=== PATIENT | male | born 1960 | race Two or more races ===

== ENCOUNTER 2018-12-06 10:10 | Inpatient (IN) | payer MEDICARE, MEDICAID ==
[~2018-12-06] VITALS: Ht 167.6 cm; Wt 104.9 kg
[2018-12-06] VITALS (12 sets, daily range): BP systolic 99–154; BP diastolic 54–88
--- NOTE | 2018-12-06 10:10 | NUR ---
ED Nurse Note: Pt brought in by ambulance from [facility] for Trach pulled out in shower. Pt restless and agitated and was breathing by ambu-bag support upon arrival. O2 sat 100% with ambu bag support. Alert and awake but was not able to determine orientation status. Skin intact but have not checked the back side due to severe breathing problem which needs to be stablized first. RT and MD at bedside.
--- NOTE | 2018-12-06 10:10 | NUR ---
ED Nurse Note: Ambu bag breathing support was initiated as soon as pt arrived.
--- NOTE | 2018-12-06 10:14 | NUR ---
ED Nurse Note: Etomedate 20mg given via IV
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
--- NOTE | 2018-12-06 10:16 | NUR ---
ED Nurse Note: Trache site is almost closed already, unable to insert Trach back
--- NOTE | 2018-12-06 10:20 | NUR ---
ED Nurse Note: anesthesia paged. VS 142/65, 94, 100% w ambu bag.
--- NOTE | 2018-12-06 10:28 | NUR ---
ED Nurse Note: Etomedate 20mg given
--- NOTE | 2018-12-06 10:30 | NUR ---
ED Nurse Note: Succinylcholine 100mg given via IVP
--- NOTE | 2018-12-06 10:35 | NUR ---
ED Nurse Note: Intubation successful by Dr. Garcia. Addendum: 12/06/18 at 1102 by [email or web address] ED Nurse Note: Intubation successful by Dr. Garcia. ETT 7cm and 24cm noted.
--- NOTE | 2018-12-06 10:41 | NUR ---
ED Nurse Note: Received verbal order for profopol and initianted at 5mcg/kg/min.
--- NOTE | 2018-12-06 10:51 | NUR ---
Note mahogany in EDM - 12/06/18 at 1102 by [email or web address] ED Nurse Note: ETT 6.0 and 25cm noted.
--- NOTE | 2018-12-06 11:00 | NUR ---
RESPIRATORY NOTE: FIO2 WAS TITRATED TO 30% PER DR GARZA ORDERS. ABG TO FOLLOW. OPA INSERTED TO PREVENT AND SECURED TO PREVENT PT. FROM BITTING TUBE. NO SOB NOTED AT THIS TIME.
[2018-12-06 11:14] LABS: BASOPHILS % (AUTO) 1.1 % (0.0-2.0); EOSINOPHILS % (AUTO) 3.3 % (0.0-3.0); HEMATOCRIT 31.9 % (42.0-52.0); HEMOGLOBIN 10.7 G/DL (14.2-18.0); LYMPHOCYTES % (AUTO) 14.5 % (20.0-45.0); MEAN CORPUSCULAR VOLUME 94 FL (80-99); MONOCYTES % (AUTO) 7.2 % (1.0-10.0); NEUTROPHILS % (AUTO) 73.9 % (45.0-75.0); PLATELET COUNT 407 K/UL (150-450); RED CELL DISTRIBUTION WIDTH 16.4 % (11.6-14.8); WHITE BLOOD COUNT 13.8 K/UL (4.8-10.8)
[2018-12-06 11:25] LABS: INR 1.2 (0.9-1.1)
[2018-12-06 11:29] LABS: ANION GAP 9 mmol/L (5-15); BLOOD UREA NITROGEN 87 mg/dL (7-18); CALCIUM 10.2 MG/DL (8.5-10.1); CARBON DIOXIDE 26 MMOL/L (21-32); CHLORIDE 97 MMOL/L (98-107); POTASSIUM 4.3 MMOL/L (3.5-5.1); SODIUM 132 MMOL/L (136-145)
[2018-12-06 11:35] LABS: ALANINE AMINOTRANSFERASE 16 U/L (12-78); ALBUMIN 3.1 G/DL (3.4-5.0); ALBUMIN/GLOBULIN RATIO 0.5 (1.0-2.7); ALKALINE PHOSPHATASE 172 U/L (46-116); ASPARTATE AMINO TRANSFERASE 17 U/L (15-37); BILIRUBIN,TOTAL 0.4 MG/DL (0.2-1.0)
--- NOTE | 2018-12-06 11:37 | Diagnostic Imaging Report ---
Indication: ETT placement Comparison: None A single view chest radiograph was obtained. Findings: ETT is 3 cm above the clint. Examination is limited by lordotic projection angle. No obvious infiltrate identified. Heart size is prominent but may be normal. Pacemaker is noted. IMPRESSION: Endotracheal tube in good position
--- NOTE | 2018-12-06 11:50 | NUR ---
ED Nurse Note: OPA, red, size 4 is inserted by RT due to pt bitting ETT.
[2018-12-06] MEDS ORDERED: LISINOPRIL2.5 MG GT (11:59)
[2018-12-06] MEDS ORDERED: METFORMIN HCL500 M1 GT (11:59)
[2018-12-06] MEDS ORDERED: ELIQUIS5 MG GT (11:59)
[2018-12-06] MEDS ORDERED: COLACE100 MG GT (11:59)
[2018-12-06] MEDS ORDERED: ALBUTEROL2.5 MG/3 M INH (11:59)
[2018-12-06] MEDS ORDERED: ATORVASTATIN CA40 MG ORAL (11:59)
[2018-12-06] MEDS ORDERED: PRO-STAT LIQUID30 ML GT (11:59)
[2018-12-06] MEDS ORDERED: VITAMIN C500 M1 GT (11:59)
[2018-12-06] MEDS ORDERED: KEPPRA1000 MG GT (11:59)
[2018-12-06] MEDS ORDERED: CARVEDILOL12.5 MG GT (11:59)
[2018-12-06] MEDS ORDERED: FAMOTIDINE20 MG GT (11:59)
[2018-12-06] MEDS ORDERED: AMIODARONE HCL100 MG GT (11:59)
[2018-12-06] MEDS ORDERED: FOLIC ACID1 MG GT (11:59)
[2018-12-06] MEDS ORDERED: ACETAMINOPHEN325 M1 GT (11:59)
[2018-12-06] MEDS ORDERED: MILK OF MA400 MG/51 GT (11:59)
[2018-12-06] MEDS ORDERED: MULTI-DELYN237 ML GT (11:59)
[2018-12-06] MEDS ORDERED: ALLOPURINOL300 M1 GT (11:59)
[2018-12-06] MEDS ORDERED: LANTUS SOL100 UNIT/1 SUBQ (11:59)
[2018-12-06] MEDS ORDERED: VITAMIN D400 INTLU IABDOM (11:59)
[2018-12-06] MEDS ORDERED: SPIRONOLACTONE25 MG GT (11:59)
[2018-12-06] MEDS ORDERED: FUROSEMIDE20 M1 GT (11:59)
--- NOTE | 2018-12-06 12:29 | Emergency Room Report ---
History of Present Illness General Chief Complaint: Dyspnea/Respdistress Source: Medical Record, EMS Present Illness HPI 58-year-old male comes via EMS with [facility] out his trach while in the shower. Patient is being bag mask ventilated and is not talking at all. Allergies: Coded Allergies: No Known Allergies (Unverified , 12/06/18) Patient History Past Medical History: see triage record Reviewed Nursing Documentation: PMH: Agreed; PSxH: Agreed Nursing Documentation-PMH Hx Cardiac Problems: Yes - ashd Hx COPD: Yes - trach,vent Review of Systems All Other Systems: limited - 11/16 distress/medical condition Physical Exam Vital Signs Date Time Temp Pulse Resp B/P (MAP) Pulse Ox O2 Delivery O2 Flow Rate FiO2 12/06/18 10:16 0 17 95 Ambu-Bag 12/06/18 10:20 142/65 12/06/18 10:25 15.0 12/06/18 10:35 100 Sp02 EP Interpretation: reviewed, normal General Appearance: alert, severe distress Head: normocephalic Eyes: bilateral eye normal inspection, bilateral eye EOMI ENT: normal pharynx, no angioedema, uvula midline, moist mucus membranes Neck: full range of motion, supple, tracheotomy - stoma/site completely closed with dried blood and tissue Respiratory: lungs clear, normal breath sounds, chest symmetrical, palpation of chest normal Cardiovascular #1: normal peripheral pulses, regular rate, rhythm, other - PPM site c/d/i Cardiovascular #2: 2+ radial (R), 2+ radial (L) Gastrointestinal: normal inspection, non tender, soft, no mass, no guarding, no rebound Rectal: deferred Genitourinary: normal inspection, no CVA tenderness Musculoskeletal: back normal, gait/station normal, normal range of motion, non- tender, no calf tenderness Neurologic: alert, responsive, motor strength/tone normal, speech normal Psychiatric: anxious Skin: normal color, no rash, warm/dry, normal turgor Lymphatic: no adenopathy Procedures Critical Care Time Critical Care Time 45 mins excluding all procedures Intubation Intubation : Consent: Emergent Intubation Method: orotracheal Tube Size (cm): 7.0 Medications: Etomidate, Succinylcholine Breath Sounds after Intubation: equal Intubation Complications: no complications Post Intubation Xray: Yes Attempts: Other - 2 Patient Tolerated: Well Complications: None Progress Patient was initially given etomidate And we were able to bag mask ventilated the entire time, O2 sats never dropped below 90, however I was initially hesitant to paralyze the patient, and could not pass the tube so just resumed BVM. Later, after finding out gen surgery was not in house, I went ahead and gave a second dose of etomidate then paralyzed, this time able to pass the ETT adn secured at 24 at the lips, no complications. Medical Decision Making Diagnostic Impression: Primary Impression: Respiratory distress ER Course Patient trach and PEG dependent, follow-up trach, stomal closes up, need emergent intubation, was a bag mask ventilated entire time, nasal intubation, and admitted to Dr. Martinez Rhythm Strip Diag. Results Rhythm Strip Time: 12:28 EP Interpretation: yes Rate: 90 Rhythm: no PVC's, no ectopy, other - paced Chest X-Ray Diagnostic Results Chest X-Ray Diagnostic Results : Chest X-Ray Ordered: Yes # of Views/Limited/Complete: 1 View Indication: Shortness of Breath EP Interpretation: Yes Interpretation: no consolidation, no effusion, no pneumothorax, no acute cardiopulmonary disease - ETT in place Impression: No acute disease Electronically Signed by: Shruthi Garza MD Last Vital Signs Date Time Temp Pulse Resp B/P (MAP) Pulse Ox O2 Delivery O2 Flow Rate FiO2 12/06/18 11:55 20 139/78 Mechanical Ventilator 30 12/06/18 11:00 89 12/06/18 10:25 15.0 12/06/18 10:20 100 Disposition: HOME, SELF-CARE Condition: Stable Referrals: Larry Li MD (PCP) SHRUTHI GARZA M.D Dec 06, 2018 12:29
--- NOTE | 2018-12-06 13:45 | NUR ---
ED Nurse Note: Report given to TEAGAN Capellan @ ICU.
--- NOTE | 2018-12-06 14:20 | NUR ---
ED Nurse Note: Pt left ER with 1 computer aided design technician, 1 RN, 1 RT in stable condition.
--- NOTE | 2018-12-06 14:31 | NUR ---
ED Nurse Note: TEAGAN Oates received pt Propofol Rate at 25mcg and pt lightly sedated.
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
--- NOTE | 2018-12-06 15:11 | NUR ---
NURSE NOTES: Dr Martinez made aware of admission with order to call Dr Garner for orders. Dr Garner made aware awaiting new orders.
--- NOTE | 2018-12-06 15:42 | Consultation ---
History of Present Illness General Date patient seen: Dec 06, 2018 Reason for Hospitalization: Dyspnea/Respdistress Present Illness HPI 58 year old male with multiple medical comorbidities who is half-way resident presented with dislodged trach. In ED bag mask oxygen given as required and intubated for airway protection given history of respiratory insufficiency with vent dependency. surgery called to evaluate and assist with replacement of trach Allergies: Coded Allergies: No Known Allergies (Unverified , 12/06/18) Medication History Scheduled Allopurinol* (Allopurinol*), 300 MG GT DAILY, (Reported) Amino Acids/Protein Hydrolys (Pro-Stat Liquid), 30 ML GT TWICE A DAY, (Reported) Amiodarone Hcl (Amiodarone Hcl), 100 MG GT DAILY, (Reported) Ascorbic Acid* (Vitamin C*), 500 MG GT DAILY, (Reported) Atorvastatin Calcium* (Atorvastatin Calcium*), 40 MG ORAL BEDTIME, (Reported) Carvedilol* (Carvedilol*), 12.5 MG GT EVERY 12 HOURS, (Reported) Docusate Sodium* (Colace*), 100 MG GT DAILY, (Reported) Famotidine (Famotidine), 20 MG GT DAILY, (Reported) Folic Acid* (Folic Acid*), 1 MG GT DAILY, (Reported) Furosemide* (Lasix*), 20 MG GT BID, (Reported) Insulin Glargine (Lantus), 0 SUBQ BEDTIME, (Reported) Levetiracetam (Keppra), 1,000 MG GT DAILY, (Reported) Lisinopril* (Lisinopril*), 2.5 MG GT DAILY, (Reported) Magnesium Hydroxide* (Milk Of Magnesia*), 30 ML GT DAILY, (Reported) Metformin Hcl* (Metformin Hcl*), 500 MG GT TWICE A DAY, (Reported) Multivitamin Liquid* (Multi-Delyn*), 5 ML GT DAILY, (Reported) Spironolactone* (Aldactone*), 25 MG GT DAILY, (Reported) Vitamin D (Vitamin D3), 5,000 UNITS IABDOM DAILY, (Reported) Scheduled PRN Acetaminophen* (Acetaminophen 325MG Tablet*), 650 MG GT Q4H PRN for Pain Scale ( 3-5), (Reported) Albuterol Sulfate* (Albuterol Sulfate Hhn*), 3 ML INH Q4H PRN for Shortness of Breath, (Reported) Miscellaneous Medications Apixaban (Eliquis), 5 MG GT, (Reported) Patient History Limited by: medical condition History Provided By: Medical Record, PMD Healthcare decision maker Resuscitation status Advanced Directive on File Past Medical/Surgical History Past Medical/Surgical History: (1) Respiratory distress Review of Systems Review of Symptoms cannot obtain given medical condition Physical Exam Physical Exam General appearance: alert, mild distress, appears stated age Head: Normocephalic, without obvious abnormality, atraumatic Eyes: conjunctivae/corneas clear. PERRL, EOM's intact. Fundi benign Throat: Lips, mucosa, and tongue normal. Teeth and gums normal Neck: supple, symmetrical, trachea midline with trach hole right lateral to trachea, no adenopathy, thyroid: not enlarged, symmetric, no tenderness/mass/ nodules, no carotid bruit and no JVD Lungs: clear to auscultation bilaterally Heart: regular rate and rhythm, S1, S2 normal, no murmur, click, rub or gallop Abdomen: soft, non-tender. Bowel sounds normal. No masses, no organomegaly Extremities: extremities normal, atraumatic, no cyanosis or edema Pulses: 2+ and symmetric Skin: Skin color, texture, turgor normal. No rashes or lesions Neurologic: Grossly normal Last 24 Hour Vital Signs Date Time Temp Pulse Resp B/P (MAP) Pulse Ox O2 Delivery O2 Flow Rate FiO2 12/06/18 14:20 97.7 92 20 99/54 100 Mechanical Ventilator 15.0 30 12/06/18 14:20 97.7 92 20 99/54 100 Mechanical Ventilator 12/06/18 13:40 16 99/59 Mechanical Ventilator 30 12/06/18 13:27 97.7 95 12 131/70 100 Mechanical Ventilator 30 12/06/18 13:25 12 95/63 Mechanical Ventilator 30 12/06/18 13:10 15 113/77 Mechanical Ventilator 12/06/18 12:55 12 109/83 Mechanical Ventilator 30 12/06/18 12:40 12 125/76 Mechanical Ventilator 30 12/06/18 12:25 19 122/72 Mechanical Ventilator 30 12/06/18 12:20 92 20 132/88 100 Mechanical Ventilator 100 12/06/18 12:10 20 132/88 Mechanical Ventilator 30 12/06/18 11:55 20 139/78 Mechanical Ventilator 30 12/06/18 11:40 20 99/66 Mechanical Ventilator 100 12/06/18 11:25 16 113/65 Mechanical Ventilator 100 12/06/18 11:20 90 18 104/76 100 Mechanical Ventilator 100 12/06/18 11:10 16 104/76 Mechanical Ventilator 100 12/06/18 11:00 100 12/06/18 11:00 89 18 30 12/06/18 10:55 24 154/83 Mechanical Ventilator 100 12/06/18 10:35 89 19 Mechanical Ventilator 12/06/18 10:35 89 19 100 12/06/18 10:25 88 21 Ambu-Bag 15.0 12/06/18 10:20 94 12 142/65 100 Ambu-Bag 12/06/18 10:16 97.2 0 17 99/65 95 Ambu-Bag Laboratory Tests Test 12/06/18 10:30 12/06/18 12:20 White Blood Count 13.8 K/UL (4.8-10.8) H Red Blood Count 3.40 M/UL (4.70-6.10) L Hemoglobin 10.7 G/DL (14.2-18.0) L Hematocrit 31.9 % (42.0-52.0) L Mean Corpuscular Volume 94 FL (80-99) Mean Corpuscular Hemoglobin 31.6 PG (27.0-31.0) H Mean Corpuscular Hemoglobin Concent 33.6 G/DL (32.0-36.0) Red Cell Distribution Width 16.4 % (11.6-14.8) H Platelet Count 407 K/UL (150-450) Mean Platelet Volume 6.9 FL (6.5-10.1) Neutrophils (%) (Auto) 73.9 % (45.0-75.0) Lymphocytes (%) (Auto) 14.5 % (20.0-45.0) L Monocytes (%) (Auto) 7.2 % (1.0-10.0) Eosinophils (%) (Auto) 3.3 % (0.0-3.0) H Basophils (%) (Auto) 1.1 % (0.0-2.0) Prothrombin Time 12.4 SEC (9.30-11.50) H Prothromb Time International Ratio 1.2 (0.9-1.1) H Activated Partial Thromboplast Time 32 SEC (23-33) Sodium Level 132 MMOL/L (136-145) L Potassium Level 4.3 MMOL/L (3.5-5.1) Chloride Level 97 MMOL/L (98-107) L Carbon Dioxide Level 26 MMOL/L (21-32) Anion Gap 9 mmol/L (5-15) Blood Urea Nitrogen 87 mg/dL (7-18) H Creatinine 2.0 MG/DL (0.55-1.30) H Estimat Glomerular Filtration Rate 34.3 mL/min (>60) Glucose Level 129 MG/DL (74-106) H Calcium Level 10.2 MG/DL (8.5-10.1) H Total Bilirubin 0.4 MG/DL (0.2-1.0) Aspartate Amino Transf (AST/SGOT) 17 U/L (15-37) Alanine Aminotransferase (ALT/SGPT) 16 U/L (12-78) Alkaline Phosphatase 172 U/L (46-116) H Total Protein 9.1 G/DL (6.4-8.2) H Albumin 3.1 G/DL (3.4-5.0) L Globulin 6.0 g/dL Albumin/Globulin Ratio 0.5 (1.0-2.7) L Triglycerides Level 186 MG/DL (30-150) H Arterial Blood pH 7.426 (7.350-7.450) Arterial Blood Partial Pressure CO2 37.6 mmHg (35.0-45.0) Arterial Blood Partial Pressure O2 96.5 mmHg (75.0-100.0) Arterial Blood HCO3 24.2 mmol/L (22.0-26.0) Arterial Blood Oxygen Saturation 97.0 % (95-100) Arterial Blood Base Excess 0 (-2-2) Agustin Test Positive Height (Feet): 5 Height (Inches): 8.00 Weight (Pounds): 280 Assessment/Plan Problem List: (1) Respiratory distress Assessment & Plan: Tracheostomy dislodged intubated for airway protection seen in ICU minutes after. per history trach for months now. per report only dislodged for 30-40 minutes when seen at bedside 1cm healing tracheostomy site seen. evaluated and probed but no proper trach track could be noted. should be able to have well formed track by now and should easily be able to palpate ET tube but unable to do so on exam. Not sure if prior attempts to manipulation or new trach placement was done prior to arrival to hospital and no report of this given. currently no safe track seen for replacement trach. recommend stabilization once stable will schedule to replace tracheostomy in OR under safe and controlled setting. will plan for bronchostomy first and possible trach replacement vs new trach placement. likely sunday thank you ICD Codes: R06.03 - Acute respiratory distress SNOMED: [id number] Tae Allen Dec 06, 2018 15:42
--- NOTE | 2018-12-06 16:02 | Pulmonolgy Critical Care Note ---
Critical Care - Asmt/Plan Problems: (1) Acute respiratory failure (2) Diabetes mellitus (3) ICD (implantable cardioverter-defibrillator) in place (4) History of CVA (cerebrovascular accident) (5) Feeding by G-tube Respiratory: monitor respiratory rate, adjust FIO2, CXR Cardiac: continue pressors, continue to monitor HR/BP Renal: F/U I&O Infectious Disease: check cultures, continue antibiotics Gastrointestinal: adjust feedings Endocrine: monitor blood sugar Hematologic: monitor H/H, transfuse if hgb<8.5 Neurologic: PRN Ativan, PRN Morphine, keep patient comfortable Affect: PRN ativan Time Spent (Minutes): 40 Notes Reviewed: councilman, cardio Discussed with: consultants, mental health case managerquarrying manager - Objective Last 24 Hour Vital Signs Date Time Temp Pulse Resp B/P (MAP) Pulse Ox O2 Delivery O2 Flow Rate FiO2 12/06/18 14:20 97.7 92 20 99/54 100 Mechanical Ventilator 15.0 30 12/06/18 14:20 97.7 92 20 99/54 100 Mechanical Ventilator 30 12/06/18 13:40 16 99/59 Mechanical Ventilator 30 12/06/18 13:27 97.7 95 12 131/70 100 Mechanical Ventilator 30 12/06/18 13:25 12 95/63 Mechanical Ventilator 30 12/06/18 13:10 15 113/77 Mechanical Ventilator 30 12/06/18 12:55 12 109/83 Mechanical Ventilator 30 12/06/18 12:40 12 125/76 Mechanical Ventilator 30 12/06/18 12:25 19 122/72 Mechanical Ventilator 30 12/06/18 12:20 92 20 132/88 100 Mechanical Ventilator 100 12/06/18 12:10 20 132/88 Mechanical Ventilator 30 12/06/18 11:55 20 139/78 Mechanical Ventilator 30 12/06/18 11:40 20 99/66 Mechanical Ventilator 100 12/06/18 11:25 16 113/65 Mechanical Ventilator 100 12/06/18 11:20 90 18 104/76 100 Mechanical Ventilator 100 12/06/18 11:10 16 104/76 Mechanical Ventilator 100 12/06/18 11:00 100 12/06/18 11:00 89 18 30 12/06/18 10:55 24 154/83 Mechanical Ventilator 100 12/06/18 10:35 89 19 Mechanical Ventilator 12/06/18 10:35 89 19 100 12/06/18 10:25 88 21 Ambu-Bag 15.0 12/06/18 10:20 94 12 142/65 100 Ambu-Bag 12/06/18 10:16 97.2 0 17 99/65 95 Ambu-Bag Status: sedated, somnolent Condition: critical HEENT: atraumatic Heart: HR/BP stable, regular Abdomen: non-tender Extremities: no C/C/E, edema Critical Care - Subjective ROS Limited/Unobtainable: Yes Interval Events: 58-year-old male comes brought in by EMS to ER from care home because he apparently pulled out his trach . Patient was being bagged whenhe arrived to ER. He was orally intubated and transferred to ICU. Condition: critical EKG Rhythm: V-Paced FI02: 30 Vent Support Breath Rate: 16 Vent Support Mode: AC Vent Tidal Volume: 600 Sputum Amount: Large PEEP: 5.0 PIP: 30 CXR: trach in place ET-Tube: 24.0 ET Position: 24 Labs: Laboratory Tests Test 12/06/18 10:30 12/06/18 12:20 White Blood Count 13.8 K/UL (4.8-10.8) H Red Blood Count 3.40 M/UL (4.70-6.10) L Hemoglobin 10.7 G/DL (14.2-18.0) L Hematocrit 31.9 % (42.0-52.0) L Mean Corpuscular Volume 94 FL (80-99) Mean Corpuscular Hemoglobin 31.6 PG (27.0-31.0) H Mean Corpuscular Hemoglobin Concent 33.6 G/DL (32.0-36.0) Red Cell Distribution Width 16.4 % (11.6-14.8) H Platelet Count 407 K/UL (150-450) Mean Platelet Volume 6.9 FL (6.5-10.1) Neutrophils (%) (Auto) 73.9 % (45.0-75.0) Lymphocytes (%) (Auto) 14.5 % (20.0-45.0) L Monocytes (%) (Auto) 7.2 % (1.0-10.0) Eosinophils (%) (Auto) 3.3 % (0.0-3.0) H Basophils (%) (Auto) 1.1 % (0.0-2.0) Prothrombin Time 12.4 SEC (9.30-11.50) H Prothromb Time International Ratio 1.2 (0.9-1.1) H Activated Partial Thromboplast Time 32 SEC (23-33) Sodium Level 132 MMOL/L (136-145) L Potassium Level 4.3 MMOL/L (3.5-5.1) Chloride Level 97 MMOL/L (98-107) L Carbon Dioxide Level 26 MMOL/L (21-32) Anion Gap 9 mmol/L (5-15) Blood Urea Nitrogen 87 mg/dL (7-18) H Creatinine 2.0 MG/DL (0.55-1.30) H Estimat Glomerular Filtration Rate 34.3 mL/min (>60) Glucose Level 129 MG/DL (74-106) H Calcium Level 10.2 MG/DL (8.5-10.1) H Total Bilirubin 0.4 MG/DL (0.2-1.0) Aspartate Amino Transf (AST/SGOT) 17 U/L (15-37) Alanine Aminotransferase (ALT/SGPT) 16 U/L (12-78) Alkaline Phosphatase 172 U/L (46-116) H Total Protein 9.1 G/DL (6.4-8.2) H Albumin 3.1 G/DL (3.4-5.0) L Globulin 6.0 g/dL Albumin/Globulin Ratio 0.5 (1.0-2.7) L Triglycerides Level 186 MG/DL (30-150) H Arterial Blood pH 7.426 (7.350-7.450) Arterial Blood Partial Pressure CO2 37.6 mmHg (35.0-45.0) Arterial Blood Partial Pressure O2 96.5 mmHg (75.0-100.0) Arterial Blood HCO3 24.2 mmol/L (22.0-26.0) Arterial Blood Oxygen Saturation 97.0 % (95-100) Arterial Blood Base Excess 0 (-2-2) Agustin Test Positive Yudy Garner MD Dec 06, 2018 16:02
--- NOTE | 2018-12-06 16:03 | NUR ---
NURSE NOTES: Mouth care done.Kept clean and dry. Will continue to monitor
--- NOTE | 2018-12-06 16:36 | Consultation ---
History of Present Illness General Date patient seen: Dec 06, 2018 Chief Complaint: Dyspnea/Respdistress Present Illness HPI 58 y/o M with hx of COPD, chronic respiratory failure s/p trach, dysphagia s/p GT, gout, NH resident presents to ED on 12/06 with dislodged trach. Trach couldnt be reinserted and patient was endotracheally intubated. Allergies: Coded Allergies: No Known Allergies (Unverified , 12/06/18) Medication History Scheduled Allopurinol* (Allopurinol*), 300 MG GT DAILY, (Reported) Amino Acids/Protein Hydrolys (Pro-Stat Liquid), 30 ML GT TWICE A DAY, (Reported) Amiodarone Hcl (Amiodarone Hcl), 100 MG GT DAILY, (Reported) Ascorbic Acid* (Vitamin C*), 500 MG GT DAILY, (Reported) Atorvastatin Calcium* (Atorvastatin Calcium*), 40 MG ORAL BEDTIME, (Reported) Carvedilol* (Carvedilol*), 12.5 MG GT EVERY 12 HOURS, (Reported) Docusate Sodium* (Colace*), 100 MG GT DAILY, (Reported) Famotidine (Famotidine), 20 MG GT DAILY, (Reported) Folic Acid* (Folic Acid*), 1 MG GT DAILY, (Reported) Furosemide* (Lasix*), 20 MG GT BID, (Reported) Insulin Glargine (Lantus), 0 SUBQ BEDTIME, (Reported) Levetiracetam (Keppra), 1,000 MG GT DAILY, (Reported) Lisinopril* (Lisinopril*), 2.5 MG GT DAILY, (Reported) Magnesium Hydroxide* (Milk Of Magnesia*), 30 ML GT DAILY, (Reported) Metformin Hcl* (Metformin Hcl*), 500 MG GT TWICE A DAY, (Reported) Multivitamin Liquid* (Multi-Delyn*), 5 ML GT DAILY, (Reported) Spironolactone* (Aldactone*), 25 MG GT DAILY, (Reported) Vitamin D (Vitamin D3), 5,000 UNITS IABDOM DAILY, (Reported) Scheduled PRN Acetaminophen* (Acetaminophen 325MG Tablet*), 650 MG GT Q4H PRN for Pain Scale ( 3-5), (Reported) Albuterol Sulfate* (Albuterol Sulfate Hhn*), 3 ML INH Q4H PRN for Shortness of Breath, (Reported) Miscellaneous Medications Apixaban (Eliquis), 5 MG GT, (Reported) Patient History Healthcare decision maker Resuscitation status Advanced Directive on File Patient History Narrative Pmhx: as above Shx: reviewed Fhx: non contributory Review of Systems All Other Systems: negative except mentioned in HPI Physical Exam Physical Exam Narrative General appearance: alert, mild distress, appears stated age Head: Normocephalic, without obvious abnormality, atraumatic Eyes: conjunctivae/corneas clear. PERRL, EOM's intact. Fundi benign Throat: Lips, mucosa, and tongue normal. Teeth and gums normal Neck: supple, symmetrical, trachea midline with trach hole right lateral to trachea, no adenopathy, thyroid: not enlarged, symmetric, no tenderness/mass/ nodules, no carotid bruit and no JVD Lungs: clear to auscultation bilaterally Heart: regular rate and rhythm, S1, S2 normal, no murmur, click, rub or gallop Abdomen: soft, non-tender. Bowel sounds normal. No masses, no organomegaly Extremities: extremities normal, atraumatic, no cyanosis or edema Pulses: 2+ and symmetric Skin: Skin color, texture, turgor normal. No rashes or lesions Neurologic: Grossly normal Last 24 Hour Vital Signs Date Time Temp Pulse Resp B/P (MAP) Pulse Ox O2 Delivery O2 Flow Rate FiO2 12/06/18 15:00 Mechanical Ventilator 12/06/18 14:20 97.7 92 20 99/54 100 Mechanical Ventilator 15.0 30 12/06/18 14:20 97.7 92 20 99/54 100 Mechanical Ventilator 30 12/06/18 13:40 16 99/59 Mechanical Ventilator 30 12/06/18 13:27 97.7 95 12 131/70 100 Mechanical Ventilator 30 12/06/18 13:25 12 95/63 Mechanical Ventilator 30 12/06/18 13:10 15 113/77 Mechanical Ventilator 30 12/06/18 12:55 12 109/83 Mechanical Ventilator 30 12/06/18 12:40 12 125/76 Mechanical Ventilator 30 12/06/18 12:25 19 122/72 Mechanical Ventilator 30 12/06/18 12:20 92 20 132/88 100 Mechanical Ventilator 100 12/06/18 12:10 20 132/88 Mechanical Ventilator 30 12/06/18 11:55 20 139/78 Mechanical Ventilator 30 12/06/18 11:40 20 99/66 Mechanical Ventilator 100 12/06/18 11:25 16 113/65 Mechanical Ventilator 100 12/06/18 11:20 90 18 104/76 100 Mechanical Ventilator 100 12/06/18 11:10 16 104/76 Mechanical Ventilator 100 12/06/18 11:00 100 12/06/18 11:00 89 18 30 12/06/18 10:55 24 154/83 Mechanical Ventilator 100 12/06/18 10:35 89 19 Mechanical Ventilator 12/06/18 10:35 89 19 100 12/06/18 10:25 88 21 Ambu-Bag 15.0 12/06/18 10:20 94 12 142/65 100 Ambu-Bag 12/06/18 10:16 97.2 0 17 99/65 95 Ambu-Bag Laboratory Tests Test 12/06/18 10:30 12/06/18 12:20 White Blood Count 13.8 K/UL (4.8-10.8) H Red Blood Count 3.40 M/UL (4.70-6.10) L Hemoglobin 10.7 G/DL (14.2-18.0) L Hematocrit 31.9 % (42.0-52.0) L Mean Corpuscular Volume 94 FL (80-99) Mean Corpuscular Hemoglobin 31.6 PG (27.0-31.0) H Mean Corpuscular Hemoglobin Concent 33.6 G/DL (32.0-36.0) Red Cell Distribution Width 16.4 % (11.6-14.8) H Platelet Count 407 K/UL (150-450) Mean Platelet Volume 6.9 FL (6.5-10.1) Neutrophils (%) (Auto) 73.9 % (45.0-75.0) Lymphocytes (%) (Auto) 14.5 % (20.0-45.0) L Monocytes (%) (Auto) 7.2 % (1.0-10.0) Eosinophils (%) (Auto) 3.3 % (0.0-3.0) H Basophils (%) (Auto) 1.1 % (0.0-2.0) Prothrombin Time 12.4 SEC (9.30-11.50) H Prothromb Time International Ratio 1.2 (0.9-1.1) H Activated Partial Thromboplast Time 32 SEC (23-33) Sodium Level 132 MMOL/L (136-145) L Potassium Level 4.3 MMOL/L (3.5-5.1) Chloride Level 97 MMOL/L (98-107) L Carbon Dioxide Level 26 MMOL/L (21-32) Anion Gap 9 mmol/L (5-15) Blood Urea Nitrogen 87 mg/dL (7-18) H Creatinine 2.0 MG/DL (0.55-1.30) H Estimat Glomerular Filtration Rate 34.3 mL/min (>60) Glucose Level 129 MG/DL (74-106) H Calcium Level 10.2 MG/DL (8.5-10.1) H Total Bilirubin 0.4 MG/DL (0.2-1.0) Aspartate Amino Transf (AST/SGOT) 17 U/L (15-37) Alanine Aminotransferase (ALT/SGPT) 16 U/L (12-78) Alkaline Phosphatase 172 U/L (46-116) H Total Protein 9.1 G/DL (6.4-8.2) H Albumin 3.1 G/DL (3.4-5.0) L Globulin 6.0 g/dL Albumin/Globulin Ratio 0.5 (1.0-2.7) L Triglycerides Level 186 MG/DL (30-150) H Arterial Blood pH 7.426 (7.350-7.450) Arterial Blood Partial Pressure CO2 37.6 mmHg (35.0-45.0) Arterial Blood Partial Pressure O2 96.5 mmHg (75.0-100.0) Arterial Blood HCO3 24.2 mmol/L (22.0-26.0) Arterial Blood Oxygen Saturation 97.0 % (95-100) Arterial Blood Base Excess 0 (-2-2) Agustin Test Positive Height (Feet): 5 Height (Inches): 8.00 Weight (Pounds): 280 Medications Current Medications Medications (Trade) Dose Ordered Sig/Sophie Route PRN Reason Start Time Stop Time Status Last Admin Dose Admin Acetaminophen (Tylenol) 650 mg Q4H PRN ORAL fever 12/06/18 16:00 01/05/19 15:59 UNV Albuterol/ Ipratropium (Albuterol/ Ipratropium) 3 ml EVERY 4 HOURS PRN HHN Shortness of Breath 12/06/18 16:00 12/11/18 15:59 UNV Allopurinol (Allopurinol) 300 mg DAILY GT 12/07/18 09:00 01/06/19 08:59 UNV Amikacin Sulfate / Sodium Chloride 110 ml @ 110 mls/hr Q24H IV 12/06/18 23:45 12/13/18 23:44 UNV Amiodarone HCl (Cordarone) 100 mg DAILY GT 12/07/18 09:00 01/06/19 08:59 UNV Carvedilol (Coreg) 12.5 mg EVERY 12 HOURS GT 12/06/18 21:00 01/05/19 20:59 UNV Ertapenem 1 gm/ Sodium Chloride 55 ml @ 110 mls/hr Q24H IV 12/06/18 23:45 12/11/18 23:44 UNV Heparin Sodium (Porcine) (Heparin 5000 units/ml) 5,000 units EVERY 12 HOURS SUBQ 12/06/18 21:00 01/05/19 20:59 UNV Levetiracetam (Keppra) 1,000 mg DAILY GT 12/07/18 09:00 01/06/19 08:59 UNV Lorazepam (Ativan 2mg/ml 1ml) 2 mg EVERY 2 HOURS PRN IV For Anxiety 12/06/18 16:00 12/13/18 15:59 UNV Morphine Sulfate (Morphine Sulfate) 4 mg EVERY 4 HOURS PRN IVP Severe Pain (Pain Scale 7-10) 12/06/18 16:00 12/13/18 15:59 UNV Norepinephrine Bitartrate 4 mg/ Dextrose 254 ml @ 0 mls/hr Q24H IV 12/06/18 16:00 01/05/19 15:59 UNV Ondansetron HCl (Zofran) 4 mg Q6H PRN IVP Nausea & Vomiting 12/06/18 16:00 01/05/19 15:59 UNV Pantoprazole (Protonix) 40 mg DAILY IVP 12/07/18 09:00 01/06/19 08:59 UNV Polyethylene Glycol (Miralax) 17 gm DAILYPRN PRN ORAL Constipation 12/06/18 16:00 01/05/19 15:59 UNV Sodium Chloride 1,000 ml @ 100 mls/hr Q10H IVLG 12/06/18 15:59 01/05/19 15:58 UNV Vancomycin HCl 1 gm/Dextrose 275 ml @ 183.3 mls/ hr Q24H IV 12/06/18 23:45 12/11/18 23:44 UNV Assessment/Plan Assessment/Plan Abx: IV Vancomycin 12/06- Ertapenem 12/06- Amikacin 12/06- Assessment: Dislodged trach Acute respiratory failure s/p intubation 12/06 -CXR: No obvious infiltrate identified. MIld leukocytosis- likely reactive -u/a neg Afebrile COPD chronic respiratory failure s/p trach dysphagia s/p GT gout NH resident Plan: -D/c Vancomycin, Ertapenem and amikacin and start Empiric Zosyn for now -f/u cx -MOnitor CBC/CMP, temperatures -ETT/GT/ICU care -aspiration precautions Thank you for this consultation. Will continue to follow along with you. Discussed with Flavia Rudd M.D. Dec 06, 2018 16:36
--- NOTE | 2018-12-06 16:39 | History & Physical ---
History and Physical History & Physicial Job @ [id number] Jian Martinez MD Dec 06, 2018 16:39
[2018-12-06] MEDS ORDERED: Albuterol/Ipratropium 3ml neb HHN PRN (17:00)
[2018-12-06] MEDS ORDERED: Morphine Sulfate 4mg/ml Inj (IV USE ONLY) IVP PRN (17:30)
[2018-12-06] MEDS ORDERED: Miralax 17gm pkt ORAL PRN (17:30)
[2018-12-06] MEDS ORDERED: LORazepam Inj 2mg/ml 1ml IV PRN (17:30)
[2018-12-06 18:00] LABS: APPEARANCE,URINE CLEAR; BILIRUBIN, URINE NEGATIVE (NEGATIVE); COLOR,URINE PALE YELLOW; GLUCOSE, URINE (UA) NEGATIVE (NEGATIVE); KETONES,URINE NEGATIVE (NEGATIVE); LEUKOCYTE ESTERASE ,URINE NEGATIVE (NEGATIVE); NITRITE,URINE NEGATIVE (NEGATIVE); PH,URINE 6 (4.5-8.0); PROTEIN,URINE NEGATIVE (NEGATIVE); UROBILINOGEN,URINE NORMAL MG/DL (0.0-1.0)
--- NOTE | 2018-12-06 18:12 | NUR ---
NURSE NOTES: Adls done, turned and repositioned.Kept clean and dry
--- NOTE | 2018-12-06 18:57 | NUR ---
CASE MANAGEMENT: REVIEW 58/M BIBA FROM [facility] CC: RESP DISTRESS DUE TO ACCIDENTAL TRACH REMOVAL SI: RESP DISTRESS / VENT DEPENDANT . ORALLY INTUBATED T 97.7 HR 79 RR 20 BP 95/63 SAT 100% MECH VENT FIO2 100 WBC 13.8 H/H 10.7/31.9 NA 132 BUN 87 CR 2.0 IS: NOREPINEPHRINE IV X1 NS IVF BOLUS X1 PROPOFOL IV X1 PATIENT ADMITTED TO ICU 12/06/2018 DCP: PATIENT IS FROM [facility]
--- NOTE | 2018-12-06 19:00 | NUR ---
HAND-OFF: Report given to TEAGAN Obrien.
--- NOTE | 2018-12-06 19:15 | History and Physical Report ---
DATE OF ADMISSION: 12/06/2018 CHIEF COMPLAINT: Tracheostomy tube dislodged. HISTORY OF PRESENT ILLNESS: This is a 58-year-old gentleman with past medical history significant for chronic respiratory failure, vent dependent, history of dysphagia, status post PEG, diabetes type 2, history of cardiac arrhythmias, status post AICD placement, history of nontraumatic intracerebral hemorrhage, history of heart failure in the past, left ventricular failure, atherosclerotic heart disease, coronary artery disease without angina, hemiplegia with prior history of cerebral infarction, who was presented to the hospital from [facility] after he was noted to have a tracheostomy tube dislodged during the bed bath. The patient is nonverbal at baseline and subsequently the patient was transferred to the emergency room. Shortly after initial evaluation in the emergency room, the patient was orally intubated because was not able to place the tracheostomy back in and subsequently the patient was admitted to ICU for further evaluation and therapy. PAST MEDICAL HISTORY/PAST SURGICAL HISTORY: As above, history of cardiac arrhythmias on anticoagulation with Eliquis, presently on amiodarone, history of seizure disorder, diabetes type 2, chronic respiratory failure, vent dependent, dysphagia status post PEG, history of intracranial bleeding, history of coronary artery disease, atherosclerotic heart disease, heart failure, and status post AICD. MEDICATIONS: Medications at home, please refer to medication reconciliation. ALLERGIES: No known drug allergies. SOCIAL HISTORY: No smoking, alcohol, or drugs. care home resident, at this time bedbounded. FAMILY HISTORY: Noncontributory. REVIEW OF SYSTEMS: Very limited secondary to the patient's status. The patient is presently sedated, not verbal. PHYSICAL EXAMINATION: VITAL SIGNS: On admission is significant for temperature 97.7, pulse 92, respirations 20, and blood pressure 99/54, repeat one is 142/65. GENERAL: The patient is awake with deep stimulation, however, at this time sedated. HEAD AND NECK: Pupils are equal and reactive. Anicteric. Neck, tracheostomy site was noted. We removed the tracheal tube and there is closure of the tract already. No sign of bleeding. LUNGS: Bilateral air entry. Mechanical breath sounds. No wheezes. HEART: S1, S2, irregular. Distant heart sounds. AICD on left side of chest wall was noted. ABDOMEN: Soft, nondistended, and nontender. Mildly obese. PEG site is clean. EXTREMITIES: No cyanosis, clubbing, or edema. NEUROLOGIC: Limited secondary to the patient's status, sedated, unable to communicate. LABORATORY DATA: On admission is significant for WBC of 13, hemoglobin 10.7, hematocrit 31, and platelets 404. Sodium 132, potassium 4.3, chloride 97, bicarb 26, BUN 87, and creatinine 2.0. GFR is 34.3. Triglycerides 186. Alkaline phosphatase 172. PT 12, INR 1.2, and PTT 32. . ABG, pH of 7.426, pCO2 of 37, pO2 of 96, saturating 97%. Chest x-ray was noted to be endotracheal tube in a good position. No infiltrate. AICD was noted on left-sided chest wall. The patient's EKG was noted to be atrial sensing, ventricular pacing with ventricular rate of 90, biventricular pacer. No ST elevation was identified. ASSESSMENT: 1. Chronic respiratory failure on vent dependent, status post tracheostomy, dislodged. 2. Diabetes type 2. 3. History of cardiac arrhythmias. 4. Status post biventricular ICD. 5. Dysphagia status post percutaneous endoscopic gastrostomy. 6. Morbid obesity. 7. Peripheral vascular disease. 8. Acute kidney injury and chronic renal insufficiency. 9. History of epilepsy. 10. Chronic atrial fibrillation. 11. Fatty liver. 12. Essential hypertension. 13. Nontraumatic intracerebral hemorrhage. 14. Anemia of chronic disease. PLAN: Admit the patient to ICU. We will follow up with Dr. Garner's recommendation as well as Dr. Allen from Surgery. We will monitor laboratory closely. At this time, the patient has a code status Full Code on the POLST was written. Broad-spectrum antibiotic with ertapenem and amikacin. Monitor laboratory and culture. DVT prophylaxis is heparin subcutaneous. At this time in anticipation of possible tracheostomy placement again, we will hold off on Eliquis. Jian Martinez M.D. DR: CHUY JOB#: [id number] CC:
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
[2018-12-06] MEDS ORDERED: Ertapenem 1 GM in NS 55 ML IV SCH (20:00)
[2018-12-06] MEDS: levETIRAcetam 500mg/5ml Liquid GT SCH (21:00)
[2018-12-06] MEDS: Carvedilol 12.5mg tab GT SCH (21:00)
[2018-12-06] MEDS: Heparin 5000 units/ml inj SUBQ SCH (21:01)
[2018-12-06] MEDS: NovoLOG Insulin Flexpen SUBQ SCH (21:26)
[2018-12-06] MEDS: Piperacillin/Tazobactam 3.375 GM in D5W 110 ML IVPB SCH (21:50)
--- NOTE | 2018-12-06 22:00 | NUR ---
NURSE NOTES: Pt's resting in bed, in no acute distress. VS stable. Will continue to monitor.
[2018-12-06] MEDS ORDERED: Amikacin 0 MG in NS 110 ML IV SCH (23:45)
[2018-12-06] MEDS ORDERED: Vancomycin 1 GM in D5W 275 ML IV SCH (23:45)
--- NOTE | 2018-12-07 | NUR ---
NURSE NOTES: Pt's resting in bed, in no acute distress. Old trach site dry, no active bleeding noted. Vs stable. Will continue to monitor.
--- NOTE | 2018-12-07 02:00 | NUR ---
NURSE NOTES: Pt's resting in bed, in no acute distress. VS stable. Will continue to monitor.
--- NOTE | 2018-12-07 04:00 | NUR ---
NURSE NOTES: pt's resting in bed, in no acute distress. VS stable. Will continue to monitor.
[2018-12-07] MEDS: Piperacillin/Tazobactam 3.375 GM in D5W 110 ML IVPB SCH ×3 (06:00→22:22)
--- NOTE | 2018-12-07 06:00 | NUR ---
NURSE NOTES: Pt's resting in bed, in no acute distress. VS stable. Will continue to monitor.
[2018-12-07] MEDS: NovoLOG Insulin Flexpen SUBQ SCH ×4 (06:30→21:39)
[2018-12-07 07:04] LABS: BASOPHILS % (AUTO) 0.6 % (0.0-2.0); HEMATOCRIT 28.9 % (42.0-52.0); HEMOGLOBIN 9.4 G/DL (14.2-18.0); MEAN CORPUSCULAR VOLUME 96 FL (80-99); MONOCYTES % (AUTO) 7.9 % (1.0-10.0); NEUTROPHILS % (AUTO) 76.5 % (45.0-75.0); PLATELET COUNT 325 K/UL (150-450); WHITE BLOOD COUNT 11.3 K/UL (4.8-10.8)
--- NOTE | 2018-12-07 07:11 | NUR ---
HAND-OFF: Report given to TEAGAN Bhatia.
--- NOTE | 2018-12-07 07:19 | Pulmonolgy Critical Care Note ---
Critical Care - Asmt/Plan Assessment/Plan: ASSESSMENT Acute on chronic respiratory failure (vent dependent) due to trach dislodgement Leukocytosis Diabetes mellitus type 2 JASMIN on CRI Chronic A fib , on a/coagulation AICD Dysphagia status post PEG. Morbid obesity. Seizure disorder PVD HTN. Hx of ICH . Anemia of chronic disease PLAN OF CARE ICU status currently intubated fup with ABG and CXR and titrate settings as needed pulm toilet surgery consult for placement of tracheostomy appreciated pending trach placement in OR under safe environment empiric abx/Zosyn for now UA negative, CXR no evidence of infiltrate so far leuk likely reactive, as per ID hold a/coagulation due to pending tracheostomy continue Amiodarone, remains in SR for now DVT , GI prophylaxis IVF, monitor renal parameters, lytes, correct lytes as needed start TF with Glucerna, strict asp precautions BS management seizure precautions, cont Keppra monitor HH with goal to keep Hgb above 7, monitor renal parameters and e/lytes, creat trending won, , replace e/lytes as needed pain management supportive care case discussed and evaluated by supervising physician Critical Care - Objective Last 24 Hour Vital Signs Date Time Temp Pulse Resp B/P (MAP) Pulse Ox O2 Delivery O2 Flow Rate FiO2 12/07/18 06:55 82 16 30 12/07/18 05:10 84 16 30 12/07/18 04:00 Mechanical Ventilator 12/07/18 04:00 82 12/07/18 04:00 40 12/07/18 03:15 83 17 30 12/07/18 01:06 80 16 30 12/07/18 00:00 40 12/07/18 00:00 83 12/07/18 00:00 Mechanical Ventilator 12/06/18 23:35 80 16 40 12/06/18 21:00 85 99/56 12/06/18 20:32 85 18 50 100 12/06/18 20:00 Mechanical Ventilator 12/06/18 20:00 60 12/06/18 20:00 83 12/06/18 19:07 80 16 60 100 12/06/18 16:37 79 17 100 12/06/18 16:00 82 12/06/18 16:00 Mechanical Ventilator 12/06/18 16:00 100 12/06/18 15:39 80 16 30 12/06/18 15:04 Mechanical Ventilator 12/06/18 15:00 Mechanical Ventilator 12/06/18 14:20 97.7 92 20 99/54 100 Mechanical Ventilator 15.0 30 12/06/18 14:20 97.7 92 20 99/54 100 Mechanical Ventilator 30 12/06/18 13:40 16 99/59 Mechanical Ventilator 30 12/06/18 13:29 94 18 30 12/06/18 13:27 97.7 95 12 131/70 100 Mechanical Ventilator 30 12/06/18 13:25 12 95/63 Mechanical Ventilator 30 12/06/18 13:10 15 113/77 Mechanical Ventilator 30 12/06/18 12:55 97.8 85 14 105/83 100 Mechanical Ventilator 15.0 30 12/06/18 12:55 12 109/83 Mechanical Ventilator 30 12/06/18 12:40 12 125/76 Mechanical Ventilator 30 12/06/18 12:40 97.8 89 14 126/76 100 Mechanical Ventilator 15.0 30 12/06/18 12:25 19 122/72 Mechanical Ventilator 30 12/06/18 12:20 92 20 132/88 100 Mechanical Ventilator 100 12/06/18 12:10 86 19 132/88 100 Mechanical Ventilator 30 12/06/18 12:10 20 132/88 Mechanical Ventilator 30 12/06/18 11:55 97.8 91 16 139/78 100 Mechanical Ventilator 15.0 30 12/06/18 11:55 20 139/78 Mechanical Ventilator 30 12/06/18 11:40 97.2 88 20 99/66 100 Mechanical Ventilator 15.0 30 12/06/18 11:40 20 99/66 Mechanical Ventilator 100 12/06/18 11:25 16 113/65 Mechanical Ventilator 100 12/06/18 11:20 90 18 104/76 100 Mechanical Ventilator 100 12/06/18 11:10 16 104/76 Mechanical Ventilator 100 12/06/18 11:10 96 20 104/76 100 Mechanical Ventilator 100 12/06/18 11:00 100 12/06/18 11:00 89 18 30 12/06/18 10:55 92 20 154/83 100 Mechanical Ventilator 100 12/06/18 10:55 24 154/83 Mechanical Ventilator 100 12/06/18 10:35 89 19 Mechanical Ventilator 12/06/18 10:35 89 19 100 12/06/18 10:25 88 21 Ambu-Bag 15.0 12/06/18 10:20 94 12 142/65 100 Ambu-Bag 12/06/18 10:16 97.2 0 17 99/65 95 Ambu-Bag Status: awake Condition: critical HEENT: atraumatic, normocephalic, other - OP with ET in palce, intact Lungs: clear Heart: HR/BP stable Abdomen: soft, non-tender, active bowel sounds, other - G tube , site inatct Extremities: no C/C/E Accucheck: 102 Critical Care - Subjective ROS Limited/Unobtainable: Yes Interval Events: leuk trending down, afebrile seen and evaluated by general surgeon for trach replacement creat trending down, Condition: critical IV Access: peripheral FI02: 30 Vent Support Breath Rate: 16 Vent Support Mode: AC Vent Tidal Volume: 600 Sputum Amount: Small PEEP: 0.0 PIP: 29 Fluids: NS at 100 I&O: Intake and Output 12/06/18 12/07/18 18:59 06:59 Intake Total 40 ml 1310 ml Output Total 550 ml 600 ml Balance -510 ml 710 ml Intake Oral 0 ml IV Total 40 ml 1310 ml Output Urine Total 550 ml 600 ml CXR: 12/06 Endotracheal tube in good position ET-Tube: 7.0 ET Position: 24 Coco Morrison NP Dec 07, 2018 07:19
[2018-12-07 07:33] LABS: ALANINE AMINOTRANSFERASE 14 U/L (12-78); ALBUMIN 2.7 G/DL (3.4-5.0); ALBUMIN/GLOBULIN RATIO 0.5 (1.0-2.7); ALKALINE PHOSPHATASE 114 U/L (46-116); ANION GAP 9 mmol/L (5-15); ASPARTATE AMINO TRANSFERASE 18 U/L (15-37); BILIRUBIN,DIRECT 0.2 MG/DL (0.0-0.3); BILIRUBIN,TOTAL 0.5 MG/DL (0.2-1.0); BLOOD UREA NITROGEN 63 mg/dL (7-18); CALCIUM 9.6 MG/DL (8.5-10.1); CARBON DIOXIDE 24 MMOL/L (21-32); CHLORIDE 105 MMOL/L (98-107); CREATININE 1.4 MG/DL (0.55-1.30); POTASSIUM 4.3 MMOL/L (3.5-5.1); SODIUM 138 MMOL/L (136-145)
--- NOTE | 2018-12-07 08:10 | NUR ---
NURSE NOTES: Report received from TEAGAN Obrien.No apparent acute distress and afebrile at this time.ETT tube 05/06 AC 16 Vt 600 FiO2 40%. SR on the monitor.Abdomen round and soft, bowel sounds present in all 4 quadrants.RAC/18 gauge and LH /20 gauge patent with no s/s infiltration running NS at 100cc/hr.Kept clean dry and comfortable, mouth care done.Turned and repositioned for comfort and skin management.Kept on close monitoring.
[2018-12-07] MEDS: Carvedilol 12.5mg tab GT SCH ×2 (08:23→21:29)
[2018-12-07] MEDS: Amiodarone 200mg tab GT SCH (08:24)
[2018-12-07] MEDS: Pantoprazole Inj IVP SCH (08:24)
[2018-12-07] MEDS: Heparin 5000 units/ml inj SUBQ SCH ×2 (08:26→21:33)
[2018-12-07] MEDS: levETIRAcetam 500mg/5ml Liquid GT SCH ×2 (08:28→21:29)
--- NOTE | 2018-12-07 08:45 | NUR ---
RD ASSESSMENT & RECOMMENDATIONS SEE CARE ACTIVITY FOR COMPLETE ASSESSMENT DAILY ESTIMATED NEEDS: Needs based on Critical care, 80.3kg abw 22-28 kcals/kg 3688-1497 total kcals 1.2-2 g protein/kg 96-160 g total protein 25-30 mL/kg 7636-7967 total fluid mLs NUTRITION DIAGNOSIS: Swallowing difficulty R/T dysphagia, respiratory status as evidenced by pt is trach/vent dep, s/p trach dislodgement, now orally intubated, PEG dep, NPO at this time. CURRENT TF:NPO ENTERAL NUTRITION RECOMMENDATIONS: Glucerna 1.2 @ 65ml/hr x 24 hrs to provide 1560ml, 1872kcal, 94g + 11g prot, 1256ml free water * When medically appropriate, resume TF * Initiate Glucerna 1.2 @ 35ml/hr x 6 hrs, advance 10ml q 4-6 hrs as tolerated to goal rate. * HOB over 30 degrees/ water flush per MD ADDITIONAL RECOMMENDATIONS: * Per SNF: Ht=69", CS=856 lbs (obtained 11/16/18) * Calibrated bedscale wt for accurate CBW (w/ added P200 mattress) * Donta 1pkt BID for skin integrity * Monitor lytes daily w/ TF, replete as needed Addendum: 12/07/18 at [address] DISREGARD THIS NOTE
--- NOTE | 2018-12-07 09:14 | NUR ---
RD ASSESSMENT & RECOMMENDATIONS SEE CARE ACTIVITY FOR COMPLETE ASSESSMENT DAILY ESTIMATED NEEDS: Needs based on Critical care, 80.3kg abw 22-28 kcals/kg 7205-8562 total kcals 1.2-2 g protein/kg 96-160 g total protein 25-30 mL/kg 6267-8483 total fluid mLs NUTRITION DIAGNOSIS: Swallowing difficulty R/T dysphagia, respiratory status as evidenced by pt is trach/vent dep, s/p trach dislodgement, now orally intubated, PEG dep, NPO at this time. CURRENT TF:NPO ENTERAL NUTRITION RECOMMENDATIONS: Glucerna 1.2 @ 65ml/hr x 24 hrs + Prosource 1pkt QD to provide 1560ml, 1872kcal, 94g + 11g prot, 1256ml free water * When medically appropriate, resume TF * Initiate Glucerna 1.2 @ 35ml/hr x 6 hrs, advance 10ml q 4-6 hrs as tolerated to goal rate. * Add Prosource 1pkt QD to meet protein needs * HOB over 30 degrees/ water flush per MD ADDITIONAL RECOMMENDATIONS: * Per SNF: Ht=69", FD=514 lbs (obtained 11/16/18) * Calibrated bedscale wt for accurate CBW (w/ added P200 mattress) * Donta 1pkt BID for skin integrity * Monitor lytes daily w/ TF, replete as needed
--- NOTE | 2018-12-07 09:56 | Infectious Diseases Prog Note ---
Assessment/Plan Assessment/Plan Assessment: Dislodged trach Acute respiratory failure s/p intubation 12/06 -CXR: No obvious infiltrate identified. MIld leukocytosis- likely reactive; improving -u/a neg Afebrile COPD chronic respiratory failure s/p trach dysphagia s/p GT gout NH resident Plan: -Continue empiric Zosyn #2 for now -f/u cx -MOnitor CBC/CMP, temperatures -ETT/GT/ICU care -aspiration precautions Thank you for this consultation. Will continue to follow along with you. Discussed with RN Subjective Allergies: Coded Allergies: No Known Allergies (Unverified , 12/06/18) Subjective afebrile WBC and Cr improving Objective Vital Signs Last 24 Hour Vital Signs Date Time Temp Pulse Resp B/P (MAP) Pulse Ox O2 Delivery O2 Flow Rate FiO2 12/07/18 09:00 Mechanical Ventilator 12/07/18 09:00 85 16 30 12/07/18 08:23 86 98/62 12/07/18 08:00 40 12/07/18 06:55 82 16 30 12/07/18 05:10 84 16 30 12/07/18 04:00 Mechanical Ventilator 12/07/18 04:00 82 12/07/18 04:00 40 12/07/18 03:15 83 17 30 12/07/18 01:06 80 16 30 12/07/18 00:00 40 12/07/18 00:00 83 12/07/18 00:00 Mechanical Ventilator 12/06/18 23:35 80 16 40 12/06/18 21:00 85 99/56 12/06/18 20:32 85 18 50 100 12/06/18 20:00 Mechanical Ventilator 12/06/18 20:00 60 12/06/18 20:00 83 12/06/18 19:07 80 16 60 100 12/06/18 16:37 79 17 100 12/06/18 16:00 82 12/06/18 16:00 Mechanical Ventilator 12/06/18 16:00 100 12/06/18 15:39 80 16 30 12/06/18 15:04 Mechanical Ventilator 12/06/18 15:00 Mechanical Ventilator 12/06/18 14:20 97.7 92 20 99/54 100 Mechanical Ventilator 15.0 30 12/06/18 14:20 97.7 92 20 99/54 100 Mechanical Ventilator 30 12/06/18 13:40 16 99/59 Mechanical Ventilator 30 12/06/18 13:29 94 18 30 12/06/18 13:27 97.7 95 12 131/70 100 Mechanical Ventilator 30 12/06/18 13:25 12 95/63 Mechanical Ventilator 30 12/06/18 13:10 15 113/77 Mechanical Ventilator 30 12/06/18 12:55 97.8 85 14 105/83 100 Mechanical Ventilator 15.0 30 12/06/18 12:55 12 109/83 Mechanical Ventilator 30 12/06/18 12:40 12 125/76 Mechanical Ventilator 30 12/06/18 12:40 97.8 89 14 126/76 100 Mechanical Ventilator 15.0 30 12/06/18 12:25 19 122/72 Mechanical Ventilator 30 12/06/18 12:20 92 20 132/88 100 Mechanical Ventilator 100 12/06/18 12:10 86 19 132/88 100 Mechanical Ventilator 30 12/06/18 12:10 20 132/88 Mechanical Ventilator 30 12/06/18 11:55 97.8 91 16 139/78 100 Mechanical Ventilator 15.0 30 12/06/18 11:55 20 139/78 Mechanical Ventilator 30 12/06/18 11:40 97.2 88 20 99/66 100 Mechanical Ventilator 15.0 30 12/06/18 11:40 20 99/66 Mechanical Ventilator 100 12/06/18 11:25 16 113/65 Mechanical Ventilator 100 12/06/18 11:20 90 18 104/76 100 Mechanical Ventilator 100 12/06/18 11:10 16 104/76 Mechanical Ventilator 100 12/06/18 11:10 96 20 104/76 100 Mechanical Ventilator 100 12/06/18 11:00 100 12/06/18 11:00 89 18 30 12/06/18 10:55 92 20 154/83 100 Mechanical Ventilator 100 12/06/18 10:55 24 154/83 Mechanical Ventilator 100 12/06/18 10:35 89 19 Mechanical Ventilator 12/06/18 10:35 89 19 100 12/06/18 10:25 88 21 Ambu-Bag 15.0 12/06/18 10:20 94 12 142/65 100 Ambu-Bag 12/06/18 10:16 97.2 0 17 99/65 95 Ambu-Bag Height (Feet): 5 Height (Inches): 8.00 Weight (Pounds): 231 Objective General appearance: alert, mild distress, appears stated age Head: Normocephalic, without obvious abnormality, atraumatic Eyes: conjunctivae/corneas clear. PERRL, EOM's intact. Fundi benign Throat: Lips, mucosa, and tongue normal. Teeth and gums normal Neck: supple, symmetrical, trachea midline with trach hole right lateral to trachea, no adenopathy, thyroid: not enlarged, symmetric, no tenderness/mass/ nodules, no carotid bruit and no JVD Lungs: clear to auscultation bilaterally Heart: regular rate and rhythm, S1, S2 normal, no murmur, click, rub or gallop Abdomen: soft, non-tender. Bowel sounds normal. No masses, no organomegaly Extremities: extremities normal, atraumatic, no cyanosis or edema Pulses: 2+ and symmetric Skin: Skin color, texture, turgor normal. No rashes or lesions Neurologic: Grossly normal Laboratory Tests Test 12/06/18 10:30 12/06/18 12:20 12/06/18 17:50 12/07/18 05:20 White Blood Count 13.8 K/UL (4.8-10.8) H 11.3 K/UL (4.8-10.8) H Red Blood Count 3.40 M/UL (4.70-6.10) L 3.00 M/UL (4.70-6.10) L Hemoglobin 10.7 G/DL (14.2-18.0) L 9.4 G/DL (14.2-18.0) L Hematocrit 31.9 % (42.0-52.0) L 28.9 % (42.0-52.0) L Mean Corpuscular Volume 94 FL (80-99) 96 FL (80-99) Mean Corpuscular Hemoglobin 31.6 PG (27.0-31.0) H 31.3 PG (27.0-31.0) H Mean Corpuscular Hemoglobin Concent 33.6 G/DL (32.0-36.0) 32.5 G/DL (32.0-36.0) Red Cell Distribution Width 16.4 % (11.6-14.8) H 17.0 % (11.6-14.8) H Platelet Count 407 K/UL (150-450) 325 K/UL (150-450) Mean Platelet Volume 6.9 FL (6.5-10.1) 7.1 FL (6.5-10.1) Neutrophils (%) (Auto) 73.9 % (45.0-75.0) 76.5 % (45.0-75.0) H Lymphocytes (%) (Auto) 14.5 % (20.0-45.0) L 13.0 % (20.0-45.0) L Monocytes (%) (Auto) 7.2 % (1.0-10.0) 7.9 % (1.0-10.0) Eosinophils (%) (Auto) 3.3 % (0.0-3.0) H 2.0 % (0.0-3.0) Basophils (%) (Auto) 1.1 % (0.0-2.0) 0.6 % (0.0-2.0) Prothrombin Time 12.4 SEC (9.30-11.50) H Prothromb Time International Ratio 1.2 (0.9-1.1) H Activated Partial Thromboplast Time 32 SEC (23-33) Sodium Level 132 MMOL/L (136-145) L 138 MMOL/L (136-145) Potassium Level 4.3 MMOL/L (3.5-5.1) 4.3 MMOL/L (3.5-5.1) Chloride Level 97 MMOL/L (98-107) L 105 MMOL/L (98-107) Carbon Dioxide Level 26 MMOL/L (21-32) 24 MMOL/L (21-32) Anion Gap 9 mmol/L (5-15) 9 mmol/L (5-15) Blood Urea Nitrogen 87 mg/dL (7-18) H 63 mg/dL (7-18) H Creatinine 2.0 MG/DL (0.55-1.30) H 1.4 MG/DL (0.55-1.30) H Estimat Glomerular Filtration Rate 34.3 mL/min (>60) 51.7 mL/min (>60) Glucose Level 129 MG/DL (74-106) H 100 MG/DL (74-106) Calcium Level 10.2 MG/DL (8.5-10.1) H 9.6 MG/DL (8.5-10.1) Total Bilirubin 0.4 MG/DL (0.2-1.0) 0.5 MG/DL (0.2-1.0) Aspartate Amino Transf (AST/SGOT) 17 U/L (15-37) 18 U/L (15-37) Alanine Aminotransferase (ALT/SGPT) 16 U/L (12-78) 14 U/L (12-78) Alkaline Phosphatase 172 U/L (46-116) H 114 U/L (46-116) Total Protein 9.1 G/DL (6.4-8.2) H 7.9 G/DL (6.4-8.2) Albumin 3.1 G/DL (3.4-5.0) L 2.7 G/DL (3.4-5.0) L Globulin 6.0 g/dL 5.2 g/dL Albumin/Globulin Ratio 0.5 (1.0-2.7) L 0.5 (1.0-2.7) L Triglycerides Level 186 MG/DL (30-150) H Arterial Blood pH 7.426 (7.350-7.450) Arterial Blood Partial Pressure CO2 37.6 mmHg (35.0-45.0) Arterial Blood Partial Pressure O2 96.5 mmHg (75.0-100.0) Arterial Blood HCO3 24.2 mmol/L (22.0-26.0) Arterial Blood Oxygen Saturation 97.0 % (95-100) Arterial Blood Base Excess 0 (-2-2) Agustin Test Positive Urine Color Pale yellow Urine Appearance Clear Urine pH 6 (4.5-8.0) Urine Specific [place] 1.010 (1.005-1.035) Urine Protein Negative (NEGATIVE) Urine Glucose (UA) Negative (NEGATIVE) Urine Ketones Negative (NEGATIVE) Urine Blood 1+ (NEGATIVE) H Urine Nitrite Negative (NEGATIVE) Urine Bilirubin Negative (NEGATIVE) Urine Urobilinogen Normal MG/DL (0.0-1.0) Urine Leukocyte Esterase Negative (NEGATIVE) Urine RBC 2-4 /HPF (0 - 0) H Urine WBC 0-2 /HPF (0 - 0) Urine Squamous Epithelial Cells None /LPF (NONE/OCC) Urine Bacteria None /HPF (NONE) Direct Bilirubin 0.2 MG/DL (0.0-0.3) Test 12/07/18 09:14 Arterial Blood pH 7.416 (7.350-7.450) Arterial Blood Partial Pressure CO2 34.8 mmHg (35.0-45.0) L Arterial Blood Partial Pressure O2 65.8 mmHg (75.0-100.0) L Arterial Blood HCO3 21.9 mmol/L (22.0-26.0) L Arterial Blood Oxygen Saturation 92.3 % (95-100) L Arterial Blood Base Excess -2.2 (-2-2) L Agustin Test Positive Current Medications Medications (Trade) Dose Ordered Sig/Sophie Route PRN Reason Start Time Stop Time Status Last Admin Dose Admin Acetaminophen (Tylenol) 650 mg Q4H PRN ORAL fever 12/06/18 16:00 01/05/19 15:59 Albuterol/ Ipratropium (Albuterol/ Ipratropium) 3 ml Q4H PRN HHN Shortness of Breath 12/06/18 17:00 12/11/18 16:59 Allopurinol (Allopurinol) 300 mg DAILY GT 12/07/18 09:00 01/06/19 08:59 12/07/18 08:24 Amiodarone HCl (Cordarone) 100 mg DAILY GT 12/07/18 09:00 01/06/19 08:59 12/07/18 08:24 Carvedilol (Coreg) 12.5 mg EVERY 12 HOURS GT 12/06/18 21:00 01/05/19 20:59 12/06/18 21:00 Dextrose (Dextrose 50%) 25 ml Q30M PRN IV Hypoglycemia 12/06/18 17:30 01/05/19 17:29 Dextrose (Dextrose 50%) 50 ml Q30M PRN IV Hypoglycemia 12/06/18 17:30 01/05/19 17:29 Heparin Sodium (Porcine) (Heparin 5000 units/ml) 5,000 units EVERY 12 HOURS SUBQ 12/06/18 21:00 01/05/19 20:59 12/07/18 08:26 Insulin Aspart (NovoLOG) BEFORE MEALS AND HS SUBQ 12/06/18 21:00 01/05/19 20:59 12/06/18 21:26 Levetiracetam (Keppra) 500 mg Q12HR GT 12/06/18 21:00 01/05/19 20:59 12/07/18 08:28 Lorazepam (Ativan 2mg/ml 1ml) 2 mg Q2H PRN IV For Anxiety 12/06/18 17:30 12/13/18 17:29 Morphine Sulfate (Morphine Sulfate) 4 mg Q4H PRN IVP Severe Pain (Pain Scale 7-10) 12/06/18 17:30 12/13/18 17:29 Norepinephrine Bitartrate 4 mg/ Dextrose 254 ml @ 0 mls/hr Q24H PRN IV For hypotension 12/06/18 17:45 01/05/19 15:59 Ondansetron HCl (Zofran) 4 mg Q6H PRN IVP Nausea & Vomiting 12/06/18 17:30 01/05/19 17:29 Pantoprazole (Protonix) 40 mg DAILY IVP 12/07/18 09:00 01/06/19 08:59 12/07/18 08:24 Piperacillin Sod/ Tazobactam Sod 3.375 gm/Dextrose 110 ml @ 27.5 mls/hr EVERY 8 HOURS IVPB 12/06/18 22:00 12/11/18 21:59 12/07/18 06:00 Polyethylene Glycol (Miralax) 17 gm DAILYPRN PRN ORAL Constipation 12/06/18 17:30 01/05/19 17:29 Sodium Chloride 1,000 ml @ 100 mls/hr Q10H IVLG 12/06/18 17:30 01/05/19 17:29 12/07/18 03:03 Flavia Houston M.D. Dec 07, 2018 09:56
--- NOTE | 2018-12-07 10:02 | NUR ---
NURSE NOTES: Pt turned and repositioned.HOB elevated to prevent aspiration.seen by Coco Morrison with order to start feeding Glucerna 1.2 with a goal 35.Order noted and carried out. Bilateral soft wrist restraints, skin check with no impairment. Will continue to monitor
--- NOTE | 2018-12-07 12:08 | NUR ---
NURSE NOTES: Mouth care done, turned and repositioned.HOB kept elevated to prevent aspiration.Will continue to monitor
--- NOTE | 2018-12-07 13:40 | NUR ---
NURSE NOTES: Seen by dr Reddy, trach placement on Sunday.
--- NOTE | 2018-12-07 14:05 | Surgery Progress Note ---
Surgery Progress Note Subjective Symptoms: improved Additional Comments stable. labs noted on vent Objective Last 24 Hour Vital Signs Date Time Temp Pulse Resp B/P (MAP) Pulse Ox O2 Delivery O2 Flow Rate FiO2 12/07/18 12:50 80 16 30 12/07/18 12:00 40 12/07/18 12:00 81 12/07/18 12:00 Mechanical Ventilator 12/07/18 10:36 79 16 30 12/07/18 09:00 Mechanical Ventilator 12/07/18 09:00 85 16 30 12/07/18 08:23 86 98/62 12/07/18 08:00 88 12/07/18 08:00 40 12/07/18 06:55 82 16 30 12/07/18 05:10 84 16 30 12/07/18 04:00 Mechanical Ventilator 12/07/18 04:00 82 12/07/18 04:00 40 12/07/18 03:15 83 17 30 12/07/18 01:06 80 16 30 12/07/18 00:00 40 12/07/18 00:00 83 12/07/18 00:00 Mechanical Ventilator 12/06/18 23:35 80 16 40 12/06/18 21:00 85 99/56 12/06/18 20:32 85 18 50 100 12/06/18 20:00 Mechanical Ventilator 12/06/18 20:00 60 12/06/18 20:00 83 12/06/18 19:07 80 16 60 100 12/06/18 16:37 79 17 100 12/06/18 16:00 82 12/06/18 16:00 Mechanical Ventilator 12/06/18 16:00 100 12/06/18 15:39 80 16 30 12/06/18 15:04 Mechanical Ventilator 12/06/18 15:00 Mechanical Ventilator 12/06/18 14:20 97.7 92 20 99/54 100 Mechanical Ventilator 15.0 30 12/06/18 14:20 97.7 92 20 99/54 100 Mechanical Ventilator 30 I&O Intake and Output 12/06/18 12/07/18 19:00 07:00 Intake Total 140 ml 1337.5 ml Output Total 600 ml 600 ml Balance -460 ml 737.5 ml Intake Oral 0 ml IV Total 140 ml 1337.5 ml Output Urine Total 600 ml 600 ml Dressing: other Wound: other Drains: other Cardiovascular: RSR Respiratory: decreased breath sounds Abdomen: soft, non-tender, non-distended Extremities: no cyanosis Laboratory Tests Test 12/06/18 17:50 12/07/18 05:20 12/07/18 09:14 Urine Color Pale yellow Urine Appearance Clear Urine pH 6 (4.5-8.0) Urine Specific [place] 1.010 (1.005-1.035) Urine Protein Negative (NEGATIVE) Urine Glucose (UA) Negative (NEGATIVE) Urine Ketones Negative (NEGATIVE) Urine Blood 1+ (NEGATIVE) H Urine Nitrite Negative (NEGATIVE) Urine Bilirubin Negative (NEGATIVE) Urine Urobilinogen Normal MG/DL (0.0-1.0) Urine Leukocyte Esterase Negative (NEGATIVE) Urine RBC 2-4 /HPF (0 - 0) H Urine WBC 0-2 /HPF (0 - 0) Urine Squamous Epithelial Cells None /LPF (NONE/OCC) Urine Bacteria None /HPF (NONE) White Blood Count 11.3 K/UL (4.8-10.8) H Red Blood Count 3.00 M/UL (4.70-6.10) L Hemoglobin 9.4 G/DL (14.2-18.0) L Hematocrit 28.9 % (42.0-52.0) L Mean Corpuscular Volume 96 FL (80-99) Mean Corpuscular Hemoglobin 31.3 PG (27.0-31.0) H Mean Corpuscular Hemoglobin Concent 32.5 G/DL (32.0-36.0) Red Cell Distribution Width 17.0 % (11.6-14.8) H Platelet Count 325 K/UL (150-450) Mean Platelet Volume 7.1 FL (6.5-10.1) Neutrophils (%) (Auto) 76.5 % (45.0-75.0) H Lymphocytes (%) (Auto) 13.0 % (20.0-45.0) L Monocytes (%) (Auto) 7.9 % (1.0-10.0) Eosinophils (%) (Auto) 2.0 % (0.0-3.0) Basophils (%) (Auto) 0.6 % (0.0-2.0) Sodium Level 138 MMOL/L (136-145) Potassium Level 4.3 MMOL/L (3.5-5.1) Chloride Level 105 MMOL/L (98-107) Carbon Dioxide Level 24 MMOL/L (21-32) Anion Gap 9 mmol/L (5-15) Blood Urea Nitrogen 63 mg/dL (7-18) H Creatinine 1.4 MG/DL (0.55-1.30) H Estimat Glomerular Filtration Rate 51.7 mL/min (>60) Glucose Level 100 MG/DL (74-106) Calcium Level 9.6 MG/DL (8.5-10.1) Total Bilirubin 0.5 MG/DL (0.2-1.0) Direct Bilirubin 0.2 MG/DL (0.0-0.3) Aspartate Amino Transf (AST/SGOT) 18 U/L (15-37) Alanine Aminotransferase (ALT/SGPT) 14 U/L (12-78) Alkaline Phosphatase 114 U/L (46-116) Total Protein 7.9 G/DL (6.4-8.2) Albumin 2.7 G/DL (3.4-5.0) L Globulin 5.2 g/dL Albumin/Globulin Ratio 0.5 (1.0-2.7) L Arterial Blood pH 7.416 (7.350-7.450) Arterial Blood Partial Pressure CO2 34.8 mmHg (35.0-45.0) L Arterial Blood Partial Pressure O2 65.8 mmHg (75.0-100.0) L Arterial Blood HCO3 21.9 mmol/L (22.0-26.0) L Arterial Blood Oxygen Saturation 92.3 % (95-100) L Arterial Blood Base Excess -2.2 (-2-2) L Agustin Test Positive Plan Problems: (1) Respiratory distress Assessment & Plan: Tracheostomy dislodged intubated for airway protection seen in ICU minutes after. per history trach for months now. per report only dislodged for 30-40 minutes when seen at bedside 1cm healing tracheostomy site seen. evaluated and probed but no proper trach track could be noted. should be able to have well formed track by now and should easily be able to palpate ET tube but unable to do so on exam. Not sure if prior attempts to manipulation or new trach placement was done prior to arrival to hospital and no report of this given. currently no safe track seen for replacement trach. recommend stabilization once stable will schedule to replace tracheostomy in OR under safe and controlled setting. will plan for bronchostomy first and possible trach replacement vs new trach placement. Plan for OR Sunday for trach placement thank you Tae Allen Dec 07, 2018 14:05
--- NOTE | 2018-12-07 14:25 | NUR ---
NURSE NOTES: Daughter visited, update done,turned and repositioned.Kept clean, dry and comfortable.
--- NOTE | 2018-12-07 16:05 | NUR ---
NURSE NOTES: Adls done,mouth care performed,turned and repositioned.Kept clean dry and comfortable.HOB elevated to prevent aspiration.
--- NOTE | 2018-12-07 18:03 | NUR ---
NURSE NOTES: Patient mouth care done.Turned and repositioned.Kept clean and dry.HOB elevated to prevent aspiration.Will continue to monitor
--- NOTE | 2018-12-07 18:39 | Internal Med Progress Note ---
Subjective Date of Service: Dec 07, 2018 Physician Name David Lieberman Attending Physician Jian Martinez MD Current Medications Medications (Trade) Dose Ordered Sig/Sophie Route PRN Reason Start Time Stop Time Status Last Admin Dose Admin Acetaminophen (Tylenol) 650 mg Q4H PRN ORAL fever 12/06/18 16:00 01/05/19 15:59 Albuterol/ Ipratropium (Albuterol/ Ipratropium) 3 ml Q4H PRN HHN Shortness of Breath 12/06/18 17:00 12/11/18 16:59 Allopurinol (Allopurinol) 300 mg DAILY GT 12/07/18 09:00 01/06/19 08:59 12/07/18 08:24 Amiodarone HCl (Cordarone) 100 mg DAILY GT 12/07/18 09:00 01/06/19 08:59 12/07/18 08:24 Carvedilol (Coreg) 12.5 mg EVERY 12 HOURS GT 12/06/18 21:00 01/05/19 20:59 12/06/18 21:00 Dextrose (Dextrose 50%) 25 ml Q30M PRN IV Hypoglycemia 12/06/18 17:30 01/05/19 17:29 Dextrose (Dextrose 50%) 50 ml Q30M PRN IV Hypoglycemia 12/06/18 17:30 01/05/19 17:29 Heparin Sodium (Porcine) (Heparin 5000 units/ml) 5,000 units EVERY 12 HOURS SUBQ 12/06/18 21:00 01/05/19 20:59 12/07/18 08:26 Insulin Aspart (NovoLOG) BEFORE MEALS AND HS SUBQ 12/06/18 21:00 01/05/19 20:59 12/07/18 17:57 Levetiracetam (Keppra) 500 mg Q12HR GT 12/06/18 21:00 01/05/19 20:59 12/07/18 08:28 Lorazepam (Ativan 2mg/ml 1ml) 2 mg Q2H PRN IV For Anxiety 12/06/18 17:30 12/13/18 17:29 Morphine Sulfate (Morphine Sulfate) 4 mg Q4H PRN IVP Severe Pain (Pain Scale 7-10) 12/06/18 17:30 12/13/18 17:29 Norepinephrine Bitartrate 4 mg/ Dextrose 254 ml @ 0 mls/hr Q24H PRN IV For hypotension 12/06/18 17:45 01/05/19 15:59 Ondansetron HCl (Zofran) 4 mg Q6H PRN IVP Nausea & Vomiting 12/06/18 17:30 01/05/19 17:29 Pantoprazole (Protonix) 40 mg DAILY IVP 12/07/18 09:00 01/06/19 08:59 12/07/18 08:24 Piperacillin Sod/ Tazobactam Sod 3.375 gm/Dextrose 110 ml @ 27.5 mls/hr EVERY 8 HOURS IVPB 12/06/18 22:00 12/11/18 21:59 12/07/18 13:06 Polyethylene Glycol (Miralax) 17 gm DAILYPRN PRN ORAL Constipation 12/06/18 17:30 01/05/19 17:29 Sodium Chloride 1,000 ml @ 100 mls/hr Q10H IVLG 12/06/18 17:30 01/05/19 17:29 12/07/18 13:05 Allergies: Coded Allergies: No Known Allergies (Unverified , 12/06/18) ROS Limited/Unobtainable: Yes Subjective 58 YO vent dep M admitted with dislodged tracheostomy, Cover for Int Luis-Dr Martinez. ICU Objective Last Vital Signs Date Time Temp Pulse Resp B/P (MAP) Pulse Ox O2 Delivery O2 Flow Rate FiO2 12/07/18 16:35 89 17 30 12/07/18 16:00 Mechanical Ventilator 12/07/18 08:23 98/62 12/06/18 14:20 97.7 100 15.0 Laboratory Tests Test 12/07/18 05:20 12/07/18 09:14 White Blood Count 11.3 K/UL (4.8-10.8) H Red Blood Count 3.00 M/UL (4.70-6.10) L Hemoglobin 9.4 G/DL (14.2-18.0) L Hematocrit 28.9 % (42.0-52.0) L Mean Corpuscular Volume 96 FL (80-99) Mean Corpuscular Hemoglobin 31.3 PG (27.0-31.0) H Mean Corpuscular Hemoglobin Concent 32.5 G/DL (32.0-36.0) Red Cell Distribution Width 17.0 % (11.6-14.8) H Platelet Count 325 K/UL (150-450) Mean Platelet Volume 7.1 FL (6.5-10.1) Neutrophils (%) (Auto) 76.5 % (45.0-75.0) H Lymphocytes (%) (Auto) 13.0 % (20.0-45.0) L Monocytes (%) (Auto) 7.9 % (1.0-10.0) Eosinophils (%) (Auto) 2.0 % (0.0-3.0) Basophils (%) (Auto) 0.6 % (0.0-2.0) Sodium Level 138 MMOL/L (136-145) Potassium Level 4.3 MMOL/L (3.5-5.1) Chloride Level 105 MMOL/L (98-107) Carbon Dioxide Level 24 MMOL/L (21-32) Anion Gap 9 mmol/L (5-15) Blood Urea Nitrogen 63 mg/dL (7-18) H Creatinine 1.4 MG/DL (0.55-1.30) H Estimat Glomerular Filtration Rate 51.7 mL/min (>60) Glucose Level 100 MG/DL (74-106) Calcium Level 9.6 MG/DL (8.5-10.1) Total Bilirubin 0.5 MG/DL (0.2-1.0) Direct Bilirubin 0.2 MG/DL (0.0-0.3) Aspartate Amino Transf (AST/SGOT) 18 U/L (15-37) Alanine Aminotransferase (ALT/SGPT) 14 U/L (12-78) Alkaline Phosphatase 114 U/L (46-116) Total Protein 7.9 G/DL (6.4-8.2) Albumin 2.7 G/DL (3.4-5.0) L Globulin 5.2 g/dL Albumin/Globulin Ratio 0.5 (1.0-2.7) L Arterial Blood pH 7.416 (7.350-7.450) Arterial Blood Partial Pressure CO2 34.8 mmHg (35.0-45.0) L Arterial Blood Partial Pressure O2 65.8 mmHg (75.0-100.0) L Arterial Blood HCO3 21.9 mmol/L (22.0-26.0) L Arterial Blood Oxygen Saturation 92.3 % (95-100) L Arterial Blood Base Excess -2.2 (-2-2) L Agustin Test Positive Microbiology Date/Time Source Procedure Growth Status 12/06/18 17:50 Sputum Gram Stain - Final Resulted 12/06/18 17:50 Sputum Sputum Culture Pending Resulted Intake and Output 12/06/18 12/07/18 19:00 07:00 Intake Total 140 ml 1337.5 ml Output Total 600 ml 600 ml Balance -460 ml 737.5 ml Intake Oral 0 ml IV Total 140 ml 1337.5 ml Output Urine Total 600 ml 600 ml Objective PHYSICAL EXAMINATION: GENERAL: The patient is awake with deep stimulation, however, at this time sedated. HEAD AND NECK: Pupils are equal and reactive. Anicteric. Neck, tracheostomy site was noted. We removed the tracheal tube and there is closure of the tract already. No sign of bleeding. LUNGS: Bilateral air entry. Mechanical breath sounds. No wheezes. HEART: S1, S2, irregular. Distant heart sounds. AICD on left side of chest wall was noted. ABDOMEN: Soft, nondistended, and nontender. Mildly obese. PEG site is clean. EXTREMITIES: No cyanosis, clubbing, or edema. NEUROLOGIC: Limited secondary to the patient's status, sedated, unable to communicate. Assessment/Plan Assessment/Plan ASSESSMENT: 1. Chronic respiratory failure on vent dependent, status post tracheostomy, dislodged. 2. Diabetes type 2. 3. History of cardiac arrhythmias. 4. Status post biventricular ICD. 5. Dysphagia status post percutaneous endoscopic gastrostomy. 6. Morbid obesity. 7. Peripheral vascular disease. 8. Acute kidney injury and chronic renal insufficiency. 9. History of epilepsy. 10. Chronic atrial fibrillation. 11. Fatty liver. 12. Essential hypertension. 13. Nontraumatic intracerebral hemorrhage. 14. Anemia of chronic disease. PLAN: Admit the patient to ICU. We will follow up with Dr. Garner's recommendation as well as Dr. Allen from Surgery. We will monitor laboratory closely. At this time, the patient has a code status Full Code on the POLST was written. Broad-spectrum antibiotic with ertapenem and amikacin. Monitor laboratory and culture. DVT prophylaxis is heparin subcutaneous. At this time in anticipation of possible tracheostomy placement again, we will hold off on Eliquis. Await tracheostomy replacement/new trach-see surgery note. David Lieberman MD Dec 07, 2018 18:39
--- NOTE | 2018-12-07 19:03 | NUR ---
RESPIRATORY NOTE: Received pt on AC 16, 600VT, 30%, no PEEP. Pt intubated w/ ETT 7.0 @ 24cm lipline, secured by anchorfast. Pt was previously trached, stoma site asymptomatic, dry, & is covered w/ gauze. Pt awake, responds to stimuli. Biteblock in place as pt tends to bite down ETT. B/S rosalia. rhonchi, sxn minimal amounts of thick, gasca-yellow secretions w/ occasional red specks. Vent plugged into red outlet, ambubag at bedside. Pt in no apparent distress at this time. Will continue to monitor pt.
--- NOTE | 2018-12-07 19:25 | NUR ---
HAND-OFF: Report given to TEAGAN Cooper.
--- NOTE | 2018-12-07 19:30 | NUR ---
NURSE NOTES:Received pt respond only to verbal and tactile stimulation. SR on the monitor. bp stable afebrie. Orally intubated on ac mode , Bp stable , Pt is obese with 2-3T edema (generalized) Bilateral soft wrist restraints ion for safety to avoid self extubation.Tolerated fdg at this time at 35ml/hr via gtube. No residuals. Gale to gravity with lg amt of berta yellow urine, moderate in amt. Monitor I and O. Monitor lytes. keep HOB elevated. watch for any resp. distress. Will continue to monitor.
--- NOTE | 2018-12-07 20:00 | NUR ---
NURSE NOTES:Left cheek skin tear noted (below anchorfast) . Picture taken was done, rechargerTEAGAN Costa was notified , [place] initiated. Incident report was placed by TEAGAN Costa.
--- NOTE | 2018-12-07 21:00 | NUR ---
NURSE NOTES:Called Dr Buck with fdg tube x ray result- with ok orders to use it. Addendum: 12/08/18 at 0723 by LUIS LIEBERMAN RN nurses notes- Wrong pt.
--- NOTE | 2018-12-07 22:00 | NUR ---
NURSE NOTES:Suctioned tk beige secretions moderate in amt. HOB kept elevated.Watch for any resp. distress.
--- NOTE | 2018-12-08 | NUR ---
NURSE NOTES:Tolerated Fdg residuals 4-6ml. HOB kept elevated, on aspiration precaution.
--- NOTE | 2018-12-08 02:00 | NUR ---
NURSE NOTES: Turned q 2hrs prn with good skin care done.
--- NOTE | 2018-12-08 03:15 | NUR ---
RESPIRATORY NOTE: Noted pt's anchorfast to be peeling off. There's skin breakdown on pt's left cheek approx 3-4" in length & width upon inspection. No bleeding noted. Bedside RN notified, pictures were taken, ointment was applied, & covered w/ gauze & tegaderm before putting a new anchorfast to hold the ETT. Right cheek is clear, no irritations/skin breakdown noted. Pt resting comfortably at this time, no distress noted.
--- NOTE | 2018-12-08 04:00 | NUR ---
NURSE NOTES:Complete bath with bed changed done,.
--- NOTE | 2018-12-08 06:00 | NUR ---
NURSE NOTES:No resp. distress noted. VSS
[2018-12-08] MEDS: Piperacillin/Tazobactam 3.375 GM in D5W 110 ML IVPB SCH ×3 (06:08→22:40)
[2018-12-08 06:20] LABS: HEMATOCRIT 25.4 % (42.0-52.0); HEMOGLOBIN 8.1 G/DL (14.2-18.0); LYMPHOCYTES % (AUTO) 14.4 % (20.0-45.0); MEAN CORPUSCULAR VOLUME 96 FL (80-99); MONOCYTES % (AUTO) 6.4 % (1.0-10.0); NEUTROPHILS % (AUTO) 76.2 % (45.0-75.0); PLATELET COUNT 293 K/UL (150-450); RED BLOOD COUNT 2.64 M/UL (4.70-6.10); RED CELL DISTRIBUTION WIDTH 17.2 % (11.6-14.8); WHITE BLOOD COUNT 8.4 K/UL (4.8-10.8)
[2018-12-08] MEDS: NovoLOG Insulin Flexpen SUBQ SCH ×4 (06:24→21:12)
--- NOTE | 2018-12-08 06:30 | NUR ---
NURSE NOTES: Lab called (areli) with report pt + for VRE RECTUM>
[2018-12-08 06:41] LABS: ANION GAP 9 mmol/L (5-15); BLOOD UREA NITROGEN 29 mg/dL (7-18); CALCIUM 9.6 MG/DL (8.5-10.1); CARBON DIOXIDE 22 MMOL/L (21-32); CHLORIDE 110 MMOL/L (98-107); CREATININE 1.1 MG/DL (0.55-1.30); POTASSIUM 4.3 MMOL/L (3.5-5.1); SODIUM 141 MMOL/L (136-145)
--- NOTE | 2018-12-08 07:00 | NUR ---
Received Patient on Vent settings of ACVC RR 16, VT 600, Fio2 30%, PEEP +0. Patient intubated with a 7.0 ETT at 24 cm at the lip, secured with anchorfast. Bilateral rhonchi heard upon auscultation. Suction thin white/ clear secretions as needed. Alarms on and audible. Vent plugged into red outlet. Ambu Bag at beside. Will continue to monitor throughout the day.
--- NOTE | 2018-12-08 07:15 | NUR ---
NURSE NOTES:Endorsed to TEAGAN Bhatia to aware Dr Houston that pt + for VRE rectum.
--- NOTE | 2018-12-08 07:22 | NUR ---
HAND-OFF: Report given to Jannette WANG.
--- NOTE | 2018-12-08 08:04 | NUR ---
NURSE NOTES: Report received from ,RN.No apparent acute distress and afebrile at this time.ETT tube 05/06 AC 16 Vt 600 FiO2 30%. SR on the monitor.Abdomen round and soft, bowel sounds present in all 4 quadrants.RAC/20 gauge and LH /20 gauge patent with no s/s infiltration running NS at 100cc/hr.Kept clean dry and comfortable, mouth care done.Turned and repositioned for comfort and skin management.Kept on close monitoring.
--- NOTE | 2018-12-08 08:08 | Pulmonolgy Critical Care Note ---
Critical Care - Asmt/Plan Assessment/Plan: ASSESSMENT Acute on chronic respiratory failure (vent dependent) due to trach dislodgement Leukocytosis Diabetes mellitus type 2 JASMIN on CRI Chronic A fib , on a/coagulation AICD Dysphagia status post PEG. Morbid obesity. Seizure disorder PVD HTN. Hx of ICH . Anemia of chronic disease PLAN OF CARE ICU status currently intubated fup with ABG and CXR, decrease AC rate to 14, ABG in am pulm toilet surgery consult for placement of tracheostomy appreciated pending trach placement in OR under safe environment on Sunday empiric abx/Zosyn for now UA negative, CXR no evidence of infiltrate so far leuk likely reactive, as per ID -resolved hold a/coagulation due to pending tracheostomy continue Amiodarone, remains in SR for now DVT , GI prophylaxis IVF, monitor renal parameters, lytes, correct lytes as needed started on TF with Glucerna, strict asp precautions BS management seizure precautions, cont Keppra monitor HH with goal to keep Hgb above 7, anemia w/up monitor renal parameters and e/lytes, creat trending won, , replace e/lytes as needed pain management supportive care family at bedside, discussed POC case discussed and evaluated by supervising physician Critical Care - Objective Last 24 Hour Vital Signs Date Time Temp Pulse Resp B/P (MAP) Pulse Ox O2 Delivery O2 Flow Rate FiO2 12/08/18 06:52 87 23 30 12/08/18 05:20 77 16 30 12/08/18 04:00 80 12/08/18 04:00 30 12/08/18 04:00 Mechanical Ventilator 12/08/18 03:12 88 18 30 12/08/18 01:28 79 16 30 12/08/18 00:00 Mechanical Ventilator 12/08/18 00:00 77 12/08/18 00:00 30 12/07/18 22:53 76 16 30 12/07/18 21:29 89 120/51 12/07/18 21:09 77 16 30 12/07/18 20:00 30 12/07/18 20:00 Mechanical Ventilator 12/07/18 19:01 72 16 30 12/07/18 16:35 89 17 30 12/07/18 16:00 Mechanical Ventilator 12/07/18 16:00 70 12/07/18 16:00 40 12/07/18 14:39 73 16 30 12/07/18 12:50 80 16 30 12/07/18 12:00 40 12/07/18 12:00 81 12/07/18 12:00 Mechanical Ventilator 12/07/18 10:36 79 16 30 12/07/18 09:00 Mechanical Ventilator 12/07/18 09:00 85 16 30 12/07/18 08:23 86 98/62 Objective: Status: awake Condition: critical HEENT: atraumatic, normocephalic, OP with ET in place, intact Lungs: clear Heart: HR/BP stable Abdomen: soft, non-tender, active bowel sounds, G tube , site intact Extremities: no C/C/E Micro: Microbiology Date/Time Source Procedure Growth Status 12/06/18 17:50 Blood Blood Culture - Preliminary NO GROWTH AFTER 24 HOURS Resulted 12/06/18 17:45 Blood Blood Culture - Preliminary NO GROWTH AFTER 24 HOURS Resulted 12/06/18 17:50 Sputum Gram Stain - Final Resulted 12/06/18 17:50 Sputum Culture - Preliminary Gram Negative Lele Usual Respiratory Aurora Resulted 12/06/18 14:00 Rectum VRE Culture - Final Enterococcus Faecalis - Vre Complete 12/06/18 14:00 Rectum - Final NO CARBAPENEM-RESISTANT ENTEROBACTERI... Complete Accucheck: 120 Critical Care - Subjective ROS Limited/Unobtainable: Yes Interval Events: leuk resolved creat down to normal ABG noted Hgb trending down to 8.1 Condition: critical EKG Rhythm: Sinus Rhythm FI02: 30 Vent Support Breath Rate: 16 Vent Support Mode: AC Vent Tidal Volume: 600 Sputum Amount: Small PEEP: 0.0 PIP: 31 Fluids: NS at 100 Tube Feeding Amount: 35 I&O: Intake and Output 12/07/18 12/08/18 19:00 07:00 Intake Total 1467.5 ml 1637.5 ml Output Total 725 ml 1310 ml Balance 742.5 ml 327.5 ml Free Water 30 ml 90 ml IV Total 1192.5 ml 1127.5 ml Tube Feeding 245 ml 420 ml Output Urine Total 725 ml 1310 ml ET-Tube: 7.0 ET Position: 24 Labs: ETT is 3 cm above the clint. Examination is limited by lordotic projection angle. No obvious infiltrate identified. Heart size is prominent but may be normal. Pacemaker is noted. Coco Morrison NP Dec 08, 2018 08:08
[2018-12-08] MEDS: Amiodarone 200mg tab GT SCH (08:19)
[2018-12-08] MEDS: Carvedilol 12.5mg tab GT SCH ×2 (08:20→20:24)
[2018-12-08] MEDS: levETIRAcetam 500mg/5ml Liquid GT SCH ×2 (08:21→20:25)
[2018-12-08] MEDS: Heparin 5000 units/ml inj SUBQ SCH ×2 (08:25→20:25)
[2018-12-08] MEDS: Pantoprazole Inj IVP SCH (08:25)
--- NOTE | 2018-12-08 10:05 | NUR ---
NURSE NOTES: Turned and repositioned, HOB elevated at 35 degree to prevent aspiration.Seen by Coco Morrison ,[employer] will follow up with new orders.
--- NOTE | 2018-12-08 10:11 | Anethesia Preoperative Eval ---
Anesthesia Pre-op PMH/ROS General Date of Evaluation: Dec 09, 2018 Time of Evaluation: 10:11 ASA Score: ASA 4 - Acute on chronic respiratory failure (vent dependent) due to trach dislodgement Mallampati Score Class I : Soft palate, uvula, fauces, pillars visible Class II: Soft palate, uvula, fauces visible Class III: Soft palate, base of uvula visible Class IV: Only hard plate visible Mallampati Classification: Class III Surgeon: Alejandro Diagnosis: Resp Failure Surgical Procedure: Bronch; tracheostomy Anesthesia History: none Family History: no anesthesia problems Allergies: Coded Allergies: No Known Allergies (Unverified , 12/06/18) Medications: see eMAR Patient NPO?: Yes Past Medical History Cardiovascular: Reports: HTN, CAD, arrhythmia - afib on eliquis, other - Heart failure s/p AICD Pulmonary: Reports: COPD, other - Resp failure on mech ventilation; see RT report; trach dislodged and orally intubated in ER Gastrointestinal/Genitourinary: Reports: GERD, CRI Neurologic/Psychiatric: Reports: dementia Endocrine: Reports: DM Hematology/Immune: Reports: anemia PMH Narrative: Acute on chronic respiratory failure (vent dependent) due to trach dislodgement Leukocytosis Diabetes mellitus type 2 JASMIN on CRI Chronic A fib , on a/coagulation AICD Dysphagia status post PEG. Morbid obesity. Seizure disorder PVD HTN. Hx of ICH . Anemia of chronic disease PSxH Narrative: Peg/AICD placement Anesthesia Pre-op Phys. Exam Physician Exam Last Vital Signs Date Time Temp Pulse Resp B/P (MAP) Pulse Ox O2 Delivery O2 Flow Rate FiO2 12/08/18 09:05 87 17 30 12/08/18 08:20 106/66 12/08/18 04:00 Mechanical Ventilator 12/06/18 14:20 97.7 100 15.0 Constitutional: other Neurologic: other Cardiovascular: RRR - RBBB AICD Respiratory: other - Mech Vent; ETT in situ Gastrointestinal: S/NT/ND Airway Exam Mallampati Classification 3 Mallampati Score: Class III MO: limited ROM: limited Dentures: no upper, no lower Anesthesia Pre-op A/P Labs Hematology Test 12/08/18 05:00 White Blood Count 8.4 K/UL (4.8-10.8) Red Blood Count 2.64 M/UL (4.70-6.10) L Hemoglobin 8.1 G/DL (14.2-18.0) L Hematocrit 25.4 % (42.0-52.0) L Mean Corpuscular Volume 96 FL (80-99) Mean Corpuscular Hemoglobin 30.7 PG (27.0-31.0) Mean Corpuscular Hemoglobin Concent 31.8 G/DL (32.0-36.0) L Red Cell Distribution Width 17.2 % (11.6-14.8) H Platelet Count 293 K/UL (150-450) Mean Platelet Volume 6.6 FL (6.5-10.1) Neutrophils (%) (Auto) 76.2 % (45.0-75.0) H Lymphocytes (%) (Auto) 14.4 % (20.0-45.0) L Monocytes (%) (Auto) 6.4 % (1.0-10.0) Eosinophils (%) (Auto) 2.0 % (0.0-3.0) Basophils (%) (Auto) 1.0 % (0.0-2.0) Chemistry Test 12/08/18 05:30 Sodium Level 141 MMOL/L (136-145) Potassium Level 4.3 MMOL/L (3.5-5.1) Chloride Level 110 MMOL/L (98-107) H Carbon Dioxide Level 22 MMOL/L (21-32) Anion Gap 9 mmol/L (5-15) Blood Urea Nitrogen 29 mg/dL (7-18) H Creatinine 1.1 MG/DL (0.55-1.30) Estimat Glomerular Filtration Rate > 60 mL/min (>60) Glucose Level 113 MG/DL (74-106) H Calcium Level 9.6 MG/DL (8.5-10.1) Studies Pre-op Studies: EKG - RBBB/AICD Risk Assessment & Plan Plan: General Pre-Antibiotics Drug: Yamile Casanova CRNA Dec 08, 2018 10:11
--- NOTE | 2018-12-08 10:31 | NUR ---
CASE MANAGEMENT: REVIEW SI: RESP DISTRESS / VENT DEPENDANT . TRACHEOSTOMY DISLODGED . A-FIB BRONCH; TRACHEOSTOMY 12/08 T 98.9 HR 77 RR 23 BP 106/66 SAT 100% FIO2 30 H/H 8.1/25.4 BUN 29 IS: AMIODARONE GT QD PROTONIX IV QD COREG GT Q12HR LEVOPHED IV Q24HR ICU STATUS DCP: PATIENT IS FROM [facility]
[2018-12-08] MEDS ORDERED: Tubing IV Secondary IV ONE (10:56)
--- NOTE | 2018-12-08 12:04 | NUR ---
NURSE NOTES: Pt turned and repositioned.HOB elevated to prevent aspiration.Will continue to monitor.Kept clean and dry,mouth care done.
--- NOTE | 2018-12-08 13:27 | NUR ---
NURSE NOTES: Seen by Dr Burgess,will follow up with new ordered.Trach and Bronchoscopy at 1pm 12/09/18. Consent obtained from son Ajay.Pt kept on close monitoring
--- NOTE | 2018-12-08 14:03 | Surgery Progress Note ---
Surgery Progress Note Subjective Additional Comments no acute events. Objective Last 24 Hour Vital Signs Date Time Temp Pulse Resp B/P (MAP) Pulse Ox O2 Delivery O2 Flow Rate FiO2 12/08/18 13:20 68 14 30 12/08/18 12:00 30 12/08/18 12:00 74 12/08/18 12:00 Mechanical Ventilator 12/08/18 11:16 77 14 30 12/08/18 09:42 98.9 12/08/18 09:05 87 17 30 12/08/18 08:20 78 106/66 12/08/18 08:00 79 12/08/18 08:00 30 12/08/18 08:00 Mechanical Ventilator 12/08/18 06:52 87 23 30 12/08/18 05:20 77 16 30 12/08/18 04:00 80 12/08/18 04:00 30 12/08/18 04:00 Mechanical Ventilator 12/08/18 03:12 88 18 30 12/08/18 01:28 79 16 30 12/08/18 00:00 Mechanical Ventilator 12/08/18 00:00 77 12/08/18 00:00 30 12/07/18 22:53 76 16 30 12/07/18 21:29 89 120/51 12/07/18 21:09 77 16 30 12/07/18 20:00 30 12/07/18 20:00 Mechanical Ventilator 12/07/18 19:01 72 16 30 12/07/18 16:35 89 17 30 12/07/18 16:00 Mechanical Ventilator 12/07/18 16:00 70 12/07/18 16:00 40 12/07/18 14:39 73 16 30 I&O Intake and Output 12/07/18 12/08/18 18:59 06:59 Intake Total 1460.0 ml 1610 ml Output Total 715 ml 1170 ml Balance 745.0 ml 440 ml Free Water 30 ml 90 ml IV Total 1220.0 ml 1100 ml Tube Feeding 210 ml 420 ml Output Urine Total 715 ml 1170 ml Dressing: other Wound: other Drains: other Cardiovascular: RSR Respiratory: decreased breath sounds Abdomen: soft, present bowel sounds Extremities: other Laboratory Tests Test 12/08/18 05:00 12/08/18 05:30 12/08/18 07:55 White Blood Count 8.4 K/UL (4.8-10.8) Red Blood Count 2.64 M/UL (4.70-6.10) L Hemoglobin 8.1 G/DL (14.2-18.0) L Hematocrit 25.4 % (42.0-52.0) L Mean Corpuscular Volume 96 FL (80-99) Mean Corpuscular Hemoglobin 30.7 PG (27.0-31.0) Mean Corpuscular Hemoglobin Concent 31.8 G/DL (32.0-36.0) L Red Cell Distribution Width 17.2 % (11.6-14.8) H Platelet Count 293 K/UL (150-450) Mean Platelet Volume 6.6 FL (6.5-10.1) Neutrophils (%) (Auto) 76.2 % (45.0-75.0) H Lymphocytes (%) (Auto) 14.4 % (20.0-45.0) L Monocytes (%) (Auto) 6.4 % (1.0-10.0) Eosinophils (%) (Auto) 2.0 % (0.0-3.0) Basophils (%) (Auto) 1.0 % (0.0-2.0) Sodium Level 141 MMOL/L (136-145) Potassium Level 4.3 MMOL/L (3.5-5.1) Chloride Level 110 MMOL/L (98-107) H Carbon Dioxide Level 22 MMOL/L (21-32) Anion Gap 9 mmol/L (5-15) Blood Urea Nitrogen 29 mg/dL (7-18) H Creatinine 1.1 MG/DL (0.55-1.30) Estimat Glomerular Filtration Rate > 60 mL/min (>60) Glucose Level 113 MG/DL (74-106) H Calcium Level 9.6 MG/DL (8.5-10.1) Arterial Blood pH 7.503 (7.350-7.450) Arterial Blood Partial Pressure CO2 23.7 mmHg (35.0-45.0) *L Arterial Blood Partial Pressure O2 156.9 mmHg (75.0-100.0) H Arterial Blood HCO3 18.2 mmol/L (22.0-26.0) L Arterial Blood Oxygen Saturation 98.3 % (95-100) Arterial Blood Base Excess -4.0 (-2-2) L Agustin Test Positive Plan Problems: (1) Respiratory distress Assessment & Plan: Tracheostomy dislodged intubated for airway protection seen in ICU minutes after. per history trach for months now. per report only dislodged for 30-40 minutes when seen at bedside 1cm healing tracheostomy site seen. evaluated and probed but no proper trach track could be noted. should be able to have well formed track by now and should easily be able to palpate ET tube but unable to do so on exam. Not sure if prior attempts to manipulation or new trach placement was done prior to arrival to hospital and no report of this given. currently no safe track seen for replacement trach. recommend stabilization once stable will schedule to replace tracheostomy in OR under safe and controlled setting. will plan for bronchostomy first and possible trach replacement vs new trach placement. Plan for OR Sunday for trach placement thank you Tae Allen Dec 08, 2018 14:03
--- NOTE | 2018-12-08 14:04 | Pre-Procedure Note/Attestation ---
Pre-Procedure Note/Attestation Complete Prior to Procedure Planned Procedure: not applicable Procedure Narrative: Bronchoscopy and Tracheostomy Indications for Procedure Pre-Operative Diagnosis: respiratory insufficiency requiring prolonged ventilatory support Attestation I attest that I discussed the nature of the procedure; its benefits; risks and complications; and alternatives (and the risks and benefits of such alternatives ), prior to the procedure, with the patient (or the patient's legal public relations representative). I attest that, if there was a reasonable possibility of needing a blood transfusion, the patient (or the patient's legal public relations representative) was given the [facility] standardized written summary, pursuant to the Jose Raul Addis Blood Safety Act ([place] Health and Safety Code # 1645, as amended). I attest that I re-evaluated the patient just prior to the surgery and that there has been no change in the patient's H&P, except as documented below: Tae Allen Dec 08, 2018 14:04
--- NOTE | 2018-12-08 14:35 | NUR ---
NURSE NOTES: Pt turned and repositioned, HOB elevated to prevent aspiration.Kept clean and dry
--- NOTE | 2018-12-08 16:39 | NUR ---
NURSE NOTES: ADLS DONE,MOUTH CARE PERFORMED,TURNED AND REPOSITIONED.KEPT CLEAN DRY AND COMFORTABLE
--- NOTE | 2018-12-08 18:17 | NUR ---
NURSE NOTES: Adls done, kept clean dry and comfortable. No residual noted, HOB elevated to prevent aspiration.Will continue to monitor
--- NOTE | 2018-12-08 18:37 | Internal Med Progress Note ---
Subjective Date of Service: Dec 08, 2018 Physician Name David Lieberman Attending Physician Jian Martinez MD Current Medications Medications (Trade) Dose Ordered Sig/Sophie Route PRN Reason Start Time Stop Time Status Last Admin Dose Admin Acetaminophen (Tylenol) 650 mg Q4H PRN ORAL fever 12/06/18 16:00 01/05/19 15:59 Albuterol/ Ipratropium (Albuterol/ Ipratropium) 3 ml Q4H PRN HHN Shortness of Breath 12/06/18 17:00 12/11/18 16:59 Allopurinol (Allopurinol) 300 mg DAILY GT 12/07/18 09:00 01/06/19 08:59 12/08/18 08:18 Amiodarone HCl (Cordarone) 100 mg DAILY GT 12/07/18 09:00 01/06/19 08:59 12/08/18 08:19 Carvedilol (Coreg) 12.5 mg EVERY 12 HOURS GT 12/06/18 21:00 01/05/19 20:59 12/08/18 08:20 Dextrose (Dextrose 50%) 25 ml Q30M PRN IV Hypoglycemia 12/06/18 17:30 01/05/19 17:29 Dextrose (Dextrose 50%) 50 ml Q30M PRN IV Hypoglycemia 12/06/18 17:30 01/05/19 17:29 Heparin Sodium (Porcine) (Heparin 5000 units/ml) 5,000 units EVERY 12 HOURS SUBQ 12/06/18 21:00 01/05/19 20:59 12/08/18 08:25 Insulin Aspart (NovoLOG) BEFORE MEALS AND HS SUBQ 12/06/18 21:00 01/05/19 20:59 12/08/18 17:13 Levetiracetam (Keppra) 500 mg Q12HR GT 12/06/18 21:00 01/05/19 20:59 12/08/18 08:21 Lorazepam (Ativan 2mg/ml 1ml) 2 mg Q2H PRN IV For Anxiety 12/06/18 17:30 12/13/18 17:29 12/08/18 09:12 Morphine Sulfate (Morphine Sulfate) 4 mg Q4H PRN IVP Severe Pain (Pain Scale 7-10) 12/06/18 17:30 12/13/18 17:29 12/08/18 09:12 Norepinephrine Bitartrate 4 mg/ Dextrose 254 ml @ 0 mls/hr Q24H PRN IV For hypotension 12/06/18 17:45 01/05/19 15:59 Ondansetron HCl (Zofran) 4 mg Q6H PRN IVP Nausea & Vomiting 12/06/18 17:30 01/05/19 17:29 Pantoprazole (Protonix) 40 mg DAILY IVP 12/07/18 09:00 01/06/19 08:59 12/08/18 08:25 Piperacillin Sod/ Tazobactam Sod 3.375 gm/Dextrose 110 ml @ 27.5 mls/hr EVERY 8 HOURS IVPB 12/06/18 22:00 12/11/18 21:59 12/08/18 13:35 Polyethylene Glycol (Miralax) 17 gm DAILYPRN PRN ORAL Constipation 12/06/18 17:30 01/05/19 17:29 Sodium Chloride 1,000 ml @ 100 mls/hr Q10H IVLG 12/06/18 17:30 01/05/19 17:29 12/08/18 09:33 Allergies: Coded Allergies: No Known Allergies (Unverified , 12/06/18) ROS Limited/Unobtainable: Yes Subjective 58 YO vent dep M admitted with dislodged tracheostomy, Cover for Int Luis-Dr Martinez. ICU Objective Last Vital Signs Date Time Temp Pulse Resp B/P (MAP) Pulse Ox O2 Delivery O2 Flow Rate FiO2 12/08/18 17:15 77 14 30 12/08/18 16:00 Mechanical Ventilator 12/08/18 09:42 98.9 12/08/18 08:20 106/66 12/06/18 14:20 100 15.0 Laboratory Tests Test 12/08/18 05:00 12/08/18 05:30 12/08/18 07:55 White Blood Count 8.4 K/UL (4.8-10.8) Red Blood Count 2.64 M/UL (4.70-6.10) L Hemoglobin 8.1 G/DL (14.2-18.0) L Hematocrit 25.4 % (42.0-52.0) L Mean Corpuscular Volume 96 FL (80-99) Mean Corpuscular Hemoglobin 30.7 PG (27.0-31.0) Mean Corpuscular Hemoglobin Concent 31.8 G/DL (32.0-36.0) L Red Cell Distribution Width 17.2 % (11.6-14.8) H Platelet Count 293 K/UL (150-450) Mean Platelet Volume 6.6 FL (6.5-10.1) Neutrophils (%) (Auto) 76.2 % (45.0-75.0) H Lymphocytes (%) (Auto) 14.4 % (20.0-45.0) L Monocytes (%) (Auto) 6.4 % (1.0-10.0) Eosinophils (%) (Auto) 2.0 % (0.0-3.0) Basophils (%) (Auto) 1.0 % (0.0-2.0) Sodium Level 141 MMOL/L (136-145) Potassium Level 4.3 MMOL/L (3.5-5.1) Chloride Level 110 MMOL/L (98-107) H Carbon Dioxide Level 22 MMOL/L (21-32) Anion Gap 9 mmol/L (5-15) Blood Urea Nitrogen 29 mg/dL (7-18) H Creatinine 1.1 MG/DL (0.55-1.30) Estimat Glomerular Filtration Rate > 60 mL/min (>60) Glucose Level 113 MG/DL (74-106) H Calcium Level 9.6 MG/DL (8.5-10.1) Arterial Blood pH 7.503 (7.350-7.450) Arterial Blood Partial Pressure CO2 23.7 mmHg (35.0-45.0) *L Arterial Blood Partial Pressure O2 156.9 mmHg (75.0-100.0) H Arterial Blood HCO3 18.2 mmol/L (22.0-26.0) L Arterial Blood Oxygen Saturation 98.3 % (95-100) Arterial Blood Base Excess -4.0 (-2-2) L Agustin Test Positive Microbiology Date/Time Source Procedure Growth Status 12/06/18 17:50 Blood Blood Culture - Preliminary NO GROWTH AFTER 24 HOURS Resulted 12/06/18 17:45 Blood Blood Culture - Preliminary NO GROWTH AFTER 24 HOURS Resulted 12/06/18 17:50 Sputum Gram Stain - Final Resulted 12/06/18 17:50 Sputum Culture - Preliminary Gram Negative Lele Usual Respiratory Aurora Resulted 12/06/18 13:23 Nasal Nares MRSA Culture - Final Staphylococcus Aureus - Mrsa Complete 12/06/18 14:00 Rectum VRE Culture - Final Enterococcus Faecalis - Vre Complete 12/06/18 14:00 Rectum - Final NO CARBAPENEM-RESISTANT ENTEROBACTERI... Complete Intake and Output 12/07/18 12/08/18 19:00 07:00 Intake Total 1467.5 ml 1637.5 ml Output Total 725 ml 1310 ml Balance 742.5 ml 327.5 ml Free Water 30 ml 90 ml IV Total 1192.5 ml 1127.5 ml Tube Feeding 245 ml 420 ml Output Urine Total 725 ml 1310 ml Objective PHYSICAL EXAMINATION: GENERAL: The patient is awake with deep stimulation, however, at this time sedated. HEAD AND NECK: Pupils are equal and reactive. Anicteric. Neck, tracheostomy site was noted. We removed the tracheal tube and there is closure of the tract already. No sign of bleeding. LUNGS: Bilateral air entry. Mechanical breath sounds. No wheezes. HEART: S1, S2, irregular. Distant heart sounds. AICD on left side of chest wall was noted. ABDOMEN: Soft, nondistended, and nontender. Mildly obese. PEG site is clean. EXTREMITIES: No cyanosis, clubbing, or edema. NEUROLOGIC: Limited secondary to the patient's status, sedated, unable to communicate. Assessment/Plan Assessment/Plan ASSESSMENT: 1. Chronic respiratory failure on vent dependent, status post tracheostomy, dislodged. 2. Diabetes type 2. 3. History of cardiac arrhythmias. 4. Status post biventricular ICD. 5. Dysphagia status post percutaneous endoscopic gastrostomy. 6. Morbid obesity. 7. Peripheral vascular disease. 8. Acute kidney injury and chronic renal insufficiency. 9. History of epilepsy. 10. Chronic atrial fibrillation. 11. Fatty liver. 12. Essential hypertension. 13. Nontraumatic intracerebral hemorrhage. 14. Anemia of chronic disease. PLAN: Admit the patient to ICU. We will follow up with Dr. Garner's recommendation as well as Dr. Allen from Surgery. We will monitor laboratory closely. At this time, the patient has a code status Full Code on the POLST was written. Broad-spectrum antibiotic with ertapenem and amikacin. Monitor laboratory and culture. DVT prophylaxis is heparin subcutaneous. At this time in anticipation of possible tracheostomy placement again, we will hold off on Eliquis. Await tracheostomy replacement/new trach-see surgery note. continue David Saravia MD Dec 08, 2018 18:37
[2018-12-08 19:00] VITALS: BP 123/67
--- NOTE | 2018-12-08 19:07 | Consultation ---
History of Present Illness General Date patient seen: Dec 08, 2018 Chief Complaint: Dyspnea/Respdistress Present Illness Allergies: Coded Allergies: No Known Allergies (Unverified , 12/06/18) Medication History Scheduled Allopurinol* (Allopurinol*), 300 MG GT DAILY, (Reported) Amino Acids/Protein Hydrolys (Pro-Stat Liquid), 30 ML GT TWICE A DAY, (Reported) Amiodarone Hcl (Amiodarone Hcl), 100 MG GT DAILY, (Reported) Ascorbic Acid* (Vitamin C*), 500 MG GT DAILY, (Reported) Atorvastatin Calcium* (Atorvastatin Calcium*), 40 MG ORAL BEDTIME, (Reported) Carvedilol* (Carvedilol*), 12.5 MG GT EVERY 12 HOURS, (Reported) Docusate Sodium* (Colace*), 100 MG GT DAILY, (Reported) Famotidine (Famotidine), 20 MG GT DAILY, (Reported) Folic Acid* (Folic Acid*), 1 MG GT DAILY, (Reported) Furosemide* (Lasix*), 20 MG GT BID, (Reported) Insulin Glargine (Lantus), 0 SUBQ BEDTIME, (Reported) Levetiracetam (Keppra), 1,000 MG GT DAILY, (Reported) Lisinopril* (Lisinopril*), 2.5 MG GT DAILY, (Reported) Magnesium Hydroxide* (Milk Of Magnesia*), 30 ML GT DAILY, (Reported) Metformin Hcl* (Metformin Hcl*), 500 MG GT TWICE A DAY, (Reported) Multivitamin Liquid* (Multi-Delyn*), 5 ML GT DAILY, (Reported) Spironolactone* (Aldactone*), 25 MG GT DAILY, (Reported) Vitamin D (Vitamin D3), 5,000 UNITS IABDOM DAILY, (Reported) Scheduled PRN Acetaminophen* (Acetaminophen 325MG Tablet*), 650 MG GT Q4H PRN for Pain Scale ( 3-5), (Reported) Albuterol Sulfate* (Albuterol Sulfate Hhn*), 3 ML INH Q4H PRN for Shortness of Breath, (Reported) Miscellaneous Medications Apixaban (Eliquis), 5 MG GT, (Reported) Patient History Healthcare decision maker Son ( Ajay Billings) Resuscitation status Full Code Advanced Directive on File No Physical Exam Last 24 Hour Vital Signs Date Time Temp Pulse Resp B/P (MAP) Pulse Ox O2 Delivery O2 Flow Rate FiO2 12/08/18 17:15 77 14 30 12/08/18 16:00 30 12/08/18 16:00 51 12/08/18 16:00 Mechanical Ventilator 12/08/18 15:21 70 14 30 12/08/18 13:20 68 14 30 12/08/18 12:00 30 12/08/18 12:00 74 12/08/18 12:00 Mechanical Ventilator 12/08/18 11:16 77 14 30 12/08/18 09:42 98.9 12/08/18 09:05 87 17 30 12/08/18 08:20 78 106/66 12/08/18 08:00 79 12/08/18 08:00 30 12/08/18 08:00 Mechanical Ventilator 12/08/18 06:52 87 23 30 12/08/18 05:20 77 16 30 12/08/18 04:00 80 12/08/18 04:00 30 12/08/18 04:00 Mechanical Ventilator 12/08/18 03:12 88 18 30 12/08/18 01:28 79 16 30 12/08/18 00:00 Mechanical Ventilator 12/08/18 00:00 77 12/08/18 00:00 30 12/07/18 22:53 76 16 30 12/07/18 21:29 89 120/51 12/07/18 21:09 77 16 30 12/07/18 20:00 30 12/07/18 20:00 Mechanical Ventilator Intake and Output 12/07/18 12/08/18 19:00 07:00 Intake Total 1467.5 ml 1637.5 ml Output Total 725 ml 1310 ml Balance 742.5 ml 327.5 ml Free Water 30 ml 90 ml IV Total 1192.5 ml 1127.5 ml Tube Feeding 245 ml 420 ml Output Urine Total 725 ml 1310 ml Laboratory Tests Test 12/08/18 05:00 12/08/18 05:30 12/08/18 07:55 White Blood Count 8.4 K/UL (4.8-10.8) Red Blood Count 2.64 M/UL (4.70-6.10) L Hemoglobin 8.1 G/DL (14.2-18.0) L Hematocrit 25.4 % (42.0-52.0) L Mean Corpuscular Volume 96 FL (80-99) Mean Corpuscular Hemoglobin 30.7 PG (27.0-31.0) Mean Corpuscular Hemoglobin Concent 31.8 G/DL (32.0-36.0) L Red Cell Distribution Width 17.2 % (11.6-14.8) H Platelet Count 293 K/UL (150-450) Mean Platelet Volume 6.6 FL (6.5-10.1) Neutrophils (%) (Auto) 76.2 % (45.0-75.0) H Lymphocytes (%) (Auto) 14.4 % (20.0-45.0) L Monocytes (%) (Auto) 6.4 % (1.0-10.0) Eosinophils (%) (Auto) 2.0 % (0.0-3.0) Basophils (%) (Auto) 1.0 % (0.0-2.0) Sodium Level 141 MMOL/L (136-145) Potassium Level 4.3 MMOL/L (3.5-5.1) Chloride Level 110 MMOL/L (98-107) H Carbon Dioxide Level 22 MMOL/L (21-32) Anion Gap 9 mmol/L (5-15) Blood Urea Nitrogen 29 mg/dL (7-18) H Creatinine 1.1 MG/DL (0.55-1.30) Estimat Glomerular Filtration Rate > 60 mL/min (>60) Glucose Level 113 MG/DL (74-106) H Calcium Level 9.6 MG/DL (8.5-10.1) Arterial Blood pH 7.503 (7.350-7.450) Arterial Blood Partial Pressure CO2 23.7 mmHg (35.0-45.0) *L Arterial Blood Partial Pressure O2 156.9 mmHg (75.0-100.0) H Arterial Blood HCO3 18.2 mmol/L (22.0-26.0) L Arterial Blood Oxygen Saturation 98.3 % (95-100) Arterial Blood Base Excess -4.0 (-2-2) L Agustin Test Positive Height (Feet): 5 Height (Inches): 8.00 Weight (Pounds): 228 Medications Current Medications Medications (Trade) Dose Ordered Sig/Sophie Route PRN Reason Start Time Stop Time Status Last Admin Dose Admin Acetaminophen (Tylenol) 650 mg Q4H PRN ORAL fever 12/06/18 16:00 01/05/19 15:59 Albuterol/ Ipratropium (Albuterol/ Ipratropium) 3 ml Q4H PRN HHN Shortness of Breath 12/06/18 17:00 12/11/18 16:59 Allopurinol (Allopurinol) 300 mg DAILY GT 12/07/18 09:00 01/06/19 08:59 12/08/18 08:18 Amiodarone HCl (Cordarone) 100 mg DAILY GT 12/07/18 09:00 01/06/19 08:59 12/08/18 08:19 Carvedilol (Coreg) 12.5 mg EVERY 12 HOURS GT 12/06/18 21:00 01/05/19 20:59 12/08/18 08:20 Dextrose (Dextrose 50%) 25 ml Q30M PRN IV Hypoglycemia 12/06/18 17:30 01/05/19 17:29 Dextrose (Dextrose 50%) 50 ml Q30M PRN IV Hypoglycemia 12/06/18 17:30 01/05/19 17:29 Heparin Sodium (Porcine) (Heparin 5000 units/ml) 5,000 units EVERY 12 HOURS SUBQ 12/06/18 21:00 01/05/19 20:59 12/08/18 08:25 Insulin Aspart (NovoLOG) BEFORE MEALS AND HS SUBQ 12/06/18 21:00 01/05/19 20:59 12/08/18 17:13 Levetiracetam (Keppra) 500 mg Q12HR GT 12/06/18 21:00 01/05/19 20:59 12/08/18 08:21 Lorazepam (Ativan 2mg/ml 1ml) 2 mg Q2H PRN IV For Anxiety 12/06/18 17:30 12/13/18 17:29 12/08/18 09:12 Morphine Sulfate (Morphine Sulfate) 4 mg Q4H PRN IVP Severe Pain (Pain Scale 7-10) 12/06/18 17:30 12/13/18 17:29 12/08/18 09:12 Norepinephrine Bitartrate 4 mg/ Dextrose 254 ml @ 0 mls/hr Q24H PRN IV For hypotension 12/06/18 17:45 01/05/19 15:59 Ondansetron HCl (Zofran) 4 mg Q6H PRN IVP Nausea & Vomiting 12/06/18 17:30 01/05/19 17:29 Pantoprazole (Protonix) 40 mg DAILY IVP 12/07/18 09:00 01/06/19 08:59 12/08/18 08:25 Piperacillin Sod/ Tazobactam Sod 3.375 gm/Dextrose 110 ml @ 27.5 mls/hr EVERY 8 HOURS IVPB 12/06/18 22:00 12/11/18 21:59 12/08/18 13:35 Polyethylene Glycol (Miralax) 17 gm DAILYPRN PRN ORAL Constipation 12/06/18 17:30 01/05/19 17:29 Sodium Chloride 1,000 ml @ 100 mls/hr Q10H IVLG 12/06/18 17:30 01/05/19 17:29 12/08/18 09:33 Assessment/Plan Assessment/Plan Hematology Consultation REQ MD: Luisana Martinez RFC: Anemia eval DOS: 12/08/18 ID 58-year-old male comes via EMS with complaints from senior living of pulling out his trach while in the shower. Patient is being bag mask ventilated and is not talking at all. here fore trach replacement, is off eliquis, to be seen by surgeon shortly, currenlty is on abx, has been seen by Dr. Allen, or sunday Coded Allergies: No Known Allergies (Unverified , 12/06/18) Past Medical History: see triage record Reviewed Nursing Documentation: PMH: Agreed; PSxH: Agreed Hx Cardiac Problems: Yes - ashd Hx COPD: Yes - trach,naomi ROS All Other Systems: limited - 2/2 distress/medical condition PE Vital Signs Date Time Temp Pulse Resp B/P (MAP) Pulse Ox O2 Delivery O2 Flow Rate FiO2 12/06/18 10:16 0 17 95 Ambu-Bag 12/06/18 10:20 142/65 12/06/18 10:25 15.0 12/06/18 10:35 100 Gen: alert, severe distress Head: normocephalic Eyes: bilateral eye normal inspection, bilateral eye EOMI ENT: normal pharynx, no angioedema, uvula midline, moist mucus membranes Neck: full range of motion, supple, tracheotomy +++ stoma/site completely closed with dried blood and tissue Respiratory: lungs clear, normal breath sounds, chest symmetrical Cardiovascular: normal peripheral pulses, regular rate, rhythm, other - PPM site c/d/i Gastrointestinal: normal inspection, non tender, soft, no mass, no guarding, no rebound ++ peg Genitourinary: normal inspection, no CVA tenderness Musculoskeletal: back normal, gait/station normal Neurologic: unresponsive Psychiatric: anxious Skin: normal color, no rash, warm/dry, normal turgor Lymphatic: no adenopathy Laboratory Tests Test 12/08/18 05:00 12/08/18 05:30 12/08/18 07:55 White Blood Count 8.4 K/UL (4.8-10.8) Red Blood Count 2.64 M/UL (4.70-6.10) L Hemoglobin 8.1 G/DL (14.2-18.0) L Hematocrit 25.4 % (42.0-52.0) L Mean Corpuscular Volume 96 FL (80-99) Mean Corpuscular Hemoglobin 30.7 PG (27.0-31.0) Mean Corpuscular Hemoglobin Concent 31.8 G/DL (32.0-36.0) L Red Cell Distribution Width 17.2 % (11.6-14.8) H Platelet Count 293 K/UL (150-450) Mean Platelet Volume 6.6 FL (6.5-10.1) Neutrophils (%) (Auto) 76.2 % (45.0-75.0) H Lymphocytes (%) (Auto) 14.4 % (20.0-45.0) L Monocytes (%) (Auto) 6.4 % (1.0-10.0) Eosinophils (%) (Auto) 2.0 % (0.0-3.0) Basophils (%) (Auto) 1.0 % (0.0-2.0) Sodium Level 141 MMOL/L (136-145) Potassium Level 4.3 MMOL/L (3.5-5.1) Chloride Level 110 MMOL/L (98-107) H Carbon Dioxide Level 22 MMOL/L (21-32) Anion Gap 9 mmol/L (5-15) Blood Urea Nitrogen 29 mg/dL (7-18) H Creatinine 1.1 MG/DL (0.55-1.30) Estimat Glomerular Filtration Rate > 60 mL/min (>60) Glucose Level 113 MG/DL (74-106) H Calcium Level 9.6 MG/DL (8.5-10.1) Arterial Blood pH 7.503 (7.350-7.450) Arterial Blood Partial Pressure CO2 23.7 mmHg (35.0-45.0) *L Arterial Blood Partial Pressure O2 156.9 mmHg (75.0-100.0) H Arterial Blood HCO3 18.2 mmol/L (22.0-26.0) L Arterial Blood Oxygen Saturation 98.3 % (95-100) Arterial Blood Base Excess -4.0 (-2-2) L Agustin Test Positive Assessment and Recs: # Anemia of chronic disease (or of iron deficiency) due to underlying chronic medical issues, multifactorial --> Anemia workup has been ordered --> No evidence of hemolysis is noted, peripheral smear has been reviewed. --> Hgb goal >7. Transfuse prn. --> Epogen or iron at this time is not particularly indicated --> Medications have been reviewed # Coagulopathy has been recently on eliquis --> dc eliquis, has been placed on hold --> cards eval as needed --> vit K 10mg sq given x 1 prior to surgery sunday # Resp failure s/p trach with dislodgement --> may need new trach v replacement # Dysphagia with hx PEG dependent # DM2 # Cardiac arrythmia history # s/p icd placement # Morbid obesity The timing of this note does not necessarily reflect the time of the patient was seen. Greatly appreciate consultation! Kenney Shepard MD Dec 08, 2018 19:07
[2018-12-08] MEDS ORDERED: Phytonadione 10 mg/mL 1ml amp SUBQ SCH (19:15)
--- NOTE | 2018-12-08 19:16 | NUR ---
HAND-OFF: Report given to TEAGAN Obrien.
--- NOTE | 2018-12-08 19:25 | NUR ---
PT. RECEIVED STABLE ON AC, 14, 600, 30%, NO PEEP. RATE WAS DECREASED FROM 16 TO 14 PER SUDHIR MARSH [employer] ORDER ON 12/08/2018 AT 0808HRS. PT. TOLERATING NEW SETTINGS WELL. ALARMS WERE ADJUSTED AND ARE ON AND AUDIBLE. BILATERAL RHONCHI DIMINISHED BREATH SOUNDS WERE FOUND IN THIS PATIENT. VENT CIRCUIT SECURE AND OUT OF THE WAY. NO S/S OF RESPIRATORY DISTRESS NOTED AT THIS TIME. WILL CONTINUE TO MONITOR.
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
[2018-12-08 20:00] VITALS: BP 119/64
[2018-12-08 20:07] LABS: INR 1.2 (0.9-1.1)
[2018-12-08 21:00] VITALS: BP 130/67
[2018-12-08 22:00] VITALS: BP 117/63
--- NOTE | 2018-12-08 22:00 | NUR ---
NURSE NOTES: Pt's resting in bed, in no acute distress. VS stable. Will continue to monitor.
[2018-12-08 23:00] VITALS: BP 119/62
[2018-12-09] VITALS (23 sets, daily range): BP systolic 117–158; BP diastolic 62–87
--- NOTE | 2018-12-09 | NUR ---
NURSE NOTES: Pt's resting in bed, in no acute distress. VS stable. Will continue to monitor.
--- NOTE | 2018-12-09 02:00 | NUR ---
NURSE NOTES: Pt's resting in bed, in no acute distress. VS stable. Will continue to monitor.
--- NOTE | 2018-12-09 04:00 | NUR ---
NURSE NOTES: Pt's resting in bed, in no acute distress. Maintaining NPO for scheduled sx at 1300 today. Will continue to monitor.
--- NOTE | 2018-12-09 05:16 | NUR ---
RESPIRATORY NOTE: PT. REMAINED STABLE ON CMV WITH CURRENTS SETTINGS. SXN PRN WITH NO ADVERSE REACTION. VENT CIRCUIT SECURE AND OUT OF THE WAY. NO SOB NOTED AT THIS TIME.
--- NOTE | 2018-12-09 06:00 | NUR ---
NURSE NOTES: NURSE NOTES: Pt's resting in bed, in no acute distress. VS stable. Will continue to monitor.
[2018-12-09] MEDS: Piperacillin/Tazobactam 3.375 GM in D5W 110 ML IVPB SCH ×3 (06:10→22:39)
[2018-12-09] MEDS: NovoLOG Insulin Flexpen SUBQ SCH ×3 (06:10→21:05)
[2018-12-09 06:16] LABS: HEMATOCRIT 24.3 % (42.0-52.0); HEMOGLOBIN 7.7 G/DL (14.2-18.0); MEAN CORPUSCULAR VOLUME 97 FL (80-99); PLATELET COUNT 280 K/UL (150-450); RED CELL DISTRIBUTION WIDTH 16.5 % (11.6-14.8); WHITE BLOOD COUNT 7.5 K/UL (4.8-10.8)
[2018-12-09 06:39] LABS: INR 1.2 (0.9-1.1)
--- NOTE | 2018-12-09 06:40 | NUR ---
RESPIRATORY NOTE: Received pt on vent with current settings AC 14-600ml-30% FiO2- peep of 5, oral intubated with ETT 7.0 @ 24cm lips line. Surendra rhonchi diminished breath sound heard upon auscultation, suctioned moderate amount of thick/thin white gasca secretions without any incidents. A wound on left cheek noted under anchor fast noted, cover by wound tape per RN. Bite block is in place to prevent biting. Pt is sleeping, unable to follow commands. Pt will have tracheostomy done later at 1300. No SOB or resp distress noted at this time. Vent is plugged into red outlet, alarms are set and audible, and ambu bag at bedside. Will cont to monitor.
[2018-12-09 06:57] LABS: ANION GAP 7 mmol/L (5-15); BLOOD UREA NITROGEN 19 mg/dL (7-18); CALCIUM 9.3 MG/DL (8.5-10.1); CARBON DIOXIDE 23 MMOL/L (21-32); CHLORIDE 111 MMOL/L (98-107); CREATININE 0.9 MG/DL (0.55-1.30); FERRITIN 483 NG/ML (8-388); POTASSIUM 3.8 MMOL/L (3.5-5.1); SODIUM 141 MMOL/L (136-145)
--- NOTE | 2018-12-09 07:09 | NUR ---
HAND-OFF: Report given to TEAGAN Bhatia.
[2018-12-09 07:12] LABS: % IRON SATURATION 30 % (15-50); IRON 56 ug/dL (50-175); TOTAL IRON BINDING CAPACITY 185 ug/dL (250-450)
--- NOTE | 2018-12-09 07:17 | NUR ---
NURSE NOTES: Report received from TEAGAN Obrien
--- NOTE | 2018-12-09 08:02 | NUR ---
NURSE NOTES: Asleep when received with no apparent acute distress and afebrile at this time.ETT tube 05/06 AC 14 Vt 600 FiO2 30%. SR on the monitor.Abdomen round and soft, bowel sounds present in all 4 quadrants.RAC/20 gauge and LH /20 gauge patent with no s/s infiltration running NS at 100cc/hr.Mouth care done.HOB elevated to prevent aspiration.GT feeding placement check and intact with no residual.Hold for surgery with all anticoagulant.Kept clean dry and comfortable,turned and repositioned for comfort and skin management.Kept on close monitoring.
[2018-12-09] MEDS: Pantoprazole Inj IVP SCH (08:15)
[2018-12-09] MEDS: levETIRAcetam 500mg/5ml Liquid GT SCH ×2 (08:15→20:48)
[2018-12-09] MEDS: Amiodarone 200mg tab GT SCH (08:16)
[2018-12-09] MEDS: Carvedilol 12.5mg tab GT SCH ×2 (08:16→20:48)
[2018-12-09] MEDS: Heparin 5000 units/ml inj SUBQ SCH ×2 (08:17→20:50)
--- NOTE | 2018-12-09 10:04 | NUR ---
NURSE NOTES: Seen by Dr Garner with new order to transfuse 2 units PRBC during surgery/ Trach placement.Turned and repositioned.Kept clean dry and comfortable. Addendum: 12/09/18 at 1854 by Jannette Snow RN Consent for blood transfusion received from son ( Manuelito Moss)
--- NOTE | 2018-12-09 10:21 | Pulmonolgy Critical Care Note ---
Critical Care - Asmt/Plan Problems: (1) Acute respiratory failure (2) Diabetes mellitus (3) ICD (implantable cardioverter-defibrillator) in place (4) History of CVA (cerebrovascular accident) (5) Feeding by G-tube Respiratory: monitor respiratory rate, adjust FIO2, CXR Cardiac: continue to monitor HR/BP Renal: F/U I&O, keep IV fluid, check electrolytes Infectious Disease: check cultures Gastrointestinal: continue feedings/current rate Endocrine: monitor blood sugar, check HgA1C Hematologic: monitor H/H, transfuse if hgb<8.5 Neurologic: PRN Morphine, keep patient comfortable Prophylaxis: Protonix Notes Reviewed: lingo cleaner, renal Discussed with: nurses, consultants, watch case polisherdivision operations manager - Objective Last 24 Hour Vital Signs Date Time Temp Pulse Resp B/P (MAP) Pulse Ox O2 Delivery O2 Flow Rate FiO2 12/09/18 08:16 79 130/73 12/09/18 07:00 81 18 158/87 (110) 100 12/09/18 06:40 82 21 30 12/09/18 06:00 74 18 132/64 (86) 100 12/09/18 05:16 73 14 30 12/09/18 05:00 98.2 73 11 130/68 (88) 99 12/09/18 04:00 77 12/09/18 04:00 Mechanical Ventilator 12/09/18 04:00 30 12/09/18 04:00 74 11 132/68 (89) 99 12/09/18 03:00 78 17 137/68 (91) 99 12/09/18 02:51 74 17 30 12/09/18 02:00 77 16 132/68 (89) 99 12/09/18 01:16 84 19 30 12/09/18 01:00 78 15 121/63 (82) 99 12/09/18 00:00 Mechanical Ventilator 12/09/18 00:00 98.2 79 15 117/62 (80) 99 12/08/18 23:20 79 16 30 12/08/18 23:00 82 8 119/62 (81) 99 12/08/18 22:19 88 19 30 12/08/18 22:00 84 8 117/63 (81) 99 12/08/18 21:00 82 8 130/67 (88) 99 12/08/18 20:24 79 123/67 12/08/18 20:00 84 8 119/64 (82) 99 12/08/18 20:00 Mechanical Ventilator 12/08/18 20:00 84 12/08/18 20:00 30 12/08/18 19:25 82 16 30 12/08/18 19:00 97.8 84 8 123/67 (85) 99 12/08/18 17:15 77 14 30 12/08/18 16:00 30 12/08/18 16:00 51 12/08/18 16:00 Mechanical Ventilator 12/08/18 15:21 70 14 30 12/08/18 13:20 68 14 30 12/08/18 12:00 30 12/08/18 12:00 74 12/08/18 12:00 Mechanical Ventilator 12/08/18 11:16 77 14 30 Status: awake Condition: critical HEENT: atraumatic Lungs: clear Heart: HR/BP unstable Abdomen: active bowel sounds Extremities: no C/C/E Decubiti: location Micro: Microbiology Date/Time Source Procedure Growth Status 12/06/18 17:50 Blood Blood Culture - Preliminary NO GROWTH AFTER 48 HOURS Resulted 12/06/18 17:45 Blood Blood Culture - Preliminary NO GROWTH AFTER 48 HOURS Resulted 12/06/18 17:50 Sputum Gram Stain - Final Complete 12/06/18 17:50 Sputum Culture - Final Serratia Marcescens Usual Respiratory Aurora Complete 12/06/18 13:23 Nasal Nares MRSA Culture - Final Staphylococcus Aureus - Mrsa Complete 12/06/18 14:00 Rectum VRE Culture - Final Enterococcus Faecalis - Vre Complete 12/06/18 14:00 Rectum - Final NO CARBAPENEM-RESISTANT ENTEROBACTERI... Complete Accucheck: 110 Critical Care - Subjective Condition: critical EKG Rhythm: Sinus Rhythm FI02: 30 Vent Support Breath Rate: 14 Vent Support Mode: AC Vent Tidal Volume: 600 Sputum Amount: Moderate PEEP: 0.0 PIP: 23 Tube Feeding Amount: 35 I&O: Intake and Output 12/08/18 12/09/18 19:00 07:00 Intake Total 1896.0 ml 1572.500 ml Output Total 1095 ml 410 ml Balance 801.0 ml 1162.500 ml Free Water 120 ml 60 ml IV Total 1356.0 ml 1337.500 ml Tube Feeding 420 ml 175 ml Output Urine Total 1095 ml 410 ml # Bowel Movements 1 CXR: ET in good position ET-Tube: 7.0 ET Position: 24 Labs: Laboratory Tests Test 12/08/18 19:40 12/09/18 04:20 12/09/18 05:00 12/09/18 09:00 Reticulocyte Count 1.8 % (0.0-2.0) Prothrombin Time 12.6 SEC (9.30-11.50) H 12.4 SEC (9.30-11.50) H Prothromb Time International Ratio 1.2 (0.9-1.1) H 1.2 (0.9-1.1) H Fibrinogen 720 mg/dL (200-400) H Stool Occult Blood Pending White Blood Count 7.5 K/UL (4.8-10.8) Red Blood Count 2.50 M/UL (4.70-6.10) L Hemoglobin 7.7 G/DL (14.2-18.0) L Hematocrit 24.3 % (42.0-52.0) L Mean Corpuscular Volume 97 FL (80-99) Mean Corpuscular Hemoglobin 31.0 PG (27.0-31.0) Mean Corpuscular Hemoglobin Concent 31.8 G/DL (32.0-36.0) L Red Cell Distribution Width 16.5 % (11.6-14.8) H Platelet Count 280 K/UL (150-450) Mean Platelet Volume 6.5 FL (6.5-10.1) Neutrophils (%) (Auto) % (45.0-75.0) Lymphocytes (%) (Auto) % (20.0-45.0) Monocytes (%) (Auto) % (1.0-10.0) Eosinophils (%) (Auto) % (0.0-3.0) Basophils (%) (Auto) % (0.0-2.0) Differential Total Cells Counted 100 Neutrophils % (Manual) 81 % (45-75) H Lymphocytes % (Manual) 11 % (20-45) L Monocytes % (Manual) 7 % (1-10) Eosinophils % (Manual) 0 % (0-3) Basophils % (Manual) 1 % (0-2) Band Neutrophils 0 % (0-8) Platelet Estimate Adequate Platelet Morphology Normal Hypochromasia Anisocytosis 1+ Macrocytosis 1+ Activated Partial Thromboplast Time 31 SEC (23-33) Sodium Level 141 MMOL/L (136-145) Potassium Level 3.8 MMOL/L (3.5-5.1) Chloride Level 111 MMOL/L (98-107) H Carbon Dioxide Level 23 MMOL/L (21-32) Anion Gap 7 mmol/L (5-15) Blood Urea Nitrogen 19 mg/dL (7-18) H Creatinine 0.9 MG/DL (0.55-1.30) Estimat Glomerular Filtration Rate > 60 mL/min (>60) Glucose Level 116 MG/DL (74-106) H Calcium Level 9.3 MG/DL (8.5-10.1) Iron Level 56 ug/dL (50-175) Total Iron Binding Capacity 185 ug/dL (250-450) L Percent Iron Saturation 30 % (15-50) Unsaturated Iron Binding 129 ug/dL (112-346) Ferritin 483 NG/ML (8-388) H Carcinoembryonic Antigen Pending Vitamin B12 Level 901 PG/ML (193-986) Folate 41.2 NG/ML (8.6-58.9) Arterial Blood pH 7.395 (7.350-7.450) Arterial Blood Partial Pressure CO2 36.6 mmHg (35.0-45.0) Arterial Blood Partial Pressure O2 94.8 mmHg (75.0-100.0) Arterial Blood HCO3 21.9 mmol/L (22.0-26.0) L Arterial Blood Oxygen Saturation 96.7 % (95-100) Arterial Blood Base Excess -2.6 (-2-2) L Agustin Test Positive Yudy Garner MD Dec 09, 2018 10:21
--- NOTE | 2018-12-09 10:32 | NUR ---
RADIOLOGY DEPT CHEST X-RAY DONE.-P.DYE
--- NOTE | 2018-12-09 11:03 | Infectious Diseases Prog Note ---
Assessment/Plan Assessment/Plan Assessment: Dislodged trach Acute respiratory failure s/p intubation 12/06 ?Asp pneumonitis -CXR: No obvious infiltrate identified. -sp cx S. marcenses (R Ancef, I Cipro/levo) MIld leukocytosis- likely reactive; SP -u/a neg Afebrile JASMIN, improving COPD chronic respiratory failure s/p trach dysphagia s/p GT gout NH resident Plan: -Continue Zosyn #4/5 -f/u cx -MOnitor CBC/CMP, temperatures -ETT/GT/ICU care -aspiration precautions -CXR am Thank you for this consultation. Will continue to follow along with you. Discussed with RN Subjective Allergies: Coded Allergies: No Known Allergies (Unverified , 12/06/18) Subjective afebrile WBC normal now Cr improving Objective Vital Signs Last 24 Hour Vital Signs Date Time Temp Pulse Resp B/P (MAP) Pulse Ox O2 Delivery O2 Flow Rate FiO2 12/09/18 08:55 68 14 30 12/09/18 08:16 79 130/73 12/09/18 08:00 73 12/09/18 07:00 81 18 158/87 (110) 100 12/09/18 06:40 82 21 30 12/09/18 06:00 74 18 132/64 (86) 100 12/09/18 05:16 73 14 30 12/09/18 05:00 98.2 73 11 130/68 (88) 99 12/09/18 04:00 77 12/09/18 04:00 Mechanical Ventilator 12/09/18 04:00 30 12/09/18 04:00 74 11 132/68 (89) 99 12/09/18 03:00 78 17 137/68 (91) 99 12/09/18 02:51 74 17 30 12/09/18 02:00 77 16 132/68 (89) 99 12/09/18 01:16 84 19 30 12/09/18 01:00 78 15 121/63 (82) 99 12/09/18 00:00 Mechanical Ventilator 12/09/18 00:00 98.2 79 15 117/62 (80) 99 12/08/18 23:20 79 16 30 12/08/18 23:00 82 8 119/62 (81) 99 12/08/18 22:19 88 19 30 12/08/18 22:00 84 8 117/63 (81) 99 12/08/18 21:00 82 8 130/67 (88) 99 12/08/18 20:24 79 123/67 12/08/18 20:00 84 8 119/64 (82) 99 12/08/18 20:00 Mechanical Ventilator 12/08/18 20:00 84 12/08/18 20:00 30 12/08/18 19:25 82 16 30 12/08/18 19:00 97.8 84 8 123/67 (85) 99 12/08/18 17:15 77 14 30 12/08/18 16:00 30 12/08/18 16:00 51 12/08/18 16:00 Mechanical Ventilator 12/08/18 15:21 70 14 30 12/08/18 13:20 68 14 30 12/08/18 12:00 30 12/08/18 12:00 74 12/08/18 12:00 Mechanical Ventilator 12/08/18 11:16 77 14 30 Height (Feet): 5 Height (Inches): 6.00 Weight (Pounds): 224 Objective General appearance: alert, mild distress, appears stated age Head: Normocephalic, without obvious abnormality, atraumatic Eyes: conjunctivae/corneas clear. PERRL, EOM's intact. Fundi benign Throat: Lips, mucosa, and tongue normal. Teeth and gums normal Neck: supple, symmetrical, trachea midline with trach hole right lateral to trachea, no adenopathy, thyroid: not enlarged, symmetric, no tenderness/mass/ nodules, no carotid bruit and no JVD Lungs: clear to auscultation bilaterally Heart: regular rate and rhythm, S1, S2 normal, no murmur, click, rub or gallop Abdomen: soft, non-tender. Bowel sounds normal. No masses, no organomegaly Extremities: extremities normal, atraumatic, no cyanosis or edema Pulses: 2+ and symmetric Skin: Skin color, texture, turgor normal. No rashes or lesions Neurologic: Grossly normal Microbiology Date/Time Source Procedure Growth Status 12/06/18 17:50 Blood Blood Culture - Preliminary NO GROWTH AFTER 48 HOURS Resulted 12/06/18 17:45 Blood Blood Culture - Preliminary NO GROWTH AFTER 48 HOURS Resulted 12/06/18 17:50 Sputum Gram Stain - Final Complete 12/06/18 17:50 Sputum Culture - Final Serratia Marcescens Usual Respiratory Aurora Complete 12/06/18 13:23 Nasal Nares MRSA Culture - Final Staphylococcus Aureus - Mrsa Complete 12/06/18 14:00 Rectum VRE Culture - Final Enterococcus Faecalis - Vre Complete 12/06/18 14:00 Rectum - Final NO CARBAPENEM-RESISTANT ENTEROBACTERI... Complete Laboratory Tests Test 12/08/18 19:40 12/09/18 04:20 12/09/18 05:00 12/09/18 09:00 Reticulocyte Count 1.8 % (0.0-2.0) Prothrombin Time 12.6 SEC (9.30-11.50) H 12.4 SEC (9.30-11.50) H Prothromb Time International Ratio 1.2 (0.9-1.1) H 1.2 (0.9-1.1) H Fibrinogen 720 mg/dL (200-400) H Stool Occult Blood Pending White Blood Count 7.5 K/UL (4.8-10.8) Red Blood Count 2.50 M/UL (4.70-6.10) L Hemoglobin 7.7 G/DL (14.2-18.0) L Hematocrit 24.3 % (42.0-52.0) L Mean Corpuscular Volume 97 FL (80-99) Mean Corpuscular Hemoglobin 31.0 PG (27.0-31.0) Mean Corpuscular Hemoglobin Concent 31.8 G/DL (32.0-36.0) L Red Cell Distribution Width 16.5 % (11.6-14.8) H Platelet Count 280 K/UL (150-450) Mean Platelet Volume 6.5 FL (6.5-10.1) Neutrophils (%) (Auto) % (45.0-75.0) Lymphocytes (%) (Auto) % (20.0-45.0) Monocytes (%) (Auto) % (1.0-10.0) Eosinophils (%) (Auto) % (0.0-3.0) Basophils (%) (Auto) % (0.0-2.0) Differential Total Cells Counted 100 Neutrophils % (Manual) 81 % (45-75) H Lymphocytes % (Manual) 11 % (20-45) L Monocytes % (Manual) 7 % (1-10) Eosinophils % (Manual) 0 % (0-3) Basophils % (Manual) 1 % (0-2) Band Neutrophils 0 % (0-8) Platelet Estimate Adequate Platelet Morphology Normal Hypochromasia Anisocytosis 1+ Macrocytosis 1+ Activated Partial Thromboplast Time 31 SEC (23-33) Sodium Level 141 MMOL/L (136-145) Potassium Level 3.8 MMOL/L (3.5-5.1) Chloride Level 111 MMOL/L (98-107) H Carbon Dioxide Level 23 MMOL/L (21-32) Anion Gap 7 mmol/L (5-15) Blood Urea Nitrogen 19 mg/dL (7-18) H Creatinine 0.9 MG/DL (0.55-1.30) Estimat Glomerular Filtration Rate > 60 mL/min (>60) Glucose Level 116 MG/DL (74-106) H Calcium Level 9.3 MG/DL (8.5-10.1) Iron Level 56 ug/dL (50-175) Total Iron Binding Capacity 185 ug/dL (250-450) L Percent Iron Saturation 30 % (15-50) Unsaturated Iron Binding 129 ug/dL (112-346) Ferritin 483 NG/ML (8-388) H Carcinoembryonic Antigen Pending Vitamin B12 Level 901 PG/ML (193-986) Folate 41.2 NG/ML (8.6-58.9) Arterial Blood pH 7.395 (7.350-7.450) Arterial Blood Partial Pressure CO2 36.6 mmHg (35.0-45.0) Arterial Blood Partial Pressure O2 94.8 mmHg (75.0-100.0) Arterial Blood HCO3 21.9 mmol/L (22.0-26.0) L Arterial Blood Oxygen Saturation 96.7 % (95-100) Arterial Blood Base Excess -2.6 (-2-2) L Agustin Test Positive Current Medications Medications (Trade) Dose Ordered Sig/Sophie Route PRN Reason Start Time Stop Time Status Last Admin Dose Admin Acetaminophen (Tylenol) 650 mg Q4H PRN ORAL fever 12/06/18 16:00 01/05/19 15:59 Albuterol/ Ipratropium (Albuterol/ Ipratropium) 3 ml Q4H PRN HHN Shortness of Breath 12/06/18 17:00 12/11/18 16:59 Allopurinol (Allopurinol) 300 mg DAILY GT 12/07/18 09:00 01/06/19 08:59 12/09/18 08:16 Amiodarone HCl (Cordarone) 100 mg DAILY GT 12/07/18 09:00 01/06/19 08:59 12/09/18 08:16 Carvedilol (Coreg) 12.5 mg EVERY 12 HOURS GT 12/06/18 21:00 01/05/19 20:59 12/09/18 08:16 Dextrose (Dextrose 50%) 25 ml Q30M PRN IV Hypoglycemia 12/06/18 17:30 01/05/19 17:29 Dextrose (Dextrose 50%) 50 ml Q30M PRN IV Hypoglycemia 12/06/18 17:30 01/05/19 17:29 Heparin Sodium (Porcine) (Heparin 5000 units/ml) 5,000 units EVERY 12 HOURS SUBQ 12/06/18 21:00 01/05/19 20:59 12/08/18 08:25 Insulin Aspart (NovoLOG) BEFORE MEALS AND HS SUBQ 12/06/18 21:00 01/05/19 20:59 12/08/18 21:12 Levetiracetam (Keppra) 500 mg Q12HR GT 12/06/18 21:00 01/05/19 20:59 12/09/18 08:15 Lorazepam (Ativan 2mg/ml 1ml) 2 mg Q2H PRN IV For Anxiety 12/06/18 17:30 12/13/18 17:29 12/08/18 09:12 Morphine Sulfate (Morphine Sulfate) 4 mg Q4H PRN IVP Severe Pain (Pain Scale 7-10) 12/06/18 17:30 12/13/18 17:29 12/08/18 09:12 Norepinephrine Bitartrate 4 mg/ Dextrose 254 ml @ 0 mls/hr Q24H PRN IV For hypotension 12/06/18 17:45 01/05/19 15:59 Ondansetron HCl (Zofran) 4 mg Q6H PRN IVP Nausea & Vomiting 12/06/18 17:30 01/05/19 17:29 Pantoprazole (Protonix) 40 mg DAILY IVP 12/07/18 09:00 01/06/19 08:59 12/09/18 08:15 Piperacillin Sod/ Tazobactam Sod 3.375 gm/Dextrose 110 ml @ 27.5 mls/hr EVERY 8 HOURS IVPB 12/06/18 22:00 12/11/18 21:59 12/09/18 06:10 Polyethylene Glycol (Miralax) 17 gm DAILYPRN PRN ORAL Constipation 12/06/18 17:30 01/05/19 17:29 Sodium Chloride 1,000 ml @ 100 mls/hr Q10H IVLG 12/06/18 17:30 01/05/19 17:29 12/09/18 06:10 Flavia Houston M.D. Dec 09, 2018 11:02
--- NOTE | 2018-12-09 12:05 | NUR ---
NURSE NOTES: Pt turned and repositioned.HOB elevated to prevent aspiration.Kept clean and dry.
[2018-12-09] MEDS ORDERED: Lidocaine 1% 10mg/ml/Epi 0.005mg/ml 30ml vial INJ ONE (12:30)
--- NOTE | 2018-12-09 12:43 | Immediate Post-Op Evaluation ---
Immediate Post-Op Evalulation Immediate Post-Op Evalulation Procedure: Tracheostomy, Bronchoscopy Date of Evaluation: Dec 09, 2018 Time of Evaluation: 14:07 IV Fluids: 200 LR Blood Products: 0 Estimated Blood Loss: 7 Urinary Output: 0 Blood Pressure Systolic: 117 Blood Pressure Diastolic: 61 Pulse Rate: 73 Respiratory Rate: 20 O2 Sat by Pulse Oximetry: 99 Temperature (Fahrenheit): 97.4 Pain Score (1-10): 0 Nausea: No Vomiting: No Complications 0 Patient Status: awake, reacts, patent, ventilated, none Hydration Status: adequate Dru Gram Ancef IV Given Within 1 Hr of Incision: Yes Time Given: 12:56 Chris Lemos MD Dec 09, 2018 12:43
[2018-12-09] MEDS ORDERED: Zemuron 50mg/5ml Inj IV ONE (13:00)
[2018-12-09] MEDS ORDERED: LR 1000ml ONE (13:00)
--- NOTE | 2018-12-09 13:02 | NUR ---
NURSE NOTES: Pt taken down to surgery for Trach placement with RT. Report given to TEAGAN Ramos
--- NOTE | 2018-12-09 13:08 | Diagnostic Imaging Report ---
Indication: Dyspnea Comparison: 12/08/2018 A single view chest radiograph was obtained. Findings: Interstitial opacities and prominent vascularity demonstrated. The heart is enlarged. Tracheostomy and left jugular central venous catheter and pacemaker noted. IMPRESSION: Mild interstitial edema is suspected at has developed suggested
--- NOTE | 2018-12-09 13:25 | NUR ---
CASE MANAGEMENT:REVIEW 12/09/18 SI: DISLODGED TRACH...ORALLY INTUBATED 98.6 69 19 146/69 98% ON VENT SUPPORT H/H-7.7/24.3 IS: TRANSFUSE 2 UNITS PRBC'S IV ZOSYN Q8HRS IV PROTONIX QD IVF@100/HR : ICU STATUS DCP: FROM [facility]
--- NOTE | 2018-12-09 13:33 | Brief Operative Note ---
Immediate Post Operative Note Operative Note Pre-op Diagnosis: respiratory insufficiency requiring prolonged ventilatory support ; dislodged prior tracheostomy with loss of track Procedure: 1. bronchoscopy 2. re-do tracheostomy Post-op Diagnosis: same as pre-op Surgeon: desire Anesthesiologist: nataliia Anesthesia: general Specimen: none Complications: none Condition: stable Fluids: see records Estimated Blood Loss: minimal Drains: none Implant(s) used?: No Tae Allen Dec 09, 2018 13:32
--- NOTE | 2018-12-09 14:10 | NUR ---
RESPIRATORY NOTE: Pt got tracheostomy done and back in the unit, with shiley cuffed size 8.0, same vent setting. No SOB or resp distress noted. Trach inline suction changed, HME changed, spare trach at bed side. Will continue to monitor.
--- NOTE | 2018-12-09 14:30 | NUR ---
NURSE NOTES: Patient came back from surgery at 1350 for trach placement, ruben 8, no s/s bleeding. Blood transfusion started at 1410 with no ADR noted.Afebrile at this time.Will continue to monitor
--- NOTE | 2018-12-09 15:30 | Operative Note - Dictated ---
DATE OF OPERATION: 12/09/2018 PREOPERATIVE DIAGNOSIS: Respiratory insufficiency requiring prolonged ventilatory support with prior tracheostomy being dislodged and tract loss. POSTOPERATIVE DIAGNOSIS: Respiratory insufficiency requiring prolonged ventilatory support with prior tracheostomy being dislodged and tract loss. OPERATION PERFORMED: 1. Bronchoscopy. 2. Tracheostomy. ATTENDING SURGEON: Tae Allen M.D. DENTAL CHAIRSIDE ASSISTANT: None. ANESTHESIOLOGIST: Chris Lemos M.D. 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 ESTIMATED BLOOD LOSS: Minimal. IV FLUIDS: Please see anesthesia records. COMPLICATIONS: None. DRAINS: None. WOUND CLASSIFICATION: Class I. COUNTS: Sponge and needle count correct x2. IMPLANTS: An #8 Belarusian Shiley tracheostomy. ANTIBIOTICS: 2 g Ancef IV given 1 hour prior to cut time. INDICATIONS FOR PROCEDURE: This 58-year-old male, a half-way resident, with prior respiratory insufficiency and tracheostomy, who per report had recently dislodged tracheostomy for unknown period of time. The patient was brought to emergency department At [facility] where he was noted to be in respiratory compromise and tracheostomy could not be replaced given tract could not be identified clearly or safely. The patient was intubated and monitored in intensive care unit until stable. Following this, discussion was had with the patient's children regarding his condition and recommendations for going to the operating room for safe placement of tracheostomy and bronchoscopy. OPERATIVE NOTE: After consent was obtained, the patient was taken to the operating room and placed on the operating room table in supine position with bilateral arms at the sides. All bony prominences were well padded. The patient already had ET tube prior to entering the operating room. SCDs were placed. Preoperative time-out was taken identifying the patient, procedure, operative staff, and surgical staff. A 2 g Ancef IV was given one hour prior to cut time. General anesthesia was induced. Once the patient was comfortable, shoulder roll was placed and the neck was prepped and draped in standard surgical fashion. I performed a bronchoscopy initially and identified a clear tract both at the clint, going to the right and left lobes. Right upper, middle, and lower lobes otherwise satisfactory without significant secretions or abnormalities. Left upper and lower similar in fashion. Some suctioning was performed and mucus plugs were removed. Following this, with the assistance of the anesthesiologist, the ET tube was slowly withdrawn until the area where the prior tracheostomy was identified. Unfortunately, there was no simple opening in the prior tracheostomy and seemed to have been no air was extravasating through the prior tracheostomy hole leading no clear identifiable prior tract to be identified for placement of tracheostomy and therefore redo tracheostomy was necessary. At this time, the ET tube was insufflated and the incision of the prior tracheostomy fistula was opened and carried down to the trachea, which was identified. The area of the prior tracheostomy tract was noted but had been fairly closed down. At this time, a small window was made in the tracheostomy and the ET tube was visualized in the proximal aspect. With assistance of the anesthesiologist, ET tube was brought superior to the newly created flap and an 8-Belarusian Shiley tracheostomy was placed under direct visualization. Following this, the ET tube was removed, the tracheostomy balloon was insufflated and the patient was ventilated through the tracheostomy with good end-tidal CO2 and volumes. The patient was re-bronched through the tracheostomy and no significant abnormalities were noted and the lung price otherwise clear from what can be seen on the bronchoscopy. No bleeding was noted. Local anesthetic was infiltrated and the trachea was tethered to the skin using 2-0 nylon sutures. Dressings were applied. The patient tolerated the procedure well and was taken directly to the intensive care unit in stable condition. Tae Allen M.D. DR: SANTOSH JOB#: [id number] CC:
--- NOTE | 2018-12-09 16:43 | NUR ---
NURSE NOTES: Pt asleep, no acute distress.No bleeding at the trach site,turned and repositioned. 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
--- NOTE | 2018-12-09 16:46 | Cardiology Report ---
APPROVED REPORT EXAM: Two-dimensional and M-mode echocardiogram with Doppler and color Doppler. INDICATION LV FUNCTION M-Mode DIMENSIONS IVSd1.9 (0.7-1.1cm) LVDd6.3 (3.5-5.6cm) PWd1.1 (0.7-1.1cm) IVSs2.3 cm LVDs4.5 (2.5-4.0cm) PWs1.7 cm . Normal left ventricular chamber size, systolic function and wall motion to extent visualized. Study quality precludes accurate assessment of regional wall motion. Left ventricular ejection fraction estimated to be grossly normal. No evidence of left ventricular hypertrophy . Anterior Echo-free space, may be due to pericardial fat or effusion. All other cardiac chamber sizes are within normal limits. Mild aortic valve sclerosis with adequate cusp excursion. Mildly thickened mitral valve leaflets with normal excursion. Valvular studies are not compelete . Pulmonic valve not well visualized. Subcostal views are not obtained due to surgery site. A color flow and spectral Doppler study was performed and revealed: No aortic regurgitation. Mitral diastolic velocities suggest reduced left ventricular relaxation c/w mild LV diastolic dysfunction (Grade I ) Trace mitral regurgitation. No tricuspid regurgitation. Tricuspid systolic velocities suggests peak right ventricular systolic pressure of 15 mmHg.
--- NOTE | 2018-12-09 18:17 | NUR ---
NURSE NOTES: Pt asleep , first unit PRBC done with no ADR noted.Turned and repositioned.Kept clean and dry Addendum: 12/09/18 at 1855 by Jannette Snow RN Second unit transfusion started with no ADR noted
--- NOTE | 2018-12-09 19:18 | NUR ---
PT. RECEIVED STABLE ON AC, 14, 600, 30%, NO PEEP. . PT. TOLERATING SETTINGS WELL. ALARMS ARE ON AND AUDIBLE. BILATERAL RHONCHI DIMINISHED BREATH SOUNDS WERE FOUND IN THIS PATIENT. VENT CIRCUIT SECURE AND OUT OF THE WAY. NO S/S OF RESPIRATORY DISTRESS NOTED AT THIS TIME. WILL CONTINUE TO MONITOR.
--- NOTE | 2018-12-09 19:28 | Internal Med Progress Note ---
Subjective Date of Service: Dec 09, 2018 Physician Name David Lieberman Attending Physician Jian Martinez MD Current Medications Medications (Trade) Dose Ordered Sig/Sophie Route PRN Reason Start Time Stop Time Status Last Admin Dose Admin Acetaminophen (Tylenol) 650 mg Q4H PRN ORAL fever 12/06/18 16:00 01/05/19 15:59 Albuterol/ Ipratropium (Albuterol/ Ipratropium) 3 ml Q4H PRN HHN Shortness of Breath 12/06/18 17:00 12/11/18 16:59 Allopurinol (Allopurinol) 300 mg DAILY GT 12/07/18 09:00 01/06/19 08:59 12/09/18 08:16 Amiodarone HCl (Cordarone) 100 mg DAILY GT 12/07/18 09:00 01/06/19 08:59 12/09/18 08:16 Carvedilol (Coreg) 12.5 mg EVERY 12 HOURS GT 12/06/18 21:00 01/05/19 20:59 12/09/18 08:16 Dextrose (Dextrose 50%) 25 ml Q30M PRN IV Hypoglycemia 12/06/18 17:30 01/05/19 17:29 Dextrose (Dextrose 50%) 50 ml Q30M PRN IV Hypoglycemia 12/06/18 17:30 01/05/19 17:29 Heparin Sodium (Porcine) (Heparin 5000 units/ml) 5,000 units EVERY 12 HOURS SUBQ 12/06/18 21:00 01/05/19 20:59 12/08/18 08:25 Insulin Aspart (NovoLOG) BEFORE MEALS AND HS SUBQ 12/09/18 21:00 01/08/19 20:59 Levetiracetam (Keppra) 500 mg Q12HR GT 12/06/18 21:00 01/05/19 20:59 12/09/18 08:15 Lorazepam (Ativan 2mg/ml 1ml) 2 mg Q2H PRN IV For Anxiety 12/06/18 17:30 12/13/18 17:29 12/08/18 09:12 Morphine Sulfate (Morphine Sulfate) 4 mg Q4H PRN IVP Severe Pain (Pain Scale 7-10) 12/06/18 17:30 12/13/18 17:29 12/08/18 09:12 Norepinephrine Bitartrate 4 mg/ Dextrose 254 ml @ 0 mls/hr Q24H PRN IV For hypotension 12/06/18 17:45 01/05/19 15:59 Ondansetron HCl (Zofran) 4 mg Q6H PRN IVP Nausea & Vomiting 12/06/18 17:30 01/05/19 17:29 Pantoprazole (Protonix) 40 mg DAILY IVP 12/07/18 09:00 01/06/19 08:59 12/09/18 08:15 Piperacillin Sod/ Tazobactam Sod 3.375 gm/Dextrose 110 ml @ 27.5 mls/hr EVERY 8 HOURS IVPB 12/06/18 22:00 12/11/18 21:59 12/09/18 14:00 Polyethylene Glycol (Miralax) 17 gm DAILYPRN PRN ORAL Constipation 12/06/18 17:30 01/05/19 17:29 Sodium Chloride 1,000 ml @ 100 mls/hr Q10H IVLG 12/06/18 17:30 01/05/19 17:29 12/09/18 17:34 Allergies: Coded Allergies: No Known Allergies (Unverified , 12/06/18) ROS Limited/Unobtainable: Yes Subjective 58 YO vent dep M admitted with dislodged tracheostomy, Cover for Int Luis-Dr Martinez. ICU Objective Last Vital Signs Date Time Temp Pulse Resp B/P (MAP) Pulse Ox O2 Delivery O2 Flow Rate FiO2 12/09/18 19:00 67 19 121/68 (85) 100 12/09/18 16:50 30 12/09/18 16:00 97.8 12/09/18 16:00 Mechanical Ventilator 12/06/18 14:20 15.0 Laboratory Tests Test 12/08/18 19:40 12/09/18 04:20 12/09/18 05:00 12/09/18 09:00 Reticulocyte Count 1.8 % (0.0-2.0) Prothrombin Time 12.6 SEC (9.30-11.50) H 12.4 SEC (9.30-11.50) H Prothromb Time International Ratio 1.2 (0.9-1.1) H 1.2 (0.9-1.1) H Fibrinogen 720 mg/dL (200-400) H Stool Occult Blood Positive (NEGATIVE) White Blood Count 7.5 K/UL (4.8-10.8) Red Blood Count 2.50 M/UL (4.70-6.10) L Hemoglobin 7.7 G/DL (14.2-18.0) L Hematocrit 24.3 % (42.0-52.0) L Mean Corpuscular Volume 97 FL (80-99) Mean Corpuscular Hemoglobin 31.0 PG (27.0-31.0) Mean Corpuscular Hemoglobin Concent 31.8 G/DL (32.0-36.0) L Red Cell Distribution Width 16.5 % (11.6-14.8) H Platelet Count 280 K/UL (150-450) Mean Platelet Volume 6.5 FL (6.5-10.1) Neutrophils (%) (Auto) % (45.0-75.0) Lymphocytes (%) (Auto) % (20.0-45.0) Monocytes (%) (Auto) % (1.0-10.0) Eosinophils (%) (Auto) % (0.0-3.0) Basophils (%) (Auto) % (0.0-2.0) Differential Total Cells Counted 100 Neutrophils % (Manual) 81 % (45-75) H Lymphocytes % (Manual) 11 % (20-45) L Monocytes % (Manual) 7 % (1-10) Eosinophils % (Manual) 0 % (0-3) Basophils % (Manual) 1 % (0-2) Band Neutrophils 0 % (0-8) Platelet Estimate Adequate Platelet Morphology Normal Hypochromasia Anisocytosis 1+ Macrocytosis 1+ Activated Partial Thromboplast Time 31 SEC (23-33) Sodium Level 141 MMOL/L (136-145) Potassium Level 3.8 MMOL/L (3.5-5.1) Chloride Level 111 MMOL/L (98-107) H Carbon Dioxide Level 23 MMOL/L (21-32) Anion Gap 7 mmol/L (5-15) Blood Urea Nitrogen 19 mg/dL (7-18) H Creatinine 0.9 MG/DL (0.55-1.30) Estimat Glomerular Filtration Rate > 60 mL/min (>60) Glucose Level 116 MG/DL (74-106) H Calcium Level 9.3 MG/DL (8.5-10.1) Iron Level 56 ug/dL (50-175) Total Iron Binding Capacity 185 ug/dL (250-450) L Percent Iron Saturation 30 % (15-50) Unsaturated Iron Binding 129 ug/dL (112-346) Ferritin 483 NG/ML (8-388) H Carcinoembryonic Antigen Pending Vitamin B12 Level 901 PG/ML (193-986) Folate 41.2 NG/ML (8.6-58.9) Arterial Blood pH 7.395 (7.350-7.450) Arterial Blood Partial Pressure CO2 36.6 mmHg (35.0-45.0) Arterial Blood Partial Pressure O2 94.8 mmHg (75.0-100.0) Arterial Blood HCO3 21.9 mmol/L (22.0-26.0) L Arterial Blood Oxygen Saturation 96.7 % (95-100) Arterial Blood Base Excess -2.6 (-2-2) L Agustin Test Positive Intake and Output 12/08/18 12/09/18 18:59 06:59 Intake Total 1863.5 ml 1640.000 ml Output Total 1265 ml 410 ml Balance 598.5 ml 1230.000 ml Free Water 60 ml 120 ml IV Total 1383.5 ml 1310.000 ml Tube Feeding 420 ml 210 ml Output Urine Total 1265 ml 410 ml # Bowel Movements 1 Objective PHYSICAL EXAMINATION: GENERAL: The patient is awake with deep stimulation, however, at this time sedated. HEAD AND NECK: Pupils are equal and reactive. Anicteric. Neck, tracheostomy site was noted. We removed the tracheal tube and there is closure of the tract already. No sign of bleeding. LUNGS: Bilateral air entry. Mechanical breath sounds. No wheezes. HEART: S1, S2, irregular. Distant heart sounds. AICD on left side of chest wall was noted. ABDOMEN: Soft, nondistended, and nontender. Mildly obese. PEG site is clean. EXTREMITIES: No cyanosis, clubbing, or edema. NEUROLOGIC: Limited secondary to the patient's status, sedated, unable to communicate. Assessment/Plan Assessment/Plan ASSESSMENT: 1. Chronic respiratory failure on vent dependent, status post tracheostomy, dislodged. 2. Diabetes type 2. 3. History of cardiac arrhythmias. 4. Status post biventricular ICD. 5. Dysphagia status post percutaneous endoscopic gastrostomy. 6. Morbid obesity. 7. Peripheral vascular disease. 8. Acute kidney injury and chronic renal insufficiency. 9. History of epilepsy. 10. Chronic atrial fibrillation. 11. Fatty liver. 12. Essential hypertension. 13. Nontraumatic intracerebral hemorrhage. 14. Anemia of chronic disease. PLAN: Admit the patient to ICU. We will follow up with Dr. Garner's recommendation as well as Dr. Allen from Surgery. We will monitor laboratory closely. At this time, the patient has a code status Full Code on the POLST was written. Broad-spectrum antibiotic with ertapenem and amikacin. Monitor laboratory and culture. DVT prophylaxis is heparin subcutaneous. At this time in anticipation of possible tracheostomy placement again, we will hold off on Eliquis. Await tracheostomy replacement/new trach-see surgery note. Sputum cult=serratia; continue zosyn per David Barrientos MD Dec 09, 2018 19:28
--- NOTE | 2018-12-09 19:32 | NUR ---
HAND-OFF: Report given to TEGAAN Obrien.
--- NOTE | 2018-12-09 19:35 | NUR ---
NURSE NOTES: Report received from TEAGAN Bhatia. Pt's in bed, non verbal responsive, eyes open spontaneously, trach to vent Allison 8, AC 14 Vt 600 FiO2 30% and Peep 0. Trach site intact no active bleeding noted. No apparent distress. Afebrile and SR on the monitor. Chemical burn scrotum,buttocks and sacral areas noted, wound care initiated, right FA 20 gauge and left hand 20 gauge patent with no s/s infiltration, running NS at 100 ml/hr. GT patent, to resume Glucerna 1.2 at 35ml/hr, at goal. No residual noted. Bilateral soft wrist restraints noted. Kept clean dry and comfortable. Call light within reach. Bed locked and in low position. Will continue to monitor
--- NOTE | 2018-12-09 22:00 | NUR ---
NURSE NOTES: Pt's resting in bed, in no acute distress, no adverse reaction with PRBC transfusion. VS stable. Will continue to monitor.
--- NOTE | 2018-12-09 22:45 | General Progress Note ---
Assessment/Plan Assessment/Plan Assessment/Recs # Anemia of chronic disease (or of iron deficiency) due to underlying chronic medical issues, multifactorial --> Anemia workup has been ordered --> No evidence of hemolysis is noted, peripheral smear has been reviewed. --> Hgb goal >7. Transfuse prn. --> Epogen or iron at this time is not particularly indicated --> Medications have been reviewed # Coagulopathy has been recently on eliquis --> dc eliquis, has been placed on hold --> cards eval as needed --> vit K 10mg sq given x 1 prior to surgery sunday # Resp failure s/p trach with dislodgement --> may need new trach v replacement # Dysphagia with hx PEG dependent # DM2 # Cardiac arrythmia history # s/p icd placement # Morbid obesity The timing of this note does not necessarily reflect the time of the patient was seen. Greatly appreciate consultation! Subjective ROS Limited/Unobtainable: Yes Constitutional: Denies: no symptoms, chills, diaphoresis, fever, malaise, weakness, other Allergies: Coded Allergies: No Known Allergies (Unverified , 12/06/18) Subjective 12/09: seen by bedside, trach placement done, received transfusion, hgb 7.7, no events Objective Last 24 Hour Vital Signs Date Time Temp Pulse Resp B/P (MAP) Pulse Ox O2 Delivery O2 Flow Rate FiO2 12/09/18 20:48 80 149/78 12/09/18 20:00 30 12/09/18 20:00 Mechanical Ventilator 12/09/18 19:18 60 14 30 12/09/18 19:00 67 19 121/68 (85) 100 12/09/18 18:00 74 18 131/80 (97) 100 12/09/18 17:00 72 18 122/71 (88) 100 12/09/18 16:50 73 17 30 12/09/18 16:00 97.8 79 19 138/68 (91) 98 12/09/18 16:00 Mechanical Ventilator 12/09/18 16:00 79 12/09/18 16:00 30 12/09/18 15:00 88 18 142/64 (90) 100 12/09/18 14:30 80 18 30 12/09/18 14:10 74 16 30 2/25/19 14:00 97.5 82 19 124/62 (82) 98 12/09/18 13:49 73 20 99 12/09/18 13:00 12/09/18 12:30 74 16 30 12/09/18 12:00 98.6 69 19 146/69 (94) 98 12/09/18 12:00 30 12/09/18 12:00 70 12/09/18 12:00 Mechanical Ventilator 12/09/18 11:00 69 18 124/68 (86) 100 12/09/18 10:43 72 15 30 12/09/18 10:00 70 18 129/65 (86) 100 12/09/18 09:00 73 15 119/77 (91) 98 12/09/18 08:55 68 14 30 12/09/18 08:16 79 130/73 12/09/18 08:00 30 12/09/18 08:00 98.9 77 14 130/68 (88) 98 12/09/18 08:00 Mechanical Ventilator 12/09/18 08:00 73 12/09/18 07:00 81 18 158/87 (110) 100 12/09/18 06:40 82 21 30 12/09/18 06:00 74 18 132/64 (86) 100 12/09/18 05:16 73 14 30 12/09/18 05:00 98.2 73 11 130/68 (88) 99 12/09/18 04:00 77 12/09/18 04:00 Mechanical Ventilator 12/09/18 04:00 30 12/09/18 04:00 74 11 132/68 (89) 99 12/09/18 03:00 78 17 137/68 (91) 99 12/09/18 02:51 74 17 30 12/09/18 02:00 77 16 132/68 (89) 99 12/09/18 01:16 84 19 30 12/09/18 01:00 78 15 121/63 (82) 99 12/09/18 00:00 Mechanical Ventilator 12/09/18 00:00 98.2 79 15 117/62 (80) 99 12/08/18 23:20 79 16 30 12/08/18 23:00 82 8 119/62 (81) 99 Intake and Output 12/08/18 12/09/18 19:00 07:00 Intake Total 1896.0 ml 1572.500 ml Output Total 1095 ml 410 ml Balance 801.0 ml 1162.500 ml Free Water 120 ml 60 ml IV Total 1356.0 ml 1337.500 ml Tube Feeding 420 ml 175 ml Output Urine Total 1095 ml 410 ml # Bowel Movements 1 Laboratory Tests 12/09/18 04:20: Stool Occult Blood Positive 12/09/18 05:00: White Blood Count 7.5, Red Blood Count 2.50L, Hemoglobin 7.7L, Hematocrit 24.3L , Mean Corpuscular Volume 97, Mean Corpuscular Hemoglobin 31.0, Mean Corpuscular Hemoglobin Concent 31.8L, Red Cell Distribution Width 16.5H, Platelet Count 280, Mean Platelet Volume 6.5, Neutrophils (%) (Auto) , Lymphocytes (%) (Auto) , Monocytes (%) (Auto) , Eosinophils (%) (Auto) , Basophils (%) (Auto) , Differential Total Cells Counted 100, Neutrophils % ( Manual) 81H, Lymphocytes % (Manual) 11L, Monocytes % (Manual) 7, Eosinophils % ( Manual) 0, Basophils % (Manual) 1, Band Neutrophils 0, Platelet Estimate Adequate, Platelet Morphology Normal, Hypochromasia , Anisocytosis 1+, Macrocytosis 1+, Prothrombin Time 12.4H, Prothromb Time International Ratio 1.2H , Activated Partial Thromboplast Time 31, Sodium Level 141, Potassium Level 3.8 , Chloride Level 111H, Carbon Dioxide Level 23, Anion Gap 7, Blood Urea Nitrogen 19H, Creatinine 0.9, Estimat Glomerular Filtration Rate > 60, Glucose Level 116H, Calcium Level 9.3, Iron Level 56, Total Iron Binding Capacity 185L, Percent Iron Saturation 30, Unsaturated Iron Binding 129, Ferritin 483H, Carcinoembryonic Antigen [Pending], Vitamin B12 Level 901, Folate 41.2 12/09/18 09:00: Arterial Blood pH 7.395, Arterial Blood Partial Pressure CO2 36.6, Arterial Blood Partial Pressure O2 94.8, Arterial Blood HCO3 21.9L, Arterial Blood Oxygen Saturation 96.7, Arterial Blood Base Excess -2.6L, Agustin Test Positive Height (Feet): 5 Height (Inches): 6.00 Weight (Pounds): 227 Objective General: alert, severe distress Head: normocephalic Eyes: bilateral eye normal inspection, bilateral eye EOMI ENT: normal pharynx, no angioedema, uvula midline, moist mucus membranes Neck: full range of motion, supple, tracheotomy +++ stoma/site completely closed with dried blood and tissue Respiratory: lungs clear, normal breath sounds, chest symmetrical Cardiovascular: normal peripheral pulses, regular rate, rhythm, other - PPM site c/d/i Gastrointestinal: normal inspection, non tender, soft, no mass, no guarding, no rebound ++ peg Genitourinary: normal inspection, no CVA tenderness Musculoskeletal: back normal, gait/station normal Neurologic: unresponsive Kenney Shepard MD Dec 09, 2018 22:45
[2018-12-10] VITALS (20 sets, daily range): BP systolic 124–161; BP diastolic 61–81
--- NOTE | 2018-12-10 | NUR ---
NURSE NOTES: Pt's resting in bed, in no distress. VS stable. Will continue to monitor.
--- NOTE | 2018-12-10 02:00 | NUR ---
NURSE NOTES: Pt's resting bed , in no acute distress. VS stable. Will continue to monitor.
--- NOTE | 2018-12-10 04:00 | NUR ---
NURSE NOTES: Pt's resting in bed, in no acute distress. VS stable. Will continue to monitor.
[2018-12-10 04:46] LABS: EOSINOPHILS % (AUTO) 1.1 % (0.0-3.0); HEMATOCRIT 30.5 % (42.0-52.0); HEMOGLOBIN 10.1 G/DL (14.2-18.0); MEAN CORPUSCULAR VOLUME 96 FL (80-99); MONOCYTES % (AUTO) 5.6 % (1.0-10.0); NEUTROPHILS % (AUTO) 77.3 % (45.0-75.0); PLATELET COUNT 278 K/UL (150-450); RED BLOOD COUNT 3.19 M/UL (4.70-6.10); RED CELL DISTRIBUTION WIDTH 15.5 % (11.6-14.8); WHITE BLOOD COUNT 7.8 K/UL (4.8-10.8)
[2018-12-10 05:14] LABS: ALANINE AMINOTRANSFERASE 15 U/L (12-78); ALBUMIN 2.5 G/DL (3.4-5.0); ALBUMIN/GLOBULIN RATIO 0.5 (1.0-2.7); ALKALINE PHOSPHATASE 89 U/L (46-116); ANION GAP 11 mmol/L (5-15); ASPARTATE AMINO TRANSFERASE 15 U/L (15-37); BILIRUBIN,TOTAL 0.4 MG/DL (0.2-1.0); BLOOD UREA NITROGEN 11 mg/dL (7-18); CALCIUM 9.3 MG/DL (8.5-10.1); CARBON DIOXIDE 22 MMOL/L (21-32); CHLORIDE 108 MMOL/L (98-107); CREATININE 0.8 MG/DL (0.55-1.30); PHOSPHORUS 2.9 MG/DL (2.5-4.9); POTASSIUM 3.7 MMOL/L (3.5-5.1); SODIUM 140 MMOL/L (136-145)
--- NOTE | 2018-12-10 05:18 | NUR ---
RESPIRATORY NOTE: PT REMAIN STABLE ON CMV WITH CURRENT SETTINGS. VENT CIRCUIT SECURE AND OUT OF THE WAY. PT. HAS A MEDIUM SIZE SKIN BREAKDOWN PER ANCHOR FAST ON LEFT CHECK. IT APPEARS OLD AND IS NOT BLEEDING. NO SOB AT THIS TIME.
--- NOTE | 2018-12-10 06:00 | NUR ---
NURSE NOTES: Pt's resting in bed, in no acute distress. VS stable. Will continue to monitor.
[2018-12-10] MEDS: Piperacillin/Tazobactam 3.375 GM in D5W 110 ML IVPB SCH ×3 (06:16→21:19)
[2018-12-10] MEDS: NovoLOG Insulin Flexpen SUBQ SCH ×2 (06:23→11:47)
--- NOTE | 2018-12-10 07:00 | NUR ---
Received Patient on Vent settings of ACVC RR 14, VT 600, Fio2 30%, PEEP +0. Patient trached with a Shiley 8 tracheostomy tube, secured with trache ties. Skin breakdown notes on left cheek, RN aware. Bilateral rhonchi heard upon auscultation. Suction thin white/ clear secretions as needed. Alarms on and audible. Vent plugged into red outlet. Ambu Bag at beside. Will continue to monitor throughout the day.
--- NOTE | 2018-12-10 07:15 | NUR ---
HAND-OFF: Report given to TEAGAN Arzate.
--- NOTE | 2018-12-10 07:20 | NUR ---
NURSE NOTES: Received report from Meche Odell RN. Patient asleep in bed, responsive to tactile stimuli, nonverbal. V-paced on squeegee finisher. Trach to vent with settings of AC 14, TV 600, FiO2 30%, PEEP 0, no acute distress noted. GT feeding of Glucerna 1.2 running @ 35 cc/hr, no residuals noted. HoB elevated. Gale catheter patent and draining well. Right forearm 20g saline lock intact and left hand 20g IV site infusing NS @ 100 cc/hr and Zosyn @ 27.5 cc/hr, asymptomatic. Bilateral wrist restraints in place, skin intact, no redness or edema noted, peripheral pulses present. Bed locked in lowest position with side rails up x 3. All needs attended to. Will continue to monitor.
[2018-12-10] MEDS: levETIRAcetam 500mg/5ml Liquid GT SCH ×2 (08:48→21:19)
[2018-12-10] MEDS: Pantoprazole Inj IVP SCH (08:48)
[2018-12-10] MEDS: Amiodarone 200mg tab GT SCH (08:49)
[2018-12-10] MEDS: Carvedilol 12.5mg tab GT SCH ×2 (08:49→21:20)
[2018-12-10] MEDS: Heparin 5000 units/ml inj SUBQ SCH ×2 (08:50→21:25)
--- NOTE | 2018-12-10 09:30 | NUR ---
NURSE NOTES: Patient seen and evaluated by watershed manager at bedside with recommendations to increase patient's feeding to 65 cc/hr. Will give recommendations to MD and advance feeding when order is received.
--- NOTE | 2018-12-10 09:53 | 48 Hour Post Anesthesia Eval ---
Post Anesthesia Evaluation Procedure: Tracheostomy, Bronchoscopy Date of Evaluation: Dec 10, 2018 Time of Evaluation: 07:11 Blood Pressure Systolic: 159 0: 89 Pulse Rate: 73 Respiratory Rate: 18 Temperature (Fahrenheit): 99.6 O2 Sat by Pulse Oximetry: 96 Airway: patent Nausea: No Vomiting: No Pain Intensity: 0 Hydration Status: adequate Cardiopulmonary Status: Stable Mental Status/LOC: other - Trach Follow-up Care/Observations: 0 Post-Anesthesia Complications: 0 Follow-up care needed: N/A Chris Lemos MD Dec 10, 2018 09:53
--- NOTE | 2018-12-10 10:00 | NUR ---
NURSE NOTES: Patient's tube feeding increased to 45 cc/hr as ordered. Will continue to monitor and advance feeding to goal of 65 cc/hr as tolerated.
--- NOTE | 2018-12-10 10:06 | Pulmonolgy Critical Care Note ---
Critical Care - Asmt/Plan Problems: (1) Acute respiratory failure (2) Diabetes mellitus (3) ICD (implantable cardioverter-defibrillator) in place (4) History of CVA (cerebrovascular accident) (5) Feeding by G-tube Respiratory: monitor respiratory rate, adjust FIO2, CXR Cardiac: continue pressors, continue to monitor HR/BP Renal: F/U I&O, keep IV fluid Infectious Disease: check cultures Gastrointestinal: continue feedings/current rate Endocrine: monitor blood sugar, check TSH Hematologic: monitor H/H, transfuse if hgb<8.5 Neurologic: PRN Morphine, keep patient comfortable Affect: PRN ativan Prophylaxis: Heparin Notes 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, 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 Discussed with: nurses, consultants, registered nurse hh case managerslot shift manager - Objective Last 24 Hour Vital Signs Date Time Temp Pulse Resp B/P (MAP) Pulse Ox O2 Delivery O2 Flow Rate FiO2 12/10/18 09:53 73 18 96 12/10/18 08:56 71 18 30 12/10/18 08:49 74 159/79 12/10/18 08:00 99.6 71 17 161/81 (107) 96 12/10/18 08:00 Mechanical Ventilator 12/10/18 08:00 30 12/10/18 07:00 73 18 159/81 (107) 96 12/10/18 06:52 75 18 30 12/10/18 06:00 74 155/78 (103) 12/10/18 05:18 70 19 30 12/10/18 05:00 98.4 71 18 158/74 (102) 100 12/10/18 04:00 74 12/10/18 04:00 70 18 155/75 (101) 100 12/10/18 04:00 Mechanical Ventilator 12/10/18 04:00 30 12/10/18 03:00 71 18 154/79 (104) 100 12/10/18 02:45 69 18 30 12/10/18 02:00 71 18 157/79 (105) 100 12/10/18 01:35 69 20 30 12/10/18 01:00 68 18 151/72 (98) 100 12/10/18 00:00 30 12/10/18 00:00 77 12/10/18 00:00 Mechanical Ventilator 12/10/18 00:00 98.0 71 20 153/76 (101) 100 12/09/18 23:14 76 16 30 12/09/18 23:00 70 20 147/74 (98) 100 12/09/18 22:00 69 16 137/72 (93) 100 12/09/18 21:00 72 17 146/78 (100) 100 12/09/18 20:48 80 149/78 12/09/18 20:34 69 16 30 12/09/18 20:00 76 12/09/18 20:00 30 12/09/18 20:00 97.8 74 20 147/77 (100) 100 12/09/18 20:00 Mechanical Ventilator 12/09/18 19:18 60 14 30 12/09/18 19:00 67 19 121/68 (85) 100 12/09/18 18:00 74 18 131/80 (97) 100 12/09/18 17:00 72 18 122/71 (88) 100 12/09/18 16:50 73 17 30 12/09/18 16:00 97.8 79 19 138/68 (91) 98 12/09/18 16:00 Mechanical Ventilator 12/09/18 16:00 79 12/09/18 16:00 30 12/09/18 15:00 88 18 142/64 (90) 100 12/09/18 14:30 80 18 30 12/09/18 14:10 74 16 30 12/09/18 14:00 97.5 82 19 124/62 (82) 98 12/09/18 13:49 73 20 99 12/09/18 13:00 12/09/18 12:30 74 16 30 12/09/18 12:00 98.6 69 19 146/69 (94) 98 12/09/18 12:00 30 12/09/18 12:00 70 12/09/18 12:00 Mechanical Ventilator 12/09/18 11:00 69 18 124/68 (86) 100 12/09/18 10:43 72 15 30 Status: awake Condition: critical Neck: full ROM Lungs: clear, rales, rhonchi Heart: HR/BP stable Abdomen: soft, non-tender Extremities: no C/C/E Decubiti: location Accucheck: 123 Critical Care - Subjective ROS Limited/Unobtainable: Yes ICU Day: 4 Interval Events: had tracheostomy yesterday Condition: critical FI02: 30 Vent Support Breath Rate: 14 Vent Support Mode: AC Vent Tidal Volume: 600 Sputum Amount: Small PEEP: 0.0 PIP: 15 Tube Feeding Amount: 35 I&O: Intake and Output 12/09/18 12/10/18 19:00 07:00 Intake Total 1712.5 ml 2045.166 ml Output Total 475 ml 410 ml Balance 1237.5 ml 1635.166 ml Free Water 120 ml 60 ml IV Total 1342.5 ml 1330.166 ml Tube Feeding 385 ml Blood Product 250 ml 270 ml Output Urine Total 475 ml 410 ml CXR: pulmonary edema, trach in place ET-Tube: 7.0 ET Position: 24 Labs: Laboratory Tests Test 12/10/18 03:20 12/10/18 08:25 White Blood Count 7.8 K/UL (4.8-10.8) Red Blood Count 3.19 M/UL (4.70-6.10) L Hemoglobin 10.1 G/DL (14.2-18.0) #L Hematocrit 30.5 % (42.0-52.0) L Mean Corpuscular Volume 96 FL (80-99) Mean Corpuscular Hemoglobin 31.6 PG (27.0-31.0) H Mean Corpuscular Hemoglobin Concent 33.0 G/DL (32.0-36.0) Red Cell Distribution Width 15.5 % (11.6-14.8) H Platelet Count 278 K/UL (150-450) Mean Platelet Volume 6.3 FL (6.5-10.1) L Neutrophils (%) (Auto) 77.3 % (45.0-75.0) H Lymphocytes (%) (Auto) 15.0 % (20.0-45.0) L Monocytes (%) (Auto) 5.6 % (1.0-10.0) Eosinophils (%) (Auto) 1.1 % (0.0-3.0) Basophils (%) (Auto) 1.0 % (0.0-2.0) Sodium Level 140 MMOL/L (136-145) Potassium Level 3.7 MMOL/L (3.5-5.1) Chloride Level 108 MMOL/L (98-107) H Carbon Dioxide Level 22 MMOL/L (21-32) Anion Gap 11 mmol/L (5-15) Blood Urea Nitrogen 11 mg/dL (7-18) Creatinine 0.8 MG/DL (0.55-1.30) Estimat Glomerular Filtration Rate > 60 mL/min (>60) Glucose Level 129 MG/DL (74-106) H Calcium Level 9.3 MG/DL (8.5-10.1) Phosphorus Level 2.9 MG/DL (2.5-4.9) Magnesium Level 1.4 MG/DL (1.8-2.4) L Total Bilirubin 0.4 MG/DL (0.2-1.0) Aspartate Amino Transf (AST/SGOT) 15 U/L (15-37) Alanine Aminotransferase (ALT/SGPT) 15 U/L (12-78) Alkaline Phosphatase 89 U/L (46-116) Total Protein 7.6 G/DL (6.4-8.2) Albumin 2.5 G/DL (3.4-5.0) L Globulin 5.1 g/dL Albumin/Globulin Ratio 0.5 (1.0-2.7) L Arterial Blood pH 7.438 (7.350-7.450) Arterial Blood Partial Pressure CO2 32.3 mmHg (35.0-45.0) L Arterial Blood Partial Pressure O2 107.9 mmHg (75.0-100.0) H Arterial Blood HCO3 21.3 mmol/L (22.0-26.0) L Arterial Blood Oxygen Saturation 97.6 % (95-100) Arterial Blood Base Excess -2.2 (-2-2) L Agustin Test Positive Yudy Garner MD Dec 10, 2018 10:06
--- NOTE | 2018-12-10 10:57 | Infectious Diseases Prog Note ---
Assessment/Plan Assessment/Plan Assessment: Dislodged trach Acute respiratory failure s/p intubation 12/06 ?Asp pneumonitis -12/09 CXR: Mild interstitial edema is suspected at has developed suggested -CXR: No obvious infiltrate identified. -sp cx S. marcenses (R Ancef, I Cipro/levo) MIld leukocytosis- likely reactive; SP -u/a neg Afebrile JASMIN, SP COPD chronic respiratory failure s/p trach -s/p new trach 12/09 dysphagia s/p GT gout [facility] resident Plan: -Continue Zosyn #5/5 -f/u cx -MOnitor CBC/CMP, temperatures -trach/GT/ICU care -aspiration precautions Thank you for this consultation. Will continue to follow along with you. Discussed with RN Subjective Allergies: Coded Allergies: No Known Allergies (Unverified , 12/06/18) Subjective afebrile no leukocytosis s/p trach yesterday Objective Vital Signs Last 24 Hour Vital Signs Date Time Temp Pulse Resp B/P (MAP) Pulse Ox O2 Delivery O2 Flow Rate FiO2 12/10/18 10:45 76 18 30 12/10/18 10:00 73 18 151/76 (101) 92 12/10/18 09:53 73 18 96 12/10/18 09:00 75 19 159/80 (106) 95 12/10/18 08:56 71 18 30 12/10/18 08:49 74 159/79 12/10/18 08:00 99.6 71 17 161/81 (107) 96 12/10/18 08:00 Mechanical Ventilator 12/10/18 08:00 30 12/10/18 07:00 73 18 159/81 (107) 96 12/10/18 06:52 75 18 30 12/10/18 06:00 74 155/78 (103) 12/10/18 05:18 70 19 30 12/10/18 05:00 98.4 71 18 158/74 (102) 100 12/10/18 04:00 74 12/10/18 04:00 70 18 155/75 (101) 100 12/10/18 04:00 Mechanical Ventilator 12/10/18 04:00 30 12/10/18 03:00 71 18 154/79 (104) 100 12/10/18 02:45 69 18 30 12/10/18 02:00 71 18 157/79 (105) 100 2/26/19 01:35 69 20 30 12/10/18 01:00 68 18 151/72 (98) 100 12/10/18 00:00 30 12/10/18 00:00 77 12/10/18 00:00 Mechanical Ventilator 12/10/18 00:00 98.0 71 20 153/76 (101) 100 12/09/18 23:14 76 16 30 12/09/18 23:00 70 20 147/74 (98) 100 12/09/18 22:00 69 16 137/72 (93) 100 12/09/18 21:00 72 17 146/78 (100) 100 12/09/18 20:48 80 149/78 12/09/18 20:34 69 16 30 12/09/18 20:00 76 12/09/18 20:00 30 12/09/18 20:00 97.8 74 20 147/77 (100) 100 12/09/18 20:00 Mechanical Ventilator 12/09/18 19:18 60 14 30 12/09/18 19:00 67 19 121/68 (85) 100 12/09/18 18:00 74 18 131/80 (97) 100 12/09/18 17:00 72 18 122/71 (88) 100 12/09/18 16:50 73 17 30 12/09/18 16:00 97.8 79 19 138/68 (91) 98 12/09/18 16:00 Mechanical Ventilator 12/09/18 16:00 79 12/09/18 16:00 30 12/09/18 15:00 88 18 142/64 (90) 100 12/09/18 14:30 80 18 30 12/09/18 14:10 74 16 30 12/09/18 14:00 97.5 82 19 124/62 (82) 98 12/09/18 13:49 73 20 99 12/09/18 13:00 12/09/18 12:30 74 16 30 12/09/18 12:00 98.6 69 19 146/69 (94) 98 12/09/18 12:00 30 12/09/18 12:00 70 12/09/18 12:00 Mechanical Ventilator 12/09/18 11:00 69 18 124/68 (86) 100 Height (Feet): 5 Height (Inches): 6.00 Weight (Pounds): 225 Objective General appearance: alert, mild distress, appears stated age Head: Normocephalic, without obvious abnormality, atraumatic Eyes: conjunctivae/corneas clear. PERRL, EOM's intact. Fundi benign Throat: Lips, mucosa, and tongue normal. Teeth and gums normal Neck: supple, symmetrical, trachea midline with trach hole right lateral to trachea, no adenopathy, thyroid: not enlarged, symmetric, no tenderness/mass/ nodules, no carotid bruit and no JVD Lungs: clear to auscultation bilaterally Heart: regular rate and rhythm, S1, S2 normal, no murmur, click, rub or gallop Abdomen: soft, non-tender. Bowel sounds normal. No masses, no organomegaly Extremities: extremities normal, atraumatic, no cyanosis or edema Pulses: 2+ and symmetric Skin: Skin color, texture, turgor normal. No rashes or lesions Neurologic: Grossly normal Laboratory Tests Test 12/10/18 03:20 12/10/18 08:25 White Blood Count 7.8 K/UL (4.8-10.8) Red Blood Count 3.19 M/UL (4.70-6.10) L Hemoglobin 10.1 G/DL (14.2-18.0) #L Hematocrit 30.5 % (42.0-52.0) L Mean Corpuscular Volume 96 FL (80-99) Mean Corpuscular Hemoglobin 31.6 PG (27.0-31.0) H Mean Corpuscular Hemoglobin Concent 33.0 G/DL (32.0-36.0) Red Cell Distribution Width 15.5 % (11.6-14.8) H Platelet Count 278 K/UL (150-450) Mean Platelet Volume 6.3 FL (6.5-10.1) L Neutrophils (%) (Auto) 77.3 % (45.0-75.0) H Lymphocytes (%) (Auto) 15.0 % (20.0-45.0) L Monocytes (%) (Auto) 5.6 % (1.0-10.0) Eosinophils (%) (Auto) 1.1 % (0.0-3.0) Basophils (%) (Auto) 1.0 % (0.0-2.0) Sodium Level 140 MMOL/L (136-145) Potassium Level 3.7 MMOL/L (3.5-5.1) Chloride Level 108 MMOL/L (98-107) H Carbon Dioxide Level 22 MMOL/L (21-32) Anion Gap 11 mmol/L (5-15) Blood Urea Nitrogen 11 mg/dL (7-18) Creatinine 0.8 MG/DL (0.55-1.30) Estimat Glomerular Filtration Rate > 60 mL/min (>60) Glucose Level 129 MG/DL (74-106) H Calcium Level 9.3 MG/DL (8.5-10.1) Phosphorus Level 2.9 MG/DL (2.5-4.9) Magnesium Level 1.4 MG/DL (1.8-2.4) L Total Bilirubin 0.4 MG/DL (0.2-1.0) Aspartate Amino Transf (AST/SGOT) 15 U/L (15-37) Alanine Aminotransferase (ALT/SGPT) 15 U/L (12-78) Alkaline Phosphatase 89 U/L (46-116) Total Protein 7.6 G/DL (6.4-8.2) Albumin 2.5 G/DL (3.4-5.0) L Globulin 5.1 g/dL Albumin/Globulin Ratio 0.5 (1.0-2.7) L Arterial Blood pH 7.438 (7.350-7.450) Arterial Blood Partial Pressure CO2 32.3 mmHg (35.0-45.0) L Arterial Blood Partial Pressure O2 107.9 mmHg (75.0-100.0) H Arterial Blood HCO3 21.3 mmol/L (22.0-26.0) L Arterial Blood Oxygen Saturation 97.6 % (95-100) Arterial Blood Base Excess -2.2 (-2-2) L Agustin Test Positive Current Medications Medications (Trade) Dose Ordered Sig/Sophie Route PRN Reason Start Time Stop Time Status Last Admin Dose Admin Acetaminophen (Tylenol) 650 mg Q4H PRN ORAL fever 12/06/18 16:00 01/05/19 15:59 Albuterol/ Ipratropium (Albuterol/ Ipratropium) 3 ml Q4H PRN HHN Shortness of Breath 12/06/18 17:00 12/11/18 16:59 Allopurinol (Allopurinol) 300 mg DAILY GT 12/07/18 09:00 01/06/19 08:59 12/10/18 08:49 Amiodarone HCl (Cordarone) 100 mg DAILY GT 12/07/18 09:00 01/06/19 08:59 12/10/18 08:49 Carvedilol (Coreg) 12.5 mg EVERY 12 HOURS GT 12/06/18 21:00 01/05/19 20:59 12/10/18 08:49 Dextrose (Dextrose 50%) 25 ml Q30M PRN IV Hypoglycemia 12/06/18 17:30 01/05/19 17:29 Dextrose (Dextrose 50%) 50 ml Q30M PRN IV Hypoglycemia 12/06/18 17:30 01/05/19 17:29 Heparin Sodium (Porcine) (Heparin 5000 units/ml) 5,000 units EVERY 12 HOURS SUBQ 12/06/18 21:00 01/05/19 20:59 12/10/18 08:50 Insulin Aspart (NovoLOG) BEFORE MEALS AND HS SUBQ 12/09/18 21:00 01/08/19 20:59 12/10/18 06:23 Levetiracetam (Keppra) 500 mg Q12HR GT 12/06/18 21:00 01/05/19 20:59 12/10/18 08:48 Lorazepam (Ativan 2mg/ml 1ml) 2 mg Q2H PRN IV For Anxiety 12/06/18 17:30 12/13/18 17:29 12/08/18 09:12 Morphine Sulfate (Morphine Sulfate) 4 mg Q4H PRN IVP Severe Pain (Pain Scale 7-10) 12/06/18 17:30 12/13/18 17:29 12/08/18 09:12 Norepinephrine Bitartrate 4 mg/ Dextrose 254 ml @ 0 mls/hr Q24H PRN IV For hypotension 12/06/18 17:45 01/05/19 15:59 Pantoprazole (Protonix) 40 mg DAILY IVP 12/07/18 09:00 01/06/19 08:59 12/10/18 08:48 Piperacillin Sod/ Tazobactam Sod 3.375 gm/Dextrose 110 ml @ 27.5 mls/hr EVERY 8 HOURS IVPB 2/22/19 22:00 12/11/18 21:59 12/10/18 06:16 Polyethylene Glycol (Miralax) 17 gm DAILYPRN PRN ORAL Constipation 12/06/18 17:30 01/05/19 17:29 Flavia Houston M.D. Dec 10, 2018 10:57
--- NOTE | 2018-12-10 11:13 | NUR ---
RD ASSESSMENT & RECOMMENDATIONS SEE CARE ACTIVITY FOR COMPLETE ASSESSMENT DAILY ESTIMATED NEEDS: Needs based on Critical care, 80.3kg abw 22-28 kcals/kg 9223-8374 total kcals 1.2-2 g protein/kg 96-160 g total protein 25-30 mL/kg 6665-3131 total fluid mLs NUTRITION DIAGNOSIS: Swallowing difficulty R/T dysphagia, respiratory status as evidenced by pt is trach/vent dep, s/p trach dislodgement, now s/p replacement, PEG dep w/ feeds initiated. CURRENT TF: Glucerna 1.2 @35-> now 65ml/hr ENTERAL NUTRITION RECOMMENDATIONS: Glucerna 1.2 @ 65ml/hr x 24 hrs + Prosource 1pkt QD to provide 1560ml, 1872kcal, 94g + 11g prot, 1256ml free water * Initiate Glucerna 1.2 @ 35ml/hr x 6 hrs, advance 10ml q 4-6 hrs as tolerated to goal rate. * HOB over 30 degrees/ water flush per MD ADDITIONAL RECOMMENDATIONS: * Per SNF: Ht=69", VF=270 lbs (obtained 11/16/18) * Calibrated bedscale wt for accurate CBW (w/ added P200 mattress) * Donta 1pkt BID for skin integrity * Monitor lytes daily w/ TF, replete as needed (Low Mg 1.4)
--- NOTE | 2018-12-10 11:17 | Diagnostic Imaging Report ---
Indication: Dyspnea Technique: One view of the chest Comparison: 12/09/2018 Findings: There is again demonstrated interstitial and airspace disease bilaterally, slightly increased. There may be some pleural fluid on the left, unchanged if present. The heart is enlarged. Left chest AICD is again demonstrated. There is been interim conversion of previously demonstrated endotracheal tube to a tracheostomy. Impression: Interim conversion of endotracheal tube to tracheostomy. No radiographically evident complication Increasing interstitial and airspace edema Other findings as noted
--- NOTE | 2018-12-10 12:00 | NUR ---
NURSE NOTES: Patient awake, calm and comfortable. Patient was not observed attempting to remove devices. Bilateral wrist restraints discontinued. Will continue to monitor.
--- NOTE | 2018-12-10 14:00 | NUR ---
NURSE NOTES: Patient tolerating feeding at 45 cc/hr, no residuals noted. Increased feeding to 55 cc/hr. Patient remains calm and comfortable, does not attempt to pull devices. Will continue to monitor.
--- NOTE | 2018-12-10 14:16 | Surgery Progress Note ---
Surgery Progress Note Subjective Procedure Performed 1. bronchoscopy 2. re-do tracheostomy Additional Comments doing well post op. trach clean and dry. on vent. Objective Last 24 Hour Vital Signs Date Time Temp Pulse Resp B/P (MAP) Pulse Ox O2 Delivery O2 Flow Rate FiO2 12/10/18 14:00 69 21 129/79 (96) 100 12/10/18 13:00 73 19 161/81 (107) 92 12/10/18 12:56 75 19 60 12/10/18 12:00 99.1 66 16 144/74 (97) 95 12/10/18 12:00 Mechanical Ventilator 12/10/18 12:00 68 12/10/18 12:00 45 12/10/18 11:00 71 17 148/71 (96) 92 12/10/18 10:53 45 12/10/18 10:45 76 18 30 12/10/18 10:00 73 18 151/76 (101) 92 12/10/18 09:53 73 18 96 12/10/18 09:00 75 19 159/80 (106) 95 12/10/18 08:56 71 18 30 12/10/18 08:49 74 159/79 12/10/18 08:00 99.6 71 17 161/81 (107) 96 12/10/18 08:00 71 12/10/18 08:00 Mechanical Ventilator 12/10/18 08:00 30 12/10/18 07:00 73 18 159/81 (107) 96 12/10/18 06:52 75 18 30 12/10/18 06:00 74 155/78 (103) 12/10/18 05:18 70 19 30 12/10/18 05:00 98.4 71 18 158/74 (102) 100 12/10/18 04:00 74 12/10/18 04:00 70 18 155/75 (101) 100 12/10/18 04:00 Mechanical Ventilator 12/10/18 04:00 30 12/10/18 03:00 71 18 154/79 (104) 100 12/10/18 02:45 69 18 30 12/10/18 02:00 71 18 157/79 (105) 100 12/10/18 01:35 69 20 30 12/10/18 01:00 68 18 151/72 (98) 100 12/10/18 00:00 30 12/10/18 00:00 77 12/10/18 00:00 Mechanical Ventilator 12/10/18 00:00 98.0 71 20 153/76 (101) 100 12/09/18 23:14 76 16 30 12/09/18 23:00 70 20 147/74 (98) 100 12/09/18 22:00 69 16 137/72 (93) 100 12/09/18 21:00 72 17 146/78 (100) 100 12/09/18 20:48 80 149/78 12/09/18 20:34 69 16 30 12/09/18 20:00 76 12/09/18 20:00 30 12/09/18 20:00 97.8 74 20 147/77 (100) 100 12/09/18 20:00 Mechanical Ventilator 12/09/18 19:18 60 14 30 12/09/18 19:00 67 19 121/68 (85) 100 12/09/18 18:00 74 18 131/80 (97) 100 12/09/18 17:00 72 18 122/71 (88) 100 12/09/18 16:50 73 17 30 12/09/18 16:00 97.8 79 19 138/68 (91) 98 12/09/18 16:00 Mechanical Ventilator 12/09/18 16:00 79 12/09/18 16:00 30 12/09/18 15:00 88 18 142/64 (90) 100 12/09/18 14:30 80 18 30 I&O Intake and Output 12/09/18 12/10/18 19:00 07:00 Intake Total 1712.5 ml 2045.166 ml Output Total 475 ml 410 ml Balance 1237.5 ml 1635.166 ml Free Water 120 ml 60 ml IV Total 1342.5 ml 1330.166 ml Tube Feeding 385 ml Blood Product 250 ml 270 ml Output Urine Total 475 ml 410 ml Dressing: dry Wound: clean Laboratory Tests Test 12/10/18 03:20 12/10/18 08:25 White Blood Count 7.8 K/UL (4.8-10.8) Red Blood Count 3.19 M/UL (4.70-6.10) L Hemoglobin 10.1 G/DL (14.2-18.0) #L Hematocrit 30.5 % (42.0-52.0) L Mean Corpuscular Volume 96 FL (80-99) Mean Corpuscular Hemoglobin 31.6 PG (27.0-31.0) H Mean Corpuscular Hemoglobin Concent 33.0 G/DL (32.0-36.0) Red Cell Distribution Width 15.5 % (11.6-14.8) H Platelet Count 278 K/UL (150-450) Mean Platelet Volume 6.3 FL (6.5-10.1) L Neutrophils (%) (Auto) 77.3 % (45.0-75.0) H Lymphocytes (%) (Auto) 15.0 % (20.0-45.0) L Monocytes (%) (Auto) 5.6 % (1.0-10.0) Eosinophils (%) (Auto) 1.1 % (0.0-3.0) Basophils (%) (Auto) 1.0 % (0.0-2.0) Sodium Level 140 MMOL/L (136-145) Potassium Level 3.7 MMOL/L (3.5-5.1) Chloride Level 108 MMOL/L (98-107) H Carbon Dioxide Level 22 MMOL/L (21-32) Anion Gap 11 mmol/L (5-15) Blood Urea Nitrogen 11 mg/dL (7-18) Creatinine 0.8 MG/DL (0.55-1.30) Estimat Glomerular Filtration Rate > 60 mL/min (>60) Glucose Level 129 MG/DL (74-106) H Calcium Level 9.3 MG/DL (8.5-10.1) Phosphorus Level 2.9 MG/DL (2.5-4.9) Magnesium Level 1.4 MG/DL (1.8-2.4) L Total Bilirubin 0.4 MG/DL (0.2-1.0) Aspartate Amino Transf (AST/SGOT) 15 U/L (15-37) Alanine Aminotransferase (ALT/SGPT) 15 U/L (12-78) Alkaline Phosphatase 89 U/L (46-116) Total Protein 7.6 G/DL (6.4-8.2) Albumin 2.5 G/DL (3.4-5.0) L Globulin 5.1 g/dL Albumin/Globulin Ratio 0.5 (1.0-2.7) L Arterial Blood pH 7.438 (7.350-7.450) Arterial Blood Partial Pressure CO2 32.3 mmHg (35.0-45.0) L Arterial Blood Partial Pressure O2 107.9 mmHg (75.0-100.0) H Arterial Blood HCO3 21.3 mmol/L (22.0-26.0) L Arterial Blood Oxygen Saturation 97.6 % (95-100) Arterial Blood Base Excess -2.2 (-2-2) L Agustin Test Positive Plan Problems: (1) Respiratory distress Assessment & Plan: s/p bronch and trach stable trach dressings prn thank you Tae Allen Dec 10, 2018 14:16
--- NOTE | 2018-12-10 15:05 | NUR ---
NURSE NOTES: Patient seen and examined by Dr. Houston at bedside. No new orders received at this time.
[2018-12-10] MEDS ORDERED: NS 275ml ONE (16:14)
--- NOTE | 2018-12-10 17:20 | Cardiology Report ---
APPROVED REPORT EKG Measurement Heart [id number] NM [id number] Normal sinus rhythm Right bundle branch block Cannot rule out Anterior infarct, age undetermined Abnormal ECG
[2018-12-10] MEDS ORDERED: NovoLOG Insulin Flexpen SUBQ SCH (18:00)
--- NOTE | 2018-12-10 18:00 | NUR ---
NURSE NOTES: Patient tolerating tube feeding at this time, advanced feeding to goal of 65 cc/hr. HoB elevated. Will continue to monitor.
--- NOTE | 2018-12-10 19:00 | NUR ---
TRANSFER TO FLOOR: Patient transferred to [facility] room 234-1, per Dr. Garner. Report given to Regina Robles RN. Medications given to receiving nurse. No belongings. Family informed of transfer.
--- NOTE | 2018-12-10 19:15 | NUR ---
NURSE NOTES: Received report from Yuliana Arzate RN. Patient is asleep in bed with no s/s of acute distress noted. Sinus rhythm on quality assurance monitor chassis. Saturating well on trach-vent settings: Shiley 8, AC 14, Vt 600, FiO2 50%. Receiving Glucerna 1.2 @ 65 cc/hr and tolerating well. Gale catheter in place and draining well to gravity. Right forearm 20g IV TKO, intact and patent; left wrist 20g IV TKO, intact and patent. Bed locked in lowest position with side rails up x3. Call light left within reach. Will continue to monitor.
--- NOTE | 2018-12-10 19:24 | Internal Med Progress Note ---
Subjective Date of Service: Dec 10, 2018 Physician Name David Lieberman Attending Physician Jian Martinez MD Current Medications Medications (Trade) Dose Ordered Sig/Sophie Route PRN Reason Start Time Stop Time Status Last Admin Dose Admin Acetaminophen (Tylenol) 650 mg Q4H PRN ORAL fever 12/06/18 16:00 01/05/19 15:59 Albuterol/ Ipratropium (Albuterol/ Ipratropium) 3 ml Q4H PRN HHN Shortness of Breath 12/06/18 17:00 12/11/18 16:59 Allopurinol (Allopurinol) 300 mg DAILY GT 12/07/18 09:00 01/06/19 08:59 12/10/18 08:49 Amiodarone HCl (Cordarone) 100 mg DAILY GT 12/07/18 09:00 01/06/19 08:59 12/10/18 08:49 Carvedilol (Coreg) 12.5 mg EVERY 12 HOURS GT 12/06/18 21:00 01/05/19 20:59 12/10/18 08:49 Dextrose (Dextrose 50%) 25 ml Q30M PRN IV Hypoglycemia 12/06/18 17:30 01/05/19 17:29 Dextrose (Dextrose 50%) 50 ml Q30M PRN IV Hypoglycemia 12/06/18 17:30 01/05/19 17:29 Heparin Sodium (Porcine) (Heparin 5000 units/ml) 5,000 units EVERY 12 HOURS SUBQ 12/06/18 21:00 01/05/19 20:59 12/10/18 08:50 Insulin Aspart (NovoLOG) EVERY 6 HOURS SUBQ 12/10/18 18:00 01/08/19 20:59 12/10/18 17:43 Levetiracetam (Keppra) 500 mg Q12HR GT 12/06/18 21:00 01/05/19 20:59 12/10/18 08:48 Lorazepam (Ativan 2mg/ml 1ml) 2 mg Q2H PRN IV For Anxiety 12/06/18 17:30 12/13/18 17:29 12/08/18 09:12 Morphine Sulfate (Morphine Sulfate) 4 mg Q4H PRN IVP Severe Pain (Pain Scale 7-10) 12/06/18 17:30 12/13/18 17:29 12/08/18 09:12 Norepinephrine Bitartrate 4 mg/ Dextrose 254 ml @ 0 mls/hr Q24H PRN IV For hypotension 12/06/18 17:45 01/05/19 15:59 Pantoprazole (Protonix) 40 mg DAILY IVP 12/07/18 09:00 01/06/19 08:59 12/10/18 08:48 Piperacillin Sod/ Tazobactam Sod 3.375 gm/Dextrose 110 ml @ 27.5 mls/hr EVERY 8 HOURS IVPB 12/06/18 22:00 12/11/18 21:59 12/10/18 13:54 Polyethylene Glycol (Miralax) 17 gm DAILYPRN PRN ORAL Constipation 12/06/18 17:30 01/05/19 17:29 Allergies: Coded Allergies: No Known Allergies (Unverified , 12/06/18) ROS Limited/Unobtainable: Yes Subjective 58 YO vent dep M admitted with dislodged tracheostomy, Cover for Int Med-Dr Martinez. ICU. S/P tracheostomy 12/09/18 Objective Last Vital Signs Date Time Temp Pulse Resp B/P (MAP) Pulse Ox O2 Delivery O2 Flow Rate FiO2 12/10/18 18:00 71 15 129/61 (83) 100 12/10/18 17:20 50 12/10/18 16:00 Mechanical Ventilator 12/10/18 16:00 98.1 12/06/18 14:20 15.0 Laboratory Tests Test 12/10/18 03:20 12/10/18 08:25 White Blood Count 7.8 K/UL (4.8-10.8) Red Blood Count 3.19 M/UL (4.70-6.10) L Hemoglobin 10.1 G/DL (14.2-18.0) #L Hematocrit 30.5 % (42.0-52.0) L Mean Corpuscular Volume 96 FL (80-99) Mean Corpuscular Hemoglobin 31.6 PG (27.0-31.0) H Mean Corpuscular Hemoglobin Concent 33.0 G/DL (32.0-36.0) Red Cell Distribution Width 15.5 % (11.6-14.8) H Platelet Count 278 K/UL (150-450) Mean Platelet Volume 6.3 FL (6.5-10.1) L Neutrophils (%) (Auto) 77.3 % (45.0-75.0) H Lymphocytes (%) (Auto) 15.0 % (20.0-45.0) L Monocytes (%) (Auto) 5.6 % (1.0-10.0) Eosinophils (%) (Auto) 1.1 % (0.0-3.0) Basophils (%) (Auto) 1.0 % (0.0-2.0) Sodium Level 140 MMOL/L (136-145) Potassium Level 3.7 MMOL/L (3.5-5.1) Chloride Level 108 MMOL/L (98-107) H Carbon Dioxide Level 22 MMOL/L (21-32) Anion Gap 11 mmol/L (5-15) Blood Urea Nitrogen 11 mg/dL (7-18) Creatinine 0.8 MG/DL (0.55-1.30) Estimat Glomerular Filtration Rate > 60 mL/min (>60) Glucose Level 129 MG/DL (74-106) H Calcium Level 9.3 MG/DL (8.5-10.1) Phosphorus Level 2.9 MG/DL (2.5-4.9) Magnesium Level 1.4 MG/DL (1.8-2.4) L Total Bilirubin 0.4 MG/DL (0.2-1.0) Aspartate Amino Transf (AST/SGOT) 15 U/L (15-37) Alanine Aminotransferase (ALT/SGPT) 15 U/L (12-78) Alkaline Phosphatase 89 U/L (46-116) Total Protein 7.6 G/DL (6.4-8.2) Albumin 2.5 G/DL (3.4-5.0) L Globulin 5.1 g/dL Albumin/Globulin Ratio 0.5 (1.0-2.7) L Arterial Blood pH 7.438 (7.350-7.450) Arterial Blood Partial Pressure CO2 32.3 mmHg (35.0-45.0) L Arterial Blood Partial Pressure O2 107.9 mmHg (75.0-100.0) H Arterial Blood HCO3 21.3 mmol/L (22.0-26.0) L Arterial Blood Oxygen Saturation 97.6 % (95-100) Arterial Blood Base Excess -2.2 (-2-2) L Agustin Test Positive Intake and Output 12/09/18 12/10/18 18:59 06:59 Intake Total 1740.0 ml 1990.000 ml Output Total 475 ml 400 ml Balance 1265.0 ml 1590.000 ml Free Water 120 ml 60 ml IV Total 1370.0 ml 1310.000 ml Tube Feeding 350 ml Blood Product 250 ml 270 ml Output Urine Total 475 ml 400 ml Objective PHYSICAL EXAMINATION: GENERAL: The patient is awake with deep stimulation, however, at this time sedated. HEAD AND NECK: Pupils are equal and reactive. Anicteric. Neck, tracheostomy site was noted. We removed the tracheal tube and there is closure of the tract already. No sign of bleeding. LUNGS: Bilateral air entry. Mechanical breath sounds. No wheezes. HEART: S1, S2, irregular. Distant heart sounds. AICD on left side of chest wall was noted. ABDOMEN: Soft, nondistended, and nontender. Mildly obese. PEG site is clean. EXTREMITIES: No cyanosis, clubbing, or edema. NEUROLOGIC: Limited secondary to the patient's status, sedated, unable to communicate. Assessment/Plan Assessment/Plan ASSESSMENT: 1. Chronic respiratory failure on vent dependent, status post tracheostomy, dislodged. 2. Diabetes type 2. 3. History of cardiac arrhythmias. 4. Status post biventricular ICD. 5. Dysphagia status post percutaneous endoscopic gastrostomy. 6. Morbid obesity. 7. Peripheral vascular disease. 8. Acute kidney injury and chronic renal insufficiency. 9. History of epilepsy. 10. Chronic atrial fibrillation. 11. Fatty liver. 12. Essential hypertension. 13. Nontraumatic intracerebral hemorrhage. 14. Anemia of chronic disease. PLAN: Admit the patient to ICU. We will follow up with Dr. Garner's recommendation as well as Dr. Allen from Surgery. We will monitor laboratory closely. At this time, the patient has a code status Full Code on the POLST was written. Broad-spectrum antibiotic with ertapenem and amikacin. Monitor laboratory and culture. DVT prophylaxis is heparin subcutaneous. At this time in anticipation of possible tracheostomy placement again, we will hold off on Eliquis. S/P tracheostomy 12/09/18-see surgery note. Sputum cult=serratia; continue zosyn per David Barrientos MD Dec 10, 2018 19:24
[2018-12-10] MEDS ORDERED: Albuterol/Ipratropium 3ml neb HHN PRN (19:29)
[2018-12-10] MEDS ORDERED: Morphine Sulfate 4mg/ml Inj (IV USE ONLY) IVP PRN (19:30)
[2018-12-10] MEDS ORDERED: LORazepam Inj 2mg/ml 1ml IV PRN (19:30)
[2018-12-10] MEDS ORDERED: Miralax 17gm pkt ORAL PRN (19:30)
[2018-12-10] MEDS ORDERED: Acetaminophen 650mg/20.3ml GT PRN (19:45)
--- NOTE | 2018-12-10 21:08 | General Progress Note ---
Assessment/Plan Assessment/Plan Assessment/Recs # Anemia of chronic disease (or of iron deficiency) due to underlying chronic medical issues, multifactorial --> Anemia workup has been ordered --> No evidence of hemolysis is noted, peripheral smear has been reviewed. --> Hgb goal >7. Transfuse prn. --> Epogen or iron at this time is not particularly indicated --> Medications have been reviewed # Coagulopathy has been recently on eliquis --> dc eliquis, has been placed on hold --> cards eval as needed --> vit K 10mg sq given x 1 prior to surgery sunday # Resp failure s/p trach with dislodgement --> may need new trach v replacement # Dysphagia with hx PEG dependent # DM2 # Cardiac arrythmia history # s/p icd placement # Morbid obesity The timing of this note does not necessarily reflect the time of the patient was seen. Greatly appreciate consultation! Subjective ROS Limited/Unobtainable: Yes Allergies: Coded Allergies: No Known Allergies (Unverified , 12/06/18) Subjective 12/09: seen by bedside, trach placement done, received transfusion, hgb 7.7, no events 12/10: S/P tracheostomy 12/09/18, resting in bed, no acute distress. Objective Last 24 Hour Vital Signs Date Time Temp Pulse Resp B/P (MAP) Pulse Ox O2 Delivery O2 Flow Rate FiO2 12/10/18 20:00 98.7 66 14 124/62 (82) 98 12/10/18 18:00 71 15 129/61 (83) 100 12/10/18 17:20 77 19 50 12/10/18 17:00 78 19 156/71 (99) 100 12/10/18 16:00 Mechanical Ventilator 12/10/18 16:00 78 12/10/18 16:00 98.1 79 20 144/69 (94) 100 12/10/18 16:00 50 12/10/18 15:04 76 18 50 12/10/18 15:00 77 20 152/73 (99) 100 12/10/18 14:00 69 21 129/79 (96) 100 12/10/18 13:00 73 19 161/81 (107) 92 12/10/18 12:56 75 19 60 12/10/18 12:00 99.1 66 16 144/74 (97) 95 2/26/19 12:00 Mechanical Ventilator 12/10/18 12:00 68 12/10/18 12:00 45 12/10/18 11:00 71 17 148/71 (96) 92 12/10/18 10:53 45 12/10/18 10:45 76 18 30 12/10/18 10:00 73 18 151/76 (101) 92 12/10/18 09:53 73 18 96 12/10/18 09:00 75 19 159/80 (106) 95 12/10/18 08:56 71 18 30 12/10/18 08:49 74 159/79 12/10/18 08:00 99.6 71 17 161/81 (107) 96 12/10/18 08:00 71 12/10/18 08:00 Mechanical Ventilator 12/10/18 08:00 30 12/10/18 07:00 73 18 159/81 (107) 96 12/10/18 06:52 75 18 30 12/10/18 06:00 74 155/78 (103) 12/10/18 05:18 70 19 30 12/10/18 05:00 98.4 71 18 158/74 (102) 100 12/10/18 04:00 74 12/10/18 04:00 70 18 155/75 (101) 100 12/10/18 04:00 Mechanical Ventilator 12/10/18 04:00 30 12/10/18 03:00 71 18 154/79 (104) 100 12/10/18 02:45 69 18 30 12/10/18 02:00 71 18 157/79 (105) 100 12/10/18 01:35 69 20 30 12/10/18 01:00 68 18 151/72 (98) 100 12/10/18 00:00 30 12/10/18 00:00 77 12/10/18 00:00 Mechanical Ventilator 12/10/18 00:00 98.0 71 20 153/76 (101) 100 12/09/18 23:14 76 16 30 12/09/18 23:00 70 20 147/74 (98) 100 12/09/18 22:00 69 16 137/72 (93) 100 Intake and Output 12/09/18 12/10/18 18:59 06:59 Intake Total 1740.0 ml 1990.000 ml Output Total 475 ml 400 ml Balance 1265.0 ml 1590.000 ml Free Water 120 ml 60 ml IV Total 1370.0 ml 1310.000 ml Tube Feeding 350 ml Blood Product 250 ml 270 ml Output Urine Total 475 ml 400 ml Laboratory Tests 12/10/18 03:20: White Blood Count 7.8, Red Blood Count 3.19L, Hemoglobin 10.1#L, Hematocrit 30.5L, Mean Corpuscular Volume 96, Mean Corpuscular Hemoglobin 31.6H, Mean Corpuscular Hemoglobin Concent 33.0, Red Cell Distribution Width 15.5H, Platelet Count 278, Mean Platelet Volume 6.3L, Neutrophils (%) (Auto) 77.3H, Lymphocytes (%) (Auto) 15.0L, Monocytes (%) (Auto) 5.6, Eosinophils (%) (Auto) 1.1, Basophils (%) (Auto) 1.0, Sodium Level 140, Potassium Level 3.7, Chloride Level 108H, Carbon Dioxide Level 22, Anion Gap 11, Blood Urea Nitrogen 11, Creatinine 0.8, Estimat Glomerular Filtration Rate > 60, Glucose Level 129H, Calcium Level 9.3, Phosphorus Level 2.9, Magnesium Level 1.4L, Total Bilirubin 0.4, Aspartate Amino Transf (AST/SGOT) 15, Alanine Aminotransferase (ALT/SGPT) 15, Alkaline Phosphatase 89, Total Protein 7.6, Albumin 2.5L, Globulin 5.1, Albumin/Globulin Ratio 0.5L 12/10/18 08:25: Arterial Blood pH 7.438, Arterial Blood Partial Pressure CO2 32.3L, Arterial Blood Partial Pressure O2 107.9H, Arterial Blood HCO3 21.3L, Arterial Blood Oxygen Saturation 97.6, Arterial Blood Base Excess -2.2L, Agustin Test Positive Height (Feet): 5 Height (Inches): 6.00 Weight (Pounds): 225 Objective General: alert, severe distress Head: normocephalic Eyes: bilateral eye normal inspection, bilateral eye EOMI ENT: normal pharynx, no angioedema, uvula midline, moist mucus membranes Neck: full range of motion, supple, tracheotomy +++ stoma/site completely closed with dried blood and tissue Respiratory: lungs clear, normal breath sounds, chest symmetrical Cardiovascular: normal peripheral pulses, regular rate, rhythm, other - PPM site c/d/i Gastrointestinal: normal inspection, non tender, soft, no mass, no guarding, no rebound ++ peg Genitourinary: normal inspection, no CVA tenderness Musculoskeletal: back normal, gait/station normal Neurologic: unresponsive Kenney Shepard MD Dec 10, 2018 21:08
[2018-12-11] VITALS (7 sets, daily range): BP systolic 116–140; BP diastolic 56–82
[2018-12-11] MEDS: NovoLOG Insulin Flexpen SUBQ SCH ×4 (00:12→18:00)
[2018-12-11] MEDS: Piperacillin/Tazobactam 3.375 GM in D5W 110 ML IVPB SCH (05:29)
[2018-12-11 06:17] LABS: BASOPHILS % (AUTO) 1.1 % (0.0-2.0); EOSINOPHILS % (AUTO) 3.1 % (0.0-3.0); HEMATOCRIT 30.9 % (42.0-52.0); HEMOGLOBIN 10.1 G/DL (14.2-18.0); LYMPHOCYTES % (AUTO) 17.1 % (20.0-45.0); MEAN CORPUSCULAR VOLUME 96 FL (80-99); MONOCYTES % (AUTO) 7.9 % (1.0-10.0); NEUTROPHILS % (AUTO) 70.9 % (45.0-75.0); PLATELET COUNT 255 K/UL (150-450); RED BLOOD COUNT 3.21 M/UL (4.70-6.10); WHITE BLOOD COUNT 7.5 K/UL (4.8-10.8)
[2018-12-11 06:49] LABS: ALANINE AMINOTRANSFERASE 15 U/L (12-78); ALBUMIN 2.4 G/DL (3.4-5.0); ALBUMIN/GLOBULIN RATIO 0.5 (1.0-2.7); ALKALINE PHOSPHATASE 101 U/L (46-116); ANION GAP 9 mmol/L (5-15); ASPARTATE AMINO TRANSFERASE 15 U/L (15-37); BILIRUBIN,TOTAL 0.3 MG/DL (0.2-1.0); BLOOD UREA NITROGEN 11 mg/dL (7-18); CALCIUM 9.3 MG/DL (8.5-10.1); CARBON DIOXIDE 24 MMOL/L (21-32); CHLORIDE 107 MMOL/L (98-107); CREATININE 0.9 MG/DL (0.55-1.30); POTASSIUM 3.5 MMOL/L (3.5-5.1); SODIUM 140 MMOL/L (136-145)
--- NOTE | 2018-12-11 07:15 | NUR ---
HAND-OFF: Report given to Talon Georges RN.
--- NOTE | 2018-12-11 08:00 | NUR ---
NURSE NOTES: Received report from Meche Odell RN. Patient asleep in bed, responsive to tactile stimuli, nonverbal. V-paced on residential monitor. Trach to vent with settings of AC 14, TV 600, FiO2 30%, PEEP 0, no acute distress noted. GT feeding of Glucerna 1.2 running @ 35 cc/hr, no residuals noted. HoB elevated. Gale catheter patent and draining well. Right forearm 20g saline lock intact and left hand 20g IV site infusing NS @ 100 cc/hr and Zosyn @ 27.5 cc/hr, asymptomatic. Bilateral wrist restraints in place, skin intact, no redness or edema noted, peripheral pulses present. Bed locked in lowest position with side rails up x 3. All needs attended to. Will continue to monitor.
--- NOTE | 2018-12-11 08:27 | NUR ---
NURSE NOTES:WOUND CARE NOTES:Pt presented on admission with partial thickness pressure injury to sacrum (L)5cm x (W)6cm. Base of wound moist -viable,(+) maceration along borders.Non-blanchable erythema without induration periwound.Bilat heels are dry and blanchable .No other skin concerns noted. Recommendations: Apply( Triad /Calazime) Paste to Sacral wound .Cover with Optifoam drsg .Change every 3 days and prn. Reposition at least every 2hours or as tolerated. APM/MARIA C mattress. Apply Cavilon Skin Barrier to heels.Off-load with pillow
[2018-12-11] MEDS: Amiodarone 200mg tab GT SCH (09:00)
[2018-12-11] MEDS: Carvedilol 12.5mg tab GT SCH ×2 (09:00→20:46)
[2018-12-11] MEDS ORDERED: Pantoprazole Inj IVP SCH (09:00)
[2018-12-11] MEDS: levETIRAcetam 500mg/5ml Liquid GT SCH ×2 (09:00→20:46)
[2018-12-11] MEDS: Heparin 5000 units/ml inj SUBQ SCH ×2 (09:00→20:48)
--- NOTE | 2018-12-11 09:27 | NUR ---
RADIOLOGY DEPT CHEST X-RAY DONE.-P.DYE
--- NOTE | 2018-12-11 11:07 | Diagnostic Imaging Report ---
Indication: Dyspnea Comparison: 12/10/2018 A single view chest radiograph was obtained. Findings: Mild interstitial edema suspected which appears improved over the last 24 hours. Lung volumes are low. Heart is enlarged. Tracheostomy and pacemaker again noted. IMPRESSION: Improved mild interstitial edema
--- NOTE | 2018-12-11 11:32 | Pulmonolgy Critical Care Note ---
Critical Care - Asmt/Plan Problems: (1) Acute respiratory failure (2) Diabetes mellitus (3) ICD (implantable cardioverter-defibrillator) in place (4) History of CVA (cerebrovascular accident) (5) Feeding by G-tube Respiratory: monitor respiratory rate, adjust FIO2, CXR Cardiac: continue to monitor HR/BP Renal: F/U I&O, keep IV fluid Infectious Disease: check cultures, continue antibiotics Gastrointestinal: hold feedings Endocrine: monitor blood sugar, check TSH, check HgA1C Hematologic: monitor H/H, transfuse if hgb<8.5 Neurologic: PRN Ativan, PRN Morphine, keep patient comfortable Prophylaxis: Protonix Time Spent (Minutes): 40 Notes Reviewed: cardio Discussed with: nurses, consultants, case aideflow manager - Objective Last 24 Hour Vital Signs Date Time Temp Pulse Resp B/P (MAP) Pulse Ox O2 Delivery O2 Flow Rate FiO2 12/11/18 09:27 68 14 50 12/11/18 09:00 68 140/81 12/11/18 08:00 66 12/11/18 08:00 Mechanical Ventilator 12/11/18 08:00 98.2 71 14 130/69 (89) 100 12/11/18 08:00 50 12/11/18 07:29 66 17 50 12/11/18 05:30 70 18 50 12/11/18 04:00 Mechanical Ventilator 12/11/18 04:00 98.6 67 14 140/81 (100) 100 12/11/18 04:00 50 12/11/18 03:29 73 14 50 12/11/18 03:25 72 12/11/18 01:03 72 18 50 12/11/18 00:00 Mechanical Ventilator 12/11/18 00:00 98.7 60 18 132/82 (99) 98 12/10/18 23:30 69 12/10/18 23:23 67 17 50 12/10/18 21:27 74 20 50 12/10/18 21:20 66 124/62 12/10/18 20:00 66 12/10/18 20:00 98.7 66 14 124/62 (82) 98 12/10/18 20:00 50 12/10/18 19:30 71 20 50 12/10/18 18:00 71 15 129/61 (83) 100 2/26/19 17:20 77 19 50 12/10/18 17:00 78 19 156/71 (99) 100 12/10/18 16:00 Mechanical Ventilator 12/10/18 16:00 78 12/10/18 16:00 98.1 79 20 144/69 (94) 100 12/10/18 16:00 50 12/10/18 15:04 76 18 50 12/10/18 15:00 77 20 152/73 (99) 100 12/10/18 14:00 69 21 129/79 (96) 100 12/10/18 13:00 73 19 161/81 (107) 92 12/10/18 12:56 75 19 60 12/10/18 12:00 99.1 66 16 144/74 (97) 95 12/10/18 12:00 Mechanical Ventilator 12/10/18 12:00 68 12/10/18 12:00 45 Status: awake Condition: critical HEENT: atraumatic Lungs: clear, rales, rhonchi Abdomen: soft Extremities: no C/C/E, edema Decubiti: location Accucheck: 157 Critical Care - Subjective ROS Limited/Unobtainable: Yes Condition: critical FI02: 50 Vent Support Breath Rate: 14 Vent Support Mode: AC Vent Tidal Volume: 600 Sputum Amount: Small PEEP: 0.0 PIP: 22 Tube Feeding Amount: 65 I&O: Intake and Output 12/10/18 12/11/18 19:00 07:00 Intake Total 1196.501 ml 902.5 ml Output Total 1575 ml 500 ml Balance -378.499 ml 402.5 ml Free Water 50 ml 50 ml IV Total 516.501 ml 137.5 ml Tube Feeding 570 ml 715 ml Other 60 ml Output Urine Total 1575 ml 500 ml # Bowel Movements 2 CXR: trach intact, RLL infiltrate ET-Tube: 7.0 ET Position: 24 Labs: Laboratory Tests Test 12/11/18 05:20 White Blood Count 7.5 K/UL (4.8-10.8) Red Blood Count 3.21 M/UL (4.70-6.10) L Hemoglobin 10.1 G/DL (14.2-18.0) L Hematocrit 30.9 % (42.0-52.0) L Mean Corpuscular Volume 96 FL (80-99) Mean Corpuscular Hemoglobin 31.6 PG (27.0-31.0) H Mean Corpuscular Hemoglobin Concent 32.8 G/DL (32.0-36.0) Red Cell Distribution Width 16.0 % (11.6-14.8) H Platelet Count 255 K/UL (150-450) Mean Platelet Volume 6.3 FL (6.5-10.1) L Neutrophils (%) (Auto) 70.9 % (45.0-75.0) Lymphocytes (%) (Auto) 17.1 % (20.0-45.0) L Monocytes (%) (Auto) 7.9 % (1.0-10.0) Eosinophils (%) (Auto) 3.1 % (0.0-3.0) H Basophils (%) (Auto) 1.1 % (0.0-2.0) Sodium Level 140 MMOL/L (136-145) Potassium Level 3.5 MMOL/L (3.5-5.1) Chloride Level 107 MMOL/L (98-107) Carbon Dioxide Level 24 MMOL/L (21-32) Anion Gap 9 mmol/L (5-15) Blood Urea Nitrogen 11 mg/dL (7-18) Creatinine 0.9 MG/DL (0.55-1.30) Estimat Glomerular Filtration Rate > 60 mL/min (>60) Glucose Level 153 MG/DL (74-106) H Calcium Level 9.3 MG/DL (8.5-10.1) Total Bilirubin 0.3 MG/DL (0.2-1.0) Aspartate Amino Transf (AST/SGOT) 15 U/L (15-37) Alanine Aminotransferase (ALT/SGPT) 15 U/L (12-78) Alkaline Phosphatase 101 U/L (46-116) Pro-B-Type Natriuretic Peptide 5962 pg/mL (0-125) H Total Protein 7.3 G/DL (6.4-8.2) Albumin 2.4 G/DL (3.4-5.0) L Globulin 4.9 g/dL Albumin/Globulin Ratio 0.5 (1.0-2.7) L Yudy Garner MD Dec 11, 2018 11:32
--- NOTE | 2018-12-11 11:39 | Infectious Diseases Prog Note ---
Assessment/Plan Assessment/Plan Assessment: Dislodged trach Acute respiratory failure s/p intubation 12/06 ?Asp pneumonitis -12/09 CXR: Mild interstitial edema is suspected at has developed suggested -CXR: No obvious infiltrate identified. -sp cx S. marcenses (R Ancef, I Cipro/levo) MIld leukocytosis- likely reactive; SP -u/a neg Afebrile JASMIN, SP COPD chronic respiratory failure s/p trach -s/p new trach 12/09 dysphagia s/p GT gout [facility] resident Plan: -Continue to monitor off abx -12/11 SP Zosyn #5 -f/u cx -MOnitor CBC/CMP, temperatures -trach/GT care -aspiration precautions Thank you for this consultation. Will continue to follow along with you. Discussed with RN Subjective Allergies: Coded Allergies: No Known Allergies (Unverified , 12/06/18) Subjective afebrile no leukocytosis Objective Vital Signs Last 24 Hour Vital Signs Date Time Temp Pulse Resp B/P (MAP) Pulse Ox O2 Delivery O2 Flow Rate FiO2 12/11/18 09:27 68 14 50 12/11/18 09:00 68 140/81 12/11/18 08:00 66 12/11/18 08:00 Mechanical Ventilator 12/11/18 08:00 98.2 71 14 130/69 (89) 100 12/11/18 08:00 50 12/11/18 07:29 66 17 50 12/11/18 05:30 70 18 50 12/11/18 04:00 Mechanical Ventilator 12/11/18 04:00 98.6 67 14 140/81 (100) 100 12/11/18 04:00 50 12/11/18 03:29 73 14 50 12/11/18 03:25 72 12/11/18 01:03 72 18 50 12/11/18 00:00 Mechanical Ventilator 12/11/18 00:00 98.7 60 18 132/82 (99) 98 12/10/18 23:30 69 12/10/18 23:23 67 17 50 12/10/18 21:27 74 20 50 12/10/18 21:20 66 124/62 12/10/18 20:00 66 12/10/18 20:00 98.7 66 14 124/62 (82) 98 12/10/18 20:00 50 12/10/18 19:30 71 20 50 12/10/18 18:00 71 15 129/61 (83) 100 12/10/18 17:20 77 19 50 12/10/18 17:00 78 19 156/71 (99) 100 12/10/18 16:00 Mechanical Ventilator 12/10/18 16:00 78 12/10/18 16:00 98.1 79 20 144/69 (94) 100 12/10/18 16:00 50 12/10/18 15:04 76 18 50 12/10/18 15:00 77 20 152/73 (99) 100 12/10/18 14:00 69 21 129/79 (96) 100 12/10/18 13:00 73 19 161/81 (107) 92 12/10/18 12:56 75 19 60 12/10/18 12:00 99.1 66 16 144/74 (97) 95 12/10/18 12:00 Mechanical Ventilator 12/10/18 12:00 68 12/10/18 12:00 45 Height (Feet): 5 Height (Inches): 6.00 Weight (Pounds): 227 Objective General appearance: alert, mild distress, appears stated age Head: Normocephalic, without obvious abnormality, atraumatic Eyes: conjunctivae/corneas clear. PERRL, EOM's intact. Fundi benign Throat: Lips, mucosa, and tongue normal. Teeth and gums normal Neck: supple, symmetrical, trachea midline with trach hole right lateral to trachea, no adenopathy, thyroid: not enlarged, symmetric, no tenderness/mass/ nodules, no carotid bruit and no JVD Lungs: clear to auscultation bilaterally Heart: regular rate and rhythm, S1, S2 normal, no murmur, click, rub or gallop Abdomen: soft, non-tender. Bowel sounds normal. No masses, no organomegaly Extremities: extremities normal, atraumatic, no cyanosis or edema Pulses: 2+ and symmetric Skin: Skin color, texture, turgor normal. No rashes or lesions Neurologic: Grossly normal Laboratory Tests Test 12/11/18 05:20 White Blood Count 7.5 K/UL (4.8-10.8) Red Blood Count 3.21 M/UL (4.70-6.10) L Hemoglobin 10.1 G/DL (14.2-18.0) L Hematocrit 30.9 % (42.0-52.0) L Mean Corpuscular Volume 96 FL (80-99) Mean Corpuscular Hemoglobin 31.6 PG (27.0-31.0) H Mean Corpuscular Hemoglobin Concent 32.8 G/DL (32.0-36.0) Red Cell Distribution Width 16.0 % (11.6-14.8) H Platelet Count 255 K/UL (150-450) Mean Platelet Volume 6.3 FL (6.5-10.1) L Neutrophils (%) (Auto) 70.9 % (45.0-75.0) Lymphocytes (%) (Auto) 17.1 % (20.0-45.0) L Monocytes (%) (Auto) 7.9 % (1.0-10.0) Eosinophils (%) (Auto) 3.1 % (0.0-3.0) H Basophils (%) (Auto) 1.1 % (0.0-2.0) Sodium Level 140 MMOL/L (136-145) Potassium Level 3.5 MMOL/L (3.5-5.1) Chloride Level 107 MMOL/L (98-107) Carbon Dioxide Level 24 MMOL/L (21-32) Anion Gap 9 mmol/L (5-15) Blood Urea Nitrogen 11 mg/dL (7-18) Creatinine 0.9 MG/DL (0.55-1.30) Estimat Glomerular Filtration Rate > 60 mL/min (>60) Glucose Level 153 MG/DL (74-106) H Calcium Level 9.3 MG/DL (8.5-10.1) Total Bilirubin 0.3 MG/DL (0.2-1.0) Aspartate Amino Transf (AST/SGOT) 15 U/L (15-37) Alanine Aminotransferase (ALT/SGPT) 15 U/L (12-78) Alkaline Phosphatase 101 U/L (46-116) Pro-B-Type Natriuretic Peptide 5962 pg/mL (0-125) H Total Protein 7.3 G/DL (6.4-8.2) Albumin 2.4 G/DL (3.4-5.0) L Globulin 4.9 g/dL Albumin/Globulin Ratio 0.5 (1.0-2.7) L Current Medications Medications (Trade) Dose Ordered Sig/Sophie Route PRN Reason Start Time Stop Time Status Last Admin Dose Admin Acetaminophen (Tylenol) 650 mg Q4H PRN GT fever 12/10/18 19:45 01/05/19 19:28 Albuterol/ Ipratropium (Albuterol/ Ipratropium) 3 ml Q4H PRN HHN Shortness of Breath 12/10/18 19:29 12/11/18 19:28 Allopurinol (Allopurinol) 300 mg DAILY GT 12/11/18 09:00 01/06/19 08:59 12/11/18 09:00 Amiodarone HCl (Cordarone) 100 mg DAILY GT 12/11/18 09:00 01/06/19 08:59 12/11/18 09:00 Carvedilol (Coreg) 12.5 mg EVERY 12 HOURS GT 12/10/18 21:00 01/05/19 20:59 12/11/18 09:00 Dextrose (Dextrose 50%) 25 ml Q30M PRN IV Hypoglycemia 12/10/18 19:30 01/05/19 17:29 Dextrose (Dextrose 50%) 50 ml Q30M PRN IV Hypoglycemia 12/10/18 19:30 01/05/19 17:29 Heparin Sodium (Porcine) (Heparin 5000 units/ml) 5,000 units EVERY 12 HOURS SUBQ 12/10/18 21:00 01/05/19 20:59 12/11/18 09:00 Insulin Aspart (NovoLOG) EVERY 6 HOURS SUBQ 12/11/18 00:00 01/08/19 20:59 12/11/18 05:34 Levetiracetam (Keppra) 500 mg Q12HR GT 12/10/18 21:00 01/05/19 20:59 12/11/18 09:00 Lorazepam (Ativan 2mg/ml 1ml) 2 mg Q2H PRN IV For Anxiety 12/10/18 19:30 12/13/18 17:29 Pantoprazole (Protonix) 40 mg DAILY IVP 12/11/18 09:00 01/06/19 08:59 12/11/18 09:00 Piperacillin Sod/ Tazobactam Sod 3.375 gm/Dextrose 110 ml @ 27.5 mls/hr EVERY 8 HOURS IVPB 12/10/18 22:00 12/15/18 21:59 12/11/18 05:29 Flavia Houston M.D. Dec 11, 2018 11:39
--- NOTE | 2018-12-11 12:53 | Internal Med Progress Note ---
Subjective Date of Service: Dec 11, 2018 Physician Name Lieberman,David Attending Physician Jian Martinez MD Current Medications Medications (Trade) Dose Ordered Sig/Sophie Route PRN Reason Start Time Stop Time Status Last Admin Dose Admin Acetaminophen (Tylenol) 650 mg Q4H PRN GT fever 12/10/18 19:45 01/05/19 19:28 Albuterol/ Ipratropium (Albuterol/ Ipratropium) 3 ml Q4H PRN HHN Shortness of Breath 12/10/18 19:29 12/11/18 19:28 Allopurinol (Allopurinol) 300 mg DAILY GT 12/11/18 09:00 01/06/19 08:59 12/11/18 09:00 Amiodarone HCl (Cordarone) 100 mg DAILY GT 12/11/18 09:00 01/06/19 08:59 12/11/18 09:00 Carvedilol (Coreg) 12.5 mg EVERY 12 HOURS GT 12/10/18 21:00 01/05/19 20:59 12/11/18 09:00 Dextrose (Dextrose 50%) 25 ml Q30M PRN IV Hypoglycemia 12/10/18 19:30 01/05/19 17:29 Dextrose (Dextrose 50%) 50 ml Q30M PRN IV Hypoglycemia 12/10/18 19:30 01/05/19 17:29 Heparin Sodium (Porcine) (Heparin 5000 units/ml) 5,000 units EVERY 12 HOURS SUBQ 12/10/18 21:00 01/05/19 20:59 12/11/18 09:00 Insulin Aspart (NovoLOG) EVERY 6 HOURS SUBQ 12/11/18 00:00 01/08/19 20:59 12/11/18 12:00 Levetiracetam (Keppra) 500 mg Q12HR GT 12/10/18 21:00 01/05/19 20:59 12/11/18 09:00 Lorazepam (Ativan 2mg/ml 1ml) 2 mg Q2H PRN IV For Anxiety 12/10/18 19:30 12/13/18 17:29 Pantoprazole (Protonix) 40 mg DAILY IVP 12/11/18 09:00 01/06/19 08:59 12/11/18 09:00 Allergies: Coded Allergies: No Known Allergies (Unverified , 12/06/18) ROS Limited/Unobtainable: Yes Subjective 58 YO vent dep M admitted with dislodged tracheostomy, Cover for Int Med-Dr Martinez. SHELLI. S/P tracheostomy 12/09/18 Objective Last Vital Signs Date Time Temp Pulse Resp B/P (MAP) Pulse Ox O2 Delivery O2 Flow Rate FiO2 12/11/18 11:34 65 16 50 12/11/18 09:00 140/81 12/11/18 08:00 Mechanical Ventilator 12/11/18 08:00 98.2 100 12/06/18 14:20 15.0 Laboratory Tests Test 12/11/18 05:20 White Blood Count 7.5 K/UL (4.8-10.8) Red Blood Count 3.21 M/UL (4.70-6.10) L Hemoglobin 10.1 G/DL (14.2-18.0) L Hematocrit 30.9 % (42.0-52.0) L Mean Corpuscular Volume 96 FL (80-99) Mean Corpuscular Hemoglobin 31.6 PG (27.0-31.0) H Mean Corpuscular Hemoglobin Concent 32.8 G/DL (32.0-36.0) Red Cell Distribution Width 16.0 % (11.6-14.8) H Platelet Count 255 K/UL (150-450) Mean Platelet Volume 6.3 FL (6.5-10.1) L Neutrophils (%) (Auto) 70.9 % (45.0-75.0) Lymphocytes (%) (Auto) 17.1 % (20.0-45.0) L Monocytes (%) (Auto) 7.9 % (1.0-10.0) Eosinophils (%) (Auto) 3.1 % (0.0-3.0) H Basophils (%) (Auto) 1.1 % (0.0-2.0) Sodium Level 140 MMOL/L (136-145) Potassium Level 3.5 MMOL/L (3.5-5.1) Chloride Level 107 MMOL/L (98-107) Carbon Dioxide Level 24 MMOL/L (21-32) Anion Gap 9 mmol/L (5-15) Blood Urea Nitrogen 11 mg/dL (7-18) Creatinine 0.9 MG/DL (0.55-1.30) Estimat Glomerular Filtration Rate > 60 mL/min (>60) Glucose Level 153 MG/DL (74-106) H Calcium Level 9.3 MG/DL (8.5-10.1) Total Bilirubin 0.3 MG/DL (0.2-1.0) Aspartate Amino Transf (AST/SGOT) 15 U/L (15-37) Alanine Aminotransferase (ALT/SGPT) 15 U/L (12-78) Alkaline Phosphatase 101 U/L (46-116) Pro-B-Type Natriuretic Peptide 5962 pg/mL (0-125) H Total Protein 7.3 G/DL (6.4-8.2) Albumin 2.4 G/DL (3.4-5.0) L Globulin 4.9 g/dL Albumin/Globulin Ratio 0.5 (1.0-2.7) L Intake and Output 12/10/18 12/11/18 19:00 07:00 Intake Total 1196.501 ml 902.5 ml Output Total 1575 ml 500 ml Balance -378.499 ml 402.5 ml Free Water 50 ml 50 ml IV Total 516.501 ml 137.5 ml Tube Feeding 570 ml 715 ml Other 60 ml Output Urine Total 1575 ml 500 ml # Bowel Movements 2 Objective PHYSICAL EXAMINATION: GENERAL: The patient is awake with deep stimulation, however, at this time sedated. HEAD AND NECK: Pupils are equal and reactive. Anicteric. Neck, tracheostomy site was noted. We removed the tracheal tube and there is closure of the tract already. No sign of bleeding. LUNGS: Mech Vent; Bilateral air entry. Mechanical breath sounds. No wheezes. HEART: S1, S2, irregular. Distant heart sounds. AICD on left side of chest wall was noted. ABDOMEN: Soft, nondistended, and nontender. Mildly obese. PEG site is clean. EXTREMITIES: No cyanosis, clubbing, or edema. NEUROLOGIC: Limited secondary to the patient's status, sedated, unable to communicate. Assessment/Plan Assessment/Plan ASSESSMENT: 1. Chronic respiratory failure on vent dependent, status post tracheostomy, dislodged. 2. Diabetes type 2. 3. History of cardiac arrhythmias. 4. Status post biventricular ICD. 5. Dysphagia status post percutaneous endoscopic gastrostomy. 6. Morbid obesity. 7. Peripheral vascular disease. 8. Acute kidney injury and chronic renal insufficiency. 9. History of epilepsy. 10. Chronic atrial fibrillation. 11. Fatty liver. 12. Essential hypertension. 13. Nontraumatic intracerebral hemorrhage. 14. Anemia of chronic disease. PLAN: Admit the patient to ICU. We will follow up with Dr. Garner's recommendation as well as Dr. Allen from Surgery. We will monitor laboratory closely. At this time, the patient has a code status Full Code on the POLST was written. Broad-spectrum antibiotic with ertapenem and amikacin. Monitor laboratory and culture. DVT prophylaxis is heparin subcutaneous. At this time in anticipation of possible tracheostomy placement again, we will hold off on Eliquis. S/P tracheostomy 12/09/18-see surgery note. Sputum cult=serratia; continue zosyn per David Barrientos MD Dec 11, 2018 12:53
--- NOTE | 2018-12-11 17:19 | NUR ---
CASE MANAGEMENT:REVIEW 12/11/18 SI: DISLODGED TRACH...ORALLY INTUBATED T 98.2 HR 88 RR 14 B/P 128/56 SATS 100% ON MECH VENT FiO2 50 GLU 153 BNP 5962 IS: COREG GT Q12H ALLOPURINOL GT QD IV PROTONIX QD CORDARONE GT QD INSULIN ASPART SUBQ AC/HS : SHELLI STATUS DCP: FROM [facility]
[2018-12-11] MEDS ORDERED: Tubing Blood Filter IV ONE (18:12)
[2018-12-11] MEDS ORDERED: NS 275ml ONE (18:12)
[2018-12-11] MEDS ORDERED: Tubing IV Secondary IV ONE (18:18)
--- NOTE | 2018-12-11 18:57 | NUR ---
HAND-OFF: Report given to TEAGAN Mares.
--- NOTE | 2018-12-11 19:10 | NUR ---
RESPIRATORY NOTE: Received pt on AC 14, 600VT, 50%, no PEEP. Pt is trach-dependent w/ a cuffed, Shiley 8 tube. Pt flat effect, responds to stimuli. B/S rosalia. rhonchi, sxn moderate amounts of thick, gasca-yellow secretions. Vent plugged into red outlet, ambubag & spare trach kit at bedside. Pt in no apparent distress at this time. Will continue plan of care.
--- NOTE | 2018-12-11 19:20 | NUR ---
NURSE NOTES: Received report from Talon Georges RN. Patient is awake in bed with no s/s of acute distress noted. Sinus rhythm on monitor worker. Saturating well on trach-vent settings: Shiley 8, AC 14, Vt 600, FiO2 50%. Receiving Glucerna 1.2 @ 65 cc/hr and tolerating well. Gale catheter in place and draining well to gravity. Right forearm 20g IV TKO, intact and patent; left wrist 20g IV TKO, intact and patent. Bed locked in lowest position with side rails up x3. Call light left within reach. Will continue to monitor.
--- NOTE | 2018-12-11 19:52 | General Progress Note ---
Assessment/Plan Assessment/Plan Assessment/Recs # Anemia of chronic disease (or of iron deficiency) due to underlying chronic medical issues, multifactorial --> Anemia workup has been ordered --> No evidence of hemolysis is noted, peripheral smear has been reviewed. --> Hgb goal >7. Transfuse prn. --> Epogen or iron at this time is not particularly indicated --> Medications have been reviewed # Coagulopathy has been recently on eliquis --> dc eliquis, has been placed on hold --> cards eval as needed --> vit K 10mg sq given x 1 prior to surgery sunday # Resp failure s/p trach with dislodgement --> may need new trach v replacement # Dysphagia with hx PEG dependent # DM2 # Cardiac arrythmia history # s/p icd placement # Morbid obesity The timing of this note does not necessarily reflect the time of the patient was seen. Greatly appreciate consultation! Subjective Constitutional: Denies: no symptoms, chills, diaphoresis, fever, malaise, weakness, other Respiratory: Denies: no symptoms, cough, orthopnea, shortness of breath, SOB with excertion, SOB at rest, sputum, stridor, wheezing, other Gastrointestinal/Abdominal: Denies: no symptoms, abdomen distended, abdominal pain, black stools, tarry stools, blood in stool, constipated, diarrhea, difficulty swallowing, nausea, poor appetite, poor fluid intake, rectal bleeding , vomiting, other Genitourinary: Denies: no symptoms, burning, discharge, frequency, flank pain, hematuria, incontinence, pain, urgency, other Neurologic/Psychiatric: Denies: no symptoms, anxiety, depressed, emotional problems, headache, numbness, paresthesia, pre-existing deficit, seizure, tingling, tremors, weakness, other Endocrine: Denies: no symptoms, excessive sweating, flushing, intolerance to cold, intolerance to heat, increased hunger, increased thirst, increased urine, unexplained weight gain, unexplained weight loss, other Hematologic/Lymphatic: Denies: no symptoms, anemia, easy bleeding, easy bruising, other Allergies: Coded Allergies: No Known Allergies (Unverified , 12/06/18) Subjective 12/09: seen by bedside, trach placement done, received transfusion, hgb 7.7, no events 12/10: S/P tracheostomy 12/09/18, resting in bed, no acute distress. 12/11:S/P tracheostomy, tolerating well, cbc reviewed, no events Objective Last 24 Hour Vital Signs Date Time Temp Pulse Resp B/P (MAP) Pulse Ox O2 Delivery O2 Flow Rate FiO2 12/11/18 19:08 69 17 50 12/11/18 16:55 69 17 50 12/11/18 16:00 70 12/11/18 16:00 Mechanical Ventilator 12/11/18 16:00 98.2 88 14 128/56 (80) 100 12/11/18 16:00 50 12/11/18 14:21 65 19 50 12/11/18 13:22 66 18 50 12/11/18 12:00 Mechanical Ventilator 12/11/18 12:00 69 12/11/18 12:00 98.2 75 14 116/72 (87) 100 12/11/18 12:00 50 12/11/18 11:34 65 16 50 12/11/18 09:27 68 14 50 12/11/18 09:00 68 140/81 12/11/18 08:00 66 12/11/18 08:00 Mechanical Ventilator 12/11/18 08:00 98.2 71 14 130/69 (89) 100 12/11/18 08:00 50 12/11/18 07:29 66 17 50 12/11/18 05:30 70 18 50 12/11/18 04:00 Mechanical Ventilator 12/11/18 04:00 98.6 67 14 140/81 (100) 100 12/11/18 04:00 50 12/11/18 03:29 73 14 50 12/11/18 03:25 72 12/11/18 01:03 72 18 50 12/11/18 00:00 Mechanical Ventilator 12/11/18 00:00 98.7 60 18 132/82 (99) 98 12/10/18 23:30 69 12/10/18 23:23 67 17 50 12/10/18 21:27 74 20 50 12/10/18 21:20 66 124/62 12/10/18 20:00 66 12/10/18 20:00 98.7 66 14 124/62 (82) 98 12/10/18 20:00 50 Intake and Output 12/10/18 12/11/18 19:00 07:00 Intake Total 1196.501 ml 967.5 ml Output Total 1575 ml 500 ml Balance -378.499 ml 467.5 ml Free Water 50 ml 50 ml IV Total 516.501 ml 137.5 ml Tube Feeding 570 ml 780 ml Other 60 ml Output Urine Total 1575 ml 500 ml # Bowel Movements 2 Laboratory Tests 12/11/18 05:20: White Blood Count 7.5, Red Blood Count 3.21L, Hemoglobin 10.1L, Hematocrit 30.9L , Mean Corpuscular Volume 96, Mean Corpuscular Hemoglobin 31.6H, Mean Corpuscular Hemoglobin Concent 32.8, Red Cell Distribution Width 16.0H, Platelet Count 255, Mean Platelet Volume 6.3L, Neutrophils (%) (Auto) 70.9, Lymphocytes (%) (Auto) 17.1L, Monocytes (%) (Auto) 7.9, Eosinophils (%) (Auto) 3.1H, Basophils (%) (Auto) 1.1, Sodium Level 140, Potassium Level 3.5, Chloride Level 107, Carbon Dioxide Level 24, Anion Gap 9, Blood Urea Nitrogen 11, Creatinine 0.9, Estimat Glomerular Filtration Rate > 60, Glucose Level 153H, Calcium Level 9.3, Total Bilirubin 0.3, Aspartate Amino Transf (AST/SGOT) 15, Alanine Aminotransferase (ALT/SGPT) 15, Alkaline Phosphatase 101, Pro-B-Type Natriuretic Peptide 5962H, Total Protein 7.3, Albumin 2.4L, Globulin 4.9, Albumin/Globulin Ratio 0.5L Height (Feet): 5 Height (Inches): 6.00 Weight (Pounds): 227 Objective General: alert, severe distress Head: normocephalic Eyes: bilateral eye normal inspection, bilateral eye EOMI ENT: normal pharynx, no angioedema, uvula midline, moist mucus membranes Neck: full range of motion, supple, tracheotomy +++ stoma/site completely closed with dried blood and tissue Respiratory: lungs clear, normal breath sounds, chest symmetrical Cardiovascular: normal peripheral pulses, regular rate, rhythm, other - PPM site c/d/i Gastrointestinal: normal inspection, non tender, soft, no mass, no guarding, no rebound ++ peg Genitourinary: normal inspection, no CVA tenderness Musculoskeletal: back normal, gait/station normal Neurologic: unresponsive Kleynberg,Kenney L. MD Dec 11, 2018 19:52
[2018-12-12] VITALS: BP 151/72
[2018-12-12] MEDS: NovoLOG Insulin Flexpen SUBQ SCH ×4 (00:19→18:19)
[2018-12-12 04:00] VITALS: BP 120/80
[2018-12-12 04:59] LABS: BASOPHILS % (AUTO) 0.7 % (0.0-2.0); EOSINOPHILS % (AUTO) 3.4 % (0.0-3.0); HEMATOCRIT 31.7 % (42.0-52.0); HEMOGLOBIN 10.3 G/DL (14.2-18.0); LYMPHOCYTES % (AUTO) 12.8 % (20.0-45.0); MEAN CORPUSCULAR VOLUME 97 FL (80-99); MONOCYTES % (AUTO) 7.1 % (1.0-10.0); PLATELET COUNT 278 K/UL (150-450); RED BLOOD COUNT 3.26 M/UL (4.70-6.10); WHITE BLOOD COUNT 9.9 K/UL (4.8-10.8)
[2018-12-12 05:30] LABS: ALANINE AMINOTRANSFERASE 26 U/L (12-78); ALBUMIN 2.7 G/DL (3.4-5.0); ALBUMIN/GLOBULIN RATIO 0.6 (1.0-2.7); ALKALINE PHOSPHATASE 118 U/L (46-116); ANION GAP 7 mmol/L (5-15); ASPARTATE AMINO TRANSFERASE 15 U/L (15-37); BILIRUBIN,TOTAL 0.3 MG/DL (0.2-1.0); BLOOD UREA NITROGEN 12 mg/dL (7-18); CALCIUM 9.4 MG/DL (8.5-10.1); CARBON DIOXIDE 26 MMOL/L (21-32); CHLORIDE 108 MMOL/L (98-107); CREATININE 0.8 MG/DL (0.55-1.30); POTASSIUM 3.8 MMOL/L (3.5-5.1); SODIUM 141 MMOL/L (136-145)
--- NOTE | 2018-12-12 07:00 | NUR ---
HAND-OFF: Report given to Yuliana Arzate RN.
--- NOTE | 2018-12-12 07:23 | NUR ---
NURSE NOTES: Received report from Regina Robles RN. Patient asleep in bed, responsive to tactile stimuli, nonverbal. Trach to vent with settings of AC 14, TV 600, FiO2 50%, PEEP 0, no acute distress noted. GT feeding of Glucerna 1.2 running @ 65 cc/hr, no residuals noted. HoB elevated. Gale catheter patent and draining well. Right forearm 20g and left hand 20g saline locks intact and asymptomatic. Bed locked in lowest position with side rails up x 3. All needs attended to. Will continue to monitor.
--- NOTE | 2018-12-12 07:30 | NUR ---
RESPIRATORY NOTE: Received pt on AC 14, 600VT, 50%, no PEEP. Pt is trach-dependent w/ a cuffed, Shiley 8 tube. Pt flat effect, but responds to stimuli. Surendra. rhonchi, sxn small amounts of thin frothy white gasca secretions without incident. Vent plugged into red outlet, ambubag & spare trach kit at bedside, alarms and set and audible. Pt in no apparent distress at this time. Will continue plan of care.
[2018-12-12 08:00] VITALS: BP 134/77
[2018-12-12] MEDS: levETIRAcetam 500mg/5ml Liquid GT SCH ×2 (09:12→21:05)
[2018-12-12] MEDS: Amiodarone 200mg tab GT SCH (09:12)
[2018-12-12] MEDS: Carvedilol 12.5mg tab GT SCH ×2 (09:12→21:06)
[2018-12-12] MEDS: Heparin 5000 units/ml inj SUBQ SCH ×2 (09:15→21:07)
--- NOTE | 2018-12-12 09:49 | Pulmonolgy Critical Care Note ---
Critical Care - Asmt/Plan Problems: (1) Acute respiratory failure (2) Diabetes mellitus (3) ICD (implantable cardioverter-defibrillator) in place (4) History of CVA (cerebrovascular accident) (5) Feeding by G-tube Respiratory: monitor respiratory rate, adjust FIO2, CXR Cardiac: continue to monitor HR/BP Renal: F/U I&O, keep IV fluid, check electrolytes Infectious Disease: check cultures, continue antibiotics Gastrointestinal: continue feedings/current rate Endocrine: monitor blood sugar Hematologic: transfuse if hgb<8.5 Neurologic: PRN Ativan, PRN Morphine, keep patient comfortable Affect: PRN ativan Prophylaxis: Heparin Time Spent (Minutes): 40 Notes Reviewed: renal Discussed with: nurses, consultants, leather case finisherrehab department manager - Objective Last 24 Hour Vital Signs Date Time Temp Pulse Resp B/P (MAP) Pulse Ox O2 Delivery O2 Flow Rate FiO2 12/12/18 09:12 75 134/77 12/12/18 08:45 73 16 50 12/12/18 08:00 50 12/12/18 08:00 Mechanical Ventilator 12/12/18 08:00 98.2 75 18 134/77 (96) 96 12/12/18 07:30 74 18 50 12/12/18 05:18 68 16 50 12/12/18 04:00 Mechanical Ventilator 12/12/18 04:00 98.8 68 16 120/80 (93) 98 12/12/18 04:00 50 12/12/18 03:48 65 12/12/18 03:24 67 14 50 12/12/18 01:12 70 15 50 12/12/18 00:00 Mechanical Ventilator 12/12/18 00:00 98.7 68 18 151/72 (98) 100 12/11/18 23:30 68 12/11/18 23:06 66 14 50 12/11/18 21:12 67 18 50 12/11/18 20:46 60 128/75 12/11/18 20:00 50 12/11/18 20:00 99.0 60 16 128/75 (92) 100 12/11/18 20:00 Mechanical Ventilator 12/11/18 19:08 69 17 50 12/11/18 19:01 73 12/11/18 16:55 69 17 50 12/11/18 16:00 70 12/11/18 16:00 Mechanical Ventilator 12/11/18 16:00 98.2 88 14 128/56 (80) 100 12/11/18 16:00 50 12/11/18 14:21 65 19 50 12/11/18 13:22 66 18 50 12/11/18 12:00 Mechanical Ventilator 12/11/18 12:00 69 12/11/18 12:00 98.2 75 14 116/72 (87) 100 12/11/18 12:00 50 12/11/18 11:34 65 16 50 Status: obtunded Condition: critical HEENT: atraumatic Neck: trach Lungs: rales, rhonchi Heart: HR/BP stable Abdomen: soft, non-tender Extremities: edema Decubiti: stage Accucheck: 152 Critical Care - Subjective ROS Limited/Unobtainable: Yes Condition: critical EKG Rhythm: Sinus Rhythm FI02: 50 Vent Support Breath Rate: 14 Vent Support Mode: AC Vent Tidal Volume: 600 Sputum Amount: Small PEEP: 0.0 PIP: 25 Tube Feeding Amount: 65 I&O: Intake and Output 12/11/18 12/12/18 19:00 07:00 Intake Total 845 ml 845 ml Output Total 1450 ml 1000 ml Balance -605 ml -155 ml Free Water 130 ml Tube Feeding 845 ml 715 ml Output Urine Total 1450 ml 1000 ml # Bowel Movements 3 4 ET-Tube: 7.0 ET Position: 24 Labs: pulmonary edema Yudy Garner MD Dec 12, 2018 09:49
[2018-12-12 12:00] VITALS: BP 139/72
--- NOTE | 2018-12-12 15:45 | NUR ---
RD ASSESSMENT & RECOMMENDATIONS SEE CARE ACTIVITY FOR COMPLETE ASSESSMENT DAILY ESTIMATED NEEDS: Needs based on Critical care, 80.3kg abw 22-28 kcals/kg 2774-5793 total kcals 1.2-2 g protein/kg 96-160 g total protein 25-30 mL/kg 3625-8870 total fluid mLs NUTRITION DIAGNOSIS: Swallowing difficulty R/T dysphagia, respiratory status as evidenced by pt is trach/vent dep, s/p trach dislodgement, now s/p replacement, PEG dep, on GT feeding CURRENT TF:Glucerna 1.2 @ 65ml/hr x 24 hrs + PS x 1 ENTERAL NUTRITION RECOMMENDATIONS: Glucerna 1.2 @ 65ml/hr x 24 hrs + Prosource 1pkt QD to provide 1560ml, 1872kcal, 94g + 11g prot, 1256ml free water * Maintain current TF * HOB over 30 degrees/ water flush per MD ADDITIONAL RECOMMENDATIONS: * Per SNF: Ht=69", YR=871 lbs (obtained 11/16/18) * Calibrated bedscale wt for accurate CBW (w/ added P200 mattress) * Donta 1pkt BID for skin integrity * Monitor lytes daily w/ TF, replete as needed (Low Mg 1.7)
[2018-12-12 16:00] VITALS: BP 138/77
--- NOTE | 2018-12-12 16:14 | Infectious Diseases Prog Note ---
Assessment/Plan Assessment/Plan Assessment: Dislodged trach Acute respiratory failure s/p intubation 12/06 ?Asp pneumonitis -12/09 CXR: Mild interstitial edema is suspected at has developed suggested -CXR: No obvious infiltrate identified. -sp cx S. marcenses (R Ancef, I Cipro/levo) MIld leukocytosis- likely reactive; SP -u/a neg -Bcx neg Afebrile JASMIN, SP COPD chronic respiratory failure s/p trach -s/p new trach 12/09 dysphagia s/p GT gout NH resident Plan: -Continue to monitor off abx -12/11 SP Zosyn #5 -f/u cx -MOnitor CBC/CMP, temperatures -trach/GT care -aspiration precautions Thank you for this consultation. Will continue to follow along with you. Discussed with RN Subjective Allergies: Coded Allergies: No Known Allergies (Unverified , 12/06/18) Subjective afebrile no leukocytosis Bcx neg Objective Vital Signs Last 24 Hour Vital Signs Date Time Temp Pulse Resp B/P (MAP) Pulse Ox O2 Delivery O2 Flow Rate FiO2 12/12/18 14:36 73 17 30 12/12/18 13:09 79 17 40 12/12/18 12:00 99.3 76 18 139/72 (94) 94 12/12/18 12:00 Mechanical Ventilator 12/12/18 12:00 50 12/12/18 12:00 72 12/12/18 11:12 81 21 50 12/12/18 09:12 75 134/77 12/12/18 08:45 73 16 50 12/12/18 08:00 50 12/12/18 08:00 Mechanical Ventilator 12/12/18 08:00 73 12/12/18 08:00 98.2 75 18 134/77 (96) 96 12/12/18 07:30 74 18 50 12/12/18 05:18 68 16 50 12/12/18 04:00 Mechanical Ventilator 12/12/18 04:00 98.8 68 16 120/80 (93) 98 12/12/18 04:00 50 12/12/18 03:48 65 12/12/18 03:24 67 14 50 12/12/18 01:12 70 15 50 12/12/18 00:00 Mechanical Ventilator 12/12/18 00:00 98.7 68 18 151/72 (98) 100 12/11/18 23:30 68 12/11/18 23:06 66 14 50 12/11/18 21:12 67 18 50 12/11/18 20:46 60 128/75 12/11/18 20:00 50 12/11/18 20:00 99.0 60 16 128/75 (92) 100 12/11/18 20:00 Mechanical Ventilator 12/11/18 19:08 69 17 50 12/11/18 19:01 73 12/11/18 16:55 69 17 50 Height (Feet): 5 Height (Inches): 6.00 Weight (Pounds): 229 Objective General appearance: alert, mild distress, appears stated age Head: Normocephalic, without obvious abnormality, atraumatic Eyes: conjunctivae/corneas clear. PERRL, EOM's intact. Fundi benign Throat: Lips, mucosa, and tongue normal. Teeth and gums normal Neck: supple, symmetrical, trachea midline with trach hole right lateral to trachea, no adenopathy, thyroid: not enlarged, symmetric, no tenderness/mass/ nodules, no carotid bruit and no JVD Lungs: clear to auscultation bilaterally Heart: regular rate and rhythm, S1, S2 normal, no murmur, click, rub or gallop Abdomen: soft, non-tender. Bowel sounds normal. No masses, no organomegaly Extremities: extremities normal, atraumatic, no cyanosis or edema Pulses: 2+ and symmetric Skin: Skin color, texture, turgor normal. No rashes or lesions Neurologic: Grossly normal Laboratory Tests Test 12/12/18 03:50 White Blood Count 9.9 K/UL (4.8-10.8) Red Blood Count 3.26 M/UL (4.70-6.10) L Hemoglobin 10.3 G/DL (14.2-18.0) L Hematocrit 31.7 % (42.0-52.0) L Mean Corpuscular Volume 97 FL (80-99) Mean Corpuscular Hemoglobin 31.6 PG (27.0-31.0) H Mean Corpuscular Hemoglobin Concent 32.4 G/DL (32.0-36.0) Red Cell Distribution Width 16.0 % (11.6-14.8) H Platelet Count 278 K/UL (150-450) Mean Platelet Volume 6.0 FL (6.5-10.1) L Neutrophils (%) (Auto) 76.0 % (45.0-75.0) H Lymphocytes (%) (Auto) 12.8 % (20.0-45.0) L Monocytes (%) (Auto) 7.1 % (1.0-10.0) Eosinophils (%) (Auto) 3.4 % (0.0-3.0) H Basophils (%) (Auto) 0.7 % (0.0-2.0) Sodium Level 141 MMOL/L (136-145) Potassium Level 3.8 MMOL/L (3.5-5.1) Chloride Level 108 MMOL/L (98-107) H Carbon Dioxide Level 26 MMOL/L (21-32) Anion Gap 7 mmol/L (5-15) Blood Urea Nitrogen 12 mg/dL (7-18) Creatinine 0.8 MG/DL (0.55-1.30) Estimat Glomerular Filtration Rate > 60 mL/min (>60) Glucose Level 148 MG/DL (74-106) H Calcium Level 9.4 MG/DL (8.5-10.1) Phosphorus Level 3.0 MG/DL (2.5-4.9) Magnesium Level 1.7 MG/DL (1.8-2.4) L Total Bilirubin 0.3 MG/DL (0.2-1.0) Aspartate Amino Transf (AST/SGOT) 15 U/L (15-37) Alanine Aminotransferase (ALT/SGPT) 26 U/L (12-78) Alkaline Phosphatase 118 U/L (46-116) H Total Protein 6.9 G/DL (6.4-8.2) Albumin 2.7 G/DL (3.4-5.0) L Globulin 4.2 g/dL Albumin/Globulin Ratio 0.6 (1.0-2.7) L Current Medications Medications (Trade) Dose Ordered Sig/Sophie Route PRN Reason Start Time Stop Time Status Last Admin Dose Admin Acetaminophen (Tylenol) 650 mg Q4H PRN GT fever 12/10/18 19:45 01/05/19 19:28 Allopurinol (Allopurinol) 300 mg DAILY GT 12/11/18 09:00 01/06/19 08:59 12/12/18 09:12 Amiodarone HCl (Cordarone) 100 mg DAILY GT 12/11/18 09:00 01/06/19 08:59 12/12/18 09:12 Carvedilol (Coreg) 12.5 mg EVERY 12 HOURS GT 12/10/18 21:00 01/05/19 20:59 12/12/18 09:12 Dextrose (Dextrose 50%) 25 ml Q30M PRN IV Hypoglycemia 12/10/18 19:30 01/05/19 17:29 Dextrose (Dextrose 50%) 50 ml Q30M PRN IV Hypoglycemia 12/10/18 19:30 01/05/19 17:29 Heparin Sodium (Porcine) (Heparin 5000 units/ml) 5,000 units EVERY 12 HOURS SUBQ 12/10/18 21:00 01/05/19 20:59 12/12/18 09:15 Insulin Aspart (NovoLOG) EVERY 6 HOURS SUBQ 12/11/18 00:00 01/08/19 20:59 12/12/18 11:51 Lansoprazole (Prevacid) 30 mg DAILY GT 12/12/18 09:00 01/11/19 08:59 12/12/18 09:12 Levetiracetam (Keppra) 500 mg Q12HR GT 12/10/18 21:00 01/05/19 20:59 12/12/18 09:12 Lorazepam (Ativan 2mg/ml 1ml) 2 mg Q2H PRN IV For Anxiety 12/10/18 19:30 12/13/18 17:29 Flavia Houston M.D. Dec 12, 2018 16:14
--- NOTE | 2018-12-12 17:14 | Internal Med Progress Note ---
Subjective Date of Service: Dec 12, 2018 Physician Name David Lieberman Attending Physician Jian Martinez MD Current Medications Medications (Trade) Dose Ordered Sig/Sophie Route PRN Reason Start Time Stop Time Status Last Admin Dose Admin Acetaminophen (Tylenol) 650 mg Q4H PRN GT fever 12/10/18 19:45 01/05/19 19:28 12/12/18 16:58 Allopurinol (Allopurinol) 300 mg DAILY GT 12/11/18 09:00 01/06/19 08:59 12/12/18 09:12 Amiodarone HCl (Cordarone) 100 mg DAILY GT 12/11/18 09:00 01/06/19 08:59 12/12/18 09:12 Carvedilol (Coreg) 12.5 mg EVERY 12 HOURS GT 12/10/18 21:00 01/05/19 20:59 12/12/18 09:12 Dextrose (Dextrose 50%) 25 ml Q30M PRN IV Hypoglycemia 12/10/18 19:30 01/05/19 17:29 Dextrose (Dextrose 50%) 50 ml Q30M PRN IV Hypoglycemia 12/10/18 19:30 01/05/19 17:29 Heparin Sodium (Porcine) (Heparin 5000 units/ml) 5,000 units EVERY 12 HOURS SUBQ 12/10/18 21:00 01/05/19 20:59 12/12/18 09:15 Insulin Aspart (NovoLOG) EVERY 6 HOURS SUBQ 12/11/18 00:00 01/08/19 20:59 12/12/18 11:51 Lansoprazole (Prevacid) 30 mg DAILY GT 12/12/18 09:00 01/11/19 08:59 12/12/18 09:12 Levetiracetam (Keppra) 500 mg Q12HR GT 12/10/18 21:00 01/05/19 20:59 12/12/18 09:12 Lorazepam (Ativan 2mg/ml 1ml) 2 mg Q2H PRN IV For Anxiety 12/10/18 19:30 12/13/18 17:29 Allergies: Coded Allergies: No Known Allergies (Unverified , 12/06/18) ROS Limited/Unobtainable: Yes Subjective 58 YO vent dep M admitted with dislodged tracheostomy, Cover for Int Med-Dr Martinez. SHELLI. S/P tracheostomy 12/09/18 Objective Last Vital Signs Date Time Temp Pulse Resp B/P (MAP) Pulse Ox O2 Delivery O2 Flow Rate FiO2 12/12/18 16:00 40 12/12/18 16:00 Mechanical Ventilator 12/12/18 14:36 73 17 12/12/18 12:00 99.3 139/72 (94) 94 12/06/18 14:20 15.0 Laboratory Tests Test 12/12/18 03:50 White Blood Count 9.9 K/UL (4.8-10.8) Red Blood Count 3.26 M/UL (4.70-6.10) L Hemoglobin 10.3 G/DL (14.2-18.0) L Hematocrit 31.7 % (42.0-52.0) L Mean Corpuscular Volume 97 FL (80-99) Mean Corpuscular Hemoglobin 31.6 PG (27.0-31.0) H Mean Corpuscular Hemoglobin Concent 32.4 G/DL (32.0-36.0) Red Cell Distribution Width 16.0 % (11.6-14.8) H Platelet Count 278 K/UL (150-450) Mean Platelet Volume 6.0 FL (6.5-10.1) L Neutrophils (%) (Auto) 76.0 % (45.0-75.0) H Lymphocytes (%) (Auto) 12.8 % (20.0-45.0) L Monocytes (%) (Auto) 7.1 % (1.0-10.0) Eosinophils (%) (Auto) 3.4 % (0.0-3.0) H Basophils (%) (Auto) 0.7 % (0.0-2.0) Sodium Level 141 MMOL/L (136-145) Potassium Level 3.8 MMOL/L (3.5-5.1) Chloride Level 108 MMOL/L (98-107) H Carbon Dioxide Level 26 MMOL/L (21-32) Anion Gap 7 mmol/L (5-15) Blood Urea Nitrogen 12 mg/dL (7-18) Creatinine 0.8 MG/DL (0.55-1.30) Estimat Glomerular Filtration Rate > 60 mL/min (>60) Glucose Level 148 MG/DL (74-106) H Calcium Level 9.4 MG/DL (8.5-10.1) Phosphorus Level 3.0 MG/DL (2.5-4.9) Magnesium Level 1.7 MG/DL (1.8-2.4) L Total Bilirubin 0.3 MG/DL (0.2-1.0) Aspartate Amino Transf (AST/SGOT) 15 U/L (15-37) Alanine Aminotransferase (ALT/SGPT) 26 U/L (12-78) Alkaline Phosphatase 118 U/L (46-116) H Total Protein 6.9 G/DL (6.4-8.2) Albumin 2.7 G/DL (3.4-5.0) L Globulin 4.2 g/dL Albumin/Globulin Ratio 0.6 (1.0-2.7) L Intake and Output 12/11/18 12/12/18 19:00 07:00 Intake Total 845 ml 910 ml Output Total 1450 ml 1000 ml Balance -605 ml -90 ml Free Water 130 ml Tube Feeding 845 ml 780 ml Output Urine Total 1450 ml 1000 ml # Bowel Movements 3 4 Objective PHYSICAL EXAMINATION: GENERAL: The patient is awake with deep stimulation, however, at this time sedated. HEAD AND NECK: Pupils are equal and reactive. Anicteric. Neck, tracheostomy site was noted. We removed the tracheal tube and there is closure of the tract already. No sign of bleeding. LUNGS: Mech Vent; Bilateral air entry. Mechanical breath sounds. No wheezes. HEART: S1, S2, irregular. Distant heart sounds. AICD on left side of chest wall was noted. ABDOMEN: Soft, nondistended, and nontender. Mildly obese. PEG site is clean. EXTREMITIES: No cyanosis, clubbing, or edema. NEUROLOGIC: Limited secondary to the patient's status, sedated, unable to communicate. Assessment/Plan Assessment/Plan ASSESSMENT: 1. Chronic respiratory failure on vent dependent, status post tracheostomy, dislodged. 2. Diabetes type 2. 3. History of cardiac arrhythmias. 4. Status post biventricular ICD. 5. Dysphagia status post percutaneous endoscopic gastrostomy. 6. Morbid obesity. 7. Peripheral vascular disease. 8. Acute kidney injury and chronic renal insufficiency. 9. History of epilepsy. 10. Chronic atrial fibrillation. 11. Fatty liver. 12. Essential hypertension. 13. Nontraumatic intracerebral hemorrhage. 14. Anemia of chronic disease. PLAN: Admit the patient to ICU. We will follow up with Dr. Garner's recommendation as well as Dr. Allen from Surgery. We will monitor laboratory closely. At this time, the patient has a code status Full Code on the POLST was written. Broad-spectrum antibiotic with ertapenem and amikacin. Monitor laboratory and culture. DVT prophylaxis is heparin subcutaneous. At this time in anticipation of possible tracheostomy placement again, we will hold off on Eliquis. S/P tracheostomy 12/09/18-see surgery note. Sputum cult=serratia; continue to monitor off antibiotics per David Barrientos MD Dec 12, 2018 17:14
--- NOTE | 2018-12-12 19:12 | NUR ---
NURSE NOTES: Received bedside report from TEAGAN Bell.Patient stable,open eyes,SR on director of cardiac rehabilitation,Shiley 8 AC18 TV 600 FiO2 40%,no respiratory distress noted,no s/s of pain noted,GT running with Glucerna 1.2 @ 65ml/hr,no residual,tolerated feeding well,BS active in all quadrants,f/cath for retention,IV asymptomatic,intact on BL f/arm G20 SL,bed secured,call light within a reach.Will continue to monitor.
--- NOTE | 2018-12-12 19:18 | NUR ---
HAND-OFF: Report given to Charly Felipe RN.
[2018-12-12 20:00] VITALS: BP 140/94
--- NOTE | 2018-12-12 20:59 | General Progress Note ---
Assessment/Plan Assessment/Plan Assessment/Recs # Anemia of chronic disease (or of iron deficiency) due to underlying chronic medical issues, multifactorial --> Anemia workup has been ordered --> No evidence of hemolysis is noted, peripheral smear has been reviewed. --> Hgb goal >7. Transfuse prn. --> Epogen or iron at this time is not particularly indicated --> Medications have been reviewed # Coagulopathy has been recently on eliquis --> dc eliquis, has been placed on hold --> cards eval as needed --> vit K 10mg sq given x 1 prior to surgery sunday # Resp failure s/p trach with dislodgement --> may need new trach v replacement # Dysphagia with hx PEG dependent # DM2 # Cardiac arrythmia history # s/p icd placement # Morbid obesity The timing of this note does not necessarily reflect the time of the patient was seen. Greatly appreciate consultation! Subjective Constitutional: Denies: no symptoms, chills, diaphoresis, fever, malaise, weakness, other Respiratory: Denies: no symptoms, cough, orthopnea, shortness of breath, SOB with excertion, SOB at rest, sputum, stridor, wheezing, other Gastrointestinal/Abdominal: Denies: no symptoms, abdomen distended, abdominal pain, black stools, tarry stools, blood in stool, constipated, diarrhea, difficulty swallowing, nausea, poor appetite, poor fluid intake, rectal bleeding , vomiting, other Genitourinary: Denies: no symptoms, burning, discharge, frequency, flank pain, hematuria, incontinence, pain, urgency, other Neurologic/Psychiatric: Denies: no symptoms, anxiety, depressed, emotional problems, headache, numbness, paresthesia, pre-existing deficit, seizure, tingling, tremors, weakness, other Endocrine: Denies: no symptoms, excessive sweating, flushing, intolerance to cold, intolerance to heat, increased hunger, increased thirst, increased urine, unexplained weight gain, unexplained weight loss, other Allergies: Coded Allergies: No Known Allergies (Unverified , 12/06/18) Subjective 12/09: seen by bedside, trach placement done, received transfusion, hgb 7.7, no events 12/10: S/P tracheostomy 12/09/18, resting in bed, no acute distress. 12/11:S/P tracheostomy, tolerating well, cbc reviewed, no events 12/12: seen by bedside,open eyes, on GT ,no acute distress Objective Last 24 Hour Vital Signs Date Time Temp Pulse Resp B/P (MAP) Pulse Ox O2 Delivery O2 Flow Rate FiO2 12/12/18 20:32 68 14 30 30 12/12/18 19:00 65 14 30 30 12/12/18 17:28 99.6 12/12/18 16:48 82 22 30 12/12/18 16:00 100.8 81 22 138/77 (97) 98 12/12/18 16:00 40 12/12/18 16:00 Mechanical Ventilator 12/12/18 16:00 74 12/12/18 14:36 73 17 30 12/12/18 13:09 79 17 40 12/12/18 12:00 99.3 76 18 139/72 (94) 94 12/12/18 12:00 Mechanical Ventilator 12/12/18 12:00 50 12/12/18 12:00 72 12/12/18 11:12 81 21 50 12/12/18 09:12 75 134/77 12/12/18 08:45 73 16 50 12/12/18 08:00 50 12/12/18 08:00 Mechanical Ventilator 12/12/18 08:00 73 12/12/18 08:00 98.2 75 18 134/77 (96) 96 12/12/18 07:30 74 18 50 12/12/18 05:18 68 16 50 12/12/18 04:00 Mechanical Ventilator 12/12/18 04:00 98.8 68 16 120/80 (93) 98 12/12/18 04:00 50 12/12/18 03:48 65 12/12/18 03:24 67 14 50 12/12/18 01:12 70 15 50 12/12/18 00:00 Mechanical Ventilator 12/12/18 00:00 98.7 68 18 151/72 (98) 100 12/11/18 23:30 68 12/11/18 23:06 66 14 50 12/11/18 21:12 67 18 50 Intake and Output 12/11/18 12/12/18 19:00 07:00 Intake Total 845 ml 910 ml Output Total 1450 ml 1000 ml Balance -605 ml -90 ml Free Water 130 ml Tube Feeding 845 ml 780 ml Output Urine Total 1450 ml 1000 ml # Bowel Movements 3 4 Laboratory Tests 12/12/18 03:50: White Blood Count 9.9, Red Blood Count 3.26L, Hemoglobin 10.3L, Hematocrit 31.7L , Mean Corpuscular Volume 97, Mean Corpuscular Hemoglobin 31.6H, Mean Corpuscular Hemoglobin Concent 32.4, Red Cell Distribution Width 16.0H, Platelet Count 278, Mean Platelet Volume 6.0L, Neutrophils (%) (Auto) 76.0H, Lymphocytes (%) (Auto) 12.8L, Monocytes (%) (Auto) 7.1, Eosinophils (%) (Auto) 3.4H, Basophils (%) (Auto) 0.7, Sodium Level 141, Potassium Level 3.8, Chloride Level 108H, Carbon Dioxide Level 26, Anion Gap 7, Blood Urea Nitrogen 12, Creatinine 0.8, Estimat Glomerular Filtration Rate > 60, Glucose Level 148H, Calcium Level 9.4, Phosphorus Level 3.0, Magnesium Level 1.7L, Total Bilirubin 0.3, Aspartate Amino Transf (AST/SGOT) 15, Alanine Aminotransferase (ALT/SGPT) 26, Alkaline Phosphatase 118H, Total Protein 6.9, Albumin 2.7L, Globulin 4.2, Albumin/Globulin Ratio 0.6L Height (Feet): 5 Height (Inches): 6.00 Weight (Pounds): 229 Objective General: alert, severe distress Head: normocephalic Eyes: bilateral eye normal inspection, bilateral eye EOMI ENT: normal pharynx, no angioedema, uvula midline, moist mucus membranes Neck: full range of motion, supple, tracheotomy +++ stoma/site completely closed with dried blood and tissue Respiratory: lungs clear, normal breath sounds, chest symmetrical Cardiovascular: normal peripheral pulses, regular rate, rhythm, other - PPM site c/d/i Gastrointestinal: normal inspection, non tender, soft, no mass, no guarding, no rebound ++ peg Genitourinary: normal inspection, no CVA tenderness Musculoskeletal: back normal, gait/station normal Neurologic: unresponsive Kenney Shepard MD Dec 12, 2018 20:59
[2018-12-13] VITALS: BP 111/59
[2018-12-13] MEDS: NovoLOG Insulin Flexpen SUBQ SCH ×4 (00:19→17:53)
[2018-12-13 04:00] VITALS: BP 146/91
--- NOTE | 2018-12-13 06:30 | NUR ---
RESPIRATORY NOTE: Patient received on Mechanical ventilator, Patient is a trach patient with a Shiley 8. Patients settings are AC 600,14, 30%. Patient is a full code, AMBU bag bedside, spare trach, alarms are set and audible. Will continue to monitor patient.
[2018-12-13 06:32] LABS: BASOPHILS % (AUTO) 0.5 % (0.0-2.0); EOSINOPHILS % (AUTO) 3.1 % (0.0-3.0); HEMATOCRIT 31.1 % (42.0-52.0); HEMOGLOBIN 10.3 G/DL (14.2-18.0); MEAN CORPUSCULAR VOLUME 97 FL (80-99); MONOCYTES % (AUTO) 5.2 % (1.0-10.0); NEUTROPHILS % (AUTO) 81.2 % (45.0-75.0); PLATELET COUNT 267 K/UL (150-450); RED CELL DISTRIBUTION WIDTH 16.3 % (11.6-14.8); WHITE BLOOD COUNT 15.7 K/UL (4.8-10.8)
--- NOTE | 2018-12-13 06:44 | NUR ---
NURSE NOTES: notified regarding lab result,WBC trending up 15.7
--- NOTE | 2018-12-13 07:10 | NUR ---
NURSE NOTES: Received report from Charly Felipe RN. Patient asleep in bed, responsive to tactile stimuli, nonverbal. Trach to vent with settings of AC 14, TV 600, FiO2 30%, PEEP 0, no acute distress noted. GT feeding of Glucerna 1.2 running @ 65 cc/hr, no residuals noted. HoB elevated. Gale catheter patent and draining well. Right forearm 20g and left hand 20g saline locks intact and asymptomatic. WBC trending up, Dr. Garner aware, patient afebrile at this time. Bed locked in lowest position with side rails up x 3. All needs attended to. Will continue to monitor.
[2018-12-13 07:11] LABS: ALANINE AMINOTRANSFERASE 15 U/L (12-78); ALBUMIN 2.5 G/DL (3.4-5.0); ALBUMIN/GLOBULIN RATIO 0.5 (1.0-2.7); ALKALINE PHOSPHATASE 113 U/L (46-116); ANION GAP 10 mmol/L (5-15); ASPARTATE AMINO TRANSFERASE 16 U/L (15-37); BILIRUBIN,TOTAL 0.3 MG/DL (0.2-1.0); BLOOD UREA NITROGEN 19 mg/dL (7-18); CALCIUM 9.4 MG/DL (8.5-10.1); CARBON DIOXIDE 24 MMOL/L (21-32); CHLORIDE 107 MMOL/L (98-107); CREATININE 0.8 MG/DL (0.55-1.30); PHOSPHORUS 2.7 MG/DL (2.5-4.9); POTASSIUM 3.7 MMOL/L (3.5-5.1); SODIUM 141 MMOL/L (136-145)
--- NOTE | 2018-12-13 07:12 | NUR ---
HAND-OFF: Report given to TEAGAN Bell.Patient stable.
[2018-12-13 08:00] VITALS: BP 142/77
[2018-12-13] MEDS: levETIRAcetam 500mg/5ml Liquid GT SCH (09:10)
[2018-12-13] MEDS: Carvedilol 12.5mg tab GT SCH (09:10)
[2018-12-13] MEDS: Amiodarone 200mg tab GT SCH (09:11)
[2018-12-13] MEDS: Heparin 5000 units/ml inj SUBQ SCH (09:11)
--- NOTE | 2018-12-13 09:30 | Progress Note ---
DATE: 12/12/2018 SUBJECTIVE: The patient was admitted six days ago . The patient was examined and the chart has been reviewed. progress note of physician involved in the care, laboratory test, and imaging studies. Again discussed with the treatment staff. The patient is status post CVA with respiratory failure, on mechanical ventilation. tracheostomy and the gastrostomy tube. PHYSICAL EXAMINATION: GENERAL: Awake, . Afebrile. VITAL SIGNS: Blood pressure is 138/77, his pulse is 81, respirations are 22, and temperature was 100.8. HEENT: Eyes were normal. ENT, mucous membranes were moist and intact. NECK: Supple with no JVD without lymph nodes. Tracheostomy site is clean. LUNGS: Clear without rhonchi, rales, or wheezing. Secretions were small, thin, and genao. HEART: Normal sounds with regular beats. There is no tachycardia at rest. ABDOMEN: Soft and nontender with normal bowel sounds. Gastrostomy site is clean. EXTREMITIES: Warm without cyanosis, clubbing, or edema. LABORATORY AND DIAGNOSTIC DATA: His hemoglobin is 10.3, hematocrit 31.2, MCV of 97, WBC of 9.9, and platelets 278,000. 48 hours ago, hemoglobin was 7.7 and hematocrit 24.3. His BUN and creatinine are 12 and 0.8 respectively. His sodium is 141, potassium 3.8, chloride 108, and CO2 is 28. SGOT and SGPT are normal. His albumin is 2.7. His total protein is 6.9. Vitamin B12 was 56, and saturation was 30. His chest x-ray showed improvement in interstitial edema over the last 24 hours. IMPRESSION: The patient has respiratory failure with conditions. He is respirator dependent through tracheostomy and ventilated by mechanical ventilation. He is fed via gastrostomy tube. He is status post recurrent fever and normocytic anemia. PLAN: The patient is followed by the electronic publishing specialist, infectious disease specialist, and product specialist as well as residential support specialist. Repeat laboratory tests will be done in the a.m. Larry Li M.D. DR: JULIA JOB#: [id number] CC:
[2018-12-13 12:00] VITALS: BP 127/66
--- NOTE | 2018-12-13 13:14 | Pulmonolgy Critical Care Note ---
Critical Care - Asmt/Plan Problems: (1) Acute respiratory failure (2) Diabetes mellitus (3) ICD (implantable cardioverter-defibrillator) in place (4) History of CVA (cerebrovascular accident) (5) Feeding by G-tube Respiratory: monitor respiratory rate, adjust FIO2, CXR Cardiac: stop pressors, continue to monitor HR/BP Renal: F/U I&O Infectious Disease: check cultures Gastrointestinal: continue feedings/current rate Endocrine: monitor blood sugar Hematologic: monitor H/H Neurologic: PRN Ativan Affect: PRN ativan Prophylaxis: Heparin Disposition: transfer to Notes Reviewed: wallpaper consultant, renal Discussed with: nurses, consultants Critical Care - Objective Last 24 Hour Vital Signs Date Time Temp Pulse Resp B/P (MAP) Pulse Ox O2 Delivery O2 Flow Rate FiO2 12/13/18 13:08 74 17 30 30 12/13/18 12:00 Mechanical Ventilator 12/13/18 12:00 30 12/13/18 10:47 66 16 30 30 12/13/18 09:10 68 142/77 12/13/18 09:04 68 16 30 30 12/13/18 08:00 98.8 68 16 142/77 (98) 98 12/13/18 08:00 Mechanical Ventilator 12/13/18 08:00 30 12/13/18 08:00 69 12/13/18 07:10 71 17 30 30 12/13/18 05:07 70 17 30 30 12/13/18 04:00 Mechanical Ventilator 12/13/18 04:00 40 12/13/18 04:00 97.7 75 20 146/91 (109) 98 12/13/18 03:55 67 12/13/18 03:26 68 19 30 30 12/13/18 01:36 61 14 30 30 12/13/18 00:00 98.6 66 19 111/59 (76) 97 12/13/18 00:00 Mechanical Ventilator 12/12/18 23:43 71 12/12/18 22:46 73 19 30 30 12/12/18 21:06 73 140/94 12/12/18 20:32 68 14 30 30 12/12/18 20:00 40 12/12/18 20:00 Mechanical Ventilator 12/12/18 20:00 98.6 73 19 140/94 (109) 98 12/12/18 19:02 70 12/12/18 19:00 65 14 30 30 12/12/18 17:28 99.6 12/12/18 16:48 82 22 30 12/12/18 16:00 100.8 81 22 138/77 (97) 98 12/12/18 16:00 40 12/12/18 16:00 Mechanical Ventilator 12/12/18 16:00 74 12/12/18 14:36 73 17 30 Status: awake, obtunded Condition: critical Neck: full ROM Lungs: clear Heart: HR/BP unstable Abdomen: non-tender, feeding tube Decubiti: location Accucheck: 139 Critical Care - Subjective ROS Limited/Unobtainable: Yes Condition: critical EKG Rhythm: Sinus Rhythm FI02: 30 Vent Support Breath Rate: 14 Vent Support Mode: AC Vent Tidal Volume: 600 Sputum Amount: Moderate PEEP: 0.0 PIP: 20 Tube Feeding Amount: 65 I&O: Intake and Output 12/12/18 12/13/18 19:00 07:00 Intake Total 1080 ml 635 ml Output Total 450 ml Balance 630 ml 635 ml Free Water 50 ml 50 ml IV Total 200 ml Tube Feeding 780 ml 585 ml Other 50 ml Output Urine Total 450 ml # Bowel Movements 4 CXR: no change ET-Tube: 7.0 ET Position: 24 Labs: Laboratory Tests Test 12/13/18 04:10 White Blood Count 15.7 K/UL (4.8-10.8) #H Red Blood Count 3.20 M/UL (4.70-6.10) L Hemoglobin 10.3 G/DL (14.2-18.0) L Hematocrit 31.1 % (42.0-52.0) L Mean Corpuscular Volume 97 FL (80-99) Mean Corpuscular Hemoglobin 32.2 PG (27.0-31.0) H Mean Corpuscular Hemoglobin Concent 33.2 G/DL (32.0-36.0) Red Cell Distribution Width 16.3 % (11.6-14.8) H Platelet Count 267 K/UL (150-450) Mean Platelet Volume 6.3 FL (6.5-10.1) L Neutrophils (%) (Auto) 81.2 % (45.0-75.0) H Lymphocytes (%) (Auto) 10.0 % (20.0-45.0) L Monocytes (%) (Auto) 5.2 % (1.0-10.0) Eosinophils (%) (Auto) 3.1 % (0.0-3.0) H Basophils (%) (Auto) 0.5 % (0.0-2.0) Sodium Level 141 MMOL/L (136-145) Potassium Level 3.7 MMOL/L (3.5-5.1) Chloride Level 107 MMOL/L (98-107) Carbon Dioxide Level 24 MMOL/L (21-32) Anion Gap 10 mmol/L (5-15) Blood Urea Nitrogen 19 mg/dL (7-18) H Creatinine 0.8 MG/DL (0.55-1.30) Estimat Glomerular Filtration Rate > 60 mL/min (>60) Glucose Level 115 MG/DL (74-106) H Calcium Level 9.4 MG/DL (8.5-10.1) Phosphorus Level 2.7 MG/DL (2.5-4.9) Magnesium Level 1.9 MG/DL (1.8-2.4) Total Bilirubin 0.3 MG/DL (0.2-1.0) Aspartate Amino Transf (AST/SGOT) 16 U/L (15-37) Alanine Aminotransferase (ALT/SGPT) 15 U/L (12-78) Alkaline Phosphatase 113 U/L (46-116) Total Protein 7.5 G/DL (6.4-8.2) Albumin 2.5 G/DL (3.4-5.0) L Globulin 5.0 g/dL Albumin/Globulin Ratio 0.5 (1.0-2.7) L Yudy Garner MD Dec 13, 2018 13:14
[2018-12-13] MEDS ORDERED: COREG12.5 MG GT (13:16)
--- NOTE | 2018-12-13 13:44 | NUR ---
Social Service Note Patient returning to [facility] to room 18B, [facility] care. Transportation arranged with [facility] [id number].
--- NOTE | 2018-12-13 13:53 | NUR ---
*-* DISCHARGE PLANNING *-* PATIENT HAS BEEN REFERRED BACK TO: [facility] P:[phone] F:[phone]
--- NOTE | 2018-12-13 14:12 | NUR ---
*-* DISCHARGED PLANNED *-* PATIENT IS DISCHARGED TO: [facility] ROOM# 17-B LONGTERM T: [phone] FOR NURSE TO NURSE REPORT [facility] HAS BEEN ARRANGED FOR [facility] PROJECT MANAGER AT 1630 S/W JEANA [id number]
--- NOTE | 2018-12-13 14:28 | NUR ---
NURSE NOTES: Report given to MIKE SCHULTE at [facility]. Awaiting ambulance transport for discharge at this time.
--- NOTE | 2018-12-13 15:20 | Internal Med Progress Note ---
Subjective Physician Name Jian Martinez Attending Physician Jian Martinez MD Current Medications Medications (Trade) Dose Ordered Sig/Sophie Route PRN Reason Start Time Stop Time Status Last Admin Dose Admin Acetaminophen (Tylenol) 650 mg Q4H PRN GT fever 12/10/18 19:45 01/05/19 19:28 12/12/18 16:58 Allopurinol (Allopurinol) 300 mg DAILY GT 12/11/18 09:00 01/06/19 08:59 12/13/18 09:11 Amiodarone HCl (Cordarone) 100 mg DAILY GT 12/11/18 09:00 01/06/19 08:59 12/13/18 09:11 Carvedilol (Coreg) 12.5 mg EVERY 12 HOURS GT 12/10/18 21:00 01/05/19 20:59 12/13/18 09:10 Dextrose (Dextrose 50%) 25 ml Q30M PRN IV Hypoglycemia 12/10/18 19:30 01/05/19 17:29 Dextrose (Dextrose 50%) 50 ml Q30M PRN IV Hypoglycemia 12/10/18 19:30 01/05/19 17:29 Heparin Sodium (Porcine) (Heparin 5000 units/ml) 5,000 units EVERY 12 HOURS SUBQ 12/10/18 21:00 01/05/19 20:59 12/13/18 09:11 Insulin Aspart (NovoLOG) EVERY 6 HOURS SUBQ 12/11/18 00:00 01/08/19 20:59 12/13/18 12:40 Lansoprazole (Prevacid) 30 mg DAILY GT 12/12/18 09:00 01/11/19 08:59 12/13/18 09:10 Levetiracetam (Keppra) 500 mg Q12HR GT 12/10/18 21:00 01/05/19 20:59 12/13/18 09:10 Lorazepam (Ativan 2mg/ml 1ml) 2 mg Q2H PRN IV For Anxiety 12/10/18 19:30 12/13/18 17:29 Allergies: Coded Allergies: No Known Allergies (Unverified , 12/06/18) Subjective on Vent, not responsive, open eyes, unable to F/U with commands, WBC: 15.7 Objective Last Vital Signs Date Time Temp Pulse Resp B/P (MAP) Pulse Ox O2 Delivery O2 Flow Rate FiO2 12/13/18 13:08 74 17 30 30 12/13/18 12:00 Mechanical Ventilator 12/13/18 12:00 99.2 127/66 (86) 95 12/06/18 14:20 15.0 Laboratory Tests Test 12/13/18 04:10 White Blood Count 15.7 K/UL (4.8-10.8) #H Red Blood Count 3.20 M/UL (4.70-6.10) L Hemoglobin 10.3 G/DL (14.2-18.0) L Hematocrit 31.1 % (42.0-52.0) L Mean Corpuscular Volume 97 FL (80-99) Mean Corpuscular Hemoglobin 32.2 PG (27.0-31.0) H Mean Corpuscular Hemoglobin Concent 33.2 G/DL (32.0-36.0) Red Cell Distribution Width 16.3 % (11.6-14.8) H Platelet Count 267 K/UL (150-450) Mean Platelet Volume 6.3 FL (6.5-10.1) L Neutrophils (%) (Auto) 81.2 % (45.0-75.0) H Lymphocytes (%) (Auto) 10.0 % (20.0-45.0) L Monocytes (%) (Auto) 5.2 % (1.0-10.0) Eosinophils (%) (Auto) 3.1 % (0.0-3.0) H Basophils (%) (Auto) 0.5 % (0.0-2.0) Sodium Level 141 MMOL/L (136-145) Potassium Level 3.7 MMOL/L (3.5-5.1) Chloride Level 107 MMOL/L (98-107) Carbon Dioxide Level 24 MMOL/L (21-32) Anion Gap 10 mmol/L (5-15) Blood Urea Nitrogen 19 mg/dL (7-18) H Creatinine 0.8 MG/DL (0.55-1.30) Estimat Glomerular Filtration Rate > 60 mL/min (>60) Glucose Level 115 MG/DL (74-106) H Calcium Level 9.4 MG/DL (8.5-10.1) Phosphorus Level 2.7 MG/DL (2.5-4.9) Magnesium Level 1.9 MG/DL (1.8-2.4) Total Bilirubin 0.3 MG/DL (0.2-1.0) Aspartate Amino Transf (AST/SGOT) 16 U/L (15-37) Alanine Aminotransferase (ALT/SGPT) 15 U/L (12-78) Alkaline Phosphatase 113 U/L (46-116) Total Protein 7.5 G/DL (6.4-8.2) Albumin 2.5 G/DL (3.4-5.0) L Globulin 5.0 g/dL Albumin/Globulin Ratio 0.5 (1.0-2.7) L Intake and Output 12/12/18 12/13/18 19:00 07:00 Intake Total 1080 ml 700 ml Output Total 450 ml Balance 630 ml 700 ml Free Water 50 ml 50 ml IV Total 200 ml Tube Feeding 780 ml 650 ml Other 50 ml Output Urine Total 450 ml # Bowel Movements 4 Objective GENERAL: The patient is awake with deep stimulation, unable F/U with commands. HEAD AND NECK: Pupils are equal and reactive. Anicteric. Neck, tracheostomy site intact. No sign of bleeding. LUNGS: Bilateral air entry. Mechanical breath sounds. No wheezes. HEART: S1, S2, irregular. Distant heart sounds. AICD on left side of chest wall. ABDOMEN: Soft, nondistended, and nontender. Mildly obese. PEG site is clean. EXTREMITIES: No cyanosis, clubbing, or edema. NEUROLOGIC: Limited secondary to the patient's status, sedated, unable to communicate. Assessment/Plan Assessment/Plan ASSESSMENT: 1. Chronic respiratory failure on vent dependent, status post tracheostomy, dislodged --> s/p replacement. 2. Diabetes type 2. 3. History of cardiac arrhythmias. 4. Status post biventricular ICD. 5. Dysphagia status post percutaneous endoscopic gastrostomy. 6. Morbid obesity. 7. Peripheral vascular disease. 8. Acute kidney injury and chronic renal insufficiency. 9. History of epilepsy. 10. Chronic atrial fibrillation. 11. Fatty liver. 12. Essential hypertension. 13. Nontraumatic intracerebral hemorrhage. 14. Anemia of chronic disease. PLAN: In PCU. Dr. Garner's recommendation as well as Dr. Allen from Surgery. Monitor laboratory closely. code status Full Code Abx; will observe off abx. DVT prophylaxis is heparin subcutaneous will restart Jian Fajardo MD Dec 13, 2018 15:20
--- NOTE | 2018-12-13 15:37 | Infectious Diseases Prog Note ---
Assessment/Plan Assessment/Plan Assessment: Dislodged trach Acute respiratory failure s/p intubation 12/06 ?Asp pneumonitis -12/09 CXR: Mild interstitial edema is suspected at has developed suggested -CXR: No obvious infiltrate identified. -sp cx S. marcenses (R Ancef, I Cipro/levo) MIld leukocytosis- recurrent -u/a neg -Bcx neg Low grade fever x1- r/o AGNES JASMIN, SP COPD chronic respiratory failure s/p trach -s/p new trach 12/09 dysphagia s/p GT gout [facility] resident Plan: -Continue to monitor off abx unless continuously febrile, worsening WBC and /or HD instability -12/11 SP Zosyn #5 -f/u cx -MOnitor CBC/CMP, temperatures -trach/GT care -aspiration precautions -Bcx x2, u/a w/ reflex, CXR -CBC, CMP am Thank you for this consultation. Will continue to follow along with you. Discussed with RN Subjective Allergies: Coded Allergies: No Known Allergies (Unverified , 12/06/18) Subjective Tm 100.8 wbc increased Objective Vital Signs Last 24 Hour Vital Signs Date Time Temp Pulse Resp B/P (MAP) Pulse Ox O2 Delivery O2 Flow Rate FiO2 12/13/18 15:00 72 15 30 30 12/13/18 13:08 74 17 30 30 12/13/18 12:00 74 12/13/18 12:00 Mechanical Ventilator 12/13/18 12:00 30 12/13/18 12:00 99.2 67 16 127/66 (86) 95 12/13/18 10:47 66 16 30 30 12/13/18 09:10 68 142/77 12/13/18 09:04 68 16 30 30 12/13/18 08:00 98.8 68 16 142/77 (98) 98 12/13/18 08:00 Mechanical Ventilator 12/13/18 08:00 30 12/13/18 08:00 69 12/13/18 07:10 71 17 30 30 12/13/18 05:07 70 17 30 30 12/13/18 04:00 Mechanical Ventilator 12/13/18 04:00 40 12/13/18 04:00 97.7 75 20 146/91 (109) 98 12/13/18 03:55 67 12/13/18 03:26 68 19 30 30 12/13/18 01:36 61 14 30 30 12/13/18 00:00 98.6 66 19 111/59 (76) 97 12/13/18 00:00 Mechanical Ventilator 12/12/18 23:43 71 12/12/18 22:46 73 19 30 30 12/12/18 21:06 73 140/94 12/12/18 20:32 68 14 30 30 12/12/18 20:00 40 12/12/18 20:00 Mechanical Ventilator 12/12/18 20:00 98.6 73 19 140/94 (109) 98 12/12/18 19:02 70 12/12/18 19:00 65 14 30 30 12/12/18 17:28 99.6 12/12/18 16:48 82 22 30 12/12/18 16:00 100.8 81 22 138/77 (97) 98 12/12/18 16:00 40 12/12/18 16:00 Mechanical Ventilator 12/12/18 16:00 74 Height (Feet): 5 Height (Inches): 6.00 Weight (Pounds): 231 Objective General appearance: alert, mild distress, appears stated age Head: Normocephalic, without obvious abnormality, atraumatic Eyes: conjunctivae/corneas clear. PERRL, EOM's intact. Fundi benign Throat: Lips, mucosa, and tongue normal. Teeth and gums normal Neck: supple, symmetrical, trachea midline with trach hole right lateral to trachea, no adenopathy, thyroid: not enlarged, symmetric, no tenderness/mass/ nodules, no carotid bruit and no JVD Lungs: clear to auscultation bilaterally Heart: regular rate and rhythm, S1, S2 normal, no murmur, click, rub or gallop Abdomen: soft, non-tender. Bowel sounds normal. No masses, no organomegaly Extremities: extremities normal, atraumatic, no cyanosis or edema Pulses: 2+ and symmetric Skin: Skin color, texture, turgor normal. No rashes or lesions Neurologic: Grossly normal Laboratory Tests Test 12/13/18 04:10 White Blood Count 15.7 K/UL (4.8-10.8) #H Red Blood Count 3.20 M/UL (4.70-6.10) L Hemoglobin 10.3 G/DL (14.2-18.0) L Hematocrit 31.1 % (42.0-52.0) L Mean Corpuscular Volume 97 FL (80-99) Mean Corpuscular Hemoglobin 32.2 PG (27.0-31.0) H Mean Corpuscular Hemoglobin Concent 33.2 G/DL (32.0-36.0) Red Cell Distribution Width 16.3 % (11.6-14.8) H Platelet Count 267 K/UL (150-450) Mean Platelet Volume 6.3 FL (6.5-10.1) L Neutrophils (%) (Auto) 81.2 % (45.0-75.0) H Lymphocytes (%) (Auto) 10.0 % (20.0-45.0) L Monocytes (%) (Auto) 5.2 % (1.0-10.0) Eosinophils (%) (Auto) 3.1 % (0.0-3.0) H Basophils (%) (Auto) 0.5 % (0.0-2.0) Sodium Level 141 MMOL/L (136-145) Potassium Level 3.7 MMOL/L (3.5-5.1) Chloride Level 107 MMOL/L (98-107) Carbon Dioxide Level 24 MMOL/L (21-32) Anion Gap 10 mmol/L (5-15) Blood Urea Nitrogen 19 mg/dL (7-18) H Creatinine 0.8 MG/DL (0.55-1.30) Estimat Glomerular Filtration Rate > 60 mL/min (>60) Glucose Level 115 MG/DL (74-106) H Calcium Level 9.4 MG/DL (8.5-10.1) Phosphorus Level 2.7 MG/DL (2.5-4.9) Magnesium Level 1.9 MG/DL (1.8-2.4) Total Bilirubin 0.3 MG/DL (0.2-1.0) Aspartate Amino Transf (AST/SGOT) 16 U/L (15-37) Alanine Aminotransferase (ALT/SGPT) 15 U/L (12-78) Alkaline Phosphatase 113 U/L (46-116) Total Protein 7.5 G/DL (6.4-8.2) Albumin 2.5 G/DL (3.4-5.0) L Globulin 5.0 g/dL Albumin/Globulin Ratio 0.5 (1.0-2.7) L Current Medications Medications (Trade) Dose Ordered Sig/Sophie Route PRN Reason Start Time Stop Time Status Last Admin Dose Admin Acetaminophen (Tylenol) 650 mg Q4H PRN GT fever 12/10/18 19:45 01/05/19 19:28 12/12/18 16:58 Allopurinol (Allopurinol) 300 mg DAILY GT 12/11/18 09:00 01/06/19 08:59 12/13/18 09:11 Amiodarone HCl (Cordarone) 100 mg DAILY GT 12/11/18 09:00 01/06/19 08:59 12/13/18 09:11 Apixaban (Eliquis) 5 mg BID ORAL 12/13/18 18:00 01/12/19 17:59 UNV Carvedilol (Coreg) 12.5 mg EVERY 12 HOURS GT 12/10/18 21:00 01/05/19 20:59 12/13/18 09:10 Dextrose (Dextrose 50%) 25 ml Q30M PRN IV Hypoglycemia 12/10/18 19:30 01/05/19 17:29 Dextrose (Dextrose 50%) 50 ml Q30M PRN IV Hypoglycemia 12/10/18 19:30 01/05/19 17:29 Insulin Aspart (NovoLOG) EVERY 6 HOURS SUBQ 12/11/18 00:00 01/08/19 20:59 12/13/18 12:40 Lansoprazole (Prevacid) 30 mg DAILY GT 12/12/18 09:00 01/11/19 08:59 12/13/18 09:10 Levetiracetam (Keppra) 500 mg Q12HR GT 12/10/18 21:00 01/05/19 20:59 12/13/18 09:10 Lorazepam (Ativan 2mg/ml 1ml) 2 mg Q2H PRN IV For Anxiety 12/10/18 19:30 12/13/18 17:29 Flavia Houston M.D. Dec 13, 2018 15:37
[2018-12-13] MEDS ORDERED: NS 275ml ONE ×2 (16:39→17:04)
[2018-12-13] MEDS ORDERED: Tubing IV Secondary IV ONE (17:04)
[2018-12-13] MEDS ORDERED: D5W 275ml ONE (17:04)
[2018-12-13] MEDS ORDERED: Succinylcholine 20mg/ml 10ml vial ONE (17:59)
[2018-12-13] MEDS ORDERED: Etomidate 40mg/20ml Inj IV ONE (17:59)
[2018-12-13] MEDS ORDERED: Eliquis 2.5mg tablet ORAL SCH (18:00)
--- NOTE | 2018-12-13 18:00 | NUR ---
Discharge: Patient is being discharged from medical care. Awake, alert, nonverbal. IVs removed. Gale catheter kept in place. Gt feeding held. Patient transported out by [facility], no belongings.
--- NOTE | 2018-12-13 23:15 | Consultation ---
DATE OF CONSULTATION: 12/13/2018 CONSULTING PHYSICIAN: Lyndsay Gonzalez M.D. ATTENDING PHYSICIAN: Jian Martinez M.D. REFERRING PHYSICIAN: Jian Martinez M.D. REASON FOR CONSULTATION: Pressure ulcer precautions and skin check. HISTORY OF PRESENT ILLNESS: This is a 58-year-old, vent-dependent gentleman with PEG and a trach who had his tracheostomy tube dislodged. He was admitted for this reason. The patient is unable to turn and reposition himself. He is also incontinent. PAST MEDICAL HISTORY: The patient has a history of seizure disorder, type 2 diabetes, he is vent dependent, he has dysphasia, coronary artery disease, heart failure. MEDICATIONS: He is on amiodarone, Coreg, heparin subcu, NovoLog, Prevacid, Keppra, Ativan. REVIEW OF SYSTEMS: Unable to obtain review of systems from the patient. He was unable to participate in discussion. PHYSICAL EXAMINATION: VITAL SIGNS: The patient is afebrile. He has stable vitals. GENERAL: The patient is alert. HEENT: His pupils are equal and responsive to light. The patient has a history of a tracheostomy, which was dislodged. ABDOMEN: Soft, nontender, nondistended. He has a PEG site that is clean. EXTREMITIES: Negative for clubbing, cyanosis, or edema. ASSESSMENT: This is a patient who had a recent tracheostomy tube dislodgement. He is awaiting surgery. The patient is a vent-dependent patient who is also incontinent. RECOMMENDATIONS: 1. Monitor for and manage friction and shear. 2. Perform weekly skin checks. 3. Assess condition of the mattress or pressure reduction surface. 4. Keep linens dry and wrinkle free. 5. Moisturize skin daily. 6. Consider bowel and bladder programs including barrier cream to the buttocks. 7. Float heels off the mattress. 8. Nutrition consultation to ensure adequate nutritional needs and monitor labs. 9. Turn and reposition q.2 hours. Lyndsay Gonzalez M.D. DR: MANJU JOB#: [id number] CC: KATE
--- NOTE | 2018-12-14 00:05 | General Progress Note ---
Assessment/Plan Assessment/Plan Assessment/Recs # Anemia of chronic disease (or of iron deficiency) due to underlying chronic medical issues, multifactorial --> Anemia workup has been ordered --> No evidence of hemolysis is noted, peripheral smear has been reviewed. --> Hgb goal >7. Transfuse prn. --> Epogen or iron at this time is not particularly indicated --> Medications have been reviewed # Coagulopathy has been recently on eliquis --> dc eliquis, has been placed on hold --> cards eval as needed --> vit K 10mg sq given x 1 prior to surgery sunday # Resp failure s/p trach with dislodgement --> may need new trach v replacement # Dysphagia with hx PEG dependent # DM2 # Cardiac arrythmia history # s/p icd placement # Morbid obesity The timing of this note does not necessarily reflect the time of the patient was seen. Greatly appreciate consultation! Subjective Date patient seen: Dec 13, 2018 Constitutional: Denies: no symptoms, chills, diaphoresis, fever, malaise, weakness, other Cardiovascular: Denies: no symptoms, chest pain, edema, irregular heart rate, lightheadedness, palpitations, syncope, other Respiratory: Denies: no symptoms, cough, orthopnea, shortness of breath, SOB with excertion, SOB at rest, sputum, stridor, wheezing, other Gastrointestinal/Abdominal: Denies: no symptoms, abdomen distended, abdominal pain, black stools, tarry stools, blood in stool, constipated, diarrhea, difficulty swallowing, nausea, poor appetite, poor fluid intake, rectal bleeding , vomiting, other Genitourinary: Denies: no symptoms, burning, discharge, frequency, flank pain, hematuria, incontinence, pain, urgency, other Neurologic/Psychiatric: Denies: no symptoms, anxiety, depressed, emotional problems, headache, numbness, paresthesia, pre-existing deficit, seizure, tingling, tremors, weakness, other Endocrine: Denies: no symptoms, excessive sweating, flushing, intolerance to cold, intolerance to heat, increased hunger, increased thirst, increased urine, unexplained weight gain, unexplained weight loss, other Hematologic/Lymphatic: Denies: no symptoms, anemia, easy bleeding, easy bruising, other Allergies: Coded Allergies: No Known Allergies (Unverified , 12/06/18) Subjective 12/09: seen by bedside, trach placement done, received transfusion, hgb 7.7, no events 12/10: S/P tracheostomy 12/09/18, resting in bed, no acute distress. 12/11:S/P tracheostomy, tolerating well, cbc reviewed, no events 12/12: seen by bedside,open eyes, on GT ,no acute distress 12/13: Awake, comfortable, no acute distress reported. wbc 15 Objective Last 24 Hour Vital Signs Date Time Temp Pulse Resp B/P (MAP) Pulse Ox O2 Delivery O2 Flow Rate FiO2 12/13/18 16:53 79 17 30 30 12/13/18 16:00 Mechanical Ventilator 12/13/18 16:00 30 12/13/18 15:00 72 15 30 30 12/13/18 13:08 74 17 30 30 12/13/18 12:00 74 12/13/18 12:00 Mechanical Ventilator 12/13/18 12:00 30 12/13/18 12:00 99.2 67 16 127/66 (86) 95 12/13/18 10:47 66 16 30 30 12/13/18 09:10 68 142/77 12/13/18 09:04 68 16 30 30 12/13/18 08:00 98.8 68 16 142/77 (98) 98 12/13/18 08:00 Mechanical Ventilator 12/13/18 08:00 30 12/13/18 08:00 69 12/13/18 07:10 71 17 30 30 12/13/18 05:07 70 17 30 30 12/13/18 04:00 Mechanical Ventilator 12/13/18 04:00 40 12/13/18 04:00 97.7 75 20 146/91 (109) 98 12/13/18 03:55 67 12/13/18 03:26 68 19 30 30 12/13/18 01:36 61 14 30 30 Intake and Output 12/13/18 12/14/18 19:00 07:00 Intake Total 850 ml Output Total 400 ml Balance 450 ml Free Water 150 ml Tube Feeding 650 ml Other 50 ml Output Urine Total 400 ml # Bowel Movements 2 Laboratory Tests 12/13/18 04:10: White Blood Count 15.7#H, Red Blood Count 3.20L, Hemoglobin 10.3L, Hematocrit 31.1L, Mean Corpuscular Volume 97, Mean Corpuscular Hemoglobin 32.2H, Mean Corpuscular Hemoglobin Concent 33.2, Red Cell Distribution Width 16.3H, Platelet Count 267, Mean Platelet Volume 6.3L, Neutrophils (%) (Auto) 81.2H, Lymphocytes (%) (Auto) 10.0L, Monocytes (%) (Auto) 5.2, Eosinophils (%) (Auto) 3.1H, Basophils (%) (Auto) 0.5, Sodium Level 141, Potassium Level 3.7, Chloride Level 107, Carbon Dioxide Level 24, Anion Gap 10, Blood Urea Nitrogen 19H, Creatinine 0.8, Estimat Glomerular Filtration Rate > 60, Glucose Level 115H, Calcium Level 9.4, Phosphorus Level 2.7, Magnesium Level 1.9, Total Bilirubin 0.3, Aspartate Amino Transf (AST/SGOT) 16, Alanine Aminotransferase (ALT/SGPT) 15, Alkaline Phosphatase 113, Total Protein 7.5, Albumin 2.5L, Globulin 5.0, Albumin/Globulin Ratio 0.5L Height (Feet): 5 Height (Inches): 6.00 Weight (Pounds): 231 Objective General: alert, severe distress Head: normocephalic Eyes: bilateral eye normal inspection, bilateral eye EOMI ENT: normal pharynx, no angioedema, uvula midline, moist mucus membranes Neck: full range of motion, supple, tracheotomy +++ stoma/site completely closed with dried blood and tissue Respiratory: lungs clear, normal breath sounds, chest symmetrical Cardiovascular: normal peripheral pulses, regular rate, rhythm, other - PPM site c/d/i Gastrointestinal: normal inspection, non tender, soft, no mass, no guarding, no rebound ++ peg Genitourinary: normal inspection, no CVA tenderness Musculoskeletal: back normal, gait/station normal Neurologic: unresponsive Kenney Shepard MD Dec 14, 2018 00:05
--- NOTE | 2018-12-16 13:18 | Discharge Summary ---
Discharge Summary Discharge Summary _ DATE OF ADMISSION: 12/06/2018 DATE OF DISCHARGE: 12/13/2018 DISCHARGED BY: Dr. Martinez REASON FOR ADMISSION: 58 years old male with past medical history of chronic respiratory failure, ventilator dependent, tracheostomy status, dysphagia, status post PEG, history of nontraumatic intracranial hemorrhage, history of coronary artery disease, atherosclerotic heart disease, heart failure, status post AICD, chronic atrial fibrillation on anticoagulation with Eliquis, diabetes mellitus type 2, seizure disorder, presented to the hospital after tracheostomy tube was dislodged during the bed bath at the facility. The patient was orally intubated in the emergency department, since emergency room physician was unable to place a tracheostomy back in the site . Upon evaluation laboratory workup revealed leukocytosis, anemia with hemoglobin 10.7 and hematocrit 31.9. Chemistry revealed evidence of renal insufficiency with BUN 87 creatinine 2.0. Sodium 132. Albumin 3.1. Subsequently patient was admitted to ICU for further evaluation and management. CONSULTANTS: pulmonary Dr. Garner log yard manager/oncologist Dr. Shepard ID specialist Dr. Garrett surgery Dr. Allen purchasing officer Dr. Li plastic surgeon Dr. De Santiago [facility] COURSE: Patient admitted to ICU. Ventilator support provided. Patient was followed-up with ABG and chest x-ray. Pulmonary toilet provided. Ventilator settings were titrated as needed. Surgeon consulted for evaluation of tracheostomy dislodgment. Tracheostomy was dislodged and tract was lost. Patient required tracheostomy. Patient subsequently undergone on 12/09 bronchoscopy and tracheostomy. Patient was doing well postoperatively. Tracheostomy site clean and dry. Tracheostomy care provided. No signs of respiratory distres. Patient started on empiric antibiotics. Chest x-ray revealed no evidence of infiltrates. Anticoagulation was on hold due to pending tracheostomy. Amiodarone was continued. DVT and GI prophylaxis provided. ID specialist followed. Blood cultures were negative, repeated on 2 different occasions. Sputum culture revealed Serratia. Per infectious disease specialist patient might have aspiration pneumonitis. Patient completed 5 days of empiric IV Zosyn and afterwards was monitored off antibiotic. Patient was afebrile, hemodynamic status was stable. Strict aspiration precautions were maintained. Patient started on G tube feeding. Blood sugar was managed with sliding scale of insulin. Patient initially was on the IV fluids. Renal parameters and electrolytes were closely monitored. Electrolytes corrected as needed, and nephrotoxins were avoided. Acute kidney injury resolved. Prior to discharge BUN 19, creatinine 0.9. Seizure precaution maintained. Keppra was continued. No evidence of seizure activity while in the hospital. Automotive Designer followed. Anemia workup revealed evidence of anemia of chronic disease due to underlying chronic medical issue. Hemoglobin hematocrit were closely monitored with goal to keep hemoglobin above 7. Patient required transfusion of 2 units of packed red blood cells. Prior to discharge hemoglobin 10.3, hematocrit 31.1. CEA within normal limits. Stool occult blood x1 was positive. Recommended close monitoring of hemoglobin and hematocrit at the facility. ow Supportive care provided. Plastic surgeon seen the patient for pressure ulcer precautions and skin check. Recommended perform weekly skin check and monitor and manage friction and shear. Further program steps included moisture skin daily , bowel and bladder program with a barrier cream to the buttocks, nutritional support and turn and reposition every 2 hours. Anticoagulation resumed after tracheostomy. Supportive care provided. Bowel regimen instituted. Pain management was addressed as needed. Patient clinically stabilized and was ready for discharge to nursing facility for continuation of care. FINAL DIAGNOSES: Acute on chronic respiratory failure( ventilator dependent,) due to tracheostomy dislodgment Status poor bronchoscopy and new tracheostomy Possible aspiration pneumonitis Leukocytosis Diabetes mellitus type 2 Acute kidney injury on chronic renal insufficiency-resolved Chronic atrial fibrillation , on anticoagulation s/p AICD Dysphagia , status post PEG Morbid obesity Seizure disorder PVD Essential hypertension Nontraumatic intracerebral hemorrhage Anemia of chronic disease DISCHARGE MEDICATIONS: See Medication Reconciliation list. DISCHARGE INSTRUCTIONS: Patient was discharged to the halfway facility. Follow up with medical doctor at the facility. Coco Morrison NP Dec 16, 2018 13:18
== END 2018-12-13 18:00 | DRG 4 ==
LOC: EDBD 10:10 → EMR 10:50 → ICU 11:25 → EDBEDREQ 12:34 → 2W 12-10 19:26 → ENPENDDIS 12-13 05:30 → EDPENDDISTM 12-13 17:30
PROC: 5A1955Z Respiratory Ventilation, Greater than 96 Consecutive Hours (ICD-10-PCS; principal; 2018-12-06)
PROC: 0BH17EZ Insertion of Endotracheal Airway into Trachea, Via Natural or Artificial Opening (ICD-10-PCS; principal; 2018-12-06)
PROC: 0B110F4 Bypass Trachea to Cutaneous with Tracheostomy Device, Open Approach (ICD-10-PCS; 2018-12-09)
PROC: 0BC18ZZ Extirpation of Matter from Trachea, Via Natural or Artificial Opening Endoscopic (ICD-10-PCS; 2018-12-09)
DX: J95.03 Malfunction of tracheostomy stoma (principal); J96.20 Acute and chronic respiratory failure, unspecified whether with hypoxia or hypercapnia; J69.0 Pneumonitis due to inhalation of food and vomit; N17.9 Acute kidney failure, unspecified; Z99.11 Dependence on respirator [ventilator] status; I69.959 Hemiplegia and hemiparesis following unspecified cerebrovascular disease affecting unspecified side; D68.9 Coagulation defect, unspecified; R13.10 Dysphagia, unspecified; Z93.1 Gastrostomy status; E11.9 Type 2 diabetes mellitus without complications; Z95.810 Presence of automatic (implantable) cardiac defibrillator; I25.10 Atherosclerotic heart disease of native coronary artery without angina pectoris; G40.909 Epilepsy, unspecified, not intractable, without status epilepticus; I11.0 Hypertensive heart disease with heart failure; I50.9 Heart failure, unspecified; E66.01 Morbid (severe) obesity due to excess calories; Z68.37 Body mass index [BMI] 37.0-37.9, adult; I73.9 Peripheral vascular disease, unspecified; I48.2 Chronic atrial fibrillation; Z79.01 Long term (current) use of anticoagulants; K76.0 Fatty (change of) liver, not elsewhere classified; D64.9 Anemia, unspecified; J44.9 Chronic obstructive pulmonary disease, unspecified; M10.9 Gout, unspecified
CPT/HCPCS: 31500; 36415; 36600; 71045; 80048; 80053; 81003; 82248; 82270; 82378; 82607; 82728; 82746; 82803; 82962; 83540; 83550; 83735; 83880; 84100; 84478; 85007; 85025; 85044; 85060; 85384; 85610; 85730; 86850; 86900; 86901; 86920; 87040; 87070; 87081; 87181; 87205; 93005; 93306; 94002; 94003; 94150; 94664; 96365; 96366; 96367; 99291; J1815

== ENCOUNTER 2019-05-25 19:03 | Inpatient (IN) | payer MEDICARE, MEDICAID ==
[~2019-05-25] VITALS: Ht 172.7 cm; Wt 87.6 kg
[~2019-05-25 19:03] MED LIST: ACETAMINOPHEN325 M1 GT; ALBUTEROL2.5 MG/3 M INH; ALLOPURINOL300 M1 GT; AMIODARONE HCL100 MG GT; ATORVASTATIN CA40 MG GT; CARVEDILOL12.5 MG GT; COLACE100 MG GT; COREG12.5 MG GT; ELIQUIS5 MG GT; FAMOTIDINE20 MG GT; FOLIC ACID1 MG GT; FUROSEMIDE20 M1 GT; KEPPRA1000 MG GT; LANTUS SOL100 UNIT/1 SUBQ; LISINOPRIL2.5 MG GT; METFORMIN HCL500 M1 GT; MILK OF MA400 MG/51 GT; MULTI-DELYN237 ML GT; PRO-STAT LIQUID30 ML GT; SPIRONOLACTONE25 MG GT; VITAMIN C500 M1 GT; VITAMIN D400 INTLU IABDOM
[2019-05-25] MEDS ORDERED: AZO CRANBERRY1 EAC1 GT (19:29)
[2019-05-25 19:45] VITALS: BP 103/66
--- NOTE | 2019-05-25 20:23 | Emergency Room Report ---
History of Present Illness General Chief Complaint: Malfunctioning Gastric Tube Source: Medical Record (James Cormier MD) Present Illness HPI patient is a 58-year-old male brought in by facility for G-tube malfunction. Patient was noted to have a prior history of G-tube dependence. Patient's G- tube had reportedly become obstructed at his facility. Attempted changing this at the facility was unsuccessful. Patient not been having any reported vomiting or diarrhea. He was noted to have some bleeding from the G-tube stoma. Patient had a partially inserted G-tube in the stoma at the time of arrival. (James Cormier MD) Allergies: Coded Allergies: No Known Allergies (Unverified , 12/06/18) Patient History Past Medical History: see triage record Reviewed Nursing Documentation: PMH: Agreed; PSxH: Agreed (James Cormier MD) Nursing Documentation-PMH Past Medical History: No History, Except For Hx Cardiac Problems: Yes Hx Pacemaker: Yes Hx COPD: Yes - trach,vent Hx Diabetes: Yes Hx Cancer: No Hx Gastrointestinal Problems: Yes Hx Neurological Problems: No (James Cormier MD) Review of Systems All Other Systems: limited (James Cormier MD) Physical Exam Vital Signs Date Time Temp Pulse Resp B/P (MAP) Pulse Ox O2 Delivery O2 Flow Rate FiO2 05/25/19 19:04 97.9 65 14 119/78 (92) 95 Mechanical Ventilator 4.0 General Appearance: obese, Chronically Ill Eyes: bilateral eye normal inspection ENT: other - tracheostomy /vent Neck: limited range of motion Respiratory: lungs clear Cardiovascular #1: normal peripheral pulses, regular rate, rhythm Gastrointestinal: normal inspection, non tender, soft, other - 14 [address] helen[place] gtube in stoma with granulation tissue surrounding tube Musculoskeletal: decreased range of motion Neurologic: responsive, aphasia, other - grimaces to pain Psychiatric: normal inspection (James Cormier MD) Procedures Additional Procedure Procedure Narrative Procedure: G-tube placement Indication: G tube dislodgement. Description: I was asked by Dr. Cormier to see back in place a G-tube in this patient. Patient had a G-tube replaced at the detention and there seemed to be some malfunction with it. There was a false track and Dr. Cormier unable to pass any smaller size tube. I checked the lumen and is big enough. Unable to pass an 18 [place] tube because hitting the abdominal wall and the false tract. I was able to pass a bougie into the stomach. The old tract is very anteriorly and superiorly. I use a 24 [place] G-tube and was able to pass it into the stomach. Balloon inflated. Placement confirmed with Gastrografin. No complication. Patient tolerated procedure without any problem. (Noah Gardiner MD) Medical Decision Making Diagnostic Impression: Primary Impression: Chronic respiratory failure Additional Impressions: Feeding by G-tube Leukocytosis ER Course Presented for G-tube malfunction. Differential diagnosis include was not limited to false tract formation, hematoma, infection among others. Because of complexity of patient's case laboratory testing and imaging studies were ordered. Patient was noted to have a G-tube placed in the stoma which does not appear to be correctly placed. G-tube is removed. Attempted to place a 14 [place] G-tube through the stoma with significant resistance. There is noted to be some bleeding from the G-tube stoma. Patient was noted to be taking anticoagulation with Eliquis. Dr. Jian Martinez was contacted for inpatient management due to prior admission. Dr. Rdz was contacted for GI consult. G -tube was subsequently placed by Dr. Gardiner.Patient will be admitted to the hospital for further evaluation of G-tube bleeding. Labs Test 05/25/19 19:50 White Blood Count 16.5 K/UL (4.8-10.8) Red Blood Count 3.76 M/UL (4.70-6.10) Hemoglobin 12.2 G/DL (14.2-18.0) Hematocrit 36.2 % (42.0-52.0) Mean Corpuscular Volume 96 FL (80-99) Mean Corpuscular Hemoglobin 32.5 PG (27.0-31.0) Mean Corpuscular Hemoglobin Concent 33.8 G/DL (32.0-36.0) Red Cell Distribution Width 15.4 % (11.6-14.8) Platelet Count 285 K/UL (150-450) Mean Platelet Volume 6.1 FL (6.5-10.1) Neutrophils (%) (Auto) % (45.0-75.0) Lymphocytes (%) (Auto) % (20.0-45.0) Monocytes (%) (Auto) % (1.0-10.0) Eosinophils (%) (Auto) % (0.0-3.0) Basophils (%) (Auto) % (0.0-2.0) Prothrombin Time 12.4 SEC (9.30-11.50) Prothromb Time International Ratio 1.2 (0.9-1.1) Activated Partial Thromboplast Time 31 SEC (23-33) Sodium Level 141 MMOL/L (136-145) Potassium Level 4.8 MMOL/L (3.5-5.1) Chloride Level 105 MMOL/L (98-107) Carbon Dioxide Level 29 MMOL/L (21-32) Anion Gap 7 mmol/L (5-15) Blood Urea Nitrogen 61 mg/dL (7-18) Creatinine 1.3 MG/DL (0.55-1.30) Estimat Glomerular Filtration Rate 56.3 mL/min (>60) Glucose Level 109 MG/DL (74-106) Calcium Level 10.3 MG/DL (8.5-10.1) Total Bilirubin 0.5 MG/DL (0.2-1.0) Aspartate Amino Transf (AST/SGOT) 23 U/L (15-37) Alanine Aminotransferase (ALT/SGPT) 16 U/L (12-78) Alkaline Phosphatase 131 U/L (46-116) Total Protein 9.0 G/DL (6.4-8.2) Albumin 3.1 G/DL (3.4-5.0) Globulin 5.9 g/dL Albumin/Globulin Ratio 0.5 (1.0-2.7) (James Cormier MD) Other X-Ray Diagnostic Results Other X-Ray Diagnostic Results : X-Ray ordered: KUB # of Views/Limited Vs Complete: 1 View Indication: Other - tube placement EP Interpretation: Yes Interpretation: no dislocation, no soft tissue swelling, no fractures, other - Gtube in good position. no extravasation Impression: Other - s/p Gtube placement Electronically Signed by: Noah Gardiner MD (Noah Gardiner MD) Last Vital Signs Date Time Temp Pulse Resp B/P (MAP) Pulse Ox O2 Delivery O2 Flow Rate FiO2 05/25/19 19:45 97.9 95 14 103/66 95 Mechanical Ventilator 4.0 Status: unchanged (James Cormier MD) Disposition: ADMITTED INPATIENT Condition: Serious Referrals: Larry Li MD (PCP) James Cormier MD May 25, 2019 20:23 Noah Gardiner MD May 25, 2019 22:10
[2019-05-25 20:26] LABS: ANION GAP 7 mmol/L (5-15); BLOOD UREA NITROGEN 61 mg/dL (7-18); CALCIUM 10.3 MG/DL (8.5-10.1); CARBON DIOXIDE 29 MMOL/L (21-32); CHLORIDE 105 MMOL/L (98-107); CREATININE 1.3 MG/DL (0.55-1.30); INR 1.2 (0.9-1.1); POTASSIUM 4.8 MMOL/L (3.5-5.1); SODIUM 141 MMOL/L (136-145)
[2019-05-25 20:30] LABS: ALANINE AMINOTRANSFERASE 16 U/L (12-78); ALBUMIN 3.1 G/DL (3.4-5.0); ALBUMIN/GLOBULIN RATIO 0.5 (1.0-2.7); ALKALINE PHOSPHATASE 131 U/L (46-116); ASPARTATE AMINO TRANSFERASE 23 U/L (15-37); BILIRUBIN,TOTAL 0.5 MG/DL (0.2-1.0)
[2019-05-25 20:41] LABS: HEMATOCRIT 36.2 % (42.0-52.0); HEMOGLOBIN 12.2 G/DL (14.2-18.0); MEAN CORPUSCULAR VOLUME 96 FL (80-99); PLATELET COUNT 285 K/UL (150-450); RED BLOOD COUNT 3.76 M/UL (4.70-6.10); RED CELL DISTRIBUTION WIDTH 15.4 % (11.6-14.8); WHITE BLOOD COUNT 16.5 K/UL (4.8-10.8)
[2019-05-25] MEDS ORDERED: Gastrograffin 30ml ORAL ONE ×2 (21:15)
[2019-05-25] MEDS ORDERED: ceFAZolin 1gm/50ml Premix 50 ML IV ONE (21:30)
[2019-05-25 21:46] LABS: APPEARANCE,URINE CLEAR; BILIRUBIN, URINE NEGATIVE (NEGATIVE); COLOR,URINE PALE YELLOW; GLUCOSE, URINE (UA) NEGATIVE (NEGATIVE); KETONES,URINE NEGATIVE (NEGATIVE); LEUKOCYTE ESTERASE ,URINE NEGATIVE (NEGATIVE); NITRITE,URINE NEGATIVE (NEGATIVE); PH,URINE 6 (4.5-8.0); PROTEIN,URINE NEGATIVE (NEGATIVE); UROBILINOGEN,URINE 1 MG/DL (0.0-1.0)
[2019-05-25] MEDS ORDERED: Morphine Sulfate 4mg/ml Inj (IV USE ONLY) IVP PRN (22:00)
[2019-05-25] MEDS ORDERED: Acetaminophen 650mg/20.3ml ORAL PRN (22:00)
[2019-05-25] MEDS ORDERED: Albuterol/Ipratropium 3ml neb HHN PRN (22:00)
[2019-05-25] MEDS ORDERED: LORazepam Inj 2mg/ml 1ml IV PRN (22:00)
[2019-05-25] MEDS ORDERED: Miralax 17gm pkt GT PRN (22:00)
[2019-05-25] MEDS ORDERED: Dextrose 50% 25ml Syringe IV PRN (22:15)
[2019-05-25 22:40] VITALS: BP 121/77
--- NOTE | 2019-05-25 22:57 | Diagnostic Imaging Report ---
Indication: Abdominal pain Comparison: None Single view of the abdomen obtained Findings: There is contrast in the duodenum. The study is incomplete and only images the upper part of the abdomen and only partially. There is exclusion of the lower abdomen on the right side of abdomen. Pacemaker noted. Bowel gas pattern is nonspecific as visualized. IMPRESSION: No acute findings identified. Contrast noted in the duodenum. Limited study with inadequate [id number] coverage.
[2019-05-25] MEDS ORDERED: Vancomycin 1.5gm Premix IVPB ONE (23:00)
[2019-05-26] VITALS (7 sets, daily range): BP systolic 90–113; BP diastolic 57–74
[2019-05-26 04:43] LABS: HEMATOCRIT 35.8 % (42.0-52.0); HEMOGLOBIN 11.5 G/DL (14.2-18.0); MEAN CORPUSCULAR VOLUME 101 FL (80-99); PLATELET COUNT 289 K/UL (150-450); RED BLOOD COUNT 3.54 M/UL (4.70-6.10); RED CELL DISTRIBUTION WIDTH 16.1 % (11.6-14.8); WHITE BLOOD COUNT 18.7 K/UL (4.8-10.8)
[2019-05-26 05:00] LABS: ALBUMIN 2.9 G/DL (3.4-5.0); ANION GAP 9 mmol/L (5-15); BLOOD UREA NITROGEN 65 mg/dL (7-18); CALCIUM 10.1 MG/DL (8.5-10.1); CARBON DIOXIDE 27 MMOL/L (21-32); CHLORIDE 105 MMOL/L (98-107); CREATININE 1.4 MG/DL (0.55-1.30); PHOSPHORUS 3.7 MG/DL (2.5-4.9); POTASSIUM 4.4 MMOL/L (3.5-5.1); SODIUM 141 MMOL/L (136-145)
[2019-05-26] MEDS: Amiodarone 200mg tab GT SCH ×2 (08:08→08:56)
[2019-05-26] MEDS: Pantoprazole Inj IV SCH (08:56)
[2019-05-26] MEDS: levETIRAcetam 500mg/5ml Liquid GT SCH (08:56)
[2019-05-26] MEDS: D5 1/2NS 1,000 ML IV SCH ×2 (08:57→18:23)
[2019-05-26] MEDS ORDERED: Carvedilol 12.5mg tab GT SCH (09:00)
[2019-05-26] MEDS: Heparin 5000 units/ml inj SUBQ SCH ×3 (09:00→20:56)
--- NOTE | 2019-05-26 10:21 | GI Initial Consult Note ---
History of Present Illness General Date patient seen: May 26, 2019 Time patient seen: 10:15 Reason for Hospitalization: Malfunctioning Gastric Tube Referring physician: LATONIA ARGUETA Reason for Consultation: GT MALFUNCTION Present Illness HPI Patient is a 58-year-old male brought in by facility for G-tube malfunction. Patient was noted to have a prior history of G-tube dependence. Patient's G- tube had reportedly become obstructed at his facility. Attempted changing this at the facility was unsuccessful. Patient not been having any reported vomiting or diarrhea. He was noted to have some bleeding from the G-tube stoma. Patient had a partially inserted G-tube in the stoma at the time of arrival. GI consulted for reported G-tube malfunction. ROS limited, patient is nonverbal on trach dependent. Patient seen, awake alert no apparent distress. Noted that the G-tube had been recently changed in the emergency room. Hyper granulation tissue noted around the G-tube site. In addition the surrounding skin of the stoma is firm and hard. Minimal amounts of blood noted. The patient presents today with leukocytosis, WBC of 19, hemoglobin 11.5. Home Meds Active Scripts Carvedilol (Coreg) 12.5 Mg Tablet, 12.5 MG GT EVERY 12 HOURS for 30 Days, TAB Prov:Yudy Garner MD 12/13/18 Reported Medications Cranberry Extract/Vit C (AZO CRANBERRY SOFTGEL) 1 Each Capsule, 1 EACH GT, CAP 05/25/19 Vitamin D (Vitamin D3) 400 Unit Tablet, 5000 UNITS IABDOM DAILY, TAB 12/06/18 Ascorbic Acid* (VITAMIN C*) 500 Mg Tablet, 500 MG GT DAILY, #30 TAB 0 Refills 12/06/18 Acetaminophen* (ACETAMINOPHEN 325MG TABLET*) 325 Mg Tablet, 650 MG GT Q4H PRN for Pain Scale (3-5), TAB 12/06/18 Amino Acids/Protein Hydrolys (PRO-STAT LIQUID) 30 Ml Liquid.pkt, 30 ML GT TWICE A DAY, ML 12/06/18 Multivitamin Liquid* (MULTI-DELYN*) 237 Ml Liquid, 5 ML GT DAILY, ML 12/06/18 Magnesium Hydroxide* (MILK OF MAGNESIA*) 400 Mg/5 Ml Oral.susp, 30 ML GT DAILY, ML 12/06/18 Metformin Hcl* (METFORMIN HCL*) 500 Mg Tablet, 500 MG GT TWICE A DAY, TAB 12/06/18 Lisinopril* (LISINOPRIL*) 2.5 Mg Tablet, 2.5 MG GT DAILY, TAB 0 Refills 12/06/18 Insulin Glargine (LANTUS) 100 Unit/1 Ml Insuln.pen, 0 SUBQ BEDTIME, #1 EA 0 Refills 12/06/18 Levetiracetam (KEPPRA) 1,000 Mg Tablet, 1000 MG GT DAILY, #30 TAB 0 Refills 12/06/18 Furosemide* (LASIX*) 20 Mg Tablet, 20 MG GT BID, TAB 12/06/18 Folic Acid* (FOLIC ACID*) 1 Mg Tablet, 1 MG GT DAILY, TAB 12/06/18 Famotidine (FAMOTIDINE) 20 Mg Tablet, 20 MG GT DAILY, #30 TAB 0 Refills 12/06/18 Apixaban (ELIQUIS) 5 Mg Tablet, 5 MG GT, TAB 12/06/18 Docusate Sodium* (COLACE*) 100 Mg Capsule, 100 MG GT DAILY, CAP 12/06/18 Atorvastatin Calcium* (ATORVASTATIN CALCIUM*) 40 Mg Tablet, 40 MG ORAL BEDTIME, TAB 12/06/18 Amiodarone Hcl (AMIODARONE HCL) 100 Mg Tablet, 100 MG GT DAILY, TAB 12/06/18 Allopurinol* (ALLOPURINOL*) 300 Mg Tablet, 300 MG GT DAILY, TAB 12/06/18 Spironolactone* (ALDACTONE*) 25 Mg Tablet, 25 MG GT DAILY, TAB 12/06/18 Albuterol Sulfate* (ALBUTEROL SULFATE HHN*) 2.5 Mg/3 Ml Vial.neb, 3 ML INH Q4H PRN for Shortness of Breath, EA 12/06/18 Discontinued Reported Medications Carvedilol* (CARVEDILOL*) 12.5 Mg Tablet, 12.5 MG GT EVERY 12 HOURS, TAB 12/06/18 Med list reviewed/reconciled: Yes Allergies: Coded Allergies: No Known Allergies (Unverified , 12/06/18) Patient History Limited by: medical condition History Provided By: Medical Record PMH Narrative Past Medical History: see triage record Reviewed Nursing Documentation: PMH: Agreed; PSxH: Agreed Nursing Documentation-PM Past Medical History: No History, Except For Hx Cardiac Problems: Yes Hx Pacemaker: Yes Hx COPD: Yes - trach,vent Hx Diabetes: Yes Hx Cancer: No Hx Gastrointestinal Problems: Yes Hx Neurological Problems: No Social History: Denies: smoking, alcohol use, drug use, other Review of Systems All Other Systems: negative except mentioned in HPI Physical Exam Vital Signs Date Time Temp Pulse Resp B/P (MAP) Pulse Ox O2 Delivery O2 Flow Rate FiO2 05/25/19 19:04 97.9 65 14 119/78 (92) 95 Mechanical Ventilator 4.0 05/25/19 19:10 36 Sp02 EP Interpretation: reviewed, normal Labs Laboratory Tests Test 05/25/19 19:50 05/25/19 21:20 05/26/19 03:35 White Blood Count 16.5 K/UL (4.8-10.8) H 18.7 K/UL (4.8-10.8) H Red Blood Count 3.76 M/UL (4.70-6.10) L 3.54 M/UL (4.70-6.10) L Hemoglobin 12.2 G/DL (14.2-18.0) L 11.5 G/DL (14.2-18.0) L Hematocrit 36.2 % (42.0-52.0) L 35.8 % (42.0-52.0) L Mean Corpuscular Volume 96 FL (80-99) 101 FL (80-99) H Mean Corpuscular Hemoglobin 32.5 PG (27.0-31.0) H 32.5 PG (27.0-31.0) H Mean Corpuscular Hemoglobin Concent 33.8 G/DL (32.0-36.0) 32.1 G/DL (32.0-36.0) Red Cell Distribution Width 15.4 % (11.6-14.8) H 16.1 % (11.6-14.8) H Platelet Count 285 K/UL (150-450) 289 K/UL (150-450) Mean Platelet Volume 6.1 FL (6.5-10.1) L 7.3 FL (6.5-10.1) Neutrophils (%) (Auto) % (45.0-75.0) % (45.0-75.0) Lymphocytes (%) (Auto) % (20.0-45.0) % (20.0-45.0) Monocytes (%) (Auto) % (1.0-10.0) % (1.0-10.0) Eosinophils (%) (Auto) % (0.0-3.0) % (0.0-3.0) Basophils (%) (Auto) % (0.0-2.0) % (0.0-2.0) Differential Total Cells Counted 100 100 Neutrophils % (Manual) 64 % (45-75) 83 % (45-75) H Lymphocytes % (Manual) 12 % (20-45) L 9 % (20-45) L Monocytes % (Manual) 3 % (1-10) 3 % (1-10) Eosinophils % (Manual) 20 % (0-3) H 5 % (0-3) H Basophils % (Manual) 0 % (0-2) 0 % (0-2) Band Neutrophils 1 % (0-8) 0 % (0-8) Platelet Estimate Adequate Adequate Platelet Morphology Normal Normal Red Blood Cell Morphology Normal Prothrombin Time 12.4 SEC (9.30-11.50) H Prothromb Time International Ratio 1.2 (0.9-1.1) H Activated Partial Thromboplast Time 31 SEC (23-33) Sodium Level 141 MMOL/L (136-145) 141 MMOL/L (136-145) Potassium Level 4.8 MMOL/L (3.5-5.1) 4.4 MMOL/L (3.5-5.1) Chloride Level 105 MMOL/L (98-107) 105 MMOL/L (98-107) Carbon Dioxide Level 29 MMOL/L (21-32) 27 MMOL/L (21-32) Anion Gap 7 mmol/L (5-15) 9 mmol/L (5-15) Blood Urea Nitrogen 61 mg/dL (7-18) H 65 mg/dL (7-18) H Creatinine 1.3 MG/DL (0.55-1.30) 1.4 MG/DL (0.55-1.30) H Estimat Glomerular Filtration Rate 56.3 mL/min (>60) 51.7 mL/min (>60) Glucose Level 109 MG/DL (74-106) H 145 MG/DL (74-106) H Calcium Level 10.3 MG/DL (8.5-10.1) H 10.1 MG/DL (8.5-10.1) Total Bilirubin 0.5 MG/DL (0.2-1.0) Aspartate Amino Transf (AST/SGOT) 23 U/L (15-37) Alanine Aminotransferase (ALT/SGPT) 16 U/L (12-78) Alkaline Phosphatase 131 U/L (46-116) H Total Protein 9.0 G/DL (6.4-8.2) H Albumin 3.1 G/DL (3.4-5.0) L 2.9 G/DL (3.4-5.0) L Globulin 5.9 g/dL Albumin/Globulin Ratio 0.5 (1.0-2.7) L Urine Color Pale yellow Urine Appearance Clear Urine pH 6 (4.5-8.0) Urine Specific [place] 1.010 (1.005-1.035) Urine Protein Negative (NEGATIVE) Urine Glucose (UA) Negative (NEGATIVE) Urine Ketones Negative (NEGATIVE) Urine Blood Negative (NEGATIVE) Urine Nitrite Negative (NEGATIVE) Urine Bilirubin Negative (NEGATIVE) Urine Urobilinogen 1 MG/DL (0.0-1.0) H Urine Leukocyte Esterase Negative (NEGATIVE) Hypochromasia 1+ Anisocytosis 1+ Macrocytosis 1+ Phosphorus Level 3.7 MG/DL (2.5-4.9) General Appearance: well appearing, no apparent distress, alert Head: normocephalic EENT: PERRL/EOMI, normal ENT inspection Neck: supple Respiratory: normal breath sounds, no respiratory distress Cardiovascular: normal rate Gastrointestinal: normal inspection, non tender, soft, normal bowel sounds, non -distended Rectal: deferred Genitourinary: deferred Musculoskeletal: normal inspection, back normal Neurologic: normal inspection, alert, oriented x3, responsive Psychiatric: normal inspection, judgement/insight normal, memory normal Skin: normal inspection, normal color, no rash, warm/dry, palpation normal, well hydrated Lymphatic: normal inspection, no adenopathy Current Medications Current Medications Medications (Trade) Dose Ordered Sig/Sophie Route PRN Reason Start Time Stop Time Status Last Admin Dose Admin Acetaminophen (Tylenol) 650 mg Q4H PRN ORAL FEVER (temp>100.5F) 05/25/19 22:00 06/24/19 21:59 Albuterol/ Ipratropium (Albuterol/ Ipratropium) 3 ml Q4H PRN HHN Shortness of Breath 05/25/19 22:00 05/30/19 21:59 Allopurinol (Allopurinol) 300 mg DAILY GT 05/26/19 09:00 06/25/19 08:59 05/26/19 08:56 Amiodarone HCl (Cordarone) 100 mg DAILY GT 05/26/19 09:00 06/25/19 08:59 05/26/19 08:56 Dextrose (Dextrose 50%) 25 ml Q30M PRN IV Hypoglycemia 05/25/19 22:15 06/24/19 22:03 Dextrose (Dextrose 50%) 50 ml Q30M PRN IV hypoglycemia 05/25/19 22:15 06/24/19 22:14 Dextrose/Sodium Chloride 1,000 ml @ 100 mls/hr Q10H IV 05/26/19 09:00 06/25/19 08:59 05/26/19 08:57 Heparin Sodium (Porcine) (Heparin 5000 units/ml) 5,000 units EVERY 12 HOURS SUBQ 05/26/19 09:00 06/25/19 08:59 Levetiracetam (Keppra) 1,000 mg DAILY GT 05/26/19 09:00 06/25/19 08:59 05/26/19 08:56 Lorazepam (Ativan 2mg/ml 1ml) 2 mg Q2H PRN IV For Anxiety 05/25/19 22:00 06/01/19 21:59 Morphine Sulfate (Morphine Sulfate) 4 mg Q4H PRN IVP Severe Pain (Pain Scale 7-10) 05/25/19 22:00 06/01/19 21:59 Ondansetron HCl (Zofran) 4 mg Q6H PRN IVP Nausea & Vomiting 05/25/19 22:00 06/24/19 21:59 Pantoprazole (Protonix) 40 mg DAILY IV 05/26/19 09:00 06/25/19 08:59 05/26/19 08:56 Polyethylene Glycol (Miralax) 17 gm DAILYPRN PRN GT Constipation 05/25/19 22:00 06/24/19 21:59 Vancomycin HCl (Vanco rx to dose) 1 ea DAILY PRN MISC PER RX PROTOCOL 05/25/19 22:15 06/24/19 22:14 Vancomycin HCl 750 mg/Sodium Chloride 275 ml @ 183.333 mls/hr Q12HR@1100,2300 IVPB 05/26/19 11:00 05/31/19 10:59 GI: Plan Problems: (1) Malfunction of gastrostomy tube (2) G-tube site cellulitis (3) Feeding by G-tube Plan 24 [place] G-tube readjusted and balloon inflated KUB with Gastrografin to confirm placement Wound care consult for possible cauterization around the stoma Okay to start G-tube feedings once placement confirmed G-tube feedings per registered dietitian Antibiotics Reglan as needed for GI motility Follow-up H&H PPI Discussed with Dr. Rdz. Thank you for this patient referral, we will follow. The patient was seen and examined at bedside and all new and available data was reviewed in the patients chart. I agree with the above findings, impression and plan. (Patient seen earlier today. Signature stamp does not reflect patient encounter time.). - MD Zuleyka Soto,[facility] RN RADIOLOGY May 26, 2019 10:21
[2019-05-26] MEDS ORDERED: Gastrograffin 30ml ORAL ONE (10:30)
--- NOTE | 2019-05-26 10:44 | Consultation ---
History of Present Illness General Chief Complaint: Malfunctioning Gastric Tube Referring physician: LATONIA ARGUETA Reason for Consultation: chronic ventilation Present Illness HPI 58-year-old male with chronic respiratory failure on Tach/vent/Peg, ICD, CVA, bed bound on of life, brought for G-tube malfunction. Patient's G- tube had reportedly become obstructed at his facility. Patient not been having any reported vomiting or diarrhea. Pt is admitted to [facility] on ventilator for further treatment. Allergies: Coded Allergies: No Known Allergies (Unverified , 12/06/18) Medication History Scheduled Allopurinol* (Allopurinol*), 300 MG GT DAILY, (Reported) Amino Acids/Protein Hydrolys (Pro-Stat Liquid), 30 ML GT TWICE A DAY, (Reported) Amiodarone Hcl (Amiodarone Hcl), 100 MG GT DAILY, (Reported) Ascorbic Acid* (Vitamin C*), 500 MG GT DAILY, (Reported) Atorvastatin Calcium* (Atorvastatin Calcium*), 40 MG ORAL BEDTIME, (Reported) Carvedilol (Coreg), 12.5 MG GT EVERY 12 HOURS Docusate Sodium* (Colace*), 100 MG GT DAILY, (Reported) Famotidine (Famotidine), 20 MG GT DAILY, (Reported) Folic Acid* (Folic Acid*), 1 MG GT DAILY, (Reported) Furosemide* (Lasix*), 20 MG GT BID, (Reported) Insulin Glargine (Lantus), 0 SUBQ BEDTIME, (Reported) Levetiracetam (Keppra), 1,000 MG GT DAILY, (Reported) Lisinopril* (Lisinopril*), 2.5 MG GT DAILY, (Reported) Magnesium Hydroxide* (Milk Of Magnesia*), 30 ML GT DAILY, (Reported) Metformin Hcl* (Metformin Hcl*), 500 MG GT TWICE A DAY, (Reported) Multivitamin Liquid* (Multi-Delyn*), 5 ML GT DAILY, (Reported) Spironolactone* (Aldactone*), 25 MG GT DAILY, (Reported) Vitamin D (Vitamin D3), 5,000 UNITS IABDOM DAILY, (Reported) Scheduled PRN Acetaminophen* (Acetaminophen 325MG Tablet*), 650 MG GT Q4H PRN for Pain Scale ( 3-5), (Reported) Albuterol Sulfate* (Albuterol Sulfate Hhn*), 3 ML INH Q4H PRN for Shortness of Breath, (Reported) Miscellaneous Medications Apixaban (Eliquis), 5 MG GT, (Reported) Cranberry Extract/Vit C (Azo Cranberry Softgel), 1 EACH GT, (Reported) Discontinued Medications Carvedilol* (Carvedilol*), 12.5 MG GT EVERY 12 HOURS, (Reported) Discontinued Reason: Therapy completed Patient History Healthcare decision maker N Resuscitation status Full Code Advanced Directive on File Past Medical/Surgical History Past Medical/Surgical History: (1) Feeding by G-tube (2) History of CVA (cerebrovascular accident) (3) ICD (implantable cardioverter-defibrillator) in place (4) Ventilator dependence (5) Malfunction of gastrostomy tube (6) G-tube site cellulitis (7) Diabetes mellitus (8) Chronic respiratory failure Review of Systems Constitutional: Reports: no symptoms Eye: Reports: no symptoms All Other Systems: negative except mentioned in HPI Physical Exam Lines, tubes and drains: peripheral, central line HEENT: normocephalic, mucous membranes moist Neck: non-tender, normal alignment Respiratory/Chest: chest wall non-tender, lungs clear Cardiovascular/Chest: normal peripheral pulses, normal rate Abdomen: normal bowel sounds, non tender Genitourinary/Rectal: normal genital exam, normal rectal exam Extremities: normal range of motion, non-tender Skin Exam: normal pigmentation 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 Last 24 Hour Vital Signs Date Time Temp Pulse Resp B/P (MAP) Pulse Ox O2 Delivery O2 Flow Rate FiO2 05/26/19 09:26 99 16 35 05/26/19 08:08 105 90/57 05/26/19 08:00 98.2 105 16 90/57 (68) 100 05/26/19 08:00 35 05/26/19 06:50 101 15 35 05/26/19 04:33 102 15 35 05/26/19 04:00 98.7 108 16 90/62 (71) 100 05/26/19 04:00 Mechanical Ventilator 05/26/19 04:00 35 05/26/19 03:34 103 05/26/19 03:04 99 16 35 05/26/19 01:28 101 14 35 05/26/19 00:00 97.8 103 16 98/58 (71) 100 05/26/19 00:00 Mechanical Ventilator 05/26/19 00:00 35 05/25/19 23:32 105 05/25/19 23:25 99 14 36 05/25/19 22:40 98.0 102 16 121/77 (92) 100 05/25/19 22:40 Mechanical Ventilator 05/25/19 22:20 97.9 95 21 114/75 95 Mechanical Ventilator 4.0 36 05/25/19 21:50 87 21 36 05/25/19 19:45 97.9 95 14 103/66 95 Mechanical Ventilator 4.0 05/25/19 19:10 86 20 36 05/25/19 19:04 97.9 65 14 119/78 (92) 95 Mechanical Ventilator 4.0 Laboratory Tests Test 05/25/19 19:50 05/25/19 21:20 05/26/19 03:35 White Blood Count 16.5 K/UL (4.8-10.8) H 18.7 K/UL (4.8-10.8) H Red Blood Count 3.76 M/UL (4.70-6.10) L 3.54 M/UL (4.70-6.10) L Hemoglobin 12.2 G/DL (14.2-18.0) L 11.5 G/DL (14.2-18.0) L Hematocrit 36.2 % (42.0-52.0) L 35.8 % (42.0-52.0) L Mean Corpuscular Volume 96 FL (80-99) 101 FL (80-99) H Mean Corpuscular Hemoglobin 32.5 PG (27.0-31.0) H 32.5 PG (27.0-31.0) H Mean Corpuscular Hemoglobin Concent 33.8 G/DL (32.0-36.0) 32.1 G/DL (32.0-36.0) Red Cell Distribution Width 15.4 % (11.6-14.8) H 16.1 % (11.6-14.8) H Platelet Count 285 K/UL (150-450) 289 K/UL (150-450) Mean Platelet Volume 6.1 FL (6.5-10.1) L 7.3 FL (6.5-10.1) Neutrophils (%) (Auto) % (45.0-75.0) % (45.0-75.0) Lymphocytes (%) (Auto) % (20.0-45.0) % (20.0-45.0) Monocytes (%) (Auto) % (1.0-10.0) % (1.0-10.0) Eosinophils (%) (Auto) % (0.0-3.0) % (0.0-3.0) Basophils (%) (Auto) % (0.0-2.0) % (0.0-2.0) Differential Total Cells Counted 100 100 Neutrophils % (Manual) 64 % (45-75) 83 % (45-75) H Lymphocytes % (Manual) 12 % (20-45) L 9 % (20-45) L Monocytes % (Manual) 3 % (1-10) 3 % (1-10) Eosinophils % (Manual) 20 % (0-3) H 5 % (0-3) H Basophils % (Manual) 0 % (0-2) 0 % (0-2) Band Neutrophils 1 % (0-8) 0 % (0-8) Platelet Estimate Adequate Adequate Platelet Morphology Normal Normal Red Blood Cell Morphology Normal Prothrombin Time 12.4 SEC (9.30-11.50) H Prothromb Time International Ratio 1.2 (0.9-1.1) H Activated Partial Thromboplast Time 31 SEC (23-33) Sodium Level 141 MMOL/L (136-145) 141 MMOL/L (136-145) Potassium Level 4.8 MMOL/L (3.5-5.1) 4.4 MMOL/L (3.5-5.1) Chloride Level 105 MMOL/L (98-107) 105 MMOL/L (98-107) Carbon Dioxide Level 29 MMOL/L (21-32) 27 MMOL/L (21-32) Anion Gap 7 mmol/L (5-15) 9 mmol/L (5-15) Blood Urea Nitrogen 61 mg/dL (7-18) H 65 mg/dL (7-18) H Creatinine 1.3 MG/DL (0.55-1.30) 1.4 MG/DL (0.55-1.30) H Estimat Glomerular Filtration Rate 56.3 mL/min (>60) 51.7 mL/min (>60) Glucose Level 109 MG/DL (74-106) H 145 MG/DL (74-106) H Calcium Level 10.3 MG/DL (8.5-10.1) H 10.1 MG/DL (8.5-10.1) Total Bilirubin 0.5 MG/DL (0.2-1.0) Aspartate Amino Transf (AST/SGOT) 23 U/L (15-37) Alanine Aminotransferase (ALT/SGPT) 16 U/L (12-78) Alkaline Phosphatase 131 U/L (46-116) H Total Protein 9.0 G/DL (6.4-8.2) H Albumin 3.1 G/DL (3.4-5.0) L 2.9 G/DL (3.4-5.0) L Globulin 5.9 g/dL Albumin/Globulin Ratio 0.5 (1.0-2.7) L Urine Color Pale yellow Urine Appearance Clear Urine pH 6 (4.5-8.0) Urine Specific [place] 1.010 (1.005-1.035) Urine Protein Negative (NEGATIVE) Urine Glucose (UA) Negative (NEGATIVE) Urine Ketones Negative (NEGATIVE) Urine Blood Negative (NEGATIVE) Urine Nitrite Negative (NEGATIVE) Urine Bilirubin Negative (NEGATIVE) Urine Urobilinogen 1 MG/DL (0.0-1.0) H Urine Leukocyte Esterase Negative (NEGATIVE) Hypochromasia 1+ Anisocytosis 1+ Macrocytosis 1+ Phosphorus Level 3.7 MG/DL (2.5-4.9) Microbiology Date/Time Source Procedure Growth Status 05/25/19 20:30 Rectum Received Height (Feet): 5 Height (Inches): 8.00 Weight (Pounds): 180 Medications Current Medications Medications (Trade) Dose Ordered Sig/Sophie Route PRN Reason Start Time Stop Time Status Last Admin Dose Admin Acetaminophen (Tylenol) 650 mg Q4H PRN ORAL FEVER (temp>100.5F) 05/25/19 22:00 06/24/19 21:59 Albuterol/ Ipratropium (Albuterol/ Ipratropium) 3 ml Q4H PRN HHN Shortness of Breath 05/25/19 22:00 05/30/19 21:59 Allopurinol (Allopurinol) 300 mg DAILY GT 05/26/19 09:00 06/25/19 08:59 05/26/19 08:56 Amiodarone HCl (Cordarone) 100 mg DAILY GT 05/26/19 09:00 06/25/19 08:59 05/26/19 08:56 Dextrose (Dextrose 50%) 25 ml Q30M PRN IV Hypoglycemia 05/25/19 22:15 06/24/19 22:03 Dextrose (Dextrose 50%) 50 ml Q30M PRN IV hypoglycemia 05/25/19 22:15 06/24/19 22:14 Dextrose/Sodium Chloride 1,000 ml @ 100 mls/hr Q10H IV 05/26/19 09:00 06/25/19 08:59 05/26/19 08:57 Diatrizoate Meglum/ Diatrizoate Sod (Gastrografin) 30 ml ONCE ONCE ORAL 05/26/19 10:30 05/26/19 10:31 UNV Heparin Sodium (Porcine) (Heparin 5000 units/ml) 5,000 units EVERY 12 HOURS SUBQ 05/26/19 09:00 06/25/19 08:59 Levetiracetam (Keppra) 1,000 mg DAILY GT 05/26/19 09:00 06/25/19 08:59 05/26/19 08:56 Lorazepam (Ativan 2mg/ml 1ml) 2 mg Q2H PRN IV For Anxiety 05/25/19 22:00 06/01/19 21:59 Morphine Sulfate (Morphine Sulfate) 4 mg Q4H PRN IVP Severe Pain (Pain Scale 7-10) 05/25/19 22:00 06/01/19 21:59 Ondansetron HCl (Zofran) 4 mg Q6H PRN IVP Nausea & Vomiting 05/25/19 22:00 06/24/19 21:59 Pantoprazole (Protonix) 40 mg DAILY IV 05/26/19 09:00 06/25/19 08:59 05/26/19 08:56 Polyethylene Glycol (Miralax) 17 gm DAILYPRN PRN GT Constipation 05/25/19 22:00 06/24/19 21:59 Vancomycin HCl (Vanco rx to dose) 1 ea DAILY PRN MISC PER RX PROTOCOL 05/25/19 22:15 06/24/19 22:14 Vancomycin HCl 750 mg/Sodium Chloride 275 ml @ 183.333 mls/hr Q12HR@1100,2300 IVPB 05/26/19 11:00 05/31/19 10:59 Assessment/Plan Problem List: (1) G-tube site cellulitis ICD Codes: 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; L03.319 - Cellulitis of trunk, unspecified SNOMED: 394462753, 967758991 (2) Chronic respiratory failure ICD Codes: J96.10 - Chronic respiratory failure, unspecified whether with hypoxia or hypercapnia SNOMED: 87587063 (3) ICD (implantable cardioverter-defibrillator) in place ICD Codes: Z95.810 - Presence of automatic (implantable) cardiac defibrillator SNOMED: 335203197 (4) History of CVA (cerebrovascular accident) ICD Codes: Z86.73 - Personal history of transient ischemic attack (TIA), and cerebral infarction without residual deficits SNOMED: 885466450 (5) Feeding by G-tube ICD Codes: Z93.1 - Gastrostomy status SNOMED: 502921176, 785541276, 846776232 (6) Diabetes mellitus ICD Codes: E11.9 - Type 2 diabetes mellitus without complications SNOMED: 47014952 (7) Malfunction of gastrostomy tube ICD Codes: K94.23 - Gastrostomy malfunction SNOMED: 240893443 (8) Ventilator dependence ICD Codes: Z99.11 - Dependence on respirator [ventilator] status SNOMED: 077336590 Respiratory: monitor respiratory rate, adjust FIO2 Cardiac: continue pressors, continue to monitor HR/BP Renal: F/U I&O, keep IV fluid, check electrolytes Infectious Disease: check cultures Gastrointestinal: continue feedings/current rate, hold feedings Endocrine: monitor blood sugar Hematologic: monitor H/H, transfuse if hgb<8.5 Neurologic: PRN Ativan, keep patient comfortable Affect: PRN ativan Prophylaxis: Heparin Time Spent (Minutes): 40 Notes Reviewed: bay stocker, cardio, renal Discussed with: nurses, consultants, case therapist Yudy Garner MD May 26, 2019 10:44
[2019-05-26] MEDS ORDERED: Vancomycin 750mg/NS 275ml IVPB SCH ×2 (11:00)
--- NOTE | 2019-05-26 12:44 | Consultation ---
History of Present Illness General Date patient seen: May 26, 2019 Chief Complaint: Malfunctioning Gastric Tube Referring physician: LATONIA ARGUETA Reason for Consultation: chronic ventilation Present Illness HPI 58 y/o M with hx of chronic respiratory failure on Tach/vent/Peg, ICD, CVA, bed bound, SNF resident is brought to ED on 05/25 for GT malfunction and bleeding from GT stoma. Upon admission patient with WBC of 19. No reported diarrhea, vomiting Allergies: Coded Allergies: No Known Allergies (Unverified , 12/06/18) Medication History Scheduled Allopurinol* (Allopurinol*), 300 MG GT DAILY, (Reported) Amino Acids/Protein Hydrolys (Pro-Stat Liquid), 30 ML GT TWICE A DAY, (Reported) Amiodarone Hcl (Amiodarone Hcl), 100 MG GT DAILY, (Reported) Ascorbic Acid* (Vitamin C*), 500 MG GT DAILY, (Reported) Atorvastatin Calcium* (Atorvastatin Calcium*), 40 MG ORAL BEDTIME, (Reported) Carvedilol (Coreg), 12.5 MG GT EVERY 12 HOURS Docusate Sodium* (Colace*), 100 MG GT DAILY, (Reported) Famotidine (Famotidine), 20 MG GT DAILY, (Reported) Folic Acid* (Folic Acid*), 1 MG GT DAILY, (Reported) Furosemide* (Lasix*), 20 MG GT BID, (Reported) Insulin Glargine (Lantus), 0 SUBQ BEDTIME, (Reported) Levetiracetam (Keppra), 1,000 MG GT DAILY, (Reported) Lisinopril* (Lisinopril*), 2.5 MG GT DAILY, (Reported) Magnesium Hydroxide* (Milk Of Magnesia*), 30 ML GT DAILY, (Reported) Metformin Hcl* (Metformin Hcl*), 500 MG GT TWICE A DAY, (Reported) Multivitamin Liquid* (Multi-Delyn*), 5 ML GT DAILY, (Reported) Spironolactone* (Aldactone*), 25 MG GT DAILY, (Reported) Vitamin D (Vitamin D3), 5,000 UNITS IABDOM DAILY, (Reported) Scheduled PRN Acetaminophen* (Acetaminophen 325MG Tablet*), 650 MG GT Q4H PRN for Pain Scale ( 3-5), (Reported) Albuterol Sulfate* (Albuterol Sulfate Hhn*), 3 ML INH Q4H PRN for Shortness of Breath, (Reported) Miscellaneous Medications Apixaban (Eliquis), 5 MG GT, (Reported) Cranberry Extract/Vit C (Azo Cranberry Softgel), 1 EACH GT, (Reported) Discontinued Medications Carvedilol* (Carvedilol*), 12.5 MG GT EVERY 12 HOURS, (Reported) Discontinued Reason: Therapy completed Patient History Healthcare decision maker N Resuscitation status Full Code Advanced Directive on File Patient History Narrative Pmhx: as above Shx: reviewed Fhx: non contributory Review of Systems All Other Systems: negative except mentioned in HPI Physical Exam Physical Exam Narrative Lines, tubes and drains: peripheral, central line HEENT: normocephalic, mucous membranes moist Neck: non-tender, normal alignment Respiratory/Chest: chest wall non-tender, lungs clear Cardiovascular/Chest: normal peripheral pulses, normal rate Abdomen: normal bowel sounds, non tender Extremities: normal range of motion, non-tender Skin Exam: normal pigmentation 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 Last 24 Hour Vital Signs Date Time Temp Pulse Resp B/P (MAP) Pulse Ox O2 Delivery O2 Flow Rate FiO2 05/26/19 12:00 Mechanical Ventilator 05/26/19 12:00 98.3 98 16 105/62 (76) 100 05/26/19 12:00 35 05/26/19 11:20 97 16 35 05/26/19 09:26 99 16 35 05/26/19 08:08 105 90/57 05/26/19 08:00 98.2 105 16 90/57 (68) 100 05/26/19 08:00 104 05/26/19 08:00 35 05/26/19 08:00 Mechanical Ventilator 05/26/19 06:50 101 15 35 05/26/19 04:33 102 15 35 05/26/19 04:00 98.7 108 16 90/62 (71) 100 05/26/19 04:00 Mechanical Ventilator 05/26/19 04:00 35 05/26/19 03:34 103 05/26/19 03:04 99 16 35 05/26/19 01:28 101 14 35 05/26/19 00:00 97.8 103 16 98/58 (71) 100 05/26/19 00:00 Mechanical Ventilator 05/26/19 00:00 35 05/25/19 23:32 105 05/25/19 23:25 99 14 36 05/25/19 22:40 98.0 102 16 121/77 (92) 100 05/25/19 22:40 Mechanical Ventilator 05/25/19 22:20 97.9 95 21 114/75 95 Mechanical Ventilator 4.0 36 05/25/19 21:50 87 21 36 05/25/19 19:45 97.9 95 14 103/66 95 Mechanical Ventilator 4.0 05/25/19 19:10 86 20 36 05/25/19 19:04 97.9 65 14 119/78 (92) 95 Mechanical Ventilator 4.0 Intake and Output 05/25/19 05/26/19 19:00 07:00 # Bowel Movements 1 Laboratory Tests Test 05/25/19 19:50 05/25/19 21:20 05/26/19 03:35 White Blood Count 16.5 K/UL (4.8-10.8) H 18.7 K/UL (4.8-10.8) H Red Blood Count 3.76 M/UL (4.70-6.10) L 3.54 M/UL (4.70-6.10) L Hemoglobin 12.2 G/DL (14.2-18.0) L 11.5 G/DL (14.2-18.0) L Hematocrit 36.2 % (42.0-52.0) L 35.8 % (42.0-52.0) L Mean Corpuscular Volume 96 FL (80-99) 101 FL (80-99) H Mean Corpuscular Hemoglobin 32.5 PG (27.0-31.0) H 32.5 PG (27.0-31.0) H Mean Corpuscular Hemoglobin Concent 33.8 G/DL (32.0-36.0) 32.1 G/DL (32.0-36.0) Red Cell Distribution Width 15.4 % (11.6-14.8) H 16.1 % (11.6-14.8) H Platelet Count 285 K/UL (150-450) 289 K/UL (150-450) Mean Platelet Volume 6.1 FL (6.5-10.1) L 7.3 FL (6.5-10.1) Neutrophils (%) (Auto) % (45.0-75.0) % (45.0-75.0) Lymphocytes (%) (Auto) % (20.0-45.0) % (20.0-45.0) Monocytes (%) (Auto) % (1.0-10.0) % (1.0-10.0) Eosinophils (%) (Auto) % (0.0-3.0) % (0.0-3.0) Basophils (%) (Auto) % (0.0-2.0) % (0.0-2.0) Differential Total Cells Counted 100 100 Neutrophils % (Manual) 64 % (45-75) 83 % (45-75) H Lymphocytes % (Manual) 12 % (20-45) L 9 % (20-45) L Monocytes % (Manual) 3 % (1-10) 3 % (1-10) Eosinophils % (Manual) 20 % (0-3) H 5 % (0-3) H Basophils % (Manual) 0 % (0-2) 0 % (0-2) Band Neutrophils 1 % (0-8) 0 % (0-8) Platelet Estimate Adequate Adequate Platelet Morphology Normal Normal Red Blood Cell Morphology Normal Prothrombin Time 12.4 SEC (9.30-11.50) H Prothromb Time International Ratio 1.2 (0.9-1.1) H Activated Partial Thromboplast Time 31 SEC (23-33) Sodium Level 141 MMOL/L (136-145) 141 MMOL/L (136-145) Potassium Level 4.8 MMOL/L (3.5-5.1) 4.4 MMOL/L (3.5-5.1) Chloride Level 105 MMOL/L (98-107) 105 MMOL/L (98-107) Carbon Dioxide Level 29 MMOL/L (21-32) 27 MMOL/L (21-32) Anion Gap 7 mmol/L (5-15) 9 mmol/L (5-15) Blood Urea Nitrogen 61 mg/dL (7-18) H 65 mg/dL (7-18) H Creatinine 1.3 MG/DL (0.55-1.30) 1.4 MG/DL (0.55-1.30) H Estimat Glomerular Filtration Rate 56.3 mL/min (>60) 51.7 mL/min (>60) Glucose Level 109 MG/DL (74-106) H 145 MG/DL (74-106) H Calcium Level 10.3 MG/DL (8.5-10.1) H 10.1 MG/DL (8.5-10.1) Total Bilirubin 0.5 MG/DL (0.2-1.0) Aspartate Amino Transf (AST/SGOT) 23 U/L (15-37) Alanine Aminotransferase (ALT/SGPT) 16 U/L (12-78) Alkaline Phosphatase 131 U/L (46-116) H Total Protein 9.0 G/DL (6.4-8.2) H Albumin 3.1 G/DL (3.4-5.0) L 2.9 G/DL (3.4-5.0) L Globulin 5.9 g/dL Albumin/Globulin Ratio 0.5 (1.0-2.7) L Urine Color Pale yellow Urine Appearance Clear Urine pH 6 (4.5-8.0) Urine Specific [place] 1.010 (1.005-1.035) Urine Protein Negative (NEGATIVE) Urine Glucose (UA) Negative (NEGATIVE) Urine Ketones Negative (NEGATIVE) Urine Blood Negative (NEGATIVE) Urine Nitrite Negative (NEGATIVE) Urine Bilirubin Negative (NEGATIVE) Urine Urobilinogen 1 MG/DL (0.0-1.0) H Urine Leukocyte Esterase Negative (NEGATIVE) Hypochromasia 1+ Anisocytosis 1+ Macrocytosis 1+ Phosphorus Level 3.7 MG/DL (2.5-4.9) Microbiology Date/Time Source Procedure Growth Status 05/25/19 20:30 Rectum Received Height (Feet): 5 Height (Inches): 8.00 Weight (Pounds): 180 Medications Current Medications Medications (Trade) Dose Ordered Sig/Sophie Route PRN Reason Start Time Stop Time Status Last Admin Dose Admin Acetaminophen (Tylenol) 650 mg Q4H PRN ORAL FEVER (temp>100.5F) 05/25/19 22:00 06/24/19 21:59 Albuterol/ Ipratropium (Albuterol/ Ipratropium) 3 ml Q4H PRN HHN Shortness of Breath 05/25/19 22:00 05/30/19 21:59 Allopurinol (Allopurinol) 300 mg DAILY GT 05/26/19 09:00 06/25/19 08:59 05/26/19 08:56 Amiodarone HCl (Cordarone) 100 mg DAILY GT 05/26/19 09:00 06/25/19 08:59 05/26/19 08:56 Dextrose (Dextrose 50%) 25 ml Q30M PRN IV Hypoglycemia 05/25/19 22:15 06/24/19 22:03 Dextrose (Dextrose 50%) 50 ml Q30M PRN IV hypoglycemia 05/25/19 22:15 06/24/19 22:14 Dextrose/Sodium Chloride 1,000 ml @ 100 mls/hr Q10H IV 05/26/19 09:00 06/25/19 08:59 05/26/19 08:57 Heparin Sodium (Porcine) (Heparin 5000 units/ml) 5,000 units EVERY 12 HOURS SUBQ 05/26/19 09:00 06/25/19 08:59 Levetiracetam (Keppra) 1,000 mg DAILY GT 05/26/19 09:00 06/25/19 08:59 05/26/19 08:56 Lorazepam (Ativan 2mg/ml 1ml) 2 mg Q2H PRN IV For Anxiety 05/25/19 22:00 06/01/19 21:59 Morphine Sulfate (Morphine Sulfate) 4 mg Q4H PRN IVP Severe Pain (Pain Scale 7-10) 05/25/19 22:00 06/01/19 21:59 Ondansetron HCl (Zofran) 4 mg Q6H PRN IVP Nausea & Vomiting 05/25/19 22:00 06/24/19 21:59 Pantoprazole (Protonix) 40 mg DAILY IV 05/26/19 09:00 06/25/19 08:59 05/26/19 08:56 Polyethylene Glycol (Miralax) 17 gm DAILYPRN PRN GT Constipation 05/25/19 22:00 06/24/19 21:59 Vancomycin HCl (Vanco rx to dose) 1 ea DAILY PRN MISC PER RX PROTOCOL 05/25/19 22:15 06/24/19 22:14 Vancomycin HCl 750 mg/Sodium Chloride 275 ml @ 183.333 mls/hr Q12H IVPB 05/26/19 13:00 05/31/19 12:59 Assessment/Plan Assessment/Plan: Abx: IV Vancomycin 05/25- Ancef x1 05/25 Assessment: Probable sepsis- ?source- r/o PNA, bacteremia -u/a neg -CXR p Afebrile Leukocytosis, increased GT malfunction -wound cx p chronic respiratory failure on Tach/vent/Peg s/p ICD CVA bed bound SNF resident Plan: -Continue empiric IV Vancomycin #2 and add Cefepime pending cultures -f/u cx -Monitor CBC/CMP, temperatures -Bcx x2 -f/u CXR -Cdiff if diarrhea -PEG/Trach care -aspiration precautions Thank you for this consultation. Will continue to follow along with you. Discussed with Flavia Rudd M.D. May 26, 2019 12:44
--- NOTE | 2019-05-26 12:47 | Diagnostic Imaging Report ---
Indication: Dyspnea Comparison: 12/11/2018 A single view chest radiograph was obtained. Findings: Basilar atelectasis suspected on the left. Lung volumes are low. Mild pulmonary vascular congestion may be present. Pacemaker and tracheostomy are noted. Heart size is borderline enlarged. Bones are osteopenic. IMPRESSION: Suspected mild pulmonary vascular congestion
[2019-05-26] MEDS: Vancomycin 750mg/NS 275ml IVPB SCH ×2 (12:56)
--- NOTE | 2019-05-26 13:53 | History & Physical ---
History and Physical History & Physicial Dictated for Int Med=David Forbes MD May 26, 2019 13:53
[2019-05-26] MEDS ORDERED: Cefepime HCl 1 GM in D5W 55 ML IVPB SCH (15:00)
[2019-05-26] MEDS: Cefepime HCl 1 GM in NS 55 ML IVPB SCH (15:42)
--- NOTE | 2019-05-26 16:02 | Diagnostic Imaging Report ---
Indication: Abdominal pain Comparison: 05/25/2019 Single view of the abdomen obtained Findings: There is contrast within the stomach, duodenum and large and small bowel. Gastrostomy tube projects over the stomach and it appears to be in good position. There is a FIELD SERVICE MANAGER shunt on the right side. Bowel gas pattern is nonspecific. Gale catheter noted projected over the bladder. IMPRESSION: No acute findings
[2019-05-26] MEDS ORDERED: DUONEB 0.5-3(2.53 ML HHN (18:10)
[2019-05-26] MEDS ORDERED: NOVOLOG100 UNIT/5 (18:18)
[2019-05-26] MEDS ORDERED: LEVETIRACE100 MG/1 M GT (18:18)
[2019-05-26] MEDS ORDERED: VITAMIN D35000 UNI2 GT (18:24)
[2019-05-26] MEDS ORDERED: UTI-STAT L3875 MG/31 GT (18:24)
[2019-05-26] MEDS ORDERED: Vancomycin 1 GM in D5W 275 ML IV SCH (23:00)
[2019-05-27] VITALS: BP 97/68
--- NOTE | 2019-05-27 00:30 | History and Physical Report ---
DATE OF ADMISSION: 05/25/2019 CHIEF COMPLAINT: The patient is a 58-year-old male, who presents with a chief complaint of malfunctioning gastrostomy tube. HISTORY OF PRESENT ILLNESS: The patient is a resident of [facility]. The patient has a history of PEG placement. According to staff at [facility], the patient has a 1-day history of bloody oozing from the gastrostomy tube site. The patient presented to [place] emergency room. The patient is admitted with malfunctioning gastrostomy tube. REVIEW OF SYSTEMS: Unable to assess secondary to the patient's mental status. PAST MEDICAL HISTORY: Significant for: 1. Dysphagia, status post PEG placement. 2. Diabetes type 2. 3. History of cardiac arrhythmia. 4. History of intracerebral hemorrhage. 5. Congestive heart failure. 6. Coronary artery disease. 7. Hemiplegia. PAST SURGICAL HISTORY: Significant for: 1. PEG placement. 2. AICD placement. 3. Tracheostomy. CURRENT MEDICATIONS: 1. Carvedilol 12.5 mg p.o. twice daily. 2. Vitamin D 400 units p.o. daily. 3. Vitamin C 500 mg per G-tube daily. 4. Tylenol 650 mg per G-tube q.4 hours p.r.n. 5. Pro-Stat 30 mL per G-tube twice daily. 6. Multivitamin 5 mL per G-tube daily. 7. Magnesium hydroxide 30 mL per G-tube p.r.n. 8. Metformin 500 mg per G-tube twice daily. 9. Lisinopril 2.5 mg per G-tube daily. 10. Lantus of an unknown dose subcutaneous at bedtime. 11. Keppra 1000 mg per G-tube twice daily. 12. Lasix 20 mg per G-tube twice daily. 13. Folic acid 1 mg per G-tube daily. 14. Famotidine 20 mg per G-tube daily. 15. Apixaban 5 mg per G-tube daily. 16. Atorvastatin 40 mg per G-tube daily. 17. Amiodarone 100 mg per G-tube daily. 18. Allopurinol 300 mg per G-tube daily. 19. Spironolactone 25 mg per G-tube daily. 20. Albuterol 2.5 mg nebulized q.4 hours p.r.n. ALLERGIES: No known drug allergies. SOCIAL HISTORY: The patient is . The patient denies tobacco or alcohol use. PHYSICAL EXAMINATION: VITAL SIGNS: Temperature 97.9, respirations 14, pulse 65, and blood pressure 119/70. GENERAL: The patient is a well-developed and well-nourished male, who is on a mechanical ventilator. HEENT: Eyes, pupils are equal and responsive to light and accommodation. Extraocular movements are intact. NECK: Supple without lymphadenopathy. CHEST: Diffuse crackles on bilateral bases. Otherwise, without wheezes or rales. CARDIOVASCULAR: Regular rhythm and rate. S1 and S2 are normal without murmurs, rubs, or gallops. ABDOMEN: Soft, nontender, and nondistended with positive bowel sounds. No evidence of hepatosplenomegaly. Currently, no rebound or guarding noted. EXTREMITIES: Negative for clubbing, cyanosis, or edema. RECTAL/GENITAL: Refused. NEUROLOGIC: Unable to assess. LABORATORY STUDIES: WBC 16.5, hemoglobin 12.2, hematocrit 36.2, and platelets 285,000. Sodium 141, potassium 4.8, chloride 105, CO2 29, BUN 61, creatinine 1.3, and glucose 109. ASSESSMENT: This is a 58-year-old male. 1. Gastrostomy tube malfunction. 2. Dysphagia. 3. Diabetes type 2. 4. History of cardiac arrhythmia. 5. Status post biventricular AICD. 6. Dysphagia, status post PEG. 7. Morbid obesity. 8. Peripheral vascular disease. 9. Acute on chronic renal insufficiency. 10. History of seizure disorder. 11. Chronic atrial fibrillation. 12. Fatty liver. 13. Hypertension. 14. Nontraumatic intracerebral hemorrhage. 15. Anemia of chronic disease. TREATMENT: 1. Gastrostomy tube malfunction/dysphagia. A Gastroenterology consultation is obtained with Dr. Jakob Rdz. We will follow recommendations of Gastroenterology. 2. Diabetes type 2. The patient has been placed on a regular insulin sliding scale. 3. Essential hypertension. Continue Coreg as above. 4. History of cardiac arrhythmias, status post biventricular AICD. 5. Morbid obesity. 6. Peripheral vascular disease. 7. Acute on chronic renal insufficiency. A Nephrology consultation has been obtained with Dr. Burgess. 8. Seizure disorder. Continue Keppra as above. 9. Chronic atrial fibrillation. 10. Fatty liver. 11. Nontraumatic intracerebral hemorrhage. 12. Hemiplegia. 13. Anemia of chronic disease. David Lieberman M.D. DR: JCARLOS JOB#: [id number] CC:
[2019-05-27] MEDS: Vancomycin 750mg/NS 275ml IVPB SCH ×2 (00:54)
[2019-05-27 04:00] VITALS: BP 95/68
[2019-05-27 04:28] LABS: BASOPHILS % (AUTO) 1.1 % (0.0-2.0); EOSINOPHILS % (AUTO) 14.4 % (0.0-3.0); HEMATOCRIT 30.3 % (42.0-52.0); HEMOGLOBIN 9.7 G/DL (14.2-18.0); LYMPHOCYTES % (AUTO) 16.8 % (20.0-45.0); MEAN CORPUSCULAR VOLUME 100 FL (80-99); MONOCYTES % (AUTO) 9.2 % (1.0-10.0); NEUTROPHILS % (AUTO) 58.5 % (45.0-75.0); PLATELET COUNT 241 K/UL (150-450); RED BLOOD COUNT 3.03 M/UL (4.70-6.10); RED CELL DISTRIBUTION WIDTH 16.3 % (11.6-14.8); WHITE BLOOD COUNT 9.7 K/UL (4.8-10.8)
[2019-05-27 04:58] LABS: INR 1.2 (0.9-1.1)
[2019-05-27 05:17] LABS: ALANINE AMINOTRANSFERASE 15 U/L (12-78); ALBUMIN 2.7 G/DL (3.4-5.0); ALBUMIN/GLOBULIN RATIO 0.5 (1.0-2.7); ANION GAP 9 mmol/L (5-15); ASPARTATE AMINO TRANSFERASE 17 U/L (15-37); BILIRUBIN,TOTAL 0.5 MG/DL (0.2-1.0); BLOOD UREA NITROGEN 62 mg/dL (7-18); CALCIUM 9.7 MG/DL (8.5-10.1); CARBON DIOXIDE 25 MMOL/L (21-32); CHLORIDE 109 MMOL/L (98-107); CREATININE 1.7 MG/DL (0.55-1.30); FERRITIN 464 NG/ML (8-388); PHOSPHORUS 2.7 MG/DL (2.5-4.9); POTASSIUM 3.6 MMOL/L (3.5-5.1); SODIUM 143 MMOL/L (136-145)
[2019-05-27] MEDS: D5 1/2NS 1,000 ML IV SCH (05:27)
[2019-05-27 05:28] LABS: % IRON SATURATION 17 % (15-50); IRON 29 ug/dL (50-175); TOTAL IRON BINDING CAPACITY 173 ug/dL (250-450)
[2019-05-27 05:51] LABS: ALKALINE PHOSPHATASE 99 U/L (46-116)
[2019-05-27 08:00] VITALS: BP 94/60
[2019-05-27] MEDS: Amiodarone 200mg tab GT SCH (08:07)
[2019-05-27] MEDS: Pantoprazole Inj IV SCH (08:07)
[2019-05-27] MEDS: Cefepime HCl 1 GM in NS 55 ML IVPB SCH ×2 (08:08→20:45)
[2019-05-27] MEDS: levETIRAcetam 500mg/5ml Liquid GT SCH (08:08)
[2019-05-27] MEDS: Heparin 5000 units/ml inj SUBQ SCH ×2 (08:11→20:51)
--- NOTE | 2019-05-27 10:23 | Pulmonolgy Critical Care Note ---
Critical Care - Asmt/Plan Problems: (1) ICD (implantable cardioverter-defibrillator) in place (2) Chronic respiratory failure (3) History of CVA (cerebrovascular accident) (4) Feeding by G-tube (5) G-tube site cellulitis (6) Ventilator dependence (7) Diabetes mellitus Respiratory: monitor respiratory rate, adjust FIO2, CXR Cardiac: continue to monitor HR/BP Renal: F/U I&O, check electrolytes Infectious Disease: check cultures Gastrointestinal: start feedings Endocrine: monitor blood sugar, check TSH Hematologic: monitor H/H, transfuse if hgb<8.5 Affect: PRN ativan Prophylaxis: Protonix Time Spent (Minutes): 30 Notes Reviewed: fleet administrative assistant, renal Discussed with: nurses, consultants, nurse case managementdata management manager - Objective Last 24 Hour Vital Signs Date Time Temp Pulse Resp B/P (MAP) Pulse Ox O2 Delivery O2 Flow Rate FiO2 05/27/19 09:04 85 16 35 05/27/19 08:00 35 05/27/19 08:00 Mechanical Ventilator 05/27/19 08:00 98.2 85 16 94/60 (71) 100 05/27/19 08:00 86 05/27/19 07:01 94 16 35 05/27/19 05:21 97 17 35 05/27/19 04:00 35 05/27/19 04:00 Mechanical Ventilator 05/27/19 04:00 98 05/27/19 04:00 98.6 94 16 95/68 (77) 100 05/27/19 03:22 100 16 35 05/27/19 01:08 97 16 35 05/27/19 00:00 Mechanical Ventilator 05/27/19 00:00 103 05/27/19 00:00 98.6 101 16 97/68 (78) 100 05/26/19 22:30 105 16 35 05/26/19 20:58 104 16 35 05/26/19 20:00 35 05/26/19 20:00 98.1 103 16 98/64 (75) 94 05/26/19 20:00 Mechanical Ventilator 05/26/19 20:00 103 05/26/19 18:33 100 16 35 05/26/19 18:29 98.2 101 16 113/69 (84) 100 05/26/19 17:15 100 16 35 05/26/19 16:00 35 05/26/19 16:00 Mechanical Ventilator 05/26/19 16:00 98.1 95 16 106/74 (85) 100 05/26/19 16:00 98 05/26/19 14:40 96 16 35 05/26/19 13:05 98 16 35 05/26/19 13:00 Mechanical Ventilator 05/26/19 12:00 Mechanical Ventilator 05/26/19 12:00 98.3 98 16 105/62 (76) 100 05/26/19 12:00 35 05/26/19 12:00 97 05/26/19 11:20 97 16 35 Status: awake, sedated Condition: critical HEENT: atraumatic Lungs: clear Heart: HR/BP stable Abdomen: soft, feeding tube Extremities: no C/C/E Micro: Microbiology Date/Time Source Procedure Growth Status 05/25/19 23:50 Sputum Gram Stain - Final Resulted 05/25/19 23:50 Sputum Culture - Preliminary Gram Negative Bacillus 1 Resulted 05/25/19 20:30 Rectum Received Critical Care - Subjective ROS Limited/Unobtainable: Yes Condition: critical EKG Rhythm: Sinus Rhythm FI02: 35 Vent Support Breath Rate: 16 Vent Support Mode: AC Vent Tidal Volume: 600 Sputum Amount: Moderate PEEP: 5.0 PIP: 20 I&O: Intake and Output 05/26/19 05/27/19 18:59 06:59 Intake Total 1321.666 ml 521.666 ml Output Total 500 ml 250 ml Balance 821.666 ml 271.666 ml Intake IV Total 1321.666 ml 521.666 ml Output Urine Total 500 ml 250 ml # Bowel Movements 2 CXR: pulmonary edema ICD in place Labs: Laboratory Tests Test 05/27/19 03:35 White Blood Count 9.7 K/UL (4.8-10.8) Red Blood Count 3.03 M/UL (4.70-6.10) L Hemoglobin 9.7 G/DL (14.2-18.0) L Hematocrit 30.3 % (42.0-52.0) L Mean Corpuscular Volume 100 FL (80-99) H Mean Corpuscular Hemoglobin 31.9 PG (27.0-31.0) H Mean Corpuscular Hemoglobin Concent 31.9 G/DL (32.0-36.0) L Red Cell Distribution Width 16.3 % (11.6-14.8) H Platelet Count 241 K/UL (150-450) Mean Platelet Volume 5.8 FL (6.5-10.1) L Neutrophils (%) (Auto) 58.5 % (45.0-75.0) Lymphocytes (%) (Auto) 16.8 % (20.0-45.0) L Monocytes (%) (Auto) 9.2 % (1.0-10.0) Eosinophils (%) (Auto) 14.4 % (0.0-3.0) H Basophils (%) (Auto) 1.1 % (0.0-2.0) Reticulocyte Count 2.4 % (0.5-2.0) H Prothrombin Time 12.5 SEC (9.30-11.50) H Prothromb Time International Ratio 1.2 (0.9-1.1) H Activated Partial Thromboplast Time 30 SEC (23-33) Sodium Level 143 MMOL/L (136-145) Potassium Level 3.6 MMOL/L (3.5-5.1) Chloride Level 109 MMOL/L (98-107) H Carbon Dioxide Level 25 MMOL/L (21-32) Anion Gap 9 mmol/L (5-15) Blood Urea Nitrogen 62 mg/dL (7-18) H Creatinine 1.7 MG/DL (0.55-1.30) H Estimat Glomerular Filtration Rate 41.3 mL/min (>60) Glucose Level 151 MG/DL (74-106) H Calcium Level 9.7 MG/DL (8.5-10.1) Phosphorus Level 2.7 MG/DL (2.5-4.9) Magnesium Level 2.1 MG/DL (1.8-2.4) Iron Level 29 ug/dL (50-175) L Total Iron Binding Capacity 173 ug/dL (250-450) L Percent Iron Saturation 17 % (15-50) Unsaturated Iron Binding 144 ug/dL (112-346) Ferritin 464 NG/ML (8-388) H Total Bilirubin 0.5 MG/DL (0.2-1.0) Aspartate Amino Transf (AST/SGOT) 17 U/L (15-37) Alanine Aminotransferase (ALT/SGPT) 15 U/L (12-78) Alkaline Phosphatase 99 U/L (46-116) Total Protein 7.8 G/DL (6.4-8.2) Albumin 2.7 G/DL (3.4-5.0) L Globulin 5.1 g/dL Albumin/Globulin Ratio 0.5 (1.0-2.7) L Vitamin B12 Level 1207 PG/ML (193-986) H Folate 77.6 NG/ML (8.6-58.9) H Thyroid Stimulating Hormone (TSH) 4.071 uiU/mL (0.358-3.740) Free Thyroxine 1.32 NG/DL (0.76-1.46) Yudy Garner MD May 27, 2019 10:23
--- NOTE | 2019-05-27 10:39 | GI Progress Note ---
Assessment/Plan Problems: (1) Ventilator dependence ICD Codes: Z99.11 - Dependence on respirator [ventilator] status SNOMED: 300889129 (2) G-tube site cellulitis ICD Codes: 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; L03.319 - Cellulitis of trunk, unspecified SNOMED: 169036430, 849430781 (3) Malfunction of gastrostomy tube ICD Codes: K94.23 - Gastrostomy malfunction SNOMED: 989843469 (4) History of CVA (cerebrovascular accident) ICD Codes: Z86.73 - Personal history of transient ischemic attack (TIA), and cerebral infarction without residual deficits SNOMED: 666269957 (5) Feeding by G-tube ICD Codes: Z93.1 - Gastrostomy status SNOMED: 996296740, 620789768, 509287463 (6) Diabetes mellitus ICD Codes: E11.9 - Type 2 diabetes mellitus without complications SNOMED: 55936360 Status: stable Status Narrative Discussed with Dr. Rdz. Assessment/Plan 24 Croat[place] G-tube readjusted and balloon inflated KUB placement confirmed, ok to start feedings Wound care consult for possible cauterization around the stoma G-tube feedings per registered dietitian Antibiotics Reglan as needed for GI motility Follow-up H&H PPI The patient was seen and examined at bedside and all new and available data was reviewed in the patients chart. I agree with the above findings, impression and plan. (Patient seen earlier today. Signature stamp does not reflect patient encounter time.). - Jakob Rdz MD Subjective Gastrointestinal/Abdominal: Reports: no symptoms Objective Last 24 Hour Vital Signs Date Time Temp Pulse Resp B/P (MAP) Pulse Ox O2 Delivery O2 Flow Rate FiO2 05/27/19 09:04 85 16 35 05/27/19 08:00 35 05/27/19 08:00 Mechanical Ventilator 05/27/19 08:00 98.2 85 16 94/60 (71) 100 05/27/19 08:00 86 05/27/19 07:01 94 16 35 05/27/19 05:21 97 17 35 05/27/19 04:00 35 05/27/19 04:00 Mechanical Ventilator 05/27/19 04:00 98 05/27/19 04:00 98.6 94 16 95/68 (77) 100 8/13/19 03:22 100 16 35 05/27/19 01:08 97 16 35 05/27/19 00:00 Mechanical Ventilator 05/27/19 00:00 103 05/27/19 00:00 98.6 101 16 97/68 (78) 100 05/26/19 22:30 105 16 35 05/26/19 20:58 104 16 35 05/26/19 20:00 35 05/26/19 20:00 98.1 103 16 98/64 (75) 94 05/26/19 20:00 Mechanical Ventilator 05/26/19 20:00 103 05/26/19 18:33 100 16 35 05/26/19 18:29 98.2 101 16 113/69 (84) 100 05/26/19 17:15 100 16 35 05/26/19 16:00 35 05/26/19 16:00 Mechanical Ventilator 05/26/19 16:00 98.1 95 16 106/74 (85) 100 05/26/19 16:00 98 05/26/19 14:40 96 16 35 05/26/19 13:05 98 16 35 05/26/19 13:00 Mechanical Ventilator 05/26/19 12:00 Mechanical Ventilator 05/26/19 12:00 98.3 98 16 105/62 (76) 100 05/26/19 12:00 35 05/26/19 12:00 97 05/26/19 11:20 97 16 35 Intake and Output 05/26/19 05/27/19 19:00 07:00 Intake Total 1321.666 ml 621.666 ml Output Total 500 ml 250 ml Balance 821.666 ml 371.666 ml Intake IV Total 1321.666 ml 621.666 ml Output Urine Total 500 ml 250 ml # Bowel Movements 2 Laboratory Tests Test 05/27/19 03:35 White Blood Count 9.7 K/UL (4.8-10.8) Red Blood Count 3.03 M/UL (4.70-6.10) L Hemoglobin 9.7 G/DL (14.2-18.0) L Hematocrit 30.3 % (42.0-52.0) L Mean Corpuscular Volume 100 FL (80-99) H Mean Corpuscular Hemoglobin 31.9 PG (27.0-31.0) H Mean Corpuscular Hemoglobin Concent 31.9 G/DL (32.0-36.0) L Red Cell Distribution Width 16.3 % (11.6-14.8) H Platelet Count 241 K/UL (150-450) Mean Platelet Volume 5.8 FL (6.5-10.1) L Neutrophils (%) (Auto) 58.5 % (45.0-75.0) Lymphocytes (%) (Auto) 16.8 % (20.0-45.0) L Monocytes (%) (Auto) 9.2 % (1.0-10.0) Eosinophils (%) (Auto) 14.4 % (0.0-3.0) H Basophils (%) (Auto) 1.1 % (0.0-2.0) Reticulocyte Count 2.4 % (0.5-2.0) H Prothrombin Time 12.5 SEC (9.30-11.50) H Prothromb Time International Ratio 1.2 (0.9-1.1) H Activated Partial Thromboplast Time 30 SEC (23-33) Sodium Level 143 MMOL/L (136-145) Potassium Level 3.6 MMOL/L (3.5-5.1) Chloride Level 109 MMOL/L (98-107) H Carbon Dioxide Level 25 MMOL/L (21-32) Anion Gap 9 mmol/L (5-15) Blood Urea Nitrogen 62 mg/dL (7-18) H Creatinine 1.7 MG/DL (0.55-1.30) H Estimat Glomerular Filtration Rate 41.3 mL/min (>60) Glucose Level 151 MG/DL (74-106) H Calcium Level 9.7 MG/DL (8.5-10.1) Phosphorus Level 2.7 MG/DL (2.5-4.9) Magnesium Level 2.1 MG/DL (1.8-2.4) Iron Level 29 ug/dL (50-175) L Total Iron Binding Capacity 173 ug/dL (250-450) L Percent Iron Saturation 17 % (15-50) Unsaturated Iron Binding 144 ug/dL (112-346) Ferritin 464 NG/ML (8-388) H Total Bilirubin 0.5 MG/DL (0.2-1.0) Aspartate Amino Transf (AST/SGOT) 17 U/L (15-37) Alanine Aminotransferase (ALT/SGPT) 15 U/L (12-78) Alkaline Phosphatase 99 U/L (46-116) Total Protein 7.8 G/DL (6.4-8.2) Albumin 2.7 G/DL (3.4-5.0) L Globulin 5.1 g/dL Albumin/Globulin Ratio 0.5 (1.0-2.7) L Vitamin B12 Level 1207 PG/ML (193-986) H Folate 77.6 NG/ML (8.6-58.9) H Thyroid Stimulating Hormone (TSH) 4.071 uiU/mL (0.358-3.740) Free Thyroxine 1.32 NG/DL (0.76-1.46) Height (Feet): 5 Height (Inches): 8.00 Weight (Pounds): 180 General Appearance: no apparent distress Cardiovascular: normal rate Respiratory/Chest: normal breath sounds, no respiratory distress, other - mech vent Abdominal Exam: normal bowel sounds, non tender, soft, GT site - c/d/i Extremities: non-tender Amarilys Gardiner NP May 27, 2019 10:39
[2019-05-27] MEDS: NovoLOG Insulin Flexpen SUBQ SCH ×3 (11:57→20:46)
[2019-05-27 12:00] VITALS: BP 103/51
--- NOTE | 2019-05-27 12:41 | Infectious Diseases Prog Note ---
Assessment/Plan Assessment/Plan Assessment: Probable sepsis- Probable PNA, r/o bacteremia -u/a neg -CXR Suspected mild pulmonary vascular congestion -sp cx GNR -Bcx p Afebrile Leukocytosis, SP GT malfunction -wound cx p Scabies chronic respiratory failure on Tach/vent/Peg s/p ICD CVA bed bound SNF resident Plan: -Continue empiric Cefepime #2 pending cultures -05/27 SP IV Vancomycin #3 -05/26 SP Ivermectin, permethrin x1 -05/25 SP Ancef x1 -f/u cx -Monitor CBC/CMP, temperatures -f/u Bcx x2 -Cdiff if diarrhea -PEG/Trach care -aspiration precautions Thank you for this consultation. Will continue to follow along with you. Discussed with RN Subjective Allergies: Coded Allergies: No Known Allergies (Unverified , 12/06/18) Subjective afebrile leukocytosis resolved Bcx p Objective Vital Signs Last 24 Hour Vital Signs Date Time Temp Pulse Resp B/P (MAP) Pulse Ox O2 Delivery O2 Flow Rate FiO2 05/27/19 12:00 98.1 74 16 103/51 (68) 99 05/27/19 12:00 35 05/27/19 12:00 Mechanical Ventilator 05/27/19 10:40 94 16 35 05/27/19 09:04 85 16 35 05/27/19 08:00 35 05/27/19 08:00 Mechanical Ventilator 05/27/19 08:00 98.2 85 16 94/60 (71) 100 05/27/19 08:00 86 05/27/19 07:01 94 16 35 05/27/19 05:21 97 17 35 05/27/19 04:00 35 05/27/19 04:00 Mechanical Ventilator 05/27/19 04:00 98 05/27/19 04:00 98.6 94 16 95/68 (77) 100 05/27/19 03:22 100 16 35 05/27/19 01:08 97 16 35 05/27/19 00:00 Mechanical Ventilator 05/27/19 00:00 103 05/27/19 00:00 98.6 101 16 97/68 (78) 100 05/26/19 22:30 105 16 35 05/26/19 20:58 104 16 35 05/26/19 20:00 35 05/26/19 20:00 98.1 103 16 98/64 (75) 94 05/26/19 20:00 Mechanical Ventilator 05/26/19 20:00 103 05/26/19 18:33 100 16 35 05/26/19 18:29 98.2 101 16 113/69 (84) 100 05/26/19 17:15 100 16 35 05/26/19 16:00 35 05/26/19 16:00 Mechanical Ventilator 05/26/19 16:00 98.1 95 16 106/74 (85) 100 05/26/19 16:00 98 05/26/19 14:40 96 16 35 05/26/19 13:05 98 16 35 05/26/19 13:00 Mechanical Ventilator Height (Feet): 5 Height (Inches): 8.00 Weight (Pounds): 180 Objective Lines, tubes and drains: peripheral, central line HEENT: normocephalic, mucous membranes moist Neck: non-tender, normal alignment Respiratory/Chest: chest wall non-tender, lungs clear Cardiovascular/Chest: normal peripheral pulses, normal rate Abdomen: normal bowel sounds, non tender Extremities: normal range of motion, non-tender Skin Exam: normal pigmentation Neurologic: child life specialist II-XII grossly normal Microbiology Date/Time Source Procedure Growth Status 05/25/19 23:50 Sputum Gram Stain - Final Resulted 05/25/19 23:50 Sputum Culture - Preliminary Gram Negative Bacillus 1 Resulted 05/25/19 20:30 Rectum Received Laboratory Tests Test 05/27/19 03:35 White Blood Count 9.7 K/UL (4.8-10.8) Red Blood Count 3.03 M/UL (4.70-6.10) L Hemoglobin 9.7 G/DL (14.2-18.0) L Hematocrit 30.3 % (42.0-52.0) L Mean Corpuscular Volume 100 FL (80-99) H Mean Corpuscular Hemoglobin 31.9 PG (27.0-31.0) H Mean Corpuscular Hemoglobin Concent 31.9 G/DL (32.0-36.0) L Red Cell Distribution Width 16.3 % (11.6-14.8) H Platelet Count 241 K/UL (150-450) Mean Platelet Volume 5.8 FL (6.5-10.1) L Neutrophils (%) (Auto) 58.5 % (45.0-75.0) Lymphocytes (%) (Auto) 16.8 % (20.0-45.0) L Monocytes (%) (Auto) 9.2 % (1.0-10.0) Eosinophils (%) (Auto) 14.4 % (0.0-3.0) H Basophils (%) (Auto) 1.1 % (0.0-2.0) Reticulocyte Count 2.4 % (0.5-2.0) H Prothrombin Time 12.5 SEC (9.30-11.50) H Prothromb Time International Ratio 1.2 (0.9-1.1) H Activated Partial Thromboplast Time 30 SEC (23-33) Sodium Level 143 MMOL/L (136-145) Potassium Level 3.6 MMOL/L (3.5-5.1) Chloride Level 109 MMOL/L (98-107) H Carbon Dioxide Level 25 MMOL/L (21-32) Anion Gap 9 mmol/L (5-15) Blood Urea Nitrogen 62 mg/dL (7-18) H Creatinine 1.7 MG/DL (0.55-1.30) H Estimat Glomerular Filtration Rate 41.3 mL/min (>60) Glucose Level 151 MG/DL (74-106) H Calcium Level 9.7 MG/DL (8.5-10.1) Phosphorus Level 2.7 MG/DL (2.5-4.9) Magnesium Level 2.1 MG/DL (1.8-2.4) Iron Level 29 ug/dL (50-175) L Total Iron Binding Capacity 173 ug/dL (250-450) L Percent Iron Saturation 17 % (15-50) Unsaturated Iron Binding 144 ug/dL (112-346) Ferritin 464 NG/ML (8-388) H Total Bilirubin 0.5 MG/DL (0.2-1.0) Aspartate Amino Transf (AST/SGOT) 17 U/L (15-37) Alanine Aminotransferase (ALT/SGPT) 15 U/L (12-78) Alkaline Phosphatase 99 U/L (46-116) Total Protein 7.8 G/DL (6.4-8.2) Albumin 2.7 G/DL (3.4-5.0) L Globulin 5.1 g/dL Albumin/Globulin Ratio 0.5 (1.0-2.7) L Vitamin B12 Level 1207 PG/ML (193-986) H Folate 77.6 NG/ML (8.6-58.9) H Thyroid Stimulating Hormone (TSH) 4.071 uiU/mL (0.358-3.740) Free Thyroxine 1.32 NG/DL (0.76-1.46) Current Medications Medications (Trade) Dose Ordered Sig/Sophie Route PRN Reason Start Time Stop Time Status Last Admin Dose Admin Acetaminophen (Tylenol) 650 mg Q4H PRN ORAL FEVER (temp>100.5F) 05/25/19 22:00 06/24/19 21:59 Albuterol/ Ipratropium (Albuterol/ Ipratropium) 3 ml Q4H PRN HHN Shortness of Breath 05/25/19 22:00 05/30/19 21:59 Allopurinol (Allopurinol) 300 mg DAILY GT 05/26/19 09:00 06/25/19 08:59 05/27/19 08:08 Amiodarone HCl (Cordarone) 100 mg DAILY GT 05/28/19 09:00 06/25/19 08:59 Cefepime HCl 1 gm/ Sodium Chloride 55 ml @ 110 mls/hr EVERY 12 HOURS IVPB 05/26/19 15:00 06/02/19 14:59 05/27/19 08:08 Dextrose (Dextrose 50%) 25 ml Q30M PRN IV Hypoglycemia 05/25/19 22:15 06/24/19 22:03 Dextrose (Dextrose 50%) 50 ml Q30M PRN IV hypoglycemia 05/25/19 22:15 06/24/19 22:14 Heparin Sodium (Porcine) (Heparin 5000 units/ml) 5,000 units EVERY 12 HOURS SUBQ 05/26/19 09:00 06/25/19 08:59 Insulin Aspart (NovoLOG) BEFORE MEALS AND HS SUBQ 05/27/19 11:30 06/26/19 11:29 05/27/19 11:57 Levetiracetam (Keppra) 1,000 mg DAILY GT 05/26/19 09:00 06/25/19 08:59 05/27/19 08:08 Pantoprazole (Protonix) 40 mg DAILY IV 05/26/19 09:00 06/25/19 08:59 05/27/19 08:07 Flavia Houston M.D. May 27, 2019 12:41
--- NOTE | 2019-05-27 15:27 | CDS Physician Query ---
Clarification is required for compliance, coding accuracy, and to reflect severity of illness for this patient. Dear Dr. David Lieberman Date: 05/27/2019 CDS: Brenda Muro Clinical Documentation states: 05/26 ID note: 58 y/o M with hx of chronic respiratory failure on Tach/vent/Peg, ICD, CVA, bed bound, SNF resident is brought to ED on 05/25 for GT malfunction and bleeding from GT stoma. Upon admission patient with WBC of 19....Probable sepsis- ?source- r/o PNA, bacteremia Treatment: IV Vancomycin A possible diagnosis of Sepsis was made in the medical record on the ID note on 05/26. Upon review, it is difficult to determine whether this diagnosis has been ruled in, ruled out,or is still being worked up. Please indicate below the status of the aforementioned diagnosis. [] Treated and resolve [] Presumed and treated [] Currently under treatment [X] Still being worked-up [] Ruled out Present on Admission: [X] Yes [] No [] Clinically Undetermined Physician signature Date Please also document in your Progress Notes and/or Discharge Summary and indicate if the condition was present on admission. MTDD
[2019-05-27] MEDS ORDERED: D5 1/2NS 1000ml IV ONE (15:33)
[2019-05-27] MEDS ORDERED: Tubing IV Secondary IV ONE (15:33)
[2019-05-27] MEDS ORDERED: NS 275ml ONE (15:33)
--- NOTE | 2019-05-27 15:46 | CDS Physician Query ---
Clarification is required for compliance, coding accuracy, and to reflect severity of illness for this patient Dear Dr. David Lieberman Date: 05/27/2019 Second Helper/CDS Name: Brenda Muro Clinical Documentation States: 05/26 note: 58 y/o M with hx of chronic respiratory failure on Tach/vent/Peg, ICD, CVA, bed bound, SNF resident is brought to ED on 05/25 for GT malfunction and bleeding from GT stoma. Care trends physical assessment: GCS 8, Activity - bedridden, Transfer - with assist of 2 staff members, Upper Extremity: contracted Please respond to the following question: Is there a diagnosis specific to these symptoms or values? If so please state below. PHYSICIAN RESPONSE: [] Functional Quadriplegia [X] Quadriplegia [] Complete immobility due to disability/frailty [] Other disability: [] Clinically Undetermined Present on Admission: [X] Yes [] No [] Clinically Undetermined Physician signature Date Please also document in your Progress Notes and/or Discharge Summary and indicate if the condition was present on admission. MTDD
[2019-05-27 16:00] VITALS: BP 90/57
--- NOTE | 2019-05-27 16:12 | Internal Med Progress Note ---
Subjective Date of Service: May 27, 2019 Physician Name David Lieberman Attending Physician Jian Martinez MD Current Medications Medications (Trade) Dose Ordered Sig/Sophie Route PRN Reason Start Time Stop Time Status Last Admin Dose Admin Acetaminophen (Tylenol) 650 mg Q4H PRN ORAL FEVER (temp>100.5F) 05/25/19 22:00 06/24/19 21:59 Albuterol/ Ipratropium (Albuterol/ Ipratropium) 3 ml Q4H PRN HHN Shortness of Breath 05/25/19 22:00 05/30/19 21:59 Allopurinol (Allopurinol) 300 mg DAILY GT 05/26/19 09:00 06/25/19 08:59 05/27/19 08:08 Amiodarone HCl (Cordarone) 100 mg DAILY GT 05/28/19 09:00 06/25/19 08:59 UNV Cefepime HCl 1 gm/ Sodium Chloride 55 ml @ 110 mls/hr EVERY 12 HOURS IVPB 05/26/19 15:00 06/02/19 14:59 05/27/19 08:08 Dextrose (Dextrose 50%) 25 ml Q30M PRN IV Hypoglycemia 05/25/19 22:15 06/24/19 22:03 Dextrose (Dextrose 50%) 50 ml Q30M PRN IV hypoglycemia 05/25/19 22:15 06/24/19 22:14 Heparin Sodium (Porcine) (Heparin 5000 units/ml) 5,000 units EVERY 12 HOURS SUBQ 05/26/19 09:00 06/25/19 08:59 Insulin Aspart (NovoLOG) BEFORE MEALS AND HS SUBQ 05/27/19 11:30 06/26/19 11:29 05/27/19 11:57 Levetiracetam (Keppra) 1,000 mg DAILY GT 05/26/19 09:00 06/25/19 08:59 05/27/19 08:08 Pantoprazole (Protonix) 40 mg DAILY IV 05/26/19 09:00 06/25/19 08:59 05/27/19 08:07 Allergies: Coded Allergies: No Known Allergies (Unverified , 12/06/18) ROS Limited/Unobtainable: Yes Subjective 58 YO M admitted with G-tube malfunction. Now hypotension. Cover for Int med- Dr Martinez. SHELLI Objective Last Vital Signs Date Time Temp Pulse Resp B/P (MAP) Pulse Ox O2 Delivery O2 Flow Rate FiO2 05/27/19 14:52 96 24 35 05/27/19 12:00 98.1 103/51 (68) 99 05/27/19 12:00 Mechanical Ventilator 05/25/19 22:20 4.0 Laboratory Tests Test 05/27/19 03:35 White Blood Count 9.7 K/UL (4.8-10.8) Red Blood Count 3.03 M/UL (4.70-6.10) L Hemoglobin 9.7 G/DL (14.2-18.0) L Hematocrit 30.3 % (42.0-52.0) L Mean Corpuscular Volume 100 FL (80-99) H Mean Corpuscular Hemoglobin 31.9 PG (27.0-31.0) H Mean Corpuscular Hemoglobin Concent 31.9 G/DL (32.0-36.0) L Red Cell Distribution Width 16.3 % (11.6-14.8) H Platelet Count 241 K/UL (150-450) Mean Platelet Volume 5.8 FL (6.5-10.1) L Neutrophils (%) (Auto) 58.5 % (45.0-75.0) Lymphocytes (%) (Auto) 16.8 % (20.0-45.0) L Monocytes (%) (Auto) 9.2 % (1.0-10.0) Eosinophils (%) (Auto) 14.4 % (0.0-3.0) H Basophils (%) (Auto) 1.1 % (0.0-2.0) Reticulocyte Count 2.4 % (0.5-2.0) H Prothrombin Time 12.5 SEC (9.30-11.50) H Prothromb Time International Ratio 1.2 (0.9-1.1) H Activated Partial Thromboplast Time 30 SEC (23-33) Sodium Level 143 MMOL/L (136-145) Potassium Level 3.6 MMOL/L (3.5-5.1) Chloride Level 109 MMOL/L (98-107) H Carbon Dioxide Level 25 MMOL/L (21-32) Anion Gap 9 mmol/L (5-15) Blood Urea Nitrogen 62 mg/dL (7-18) H Creatinine 1.7 MG/DL (0.55-1.30) H Estimat Glomerular Filtration Rate 41.3 mL/min (>60) Glucose Level 151 MG/DL (74-106) H Calcium Level 9.7 MG/DL (8.5-10.1) Phosphorus Level 2.7 MG/DL (2.5-4.9) Magnesium Level 2.1 MG/DL (1.8-2.4) Iron Level 29 ug/dL (50-175) L Total Iron Binding Capacity 173 ug/dL (250-450) L Percent Iron Saturation 17 % (15-50) Unsaturated Iron Binding 144 ug/dL (112-346) Ferritin 464 NG/ML (8-388) H Total Bilirubin 0.5 MG/DL (0.2-1.0) Aspartate Amino Transf (AST/SGOT) 17 U/L (15-37) Alanine Aminotransferase (ALT/SGPT) 15 U/L (12-78) Alkaline Phosphatase 99 U/L (46-116) Total Protein 7.8 G/DL (6.4-8.2) Albumin 2.7 G/DL (3.4-5.0) L Globulin 5.1 g/dL Albumin/Globulin Ratio 0.5 (1.0-2.7) L Vitamin B12 Level 1207 PG/ML (193-986) H Folate 77.6 NG/ML (8.6-58.9) H Thyroid Stimulating Hormone (TSH) 4.071 uiU/mL (0.358-3.740) Free Thyroxine 1.32 NG/DL (0.76-1.46) Microbiology Date/Time Source Procedure Growth Status 05/26/19 13:30 Wound Gram Stain - Final Resulted 05/26/19 13:30 Wound Wound Culture Pending Resulted 05/25/19 23:50 Sputum Gram Stain - Final Resulted 05/25/19 23:50 Sputum Culture - Preliminary Gram Negative Bacillus 1 Resulted 05/25/19 20:30 Rectum Received Intake and Output 05/26/19 05/27/19 19:00 07:00 Intake Total 1321.666 ml 621.666 ml Output Total 500 ml 250 ml Balance 821.666 ml 371.666 ml IV Total 1321.666 ml 621.666 ml Output Urine Total 500 ml 250 ml # Bowel Movements 2 Objective PHYSICAL EXAMINATION: GENERAL: The patient is a well-developed and well-nourished male, who is on a mechanical ventilator. HEENT: Eyes, pupils are equal and responsive to light and accommodation. Extraocular movements are intact. NECK: Supple without lymphadenopathy. CHEST: Tracheostomy; Diffuse crackles on bilateral bases. Otherwise, without wheezes or rales. CARDIOVASCULAR: Regular rhythm and rate. S1 and S2 are normal without murmurs, rubs, or gallops. ABDOMEN: Soft, nontender, and nondistended with positive bowel sounds. No evidence of hepatosplenomegaly. Currently, no rebound or guarding noted. EXTREMITIES: Negative for clubbing, cyanosis, or edema. RECTAL/GENITAL: Refused. NEUROLOGIC: Unable to assess. Assessment/Plan Assessment/Plan ASSESSMENT: This is a 58-year-old male. 1. Gastrostomy tube malfunction. 2. Dysphagia. 3. Diabetes type 2. 4. History of cardiac arrhythmia. 5. Status post biventricular AICD. 6. Dysphagia, status post PEG. 7. Morbid obesity. 8. Peripheral vascular disease. 9. Acute on chronic renal insufficiency. 10. History of seizure disorder. 11. Chronic atrial fibrillation. 12. Fatty liver. 13. Hypertension. 14. Nontraumatic intracerebral hemorrhage. 15. Anemia of chronic disease. 16. Vent Dependent respiratory failure 17. Hypotensive TREATMENT: 1. Gastrostomy tube malfunction/dysphagia. A Gastroenterology consultation is obtained with Dr. Jakob Rdz. We will follow recommendations of Gastroenterology. 2. Diabetes type 2. The patient has been placed on a regular insulin sliding scale. 3. Essential hypertension. Continue Coreg as above. 4. History of cardiac arrhythmias, status post biventricular AICD. 5. Morbid obesity. 6. Peripheral vascular disease. 7. Acute on chronic renal insufficiency. A Nephrology consultation has been obtained with Dr. Burgess. 8. Seizure disorder. Continue Keppra as above. 9. Chronic atrial fibrillation. 10. Fatty liver. 11. Nontraumatic intracerebral hemorrhage. 12. Hemiplegia. 13. Anemia of chronic disease. 14. Hypotension-?hypovolemia vs acute myocardial synd? See cardiology note-Dr Desai __ David Lieberman MD May 27, 2019 16:12
[2019-05-27 17:09] LABS: HEMATOCRIT 29.2 % (42.0-52.0); HEMOGLOBIN 9.7 G/DL (14.2-18.0); MEAN CORPUSCULAR VOLUME 97 FL (80-99); PLATELET COUNT 232 K/UL (150-450); RED BLOOD COUNT 3.02 M/UL (4.70-6.10); RED CELL DISTRIBUTION WIDTH 15.2 % (11.6-14.8)
--- NOTE | 2019-05-27 17:44 | Cardiology Report ---
APPROVED REPORT EXAM: Two-dimensional and M-mode echocardiogram with Doppler and color Doppler. INDICATION Supraventricular tachycardia M-Mode DIMENSIONS IVSd1.0 (0.7-1.1cm)Left Atrium (MM)3.1 (1.6-4.0cm) LVDd5.3 (3.5-5.6cm)Aortic Root3.4 (2.0-3.7cm) PWd0.9 (0.7-1.1cm)Aortic Cusp Exc.1.7 (1.5-2.0cm) IVSs1.5 cm LVDs3.4 (2.5-4.0cm) PWs1.4 cm Technically difficult study due to pt's position . Study quality precludes accurate assessment of regional wall motion. Normal left ventricular chamber size, systolic function and wall motion to extend visualized . Left ventricular ejection fraction estimated to be 50-55%. No evidence of left ventricular hypertrophy. Anterior Echo-free space, may be due to pericardial fat or effusion. Left atrial size at upper limits of normal. Right cardiac chamber sizes are within normal limits. Focal aortic valve sclerosis with normal cusp excursion. Thickened mitral valve leaflets with normal excursion. Mitral annulus and aortic root calcification. Normal pulmonic valve structure. Normal tricuspid valve structure. IVC at normal size with physiologic collapse. Pacemaker wire present in the right side chambers. A color flow and spectral Doppler study was performed and revealed: No aortic insufficiency. Trace to mild mitral regurgitation. Mitral inflow velocities indicates possible pseudo normalization pattern implying moderately elevated left atrial pressure (Grade II ) Mild tricuspid regurgitation. Tricuspid systolic velocities suggests peak right ventricular systolic pressure of 29mmHg.
--- NOTE | 2019-05-27 17:48 | Cardiology Progress Note ---
Assessment/Plan Assessment/Plan [id number] lv fucntion nromla not sure whye he has an icd / if lv dysfucntrion resolved or if has vent arrythmi ivf consider pressr if febrile or otehr causes of fever consider ep eval; Objective Last 24 Hour Vital Signs Date Time Temp Pulse Resp B/P (MAP) Pulse Ox O2 Delivery O2 Flow Rate FiO2 05/27/19 16:54 78 16 35 05/27/19 16:00 Mechanical Ventilator 05/27/19 16:00 76 05/27/19 16:00 35 05/27/19 16:00 98.6 78 16 90/57 (68) 100 05/27/19 14:52 96 24 35 05/27/19 12:38 81 16 35 05/27/19 12:00 98.1 74 16 103/51 (68) 99 05/27/19 12:00 35 05/27/19 12:00 Mechanical Ventilator 05/27/19 12:00 79 05/27/19 10:40 94 16 35 05/27/19 09:04 85 16 35 05/27/19 08:00 35 05/27/19 08:00 Mechanical Ventilator 05/27/19 08:00 98.2 85 16 94/60 (71) 100 05/27/19 08:00 86 05/27/19 07:01 94 16 35 05/27/19 05:21 97 17 35 05/27/19 04:00 35 05/27/19 04:00 Mechanical Ventilator 05/27/19 04:00 98 05/27/19 04:00 98.6 94 16 95/68 (77) 100 05/27/19 03:22 100 16 35 05/27/19 01:08 97 16 35 05/27/19 00:00 Mechanical Ventilator 05/27/19 00:00 103 05/27/19 00:00 98.6 101 16 97/68 (78) 100 05/26/19 22:30 105 16 35 05/26/19 20:58 104 16 35 05/26/19 20:00 35 05/26/19 20:00 98.1 103 16 98/64 (75) 94 05/26/19 20:00 Mechanical Ventilator 05/26/19 20:00 103 05/26/19 18:33 100 16 35 8/12/19 18:29 98.2 101 16 113/69 (84) 100 Intake and Output 05/26/19 05/27/19 19:00 07:00 Intake Total 1321.666 ml 621.666 ml Output Total 500 ml 250 ml Balance 821.666 ml 371.666 ml IV Total 1321.666 ml 621.666 ml Output Urine Total 500 ml 250 ml # Bowel Movements 2 Laboratory Tests Test 05/27/19 03:35 05/27/19 17:00 White Blood Count 9.7 K/UL (4.8-10.8) 11.0 K/UL (4.8-10.8) H Red Blood Count 3.03 M/UL (4.70-6.10) L 3.02 M/UL (4.70-6.10) L Hemoglobin 9.7 G/DL (14.2-18.0) L 9.7 G/DL (14.2-18.0) L Hematocrit 30.3 % (42.0-52.0) L 29.2 % (42.0-52.0) L Mean Corpuscular Volume 100 FL (80-99) H 97 FL (80-99) Mean Corpuscular Hemoglobin 31.9 PG (27.0-31.0) H 32.2 PG (27.0-31.0) H Mean Corpuscular Hemoglobin Concent 31.9 G/DL (32.0-36.0) L 33.3 G/DL (32.0-36.0) Red Cell Distribution Width 16.3 % (11.6-14.8) H 15.2 % (11.6-14.8) H Platelet Count 241 K/UL (150-450) 232 K/UL (150-450) Mean Platelet Volume 5.8 FL (6.5-10.1) L 6.1 FL (6.5-10.1) L Neutrophils (%) (Auto) 58.5 % (45.0-75.0) % (45.0-75.0) Lymphocytes (%) (Auto) 16.8 % (20.0-45.0) L % (20.0-45.0) Monocytes (%) (Auto) 9.2 % (1.0-10.0) % (1.0-10.0) Eosinophils (%) (Auto) 14.4 % (0.0-3.0) H % (0.0-3.0) Basophils (%) (Auto) 1.1 % (0.0-2.0) % (0.0-2.0) Reticulocyte Count 2.4 % (0.5-2.0) H Prothrombin Time 12.5 SEC (9.30-11.50) H Prothromb Time International Ratio 1.2 (0.9-1.1) H Activated Partial Thromboplast Time 30 SEC (23-33) Sodium Level 143 MMOL/L (136-145) Potassium Level 3.6 MMOL/L (3.5-5.1) Chloride Level 109 MMOL/L (98-107) H Carbon Dioxide Level 25 MMOL/L (21-32) Anion Gap 9 mmol/L (5-15) Blood Urea Nitrogen 62 mg/dL (7-18) H Creatinine 1.7 MG/DL (0.55-1.30) H Estimat Glomerular Filtration Rate 41.3 mL/min (>60) Glucose Level 151 MG/DL (74-106) H Calcium Level 9.7 MG/DL (8.5-10.1) Phosphorus Level 2.7 MG/DL (2.5-4.9) Magnesium Level 2.1 MG/DL (1.8-2.4) Iron Level 29 ug/dL (50-175) L Total Iron Binding Capacity 173 ug/dL (250-450) L Percent Iron Saturation 17 % (15-50) Unsaturated Iron Binding 144 ug/dL (112-346) Ferritin 464 NG/ML (8-388) H Total Bilirubin 0.5 MG/DL (0.2-1.0) Aspartate Amino Transf (AST/SGOT) 17 U/L (15-37) Alanine Aminotransferase (ALT/SGPT) 15 U/L (12-78) Alkaline Phosphatase 99 U/L (46-116) Total Protein 7.8 G/DL (6.4-8.2) Albumin 2.7 G/DL (3.4-5.0) L Globulin 5.1 g/dL Albumin/Globulin Ratio 0.5 (1.0-2.7) L Vitamin B12 Level 1207 PG/ML (193-986) H Folate 77.6 NG/ML (8.6-58.9) H Thyroid Stimulating Hormone (TSH) 4.071 uiU/mL (0.358-3.740) Free Thyroxine 1.32 NG/DL (0.76-1.46) Neutrophils % (Manual) Pending Lymphocytes % (Manual) Pending Platelet Estimate Pending Platelet Morphology Pending Troponin I 0.004 ng/mL (0.000-0.056) Microbiology Date/Time Source Procedure Growth Status 05/26/19 13:30 Wound Gram Stain - Final Resulted 05/26/19 13:30 Wound Wound Culture Pending Resulted 05/25/19 23:50 Sputum Gram Stain - Final Resulted 05/25/19 23:50 Sputum Culture - Preliminary Gram Negative Bacillus 1 Resulted 05/25/19 20:30 Rectum Received Benito Desai MD May 27, 2019 17:48
[2019-05-27 20:00] VITALS: BP 97/64
--- NOTE | 2019-05-27 22:45 | Consultation ---
DATE OF CONSULTATION: 05/27/2019 CARDIOLOGY CONSULTATION CONSULTING PHYSICIAN: Benito Desai M.D. REFERRING PHYSICIAN: Yudy Garner M.D. REASON FOR REFERRAL: Tachycardia. HISTORY OF PRESENT ILLNESS: This is an elderly gentleman, who is a resident of convalescent facility. He is only 58 years old. He has multiple medical problems as delineated below. The patient has been admitted to the hospital here at [facility] with basically his G-tube apparently became obstructed. Facility tried changing the G-tube, but was not successful. The patient did not give any reports of vomiting or diarrhea. He had some bleeding from the G-tube stoma and had a partially inserted G-tube. He has been admitted to the hospital for G-tube malfunction, and because he was on anticoagulation, he was admitted to the hospital here at [facility]. Today, he was noted to have some episodes of rapid heart rate and therefore this consultation requested. The patient is not communicative whatsoever and is not able to provide any meaningful history whatsoever. PAST MEDICAL HISTORY: Positive for history of respiratory failure, ventilator-dependent, and a history of tracheostomy. He has a history of bronchoscopy and new tracheostomy in March 2019, aspiration, diabetes mellitus type 2, acute kidney injury on chronic renal insufficiency, chronic atrial fibrillation on anticoagulation, history of intracardiac defibrillator placement, dysphagia, status post PEG tube placement, morbid obesity, seizure disorder, peripheral vascular disease, hypertension, nontraumatic intracerebral hemorrhage, anemia of chronic disease, and decubitus ulcer. The etiology is not known. ALLERGIES: He is not allergic to any medications. No smoking, alcohol, or drugs. He is a long-term resident. REVIEW OF SYSTEMS: Unable to obtain. PHYSICAL EXAMINATION: GENERAL: Shows to be a middle-aged gentleman, in no respiratory distress. VITAL SIGNS: His blood pressure has been anywhere between 90/57 to 103/51. His last blood pressure was 103/51, heart rate in the 70s to 80s, respirations of 18, temperature 98.1, and oxygen saturation of 99% on the present vent setting. NECK: Supple. He has a tracheostomy tube in place. He is on a mechanical ventilator. His neck is otherwise unremarkable. LUNGS: Appeared to be clear to auscultation and percussion. CARDIAC: Distant heart sounds. Regular rhythm. No heaves or thrills. ABDOMEN: Soft and nontender. Positive bowel sounds. EXTREMITIES: Does not show any evidence of edema. DIAGNOSTIC DATA: He has had an echocardiogram today. RV function appears to be normal. LV function appears to be normal. No significant valvular regurgitation is noted. Some evidence of moderate diastolic dysfunction is noted as well. The patient's electrocardiogram shows sinus with right bundle-branch conduction defect being documented. The patient has intermittent episodes of possible atrial fibrillation with rapid ventricular response and intermittent episodes of ventricular paced rhythm with what appears to be sinus, although the atrial activity is very difficult to tell, at least on telemetry data. His chest x-ray is read by the radiologist as showing suspected mild pulmonary vascular congestion. ASSESSMENT AND PLAN: Dr. Garner, this patient was seen in cardiac consultation. I am not sure why the patient actually had an intracardiac defibrillator placement. He does have intermittent episodes of atrial fibrillation. He had an episode that was documented as being SVT, it actually is atrial fibrillation, although was not significantly rapid. He is on a very low dose of amiodarone and the reason for that is really not clear to me, although I am not sure if he has had a history of ventricular arrhythmia necessitating with intracardiac defibrillator as his LV function, but it does not appear to be significantly decreased. There are no data at [facility] for which I can gather more information from. It may be reasonable to get in an painter spring to evaluate the ICD to see if any significant issues. In the meantime, because his LV function was okay, I do not think there is going to be an issue with continuing some IV fluid administration. Should he have any episodes of fever, he should be treated for possibly underlying sepsis, although I doubt that that is an issue at this time. His white count is only 11. He has had levels as high as 18.7 during the early hospitalization. His hemoglobin is 9.7 and platelet count of 232,000. His creatinine is 1.7. His troponin today was 0.00. His proBNP was 5600 in November and has not been checked since. His vitamin B12 is elevated at 1200 and TSH of 4.07. Folic acid is also significantly elevated. I would recommend checking the natriuretic peptide and repeat cardiac enzymes for tomorrow. I do not know whether he is going to need pressors. If he does drop his blood pressure more, he may require pressors for control of his heart rate. He is at risk of developing atrial tachycardia with pressors such as dopamine and I would recommend using norepinephrine as necessary. Benito Desai M.D. DR: MAUDE JOB#: [id number] CC:
[2019-05-28] VITALS: BP 97/61
[2019-05-28 04:00] VITALS: BP 101/62
[2019-05-28 05:23] LABS: HEMOGLOBIN 8.9 G/DL (14.2-18.0); MEAN CORPUSCULAR VOLUME 100 FL (80-99); PLATELET COUNT 225 K/UL (150-450); RED BLOOD COUNT 2.79 M/UL (4.70-6.10); RED CELL DISTRIBUTION WIDTH 16.1 % (11.6-14.8); WHITE BLOOD COUNT 11.8 K/UL (4.8-10.8)
[2019-05-28 05:59] LABS: ALANINE AMINOTRANSFERASE 20 U/L (12-78); ALBUMIN 2.6 G/DL (3.4-5.0); ALBUMIN/GLOBULIN RATIO 0.6 (1.0-2.7); ALKALINE PHOSPHATASE 111 U/L (46-116); ANION GAP 11 mmol/L (5-15); ASPARTATE AMINO TRANSFERASE 26 U/L (15-37); BILIRUBIN,TOTAL 0.4 MG/DL (0.2-1.0); BLOOD UREA NITROGEN 50 mg/dL (7-18); CALCIUM 9.2 MG/DL (8.5-10.1); CARBON DIOXIDE 23 MMOL/L (21-32); CHLORIDE 111 MMOL/L (98-107); CREATININE 1.3 MG/DL (0.55-1.30); POTASSIUM 3.7 MMOL/L (3.5-5.1); SODIUM 144 MMOL/L (136-145)
[2019-05-28] MEDS: NovoLOG Insulin Flexpen SUBQ SCH ×4 (06:19→20:13)
[2019-05-28 08:00] VITALS: BP 98/64
[2019-05-28] MEDS: Heparin 5000 units/ml inj SUBQ SCH ×2 (08:32→20:13)
[2019-05-28] MEDS: Cefepime HCl 1 GM in NS 55 ML IVPB SCH ×2 (08:43→20:12)
[2019-05-28] MEDS: levETIRAcetam 500mg/5ml Liquid GT SCH (08:43)
[2019-05-28] MEDS: Amiodarone 200mg tab GT SCH (08:44)
[2019-05-28] MEDS: Pantoprazole Inj IV SCH (08:44)
[2019-05-28] MEDS ORDERED: Amiodarone 200mg tab GT SCH (09:00)
--- NOTE | 2019-05-28 10:32 | Pulmonolgy Critical Care Note ---
Critical Care - Asmt/Plan Problems: (1) ICD (implantable cardioverter-defibrillator) in place (2) Chronic respiratory failure (3) History of CVA (cerebrovascular accident) (4) Feeding by G-tube (5) G-tube site cellulitis (6) Ventilator dependence (7) Diabetes mellitus Respiratory: adjust tidal volume, monitor respiratory rate, adjust FIO2 Cardiac: continue to monitor HR/BP Renal: F/U I&O Infectious Disease: check cultures, continue antibiotics Gastrointestinal: continue feedings/current rate Endocrine: monitor blood sugar Hematologic: monitor H/H, transfuse if hgb<8.5 Neurologic: PRN Ativan, PRN Morphine, keep patient comfortable Prophylaxis: Protonix Disposition: keep in ICU Notes Reviewed: cardio, renal Discussed with: nurses, consultants, telephonic case managermanager services - Objective Last 24 Hour Vital Signs Date Time Temp Pulse Resp B/P (MAP) Pulse Ox O2 Delivery O2 Flow Rate FiO2 05/28/19 08:52 76 16 35 05/28/19 08:00 Mechanical Ventilator 05/28/19 08:00 98.0 89 16 98/64 (75) 100 05/28/19 08:00 89 05/28/19 08:00 35 05/28/19 06:35 78 16 35 05/28/19 05:12 81 16 35 05/28/19 04:00 98.1 86 16 101/62 (75) 100 05/28/19 04:00 35 05/28/19 04:00 Mechanical Ventilator 05/28/19 03:34 82 05/28/19 03:34 82 05/28/19 03:03 79 16 35 05/28/19 00:57 74 16 35 05/28/19 00:00 Mechanical Ventilator 05/28/19 00:00 98.0 73 16 97/61 (73) 99 05/27/19 22:55 74 16 35 05/27/19 21:20 75 16 35 05/27/19 20:00 35 05/27/19 20:00 97.9 69 16 97/64 (75) 100 05/27/19 20:00 Mechanical Ventilator 05/27/19 19:03 73 05/27/19 18:47 72 16 35 05/27/19 16:54 78 16 35 05/27/19 16:00 Mechanical Ventilator 05/27/19 16:00 76 05/27/19 16:00 35 05/27/19 16:00 98.6 78 16 90/57 (68) 100 05/27/19 14:52 96 24 35 05/27/19 12:38 81 16 35 05/27/19 12:00 98.1 74 16 103/51 (68) 99 05/27/19 12:00 35 05/27/19 12:00 Mechanical Ventilator 05/27/19 12:00 79 05/27/19 10:40 94 16 35 Status: awake Condition: critical HEENT: atraumatic Lungs: clear Abdomen: soft, non-tender, feeding tube Extremities: edema Micro: Microbiology Date/Time Source Procedure Growth Status 05/26/19 15:35 Blood Blood Culture - Preliminary NO GROWTH AFTER 24 HOURS Resulted 05/26/19 15:30 Blood Blood Culture - Preliminary NO GROWTH AFTER 24 HOURS Resulted 05/26/19 13:30 Wound Gram Stain - Final Resulted 05/26/19 13:30 Wound Wound Culture Pending Resulted 05/25/19 23:50 Sputum Gram Stain - Final Resulted 05/25/19 23:50 Sputum Culture - Preliminary Gram Negative Bacillus 1 Gram Negative Bacillus 2 Streptococcus Group G Usual Respiratory [place] Resulted 05/25/19 20:30 Nasal Nares MRSA Culture - Final NO METHICILLIN RESISTANT STAPH AUREUS... Complete 05/25/19 20:30 Rectum - Final NO CARBAPENEM-RESISTANT ENTEROBACTERI... Complete 05/25/19 20:30 Rectum VRE Culture - Final Enterococcus Faecalis - Vre Complete Accucheck: 159 Critical Care - Subjective ROS Limited/Unobtainable: Yes Condition: critical EKG Rhythm: Sinus Rhythm FI02: 35 Vent Support Breath Rate: 16 Vent Support Mode: AC Vent Tidal Volume: 600 Sputum Amount: Small PEEP: 5.0 PIP: 24 Tube Feeding Amount: 55 I&O: Intake and Output 05/27/19 05/28/19 19:00 07:00 Intake Total 1789 ml 1540 ml Output Total 400 ml 600 ml Balance 1389 ml 940 ml Intake Free Water 150 ml 500 ml IV Total 1404 ml 555 ml Tube Feeding 235 ml 485 ml Output Urine Total 400 ml 600 ml # Bowel Movements 2 Labs: Laboratory Tests Test 05/27/19 17:00 05/28/19 03:10 White Blood Count 11.0 K/UL (4.8-10.8) H 11.8 K/UL (4.8-10.8) H Red Blood Count 3.02 M/UL (4.70-6.10) L 2.79 M/UL (4.70-6.10) L Hemoglobin 9.7 G/DL (14.2-18.0) L 8.9 G/DL (14.2-18.0) L Hematocrit 29.2 % (42.0-52.0) L 28.0 % (42.0-52.0) L Mean Corpuscular Volume 97 FL (80-99) 100 FL (80-99) H Mean Corpuscular Hemoglobin 32.2 PG (27.0-31.0) H 31.8 PG (27.0-31.0) H Mean Corpuscular Hemoglobin Concent 33.3 G/DL (32.0-36.0) 31.7 G/DL (32.0-36.0) L Red Cell Distribution Width 15.2 % (11.6-14.8) H 16.1 % (11.6-14.8) H Platelet Count 232 K/UL (150-450) 225 K/UL (150-450) Mean Platelet Volume 6.1 FL (6.5-10.1) L 5.7 FL (6.5-10.1) L Neutrophils (%) (Auto) % (45.0-75.0) % (45.0-75.0) Lymphocytes (%) (Auto) % (20.0-45.0) % (20.0-45.0) Monocytes (%) (Auto) % (1.0-10.0) % (1.0-10.0) Eosinophils (%) (Auto) % (0.0-3.0) % (0.0-3.0) Basophils (%) (Auto) % (0.0-2.0) % (0.0-2.0) Neutrophils % (Manual) 60 % (45-75) Lymphocytes % (Manual) 12 % (20-45) L Monocytes % (Manual) 6 % (1-10) Eosinophils % (Manual) 21 % (0-3) H Basophils % (Manual) 0 % (0-2) Band Neutrophils 1 % (0-8) Platelet Estimate Adequate Platelet Morphology Normal Anisocytosis 1+ Macrocytosis 1+ Troponin I 0.004 ng/mL (0.000-0.056) 0.002 ng/mL (0.000-0.056) Sodium Level 144 MMOL/L (136-145) Potassium Level 3.7 MMOL/L (3.5-5.1) Chloride Level 111 MMOL/L (98-107) H Carbon Dioxide Level 23 MMOL/L (21-32) Anion Gap 11 mmol/L (5-15) Blood Urea Nitrogen 50 mg/dL (7-18) H Creatinine 1.3 MG/DL (0.55-1.30) Estimat Glomerular Filtration Rate 56.3 mL/min (>60) Glucose Level 120 MG/DL (74-106) H Calcium Level 9.2 MG/DL (8.5-10.1) Total Bilirubin 0.4 MG/DL (0.2-1.0) Aspartate Amino Transf (AST/SGOT) 26 U/L (15-37) Alanine Aminotransferase (ALT/SGPT) 20 U/L (12-78) Alkaline Phosphatase 111 U/L (46-116) Pro-B-Type Natriuretic Peptide 487 pg/mL (0-125) H Total Protein 6.8 G/DL (6.4-8.2) Albumin 2.6 G/DL (3.4-5.0) L Globulin 4.2 g/dL Albumin/Globulin Ratio 0.6 (1.0-2.7) L Yudy Garner MD May 28, 2019 10:32
--- NOTE | 2019-05-28 10:39 | GI Progress Note ---
Assessment/Plan Problems: (1) Ventilator dependence ICD Codes: Z99.11 - Dependence on respirator [ventilator] status SNOMED: 600230242 (2) G-tube site cellulitis ICD Codes: 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; L03.319 - Cellulitis of trunk, unspecified SNOMED: 182575611, 295995290 (3) Malfunction of gastrostomy tube ICD Codes: K94.23 - Gastrostomy malfunction SNOMED: 675190420 (4) History of CVA (cerebrovascular accident) ICD Codes: Z86.73 - Personal history of transient ischemic attack (TIA), and cerebral infarction without residual deficits SNOMED: 067944136 (5) Feeding by G-tube ICD Codes: Z93.1 - Gastrostomy status SNOMED: 086164084, 628528739, 392291068 (6) Diabetes mellitus ICD Codes: E11.9 - Type 2 diabetes mellitus without complications SNOMED: 98873429 Status: unchanged Status Narrative Discussed with Dr. Rdz. Assessment/Plan [address] [place] G-tube readjusted and balloon inflated KUB placement confirmed, GTFs to goal Wound care consult for possible cauterization around the stoma G-tube feedings per registered dietitian Antibiotics Reglan as needed for GI motility Follow-up H&H PPI The patient was seen and examined at bedside and all new and available data was reviewed in the patients chart. I agree with the above findings, impression and plan. (Patient seen earlier today. Signature stamp does not reflect patient encounter time.). - Jakob Rdz MD Subjective Gastrointestinal/Abdominal: Reports: no symptoms Subjective limited Objective Last 24 Hour Vital Signs Date Time Temp Pulse Resp B/P (MAP) Pulse Ox O2 Delivery O2 Flow Rate FiO2 05/28/19 08:52 76 16 35 05/28/19 08:00 Mechanical Ventilator 05/28/19 08:00 98.0 89 16 98/64 (75) 100 05/28/19 08:00 89 05/28/19 08:00 35 05/28/19 06:35 78 16 35 05/28/19 05:12 81 16 35 05/28/19 04:00 98.1 86 16 101/62 (75) 100 05/28/19 04:00 35 05/28/19 04:00 Mechanical Ventilator 05/28/19 03:34 82 05/28/19 03:34 82 05/28/19 03:03 79 16 35 05/28/19 00:57 74 16 35 05/28/19 00:00 Mechanical Ventilator 05/28/19 00:00 98.0 73 16 97/61 (73) 99 05/27/19 22:55 74 16 35 05/27/19 21:20 75 16 35 05/27/19 20:00 35 05/27/19 20:00 97.9 69 16 97/64 (75) 100 05/27/19 20:00 Mechanical Ventilator 05/27/19 19:03 73 05/27/19 18:47 72 16 35 05/27/19 16:54 78 16 35 05/27/19 16:00 Mechanical Ventilator 05/27/19 16:00 76 05/27/19 16:00 35 05/27/19 16:00 98.6 78 16 90/57 (68) 100 05/27/19 14:52 96 24 35 05/27/19 12:38 81 16 35 05/27/19 12:00 98.1 74 16 103/51 (68) 99 05/27/19 12:00 35 05/27/19 12:00 Mechanical Ventilator 05/27/19 12:00 79 05/27/19 10:40 94 16 35 Intake and Output 05/27/19 05/28/19 19:00 07:00 Intake Total 1789 ml 1540 ml Output Total 400 ml 600 ml Balance 1389 ml 940 ml Intake Free Water 150 ml 500 ml IV Total 1404 ml 555 ml Tube Feeding 235 ml 485 ml Output Urine Total 400 ml 600 ml # Bowel Movements 2 Laboratory Tests Test 05/27/19 17:00 05/28/19 03:10 White Blood Count 11.0 K/UL (4.8-10.8) H 11.8 K/UL (4.8-10.8) H Red Blood Count 3.02 M/UL (4.70-6.10) L 2.79 M/UL (4.70-6.10) L Hemoglobin 9.7 G/DL (14.2-18.0) L 8.9 G/DL (14.2-18.0) L Hematocrit 29.2 % (42.0-52.0) L 28.0 % (42.0-52.0) L Mean Corpuscular Volume 97 FL (80-99) 100 FL (80-99) H Mean Corpuscular Hemoglobin 32.2 PG (27.0-31.0) H 31.8 PG (27.0-31.0) H Mean Corpuscular Hemoglobin Concent 33.3 G/DL (32.0-36.0) 31.7 G/DL (32.0-36.0) L Red Cell Distribution Width 15.2 % (11.6-14.8) H 16.1 % (11.6-14.8) H Platelet Count 232 K/UL (150-450) 225 K/UL (150-450) Mean Platelet Volume 6.1 FL (6.5-10.1) L 5.7 FL (6.5-10.1) L Neutrophils (%) (Auto) % (45.0-75.0) % (45.0-75.0) Lymphocytes (%) (Auto) % (20.0-45.0) % (20.0-45.0) Monocytes (%) (Auto) % (1.0-10.0) % (1.0-10.0) Eosinophils (%) (Auto) % (0.0-3.0) % (0.0-3.0) Basophils (%) (Auto) % (0.0-2.0) % (0.0-2.0) Neutrophils % (Manual) 60 % (45-75) Lymphocytes % (Manual) 12 % (20-45) L Monocytes % (Manual) 6 % (1-10) Eosinophils % (Manual) 21 % (0-3) H Basophils % (Manual) 0 % (0-2) Band Neutrophils 1 % (0-8) Platelet Estimate Adequate Platelet Morphology Normal Anisocytosis 1+ Macrocytosis 1+ Troponin I 0.004 ng/mL (0.000-0.056) 0.002 ng/mL (0.000-0.056) Sodium Level 144 MMOL/L (136-145) Potassium Level 3.7 MMOL/L (3.5-5.1) Chloride Level 111 MMOL/L (98-107) H Carbon Dioxide Level 23 MMOL/L (21-32) Anion Gap 11 mmol/L (5-15) Blood Urea Nitrogen 50 mg/dL (7-18) H Creatinine 1.3 MG/DL (0.55-1.30) Estimat Glomerular Filtration Rate 56.3 mL/min (>60) Glucose Level 120 MG/DL (74-106) H Calcium Level 9.2 MG/DL (8.5-10.1) Total Bilirubin 0.4 MG/DL (0.2-1.0) Aspartate Amino Transf (AST/SGOT) 26 U/L (15-37) Alanine Aminotransferase (ALT/SGPT) 20 U/L (12-78) Alkaline Phosphatase 111 U/L (46-116) Pro-B-Type Natriuretic Peptide 487 pg/mL (0-125) H Total Protein 6.8 G/DL (6.4-8.2) Albumin 2.6 G/DL (3.4-5.0) L Globulin 4.2 g/dL Albumin/Globulin Ratio 0.6 (1.0-2.7) L Height (Feet): 5 Height (Inches): 8.00 Weight (Pounds): 193 General Appearance: WD/WN, no apparent distress, alert Cardiovascular: normal rate Respiratory/Chest: normal breath sounds, no respiratory distress Abdominal Exam: normal bowel sounds, non tender, soft, GT site - c/d/i Extremities: non-tender Amarilys Gardiner NP May 28, 2019 10:39
[2019-05-28 12:00] VITALS: BP 111/62
--- NOTE | 2019-05-28 12:12 | Diagnostic Imaging Report ---
Indication: Dyspnea Comparison: 05/25/2019 A single view chest radiograph was obtained. Findings: Dense retrocardiac opacity may be atelectasis or pneumonia. Heart size is normal. Tracheostomy and pacemaker again demonstrated. IMPRESSION: Increasing density at the left lung base may be atelectasis or pneumonia.
--- NOTE | 2019-05-28 12:27 | Internal Med Progress Note ---
Subjective Date of Service: May 28, 2019 Physician Name David Lieberman Attending Physician Jian Martinez MD Current Medications Medications (Trade) Dose Ordered Sig/Sophie Route PRN Reason Start Time Stop Time Status Last Admin Dose Admin Acetaminophen (Tylenol) 650 mg Q4H PRN ORAL FEVER (temp>100.5F) 05/25/19 22:00 06/24/19 21:59 Albuterol/ Ipratropium (Albuterol/ Ipratropium) 3 ml Q4H PRN HHN Shortness of Breath 05/25/19 22:00 05/30/19 21:59 Allopurinol (Allopurinol) 300 mg DAILY GT 05/26/19 09:00 06/25/19 08:59 05/28/19 08:44 Amiodarone HCl (Cordarone) 100 mg DAILY GT 05/28/19 09:00 06/25/19 08:59 05/28/19 08:44 Cefepime HCl 1 gm/ Sodium Chloride 55 ml @ 110 mls/hr EVERY 12 HOURS IVPB 05/26/19 15:00 06/02/19 14:59 05/28/19 08:43 Dextrose (Dextrose 50%) 25 ml Q30M PRN IV Hypoglycemia 05/25/19 22:15 06/24/19 22:03 Dextrose (Dextrose 50%) 50 ml Q30M PRN IV hypoglycemia 05/25/19 22:15 06/24/19 22:14 Heparin Sodium (Porcine) (Heparin 5000 units/ml) 5,000 units EVERY 12 HOURS SUBQ 05/26/19 09:00 06/25/19 08:59 Insulin Aspart (NovoLOG) BEFORE MEALS AND HS SUBQ 05/27/19 11:30 06/26/19 11:29 05/28/19 11:43 Levetiracetam (Keppra) 1,000 mg DAILY GT 05/26/19 09:00 06/25/19 08:59 05/28/19 08:43 Pantoprazole (Protonix) 40 mg DAILY IV 05/26/19 09:00 06/25/19 08:59 05/28/19 08:44 Allergies: Coded Allergies: No Known Allergies (Unverified , 12/06/18) ROS Limited/Unobtainable: Yes Subjective 58 YO M admitted with G-tube malfunction. Now hypotension. Cover for Int med- Dr Juan. SHELLI Objective Last Vital Signs Date Time Temp Pulse Resp B/P (MAP) Pulse Ox O2 Delivery O2 Flow Rate FiO2 05/28/19 12:00 Mechanical Ventilator 05/28/19 12:00 35 05/28/19 11:15 75 16 05/28/19 08:00 98.0 98/64 (75) 100 05/25/19 22:20 4.0 Laboratory Tests Test 05/27/19 17:00 05/28/19 03:10 White Blood Count 11.0 K/UL (4.8-10.8) H 11.8 K/UL (4.8-10.8) H Red Blood Count 3.02 M/UL (4.70-6.10) L 2.79 M/UL (4.70-6.10) L Hemoglobin 9.7 G/DL (14.2-18.0) L 8.9 G/DL (14.2-18.0) L Hematocrit 29.2 % (42.0-52.0) L 28.0 % (42.0-52.0) L Mean Corpuscular Volume 97 FL (80-99) 100 FL (80-99) H Mean Corpuscular Hemoglobin 32.2 PG (27.0-31.0) H 31.8 PG (27.0-31.0) H Mean Corpuscular Hemoglobin Concent 33.3 G/DL (32.0-36.0) 31.7 G/DL (32.0-36.0) L Red Cell Distribution Width 15.2 % (11.6-14.8) H 16.1 % (11.6-14.8) H Platelet Count 232 K/UL (150-450) 225 K/UL (150-450) Mean Platelet Volume 6.1 FL (6.5-10.1) L 5.7 FL (6.5-10.1) L Neutrophils (%) (Auto) % (45.0-75.0) % (45.0-75.0) Lymphocytes (%) (Auto) % (20.0-45.0) % (20.0-45.0) Monocytes (%) (Auto) % (1.0-10.0) % (1.0-10.0) Eosinophils (%) (Auto) % (0.0-3.0) % (0.0-3.0) Basophils (%) (Auto) % (0.0-2.0) % (0.0-2.0) Neutrophils % (Manual) 60 % (45-75) Lymphocytes % (Manual) 12 % (20-45) L Monocytes % (Manual) 6 % (1-10) Eosinophils % (Manual) 21 % (0-3) H Basophils % (Manual) 0 % (0-2) Band Neutrophils 1 % (0-8) Platelet Estimate Adequate Platelet Morphology Normal Anisocytosis 1+ Macrocytosis 1+ Troponin I 0.004 ng/mL (0.000-0.056) 0.002 ng/mL (0.000-0.056) Sodium Level 144 MMOL/L (136-145) Potassium Level 3.7 MMOL/L (3.5-5.1) Chloride Level 111 MMOL/L (98-107) H Carbon Dioxide Level 23 MMOL/L (21-32) Anion Gap 11 mmol/L (5-15) Blood Urea Nitrogen 50 mg/dL (7-18) H Creatinine 1.3 MG/DL (0.55-1.30) Estimat Glomerular Filtration Rate 56.3 mL/min (>60) Glucose Level 120 MG/DL (74-106) H Calcium Level 9.2 MG/DL (8.5-10.1) Total Bilirubin 0.4 MG/DL (0.2-1.0) Aspartate Amino Transf (AST/SGOT) 26 U/L (15-37) Alanine Aminotransferase (ALT/SGPT) 20 U/L (12-78) Alkaline Phosphatase 111 U/L (46-116) Pro-B-Type Natriuretic Peptide 487 pg/mL (0-125) H Total Protein 6.8 G/DL (6.4-8.2) Albumin 2.6 G/DL (3.4-5.0) L Globulin 4.2 g/dL Albumin/Globulin Ratio 0.6 (1.0-2.7) L Microbiology Date/Time Source Procedure Growth Status 05/26/19 15:35 Blood Blood Culture - Preliminary NO GROWTH AFTER 24 HOURS Resulted 05/26/19 15:30 Blood Blood Culture - Preliminary NO GROWTH AFTER 24 HOURS Resulted 05/26/19 13:30 Wound Gram Stain - Final Resulted 05/26/19 13:30 Wound Culture - Preliminary Staphylococcus Aureus Staphylococcus Sp Coag Neg Resulted 05/25/19 23:50 Sputum Gram Stain - Final Resulted 05/25/19 23:50 Sputum Culture - Preliminary Gram Negative Bacillus 1 Gram Negative Bacillus 2 Streptococcus Group G Usual Respiratory [place] Resulted 05/25/19 20:30 Nasal Nares MRSA Culture - Final NO METHICILLIN RESISTANT STAPH AUREUS... Complete 05/25/19 20:30 Rectum - Final NO CARBAPENEM-RESISTANT ENTEROBACTERI... Complete 05/25/19 20:30 Rectum VRE Culture - Final Enterococcus Faecalis - Vre Complete Intake and Output 05/27/19 05/28/19 19:00 07:00 Intake Total 1789 ml 1540 ml Output Total 400 ml 600 ml Balance 1389 ml 940 ml Intake Free Water 150 ml 500 ml IV Total 1404 ml 555 ml Tube Feeding 235 ml 485 ml Output Urine Total 400 ml 600 ml # Bowel Movements 2 Objective PHYSICAL EXAMINATION: GENERAL: The patient is a well-developed and well-nourished male, who is on a mechanical ventilator. HEENT: Eyes, pupils are equal and responsive to light and accommodation. Extraocular movements are intact. NECK: Supple without lymphadenopathy. CHEST: Tracheostomy; Diffuse crackles on bilateral bases. Otherwise, without wheezes or rales. CARDIOVASCULAR: Regular rhythm and rate. S1 and S2 are normal without murmurs, rubs, or gallops. ABDOMEN: Soft, nontender, and nondistended with positive bowel sounds. No evidence of hepatosplenomegaly. Currently, no rebound or guarding noted. EXTREMITIES: Negative for clubbing, cyanosis, or edema. RECTAL/GENITAL: Refused. NEUROLOGIC: Unable to assess. Assessment/Plan Assessment/Plan ASSESSMENT: This is a 58-year-old male. 1. Gastrostomy tube malfunction. 2. Dysphagia. 3. Diabetes type 2. 4. History of cardiac arrhythmia. 5. Status post biventricular AICD. 6. Dysphagia, status post PEG. 7. Morbid obesity. 8. Peripheral vascular disease. 9. Acute on chronic renal insufficiency. 10. History of seizure disorder. 11. Chronic atrial fibrillation. 12. Fatty liver. 13. Hypertension. 14. Nontraumatic intracerebral hemorrhage. 15. Anemia of chronic disease. 16. Vent Dependent respiratory failure 17. Hypotensive TREATMENT: 1. Gastrostomy tube malfunction/dysphagia. A Gastroenterology consultation is obtained with Dr. Jakob Rdz. We will follow recommendations of Gastroenterology. 2. Diabetes type 2. The patient has been placed on a regular insulin sliding scale. 3. Essential hypertension. Continue Coreg as above. 4. History of cardiac arrhythmias, status post biventricular AICD. 5. Morbid obesity. 6. Peripheral vascular disease. 7. Acute on chronic renal insufficiency. A Nephrology consultation has been obtained with Dr. Burgess. 8. Seizure disorder. Continue Keppra as above. 9. Chronic atrial fibrillation. 10. Fatty liver. 11. Nontraumatic intracerebral hemorrhage. 12. Hemiplegia. 13. Anemia of chronic disease. 14. Hypotension-?hypovolemia vs acute myocardial synd? See cardiology note-Dr Desai 15. Cardiol EP=David Sanchez MD May 28, 2019 12:27
--- NOTE | 2019-05-28 12:51 | Infectious Diseases Prog Note ---
Assessment/Plan Assessment/Plan Assessment: Probable sepsis- Probable PNA, r/o bacteremia -05/28 CXR: Increasing density at the left lung base may be atelectasis or pneumonia. -u/a neg -CXR Suspected mild pulmonary vascular congestion -sp cx GNR #1, #2 -Bcx NTD Afebrile Leukocytosis, SP GT malfunction -wound cx CONS, S.aureus Scabies chronic respiratory failure on Tach/vent/Peg s/p ICD CVA bed bound SNF resident Plan: -Continue empiric Cefepime #3 pending cultures -05/27 SP IV Vancomycin #3 -05/26 SP Ivermectin, permethrin x1 -05/25 SP Ancef x1 -f/u cx -Monitor CBC/CMP, temperatures -f/u Bcx x2 -Cdiff if diarrhea -PEG/Trach care -aspiration precautions Thank you for this consultation. Will continue to follow along with you. Discussed with RN Subjective Allergies: Coded Allergies: No Known Allergies (Unverified , 12/06/18) Subjective afebrile no leukocytosis Bcx NTD Objective Vital Signs Last 24 Hour Vital Signs Date Time Temp Pulse Resp B/P (MAP) Pulse Ox O2 Delivery O2 Flow Rate FiO2 05/28/19 12:00 Mechanical Ventilator 05/28/19 12:00 35 05/28/19 11:15 75 16 35 05/28/19 08:52 76 16 35 05/28/19 08:00 Mechanical Ventilator 05/28/19 08:00 98.0 89 16 98/64 (75) 100 05/28/19 08:00 89 05/28/19 08:00 35 05/28/19 06:35 78 16 35 05/28/19 05:12 81 16 35 05/28/19 04:00 98.1 86 16 101/62 (75) 100 05/28/19 04:00 35 05/28/19 04:00 Mechanical Ventilator 05/28/19 03:34 82 05/28/19 03:34 82 05/28/19 03:03 79 16 35 05/28/19 00:57 74 16 35 05/28/19 00:00 Mechanical Ventilator 05/28/19 00:00 98.0 73 16 97/61 (73) 99 05/27/19 22:55 74 16 35 05/27/19 21:20 75 16 35 05/27/19 20:00 35 05/27/19 20:00 97.9 69 16 97/64 (75) 100 05/27/19 20:00 Mechanical Ventilator 05/27/19 19:03 73 05/27/19 18:47 72 16 35 05/27/19 16:54 78 16 35 05/27/19 16:00 Mechanical Ventilator 05/27/19 16:00 76 05/27/19 16:00 35 05/27/19 16:00 98.6 78 16 90/57 (68) 100 05/27/19 14:52 96 24 35 Height (Feet): 5 Height (Inches): 8.00 Weight (Pounds): 193 Objective Lines, tubes and drains: peripheral, central line HEENT: normocephalic, mucous membranes moist Neck: non-tender, normal alignment Respiratory/Chest: chest wall non-tender, lungs clear Cardiovascular/Chest: normal peripheral pulses, normal rate Abdomen: normal bowel sounds, non tender Extremities: normal range of motion, non-tender Skin Exam: normal pigmentation 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 Microbiology Date/Time Source Procedure Growth Status 05/26/19 15:35 Blood Blood Culture - Preliminary NO GROWTH AFTER 24 HOURS Resulted 05/26/19 15:30 Blood Blood Culture - Preliminary NO GROWTH AFTER 24 HOURS Resulted 05/26/19 13:30 Wound Gram Stain - Final Resulted 05/26/19 13:30 Wound Culture - Preliminary Staphylococcus Aureus Staphylococcus Sp Coag Neg Resulted 05/25/19 23:50 Sputum Gram Stain - Final Resulted 05/25/19 23:50 Sputum Culture - Preliminary Gram Negative Bacillus 1 Gram Negative Bacillus 2 Streptococcus Group G Usual Respiratory [place] Resulted 05/25/19 20:30 Nasal Nares MRSA Culture - Final NO METHICILLIN RESISTANT STAPH AUREUS... Complete 05/25/19 20:30 Rectum - Final NO CARBAPENEM-RESISTANT ENTEROBACTERI... Complete 05/25/19 20:30 Rectum VRE Culture - Final Enterococcus Faecalis - Vre Complete Laboratory Tests Test 05/27/19 17:00 05/28/19 03:10 White Blood Count 11.0 K/UL (4.8-10.8) H 11.8 K/UL (4.8-10.8) H Red Blood Count 3.02 M/UL (4.70-6.10) L 2.79 M/UL (4.70-6.10) L Hemoglobin 9.7 G/DL (14.2-18.0) L 8.9 G/DL (14.2-18.0) L Hematocrit 29.2 % (42.0-52.0) L 28.0 % (42.0-52.0) L Mean Corpuscular Volume 97 FL (80-99) 100 FL (80-99) H Mean Corpuscular Hemoglobin 32.2 PG (27.0-31.0) H 31.8 PG (27.0-31.0) H Mean Corpuscular Hemoglobin Concent 33.3 G/DL (32.0-36.0) 31.7 G/DL (32.0-36.0) L Red Cell Distribution Width 15.2 % (11.6-14.8) H 16.1 % (11.6-14.8) H Platelet Count 232 K/UL (150-450) 225 K/UL (150-450) Mean Platelet Volume 6.1 FL (6.5-10.1) L 5.7 FL (6.5-10.1) L Neutrophils (%) (Auto) % (45.0-75.0) % (45.0-75.0) Lymphocytes (%) (Auto) % (20.0-45.0) % (20.0-45.0) Monocytes (%) (Auto) % (1.0-10.0) % (1.0-10.0) Eosinophils (%) (Auto) % (0.0-3.0) % (0.0-3.0) Basophils (%) (Auto) % (0.0-2.0) % (0.0-2.0) Neutrophils % (Manual) 60 % (45-75) Lymphocytes % (Manual) 12 % (20-45) L Monocytes % (Manual) 6 % (1-10) Eosinophils % (Manual) 21 % (0-3) H Basophils % (Manual) 0 % (0-2) Band Neutrophils 1 % (0-8) Platelet Estimate Adequate Platelet Morphology Normal Anisocytosis 1+ Macrocytosis 1+ Troponin I 0.004 ng/mL (0.000-0.056) 0.002 ng/mL (0.000-0.056) Sodium Level 144 MMOL/L (136-145) Potassium Level 3.7 MMOL/L (3.5-5.1) Chloride Level 111 MMOL/L (98-107) H Carbon Dioxide Level 23 MMOL/L (21-32) Anion Gap 11 mmol/L (5-15) Blood Urea Nitrogen 50 mg/dL (7-18) H Creatinine 1.3 MG/DL (0.55-1.30) Estimat Glomerular Filtration Rate 56.3 mL/min (>60) Glucose Level 120 MG/DL (74-106) H Calcium Level 9.2 MG/DL (8.5-10.1) Total Bilirubin 0.4 MG/DL (0.2-1.0) Aspartate Amino Transf (AST/SGOT) 26 U/L (15-37) Alanine Aminotransferase (ALT/SGPT) 20 U/L (12-78) Alkaline Phosphatase 111 U/L (46-116) Pro-B-Type Natriuretic Peptide 487 pg/mL (0-125) H Total Protein 6.8 G/DL (6.4-8.2) Albumin 2.6 G/DL (3.4-5.0) L Globulin 4.2 g/dL Albumin/Globulin Ratio 0.6 (1.0-2.7) L Current Medications Medications (Trade) Dose Ordered Sig/Sophie Route PRN Reason Start Time Stop Time Status Last Admin Dose Admin Acetaminophen (Tylenol) 650 mg Q4H PRN ORAL FEVER (temp>100.5F) 05/25/19 22:00 06/24/19 21:59 Albuterol/ Ipratropium (Albuterol/ Ipratropium) 3 ml Q4H PRN HHN Shortness of Breath 05/25/19 22:00 05/30/19 21:59 Allopurinol (Allopurinol) 300 mg DAILY GT 05/26/19 09:00 06/25/19 08:59 05/28/19 08:44 Amiodarone HCl (Cordarone) 100 mg DAILY GT 05/28/19 09:00 06/25/19 08:59 05/28/19 08:44 Cefepime HCl 1 gm/ Sodium Chloride 55 ml @ 110 mls/hr EVERY 12 HOURS IVPB 05/26/19 15:00 06/02/19 14:59 05/28/19 08:43 Dextrose (Dextrose 50%) 25 ml Q30M PRN IV Hypoglycemia 05/25/19 22:15 06/24/19 22:03 Dextrose (Dextrose 50%) 50 ml Q30M PRN IV hypoglycemia 05/25/19 22:15 06/24/19 22:14 Heparin Sodium (Porcine) (Heparin 5000 units/ml) 5,000 units EVERY 12 HOURS SUBQ 05/26/19 09:00 06/25/19 08:59 Insulin Aspart (NovoLOG) BEFORE MEALS AND HS SUBQ 05/27/19 11:30 06/26/19 11:29 05/28/19 11:43 Levetiracetam (Keppra) 1,000 mg DAILY GT 05/26/19 09:00 06/25/19 08:59 05/28/19 08:43 Pantoprazole (Protonix) 40 mg DAILY IV 05/26/19 09:00 06/25/19 08:59 05/28/19 08:44 Flavia Houston M.D. May 28, 2019 12:51
[2019-05-28 16:00] VITALS: BP 129/79
--- NOTE | 2019-05-28 18:15 | Consultation ---
History of Present Illness General Chief Complaint: Malfunctioning Gastric Tube Referring physician: LATONIA ARGUETA Reason for Consultation: chronic ventilation Present Illness HPI This is a 58-year-old male custodial resident with multiple medical comorbidities who presented with g tube malfunction. 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 Attempted changing this at the facility was unsuccessful. PHe was noted to have some bleeding from the G-tube stoma. Patient had a partially inserted G- tube in the stoma at the time of arrival. surgery called to evaluate for G-tube malfunction and wound around tube. In addition the surrounding skin of the stoma is firm and hard. Minimal amounts of blood noted. Allergies: Coded Allergies: No Known Allergies (Unverified , 12/06/18) Medication History Scheduled Allopurinol* (Allopurinol*), 300 MG GT DAILY, (Reported) Amino Acids/Protein Hydrolys (Pro-Stat Liquid), 30 ML GT TWICE A DAY, (Reported) Amiodarone Hcl (Amiodarone Hcl), 100 MG GT DAILY, (Reported) Apixaban (Eliquis), 5 MG GT BID, (Reported) Ascorbic Acid* (Vitamin C*), 500 MG GT DAILY, (Reported) Atorvastatin Calcium* (Atorvastatin Calcium*), 40 MG GT BEDTIME, (Reported) Carvedilol (Coreg), 12.5 MG GT EVERY 12 HOURS Cholecalciferol (Vitamin D3) (Vitamin D3), 5,000 UNIT GT DAILY, (Reported) Cran/Vitc/Mannose/Inulin/Brom (Uti-Stat Liquid), 3,875 MG GT BID, (Reported) Docusate Sodium* (Colace*), 100 MG GT DAILY, (Reported) Famotidine (Famotidine), 20 MG GT DAILY, (Reported) Folic Acid* (Folic Acid*), 1 MG GT DAILY, (Reported) Furosemide* (Lasix*), 20 MG GT BID, (Reported) Insulin Glargine (Lantus), 60 UNITS SUBQ BEDTIME, (Reported) Ipratropium/Albuterol Sulfate (DuoNeb 0.5-3(2.5)mg/3ml), 3 ML HHN Q6HR, ( Reported) Levetiracetam* (Levetiracetam*), 1,000 MG GT QD, (Reported) Metformin Hcl* (Metformin Hcl*), 500 MG GT TWICE A DAY, (Reported) Multivitamin Liquid* (Multi-Delyn*), 5 ML GT DAILY, (Reported) Spironolactone* (Aldactone*), 25 MG GT DAILY, (Reported) Scheduled PRN Acetaminophen* (Acetaminophen 325MG Tablet*), 650 MG GT Q4H PRN for Mild Pain/ Temp > 100.5, (Reported) Magnesium Hydroxide* (Milk Of Magnesia*), 30 ML GT DAILY PRN for Constipation, ( Reported) Miscellaneous Medications Insulin Aspart (Novolog), (Reported) Discontinued Medications Albuterol Sulfate* (Albuterol Sulfate Hhn*), 3 ML INH Q4H PRN for Shortness of Breath, (Reported) Discontinued Reason: Prescription changed Carvedilol* (Carvedilol*), 12.5 MG GT EVERY 12 HOURS, (Reported) Discontinued Reason: Therapy completed Cranberry Extract/Vit C (Azo Cranberry Softgel), 1 EACH GT, (Reported) Discontinued Reason: Prescription changed Levetiracetam (Keppra), 1,000 MG GT DAILY, (Reported) Discontinued Reason: Prescription changed Vitamin D (Vitamin D3), 5,000 UNITS IABDOM DAILY, (Reported) Discontinued Reason: Prescription changed Patient History Limited by: medical condition History Provided By: Medical Record, PMD Healthcare decision maker N Resuscitation status Full Code Advanced Directive on File Past Medical/Surgical History Past Medical/Surgical History: (1) Diabetes mellitus (2) Chronic respiratory failure (3) ICD (implantable cardioverter-defibrillator) in place (4) History of CVA (cerebrovascular accident) (5) Feeding by G-tube (6) Acute respiratory failure (7) Malfunction of gastrostomy tube (8) G-tube site cellulitis (9) Ventilator dependence Review of Systems All Other Systems: negative except mentioned in HPI ROS Narrative patien tunable to respond Physical Exam General Appearance: no apparent distress Lines, tubes and drains: peripheral, other HEENT: normocephalic, atraumatic Neck: normal inspection Respiratory/Chest: decreased breath sounds Cardiovascular/Chest: regular rhythm Abdomen: normal bowel sounds, soft, no organomegaly, feeding tube, other Extremities: trace edema Skin Exam: warm/dry Last 24 Hour Vital Signs Date Time Temp Pulse Resp B/P (MAP) Pulse Ox O2 Delivery O2 Flow Rate FiO2 05/28/19 17:11 72 16 35 05/28/19 16:00 97.9 79 18 129/79 (96) 100 05/28/19 16:00 84 05/28/19 16:00 35 05/28/19 16:00 Mechanical Ventilator 05/28/19 15:12 70 16 35 05/28/19 12:44 72 16 35 05/28/19 12:00 97.9 77 18 111/62 (78) 99 05/28/19 12:00 78 05/28/19 12:00 Mechanical Ventilator 05/28/19 12:00 35 05/28/19 11:15 75 16 35 05/28/19 08:52 76 16 35 05/28/19 08:00 Mechanical Ventilator 05/28/19 08:00 98.0 89 16 98/64 (75) 100 05/28/19 08:00 89 05/28/19 08:00 35 05/28/19 06:35 78 16 35 05/28/19 05:12 81 16 35 05/28/19 04:00 98.1 86 16 101/62 (75) 100 05/28/19 04:00 35 05/28/19 04:00 Mechanical Ventilator 05/28/19 03:34 82 05/28/19 03:34 82 05/28/19 03:03 79 16 35 05/28/19 00:57 74 16 35 05/28/19 00:00 Mechanical Ventilator 05/28/19 00:00 98.0 73 16 97/61 (73) 99 05/27/19 22:55 74 16 35 05/27/19 21:20 75 16 35 05/27/19 20:00 35 05/27/19 20:00 97.9 69 16 97/64 (75) 100 05/27/19 20:00 Mechanical Ventilator 05/27/19 19:03 73 05/27/19 18:47 72 16 35 Intake and Output 05/27/19 05/28/19 19:00 07:00 Intake Total 1789 ml 1540 ml Output Total 400 ml 600 ml Balance 1389 ml 940 ml Intake Free Water 150 ml 500 ml IV Total 1404 ml 555 ml Tube Feeding 235 ml 485 ml Output Urine Total 400 ml 600 ml # Bowel Movements 2 Laboratory Tests Test 05/28/19 03:10 White Blood Count 11.8 K/UL (4.8-10.8) H Red Blood Count 2.79 M/UL (4.70-6.10) L Hemoglobin 8.9 G/DL (14.2-18.0) L Hematocrit 28.0 % (42.0-52.0) L Mean Corpuscular Volume 100 FL (80-99) H Mean Corpuscular Hemoglobin 31.8 PG (27.0-31.0) H Mean Corpuscular Hemoglobin Concent 31.7 G/DL (32.0-36.0) L Red Cell Distribution Width 16.1 % (11.6-14.8) H Platelet Count 225 K/UL (150-450) Mean Platelet Volume 5.7 FL (6.5-10.1) L Neutrophils (%) (Auto) % (45.0-75.0) Lymphocytes (%) (Auto) % (20.0-45.0) Monocytes (%) (Auto) % (1.0-10.0) Eosinophils (%) (Auto) % (0.0-3.0) Basophils (%) (Auto) % (0.0-2.0) Sodium Level 144 MMOL/L (136-145) Potassium Level 3.7 MMOL/L (3.5-5.1) Chloride Level 111 MMOL/L (98-107) H Carbon Dioxide Level 23 MMOL/L (21-32) Anion Gap 11 mmol/L (5-15) Blood Urea Nitrogen 50 mg/dL (7-18) H Creatinine 1.3 MG/DL (0.55-1.30) Estimat Glomerular Filtration Rate 56.3 mL/min (>60) Glucose Level 120 MG/DL (74-106) H Calcium Level 9.2 MG/DL (8.5-10.1) Total Bilirubin 0.4 MG/DL (0.2-1.0) Aspartate Amino Transf (AST/SGOT) 26 U/L (15-37) Alanine Aminotransferase (ALT/SGPT) 20 U/L (12-78) Alkaline Phosphatase 111 U/L (46-116) Troponin I 0.002 ng/mL (0.000-0.056) Pro-B-Type Natriuretic Peptide 487 pg/mL (0-125) H Total Protein 6.8 G/DL (6.4-8.2) Albumin 2.6 G/DL (3.4-5.0) L Globulin 4.2 g/dL Albumin/Globulin Ratio 0.6 (1.0-2.7) L Height (Feet): 5 Height (Inches): 8.00 Weight (Pounds): 193 Medications Current Medications Medications (Trade) Dose Ordered Sig/Sophie Route PRN Reason Start Time Stop Time Status Last Admin Dose Admin Acetaminophen (Tylenol) 650 mg Q4H PRN ORAL FEVER (temp>100.5F) 05/25/19 22:00 06/24/19 21:59 Albuterol/ Ipratropium (Albuterol/ Ipratropium) 3 ml Q4H PRN HHN Shortness of Breath 05/25/19 22:00 05/30/19 21:59 Allopurinol (Allopurinol) 300 mg DAILY GT 05/26/19 09:00 06/25/19 08:59 05/28/19 08:44 Amiodarone HCl (Cordarone) 100 mg DAILY GT 05/28/19 09:00 06/25/19 08:59 05/28/19 08:44 Cefepime HCl 1 gm/ Sodium Chloride 55 ml @ 110 mls/hr EVERY 12 HOURS IVPB 05/26/19 15:00 06/02/19 14:59 05/28/19 08:43 Dextrose (Dextrose 50%) 25 ml Q30M PRN IV Hypoglycemia 05/25/19 22:15 06/24/19 22:03 Dextrose (Dextrose 50%) 50 ml Q30M PRN IV hypoglycemia 05/25/19 22:15 06/24/19 22:14 Heparin Sodium (Porcine) (Heparin 5000 units/ml) 5,000 units EVERY 12 HOURS SUBQ 05/26/19 09:00 06/25/19 08:59 Insulin Aspart (NovoLOG) BEFORE MEALS AND HS SUBQ 05/27/19 11:30 06/26/19 11:29 05/28/19 16:44 Lansoprazole (Prevacid) 30 mg DAILY GT 05/29/19 09:00 06/28/19 08:59 UNV Levetiracetam (Keppra) 1,000 mg DAILY GT 05/26/19 09:00 06/25/19 08:59 05/28/19 08:43 Assessment/Plan Problem List: (1) G-tube site cellulitis Assessment & Plan: 58-year-old male presented with G-tube malfunction and clogged who is been in the hospital for a few days now identified to have cellulitis and wound around patient's G-tube site. And evaluate patient the bedside patient has a very old concerning G-tube. I will discuss with GI in regards to changing his G-tube out with a fresh tube. The tube is malodorous has remnants of prior tape and looks like it is about to fall apart and/or break. Not sure about tubes positioning at this time either. As for the cellulitis around the G-tube site there is some chronic scarring from G-tube site manipulation and surgeons. There is no abscess or significant infection just mild erythema and cellulitis. No surgical intervention currently recommended. Will monitor site for potential development of abscess. If leaking will need to refashion G-tube but will wait for GI input on changing to. Furthermore okay for zinc oxide around tube and if necessary may place silver nitrate on exposed areas of mucosa. 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
--- NOTE | 2019-05-28 19:50 | Cardiology Progress Note ---
Assessment/Plan Assessment/Plan hypotesnion hs of icd implatation paf chronic respiratory failure dm aspiration hs uo improved post repat bolus yest bp seem ok echo showed normal lv fucntion no further afib noted on tele keep on amiod resume eliquis 5 mg bid if not surgery or procedures beign contemplated tele reviewed d/w rn ns at 50 cc / hr Subjective ROS Limited/Unobtainable: Yes Objective Last 24 Hour Vital Signs Date Time Temp Pulse Resp B/P (MAP) Pulse Ox O2 Delivery O2 Flow Rate FiO2 05/28/19 17:11 72 16 35 05/28/19 16:00 97.9 79 18 129/79 (96) 100 05/28/19 16:00 84 05/28/19 16:00 35 05/28/19 16:00 Mechanical Ventilator 05/28/19 15:12 70 16 35 05/28/19 12:44 72 16 35 05/28/19 12:00 97.9 77 18 111/62 (78) 99 05/28/19 12:00 78 05/28/19 12:00 Mechanical Ventilator 05/28/19 12:00 35 05/28/19 11:15 75 16 35 05/28/19 08:52 76 16 35 05/28/19 08:00 Mechanical Ventilator 05/28/19 08:00 98.0 89 16 98/64 (75) 100 05/28/19 08:00 89 05/28/19 08:00 35 05/28/19 06:35 78 16 35 05/28/19 05:12 81 16 35 05/28/19 04:00 98.1 86 16 101/62 (75) 100 05/28/19 04:00 35 05/28/19 04:00 Mechanical Ventilator 05/28/19 03:34 82 05/28/19 03:34 82 05/28/19 03:03 79 16 35 05/28/19 00:57 74 16 35 05/28/19 00:00 Mechanical Ventilator 05/28/19 00:00 98.0 73 16 97/61 (73) 99 05/27/19 22:55 74 16 35 05/27/19 21:20 75 16 35 05/27/19 20:00 35 05/27/19 20:00 97.9 69 16 97/64 (75) 100 05/27/19 20:00 Mechanical Ventilator General Appearance: no apparent distress, alert Neck: supple Cardiovascular: normal rate Respiratory/Chest: rhonchi - left Abdomen: normal bowel sounds, non tender, soft Extremities: no swelling Intake and Output 05/27/19 05/28/19 19:00 07:00 Intake Total 1789 ml 1540 ml Output Total 400 ml 600 ml Balance 1389 ml 940 ml Intake Free Water 150 ml 500 ml IV Total 1404 ml 555 ml Tube Feeding 235 ml 485 ml Output Urine Total 400 ml 600 ml # Bowel Movements 2 Laboratory Tests Test 05/28/19 03:10 White Blood Count 11.8 K/UL (4.8-10.8) H Red Blood Count 2.79 M/UL (4.70-6.10) L Hemoglobin 8.9 G/DL (14.2-18.0) L Hematocrit 28.0 % (42.0-52.0) L Mean Corpuscular Volume 100 FL (80-99) H Mean Corpuscular Hemoglobin 31.8 PG (27.0-31.0) H Mean Corpuscular Hemoglobin Concent 31.7 G/DL (32.0-36.0) L Red Cell Distribution Width 16.1 % (11.6-14.8) H Platelet Count 225 K/UL (150-450) Mean Platelet Volume 5.7 FL (6.5-10.1) L Neutrophils (%) (Auto) % (45.0-75.0) Lymphocytes (%) (Auto) % (20.0-45.0) Monocytes (%) (Auto) % (1.0-10.0) Eosinophils (%) (Auto) % (0.0-3.0) Basophils (%) (Auto) % (0.0-2.0) Sodium Level 144 MMOL/L (136-145) Potassium Level 3.7 MMOL/L (3.5-5.1) Chloride Level 111 MMOL/L (98-107) H Carbon Dioxide Level 23 MMOL/L (21-32) Anion Gap 11 mmol/L (5-15) Blood Urea Nitrogen 50 mg/dL (7-18) H Creatinine 1.3 MG/DL (0.55-1.30) Estimat Glomerular Filtration Rate 56.3 mL/min (>60) Glucose Level 120 MG/DL (74-106) H Calcium Level 9.2 MG/DL (8.5-10.1) Total Bilirubin 0.4 MG/DL (0.2-1.0) Aspartate Amino Transf (AST/SGOT) 26 U/L (15-37) Alanine Aminotransferase (ALT/SGPT) 20 U/L (12-78) Alkaline Phosphatase 111 U/L (46-116) Troponin I 0.002 ng/mL (0.000-0.056) Pro-B-Type Natriuretic Peptide 487 pg/mL (0-125) H Total Protein 6.8 G/DL (6.4-8.2) Albumin 2.6 G/DL (3.4-5.0) L Globulin 4.2 g/dL Albumin/Globulin Ratio 0.6 (1.0-2.7) L Microbiology Date/Time Source Procedure Growth Status 05/26/19 15:35 Blood Blood Culture - Preliminary NO GROWTH AFTER 24 HOURS Resulted 05/26/19 15:30 Blood Blood Culture - Preliminary NO GROWTH AFTER 24 HOURS Resulted 05/26/19 13:30 Wound Gram Stain - Final Resulted 05/26/19 13:30 Wound Culture - Preliminary Staphylococcus Aureus Staphylococcus Sp Coag Neg Resulted 05/25/19 23:50 Sputum Gram Stain - Final Resulted 05/25/19 23:50 Sputum Culture - Preliminary Gram Negative Bacillus 1 Gram Negative Bacillus 2 Streptococcus Group G Usual Respiratory [place] Resulted 05/25/19 20:30 Nasal Nares MRSA Culture - Final NO METHICILLIN RESISTANT STAPH AUREUS... Complete 05/25/19 20:30 Rectum - Final NO CARBAPENEM-RESISTANT ENTEROBACTERI... Complete 05/25/19 20:30 Rectum VRE Culture - Final Enterococcus Faecalis - Vre Complete Benito Desai MD May 28, 2019 19:50
[2019-05-28 20:00] VITALS: BP 96/59
[2019-05-29] VITALS: BP 110/70
[2019-05-29 04:00] VITALS: BP 114/66
[2019-05-29 05:00] LABS: HEMATOCRIT 31.2 % (42.0-52.0); HEMOGLOBIN 9.9 G/DL (14.2-18.0); MEAN CORPUSCULAR VOLUME 102 FL (80-99); PLATELET COUNT 242 K/UL (150-450); RED BLOOD COUNT 3.05 M/UL (4.70-6.10); RED CELL DISTRIBUTION WIDTH 16.8 % (11.6-14.8); WHITE BLOOD COUNT 20.8 K/UL (4.8-10.8)
[2019-05-29 05:19] LABS: INR 1.1 (0.9-1.1)
[2019-05-29] MEDS: NovoLOG Insulin Flexpen SUBQ SCH ×4 (05:31→20:17)
[2019-05-29 05:42] LABS: ALANINE AMINOTRANSFERASE 21 U/L (12-78); ALBUMIN 2.8 G/DL (3.4-5.0); ALBUMIN/GLOBULIN RATIO 0.6 (1.0-2.7); ALKALINE PHOSPHATASE 144 U/L (46-116); ANION GAP 8 mmol/L (5-15); ASPARTATE AMINO TRANSFERASE 20 U/L (15-37); BILIRUBIN,TOTAL 0.3 MG/DL (0.2-1.0); BLOOD UREA NITROGEN 32 mg/dL (7-18); CALCIUM 9.2 MG/DL (8.5-10.1); CARBON DIOXIDE 24 MMOL/L (21-32); CHLORIDE 114 MMOL/L (98-107); CREATININE 0.9 MG/DL (0.55-1.30); PHOSPHORUS 2.9 MG/DL (2.5-4.9); POTASSIUM 3.6 MMOL/L (3.5-5.1); SODIUM 146 MMOL/L (136-145)
[2019-05-29 08:00] VITALS: BP 114/72
[2019-05-29] MEDS: Heparin 5000 units/ml inj SUBQ SCH ×3 (09:00→20:17)
[2019-05-29] MEDS: Cefepime HCl 1 GM in NS 55 ML IVPB SCH ×2 (09:09→20:16)
[2019-05-29] MEDS: levETIRAcetam 500mg/5ml Liquid GT SCH (09:09)
[2019-05-29] MEDS: Amiodarone 200mg tab GT SCH (09:10)
--- NOTE | 2019-05-29 09:47 | GI Progress Note ---
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; L03.319 - Cellulitis of trunk, unspecified SNOMED: 224184796, 658725645 (3) Malfunction of gastrostomy tube ICD Codes: K94.23 - Gastrostomy malfunction SNOMED: 681429802 (4) History of CVA (cerebrovascular accident) ICD Codes: Z86.73 - Personal history of transient ischemic attack (TIA), and cerebral infarction without residual deficits SNOMED: 778624461 (5) Feeding by G-tube ICD Codes: Z93.1 - Gastrostomy status SNOMED: 639567996, 558319393, 976034640 (6) Diabetes mellitus ICD Codes: E11.9 - Type 2 diabetes mellitus without complications SNOMED: 05521326 Status: stable, unchanged Status Narrative Discussed with Dr. Rdz. Assessment/Plan 24 [place] G-tube readjusted and balloon inflated KUB placement confirmed, GTFs to goal Wound care consult for possible cauterization around the stoma G-tube feedings per registered dietitian Antibiotics Reglan as needed for GI motility Follow-up H&H PPI The patient was seen and examined at bedside and all new and available data was reviewed in the patients chart. I agree with the above findings, impression and plan. (Patient seen earlier today. Signature stamp does not reflect patient encounter time.). - Jakob Rdz MD Subjective Subjective limited Objective Last 24 Hour Vital Signs Date Time Temp Pulse Resp B/P (MAP) Pulse Ox O2 Delivery O2 Flow Rate FiO2 05/29/19 09:16 70 16 35 05/29/19 07:07 50 19 35 05/29/19 05:12 83 17 35 05/29/19 04:06 88 05/29/19 04:00 35 05/29/19 04:00 99.2 84 19 114/66 (82) 99 05/29/19 04:00 Mechanical Ventilator 05/29/19 03:15 85 16 35 05/29/19 01:28 79 18 35 05/29/19 00:00 Mechanical Ventilator 05/29/19 00:00 98.2 83 17 110/70 (83) 96 05/28/19 23:32 85 05/28/19 22:56 80 17 35 05/28/19 21:30 75 18 35 05/28/19 20:00 35 05/28/19 20:00 98.4 74 18 96/59 (71) 100 05/28/19 20:00 Mechanical Ventilator 05/28/19 19:30 78 19 35 05/28/19 19:23 79 05/28/19 17:11 72 16 35 05/28/19 16:00 97.9 79 18 129/79 (96) 100 05/28/19 16:00 84 05/28/19 16:00 35 05/28/19 16:00 Mechanical Ventilator 05/28/19 15:12 70 16 35 05/28/19 12:44 72 16 35 05/28/19 12:00 97.9 77 18 111/62 (78) 99 05/28/19 12:00 78 05/28/19 12:00 Mechanical Ventilator 05/28/19 12:00 35 05/28/19 11:15 75 16 35 Intake and Output 05/28/19 05/29/19 19:00 07:00 Intake Total 390 ml 1024.84 ml Output Total 750 ml 450 ml Balance -360 ml 574.84 ml Intake Free Water 250 ml 100 ml IV Total 55 ml 594.84 ml Tube Feeding 85 ml 330 ml Output Urine Total 750 ml 450 ml # Bowel Movements 5 Laboratory Tests Test 05/29/19 03:50 White Blood Count 20.8 K/UL (4.8-10.8) #H Red Blood Count 3.05 M/UL (4.70-6.10) L Hemoglobin 9.9 G/DL (14.2-18.0) L Hematocrit 31.2 % (42.0-52.0) L Mean Corpuscular Volume 102 FL (80-99) H Mean Corpuscular Hemoglobin 32.4 PG (27.0-31.0) H Mean Corpuscular Hemoglobin Concent 31.7 G/DL (32.0-36.0) L Red Cell Distribution Width 16.8 % (11.6-14.8) H Platelet Count 242 K/UL (150-450) Mean Platelet Volume 6.3 FL (6.5-10.1) L Neutrophils (%) (Auto) % (45.0-75.0) Lymphocytes (%) (Auto) % (20.0-45.0) Monocytes (%) (Auto) % (1.0-10.0) Eosinophils (%) (Auto) % (0.0-3.0) Basophils (%) (Auto) % (0.0-2.0) Differential Total Cells Counted 100 Neutrophils % (Manual) 76 % (45-75) H Lymphocytes % (Manual) 6 % (20-45) L Monocytes % (Manual) 2 % (1-10) Eosinophils % (Manual) 16 % (0-3) H Basophils % (Manual) 0 % (0-2) Band Neutrophils 0 % (0-8) Platelet Estimate Adequate Platelet Morphology Normal Hypochromasia 2+ Anisocytosis 1+ Macrocytosis 1+ Prothrombin Time 11.5 SEC (9.30-11.50) Prothromb Time International Ratio 1.1 (0.9-1.1) Activated Partial Thromboplast Time 29 SEC (23-33) Sodium Level 146 MMOL/L (136-145) H Potassium Level 3.6 MMOL/L (3.5-5.1) Chloride Level 114 MMOL/L (98-107) H Carbon Dioxide Level 24 MMOL/L (21-32) Anion Gap 8 mmol/L (5-15) Blood Urea Nitrogen 32 mg/dL (7-18) H Creatinine 0.9 MG/DL (0.55-1.30) Estimat Glomerular Filtration Rate > 60 mL/min (>60) Glucose Level 147 MG/DL (74-106) H Calcium Level 9.2 MG/DL (8.5-10.1) Phosphorus Level 2.9 MG/DL (2.5-4.9) Magnesium Level 2.1 MG/DL (1.8-2.4) Total Bilirubin 0.3 MG/DL (0.2-1.0) Aspartate Amino Transf (AST/SGOT) 20 U/L (15-37) Alanine Aminotransferase (ALT/SGPT) 21 U/L (12-78) Alkaline Phosphatase 144 U/L (46-116) H Total Protein 7.2 G/DL (6.4-8.2) Albumin 2.8 G/DL (3.4-5.0) L Globulin 4.4 g/dL Albumin/Globulin Ratio 0.6 (1.0-2.7) L Height (Feet): 5 Height (Inches): 8.00 Weight (Pounds): 193 General Appearance: WD/WN, no apparent distress, alert Cardiovascular: normal rate Respiratory/Chest: normal breath sounds, no respiratory distress Abdominal Exam: normal bowel sounds, non tender, soft, GT site - c/d/i Extremities: non-tender Amarilys Gardiner NP May 29, 2019 09:47
--- NOTE | 2019-05-29 10:32 | Pulmonolgy Critical Care Note ---
Critical Care - Asmt/Plan Problems: (1) ICD (implantable cardioverter-defibrillator) in place (2) Chronic respiratory failure (3) History of CVA (cerebrovascular accident) (4) Feeding by G-tube (5) G-tube site cellulitis (6) Ventilator dependence (7) Diabetes mellitus Respiratory: monitor respiratory rate, adjust FIO2, CXR Cardiac: continue pressors, continue to monitor HR/BP Renal: F/U I&O, keep IV fluid Infectious Disease: check cultures Gastrointestinal: continue feedings/current rate Endocrine: monitor blood sugar Hematologic: monitor H/H Neurologic: PRN Ativan, keep patient comfortable Affect: PRN ativan Notes Reviewed: salvage worker, renal Discussed with: nurses, case workermanager of construction - Objective Last 24 Hour Vital Signs Date Time Temp Pulse Resp B/P (MAP) Pulse Ox O2 Delivery O2 Flow Rate FiO2 05/29/19 09:16 70 16 35 05/29/19 08:00 98.4 85 19 114/72 (86) 100 05/29/19 07:07 50 19 35 05/29/19 05:12 83 17 35 05/29/19 04:06 88 05/29/19 04:00 35 05/29/19 04:00 99.2 84 19 114/66 (82) 99 05/29/19 04:00 Mechanical Ventilator 05/29/19 03:15 85 16 35 05/29/19 01:28 79 18 35 05/29/19 00:00 Mechanical Ventilator 05/29/19 00:00 98.2 83 17 110/70 (83) 96 05/28/19 23:32 85 05/28/19 22:56 80 17 35 05/28/19 21:30 75 18 35 05/28/19 20:00 35 05/28/19 20:00 98.4 74 18 96/59 (71) 100 05/28/19 20:00 Mechanical Ventilator 05/28/19 19:30 78 19 35 05/28/19 19:23 79 05/28/19 17:11 72 16 35 05/28/19 16:00 97.9 79 18 129/79 (96) 100 05/28/19 16:00 84 05/28/19 16:00 35 05/28/19 16:00 Mechanical Ventilator 05/28/19 15:12 70 16 35 05/28/19 12:44 72 16 35 05/28/19 12:00 97.9 77 18 111/62 (78) 99 05/28/19 12:00 78 05/28/19 12:00 Mechanical Ventilator 05/28/19 12:00 35 05/28/19 11:15 75 16 35 Condition: critical Neck: full ROM Lungs: clear Heart: HR/BP stable Abdomen: soft Extremities: no C/C/E Micro: Microbiology Date/Time Source Procedure Growth Status 05/26/19 15:35 Blood Blood Culture - Preliminary NO GROWTH AFTER 24 HOURS Resulted 05/26/19 15:30 Blood Blood Culture - Preliminary NO GROWTH AFTER 24 HOURS Resulted 05/26/19 13:30 Wound Gram Stain - Final Complete 05/26/19 13:30 Wound Culture - Final Staphylococcus Aureus - Mrsa Staphylococcus Sp Coag Neg Complete Accucheck: 160 Critical Care - Subjective ROS Limited/Unobtainable: Yes Condition: critical EKG Rhythm: Sinus Rhythm FI02: 35 Vent Support Breath Rate: 16 Vent Support Mode: AC Vent Tidal Volume: 600 Sputum Amount: Small PEEP: 5.0 PIP: 20 Tube Feeding Amount: 30 I&O: Intake and Output 05/28/19 05/29/19 19:00 07:00 Intake Total 390 ml 1024.84 ml Output Total 750 ml 450 ml Balance -360 ml 574.84 ml Intake Free Water 250 ml 100 ml IV Total 55 ml 594.84 ml Tube Feeding 85 ml 330 ml Output Urine Total 750 ml 450 ml # Bowel Movements 5 CXR: Laboratory Tests Test 05/29/19 03:50 White Blood Count 20.8 K/UL (4.8-10.8) #H Red Blood Count 3.05 M/UL (4.70-6.10) L Hemoglobin 9.9 G/DL (14.2-18.0) L Hematocrit 31.2 % (42.0-52.0) L Mean Corpuscular Volume 102 FL (80-99) H Mean Corpuscular Hemoglobin 32.4 PG (27.0-31.0) H Mean Corpuscular Hemoglobin Concent 31.7 G/DL (32.0-36.0) L Red Cell Distribution Width 16.8 % (11.6-14.8) H Platelet Count 242 K/UL (150-450) Mean Platelet Volume 6.3 FL (6.5-10.1) L Neutrophils (%) (Auto) % (45.0-75.0) Lymphocytes (%) (Auto) % (20.0-45.0) Monocytes (%) (Auto) % (1.0-10.0) Eosinophils (%) (Auto) % (0.0-3.0) Basophils (%) (Auto) % (0.0-2.0) Differential Total Cells Counted 100 Neutrophils % (Manual) 76 % (45-75) H Lymphocytes % (Manual) 6 % (20-45) L Monocytes % (Manual) 2 % (1-10) Eosinophils % (Manual) 16 % (0-3) H Basophils % (Manual) 0 % (0-2) Band Neutrophils 0 % (0-8) Platelet Estimate Adequate Platelet Morphology Normal Hypochromasia 2+ Anisocytosis 1+ Macrocytosis 1+ Prothrombin Time 11.5 SEC (9.30-11.50) Prothromb Time International Ratio 1.1 (0.9-1.1) Activated Partial Thromboplast Time 29 SEC (23-33) Sodium Level 146 MMOL/L (136-145) H Potassium Level 3.6 MMOL/L (3.5-5.1) Chloride Level 114 MMOL/L (98-107) H Carbon Dioxide Level 24 MMOL/L (21-32) Anion Gap 8 mmol/L (5-15) Blood Urea Nitrogen 32 mg/dL (7-18) H Creatinine 0.9 MG/DL (0.55-1.30) Estimat Glomerular Filtration Rate > 60 mL/min (>60) Glucose Level 147 MG/DL (74-106) H Calcium Level 9.2 MG/DL (8.5-10.1) Phosphorus Level 2.9 MG/DL (2.5-4.9) Magnesium Level 2.1 MG/DL (1.8-2.4) Total Bilirubin 0.3 MG/DL (0.2-1.0) Aspartate Amino Transf (AST/SGOT) 20 U/L (15-37) Alanine Aminotransferase (ALT/SGPT) 21 U/L (12-78) Alkaline Phosphatase 144 U/L (46-116) H Total Protein 7.2 G/DL (6.4-8.2) Albumin 2.8 G/DL (3.4-5.0) L Globulin 4.4 g/dL Albumin/Globulin Ratio 0.6 (1.0-2.7) L Labs: Laboratory Tests Test 05/29/19 03:50 White Blood Count 20.8 K/UL (4.8-10.8) #H Red Blood Count 3.05 M/UL (4.70-6.10) L Hemoglobin 9.9 G/DL (14.2-18.0) L Hematocrit 31.2 % (42.0-52.0) L Mean Corpuscular Volume 102 FL (80-99) H Mean Corpuscular Hemoglobin 32.4 PG (27.0-31.0) H Mean Corpuscular Hemoglobin Concent 31.7 G/DL (32.0-36.0) L Red Cell Distribution Width 16.8 % (11.6-14.8) H Platelet Count 242 K/UL (150-450) Mean Platelet Volume 6.3 FL (6.5-10.1) L Neutrophils (%) (Auto) % (45.0-75.0) Lymphocytes (%) (Auto) % (20.0-45.0) Monocytes (%) (Auto) % (1.0-10.0) Eosinophils (%) (Auto) % (0.0-3.0) Basophils (%) (Auto) % (0.0-2.0) Differential Total Cells Counted 100 Neutrophils % (Manual) 76 % (45-75) H Lymphocytes % (Manual) 6 % (20-45) L Monocytes % (Manual) 2 % (1-10) Eosinophils % (Manual) 16 % (0-3) H Basophils % (Manual) 0 % (0-2) Band Neutrophils 0 % (0-8) Platelet Estimate Adequate Platelet Morphology Normal Hypochromasia 2+ Anisocytosis 1+ Macrocytosis 1+ Prothrombin Time 11.5 SEC (9.30-11.50) Prothromb Time International Ratio 1.1 (0.9-1.1) Activated Partial Thromboplast Time 29 SEC (23-33) Sodium Level 146 MMOL/L (136-145) H Potassium Level 3.6 MMOL/L (3.5-5.1) Chloride Level 114 MMOL/L (98-107) H Carbon Dioxide Level 24 MMOL/L (21-32) Anion Gap 8 mmol/L (5-15) Blood Urea Nitrogen 32 mg/dL (7-18) H Creatinine 0.9 MG/DL (0.55-1.30) Estimat Glomerular Filtration Rate > 60 mL/min (>60) Glucose Level 147 MG/DL (74-106) H Calcium Level 9.2 MG/DL (8.5-10.1) Phosphorus Level 2.9 MG/DL (2.5-4.9) Magnesium Level 2.1 MG/DL (1.8-2.4) Total Bilirubin 0.3 MG/DL (0.2-1.0) Aspartate Amino Transf (AST/SGOT) 20 U/L (15-37) Alanine Aminotransferase (ALT/SGPT) 21 U/L (12-78) Alkaline Phosphatase 144 U/L (46-116) H Total Protein 7.2 G/DL (6.4-8.2) Albumin 2.8 G/DL (3.4-5.0) L Globulin 4.4 g/dL Albumin/Globulin Ratio 0.6 (1.0-2.7) L Yudy Garner MD May 29, 2019 10:32
--- NOTE | 2019-05-29 11:10 | Infectious Diseases Prog Note ---
Assessment/Plan Assessment/Plan Assessment: Probable sepsis- Probable PNA, r/o bacteremia -05/28 CXR: Increasing density at the left lung base may be atelectasis or pneumonia. -u/a neg -CXR Suspected mild pulmonary vascular congestion -sp cx GNR #1, PsA (clarke S), Group G strep -Bcx NTD Afebrile Leukocytosis, recurrent, increased= r/o cdiff GT malfunction- no signs of cellulitis -wound cx CONS, MRSA; colonziers Scabies, sp rx chronic respiratory failure on Tach/vent/Peg s/p ICD CVA bed bound SNF resident Plan: -Continue empiric Cefepime #4 pending cultures -05/27 SP IV Vancomycin #3 -05/26 SP Ivermectin, permethrin x1 -05/25 SP Ancef x1 -f/u cx -Monitor CBC/CMP, temperatures -f/u Bcx x2 -Cdiff -PEG/Trach care -aspiration precautions Thank you for this consultation. Will continue to follow along with you. Discussed with RN Subjective Allergies: Coded Allergies: No Known Allergies (Unverified , 12/06/18) Subjective afebrile leukocytosis increased Bcx NTD Objective Vital Signs Last 24 Hour Vital Signs Date Time Temp Pulse Resp B/P (MAP) Pulse Ox O2 Delivery O2 Flow Rate FiO2 05/29/19 09:16 70 16 35 05/29/19 08:00 98.4 85 19 114/72 (86) 100 05/29/19 07:36 73 05/29/19 07:07 50 19 35 05/29/19 05:12 83 17 35 05/29/19 04:06 88 05/29/19 04:00 35 05/29/19 04:00 99.2 84 19 114/66 (82) 99 05/29/19 04:00 Mechanical Ventilator 05/29/19 03:15 85 16 35 05/29/19 01:28 79 18 35 05/29/19 00:00 Mechanical Ventilator 05/29/19 00:00 98.2 83 17 110/70 (83) 96 05/28/19 23:32 85 05/28/19 22:56 80 17 35 05/28/19 21:30 75 18 35 05/28/19 20:00 35 05/28/19 20:00 98.4 74 18 96/59 (71) 100 05/28/19 20:00 Mechanical Ventilator 05/28/19 19:30 78 19 35 05/28/19 19:23 79 05/28/19 17:11 72 16 35 05/28/19 16:00 97.9 79 18 129/79 (96) 100 05/28/19 16:00 84 05/28/19 16:00 35 05/28/19 16:00 Mechanical Ventilator 05/28/19 15:12 70 16 35 05/28/19 12:44 72 16 35 05/28/19 12:00 97.9 77 18 111/62 (78) 99 05/28/19 12:00 78 05/28/19 12:00 Mechanical Ventilator 05/28/19 12:00 35 05/28/19 11:15 75 16 35 Height (Feet): 5 Height (Inches): 8.00 Weight (Pounds): 193 Objective Lines, tubes and drains: peripheral, central line HEENT: normocephalic, mucous membranes moist Neck: non-tender, normal alignment Respiratory/Chest: chest wall non-tender, lungs clear Cardiovascular/Chest: normal peripheral pulses, normal rate Abdomen: normal bowel sounds, non tender Extremities: normal range of motion, non-tender Skin Exam: normal pigmentation Neurologic: lining vamper II-XII grossly normal Microbiology Date/Time Source Procedure Growth Status 05/26/19 15:35 Blood Blood Culture - Preliminary NO GROWTH AFTER 24 HOURS Resulted 05/26/19 15:30 Blood Blood Culture - Preliminary NO GROWTH AFTER 24 HOURS Resulted 05/26/19 13:30 Wound Gram Stain - Final Complete 05/26/19 13:30 Wound Culture - Final Staphylococcus Aureus - Mrsa Staphylococcus Sp Coag Neg Complete Laboratory Tests Test 05/29/19 03:50 White Blood Count 20.8 K/UL (4.8-10.8) #H Red Blood Count 3.05 M/UL (4.70-6.10) L Hemoglobin 9.9 G/DL (14.2-18.0) L Hematocrit 31.2 % (42.0-52.0) L Mean Corpuscular Volume 102 FL (80-99) H Mean Corpuscular Hemoglobin 32.4 PG (27.0-31.0) H Mean Corpuscular Hemoglobin Concent 31.7 G/DL (32.0-36.0) L Red Cell Distribution Width 16.8 % (11.6-14.8) H Platelet Count 242 K/UL (150-450) Mean Platelet Volume 6.3 FL (6.5-10.1) L Neutrophils (%) (Auto) % (45.0-75.0) Lymphocytes (%) (Auto) % (20.0-45.0) Monocytes (%) (Auto) % (1.0-10.0) Eosinophils (%) (Auto) % (0.0-3.0) Basophils (%) (Auto) % (0.0-2.0) Differential Total Cells Counted 100 Neutrophils % (Manual) 76 % (45-75) H Lymphocytes % (Manual) 6 % (20-45) L Monocytes % (Manual) 2 % (1-10) Eosinophils % (Manual) 16 % (0-3) H Basophils % (Manual) 0 % (0-2) Band Neutrophils 0 % (0-8) Platelet Estimate Adequate Platelet Morphology Normal Hypochromasia 2+ Anisocytosis 1+ Macrocytosis 1+ Prothrombin Time 11.5 SEC (9.30-11.50) Prothromb Time International Ratio 1.1 (0.9-1.1) Activated Partial Thromboplast Time 29 SEC (23-33) Sodium Level 146 MMOL/L (136-145) H Potassium Level 3.6 MMOL/L (3.5-5.1) Chloride Level 114 MMOL/L (98-107) H Carbon Dioxide Level 24 MMOL/L (21-32) Anion Gap 8 mmol/L (5-15) Blood Urea Nitrogen 32 mg/dL (7-18) H Creatinine 0.9 MG/DL (0.55-1.30) Estimat Glomerular Filtration Rate > 60 mL/min (>60) Glucose Level 147 MG/DL (74-106) H Calcium Level 9.2 MG/DL (8.5-10.1) Phosphorus Level 2.9 MG/DL (2.5-4.9) Magnesium Level 2.1 MG/DL (1.8-2.4) Total Bilirubin 0.3 MG/DL (0.2-1.0) Aspartate Amino Transf (AST/SGOT) 20 U/L (15-37) Alanine Aminotransferase (ALT/SGPT) 21 U/L (12-78) Alkaline Phosphatase 144 U/L (46-116) H Total Protein 7.2 G/DL (6.4-8.2) Albumin 2.8 G/DL (3.4-5.0) L Globulin 4.4 g/dL Albumin/Globulin Ratio 0.6 (1.0-2.7) L Current Medications Medications (Trade) Dose Ordered Sig/Sophie Route PRN Reason Start Time Stop Time Status Last Admin Dose Admin Acetaminophen (Tylenol) 650 mg Q4H PRN ORAL FEVER (temp>100.5F) 05/25/19 22:00 06/24/19 21:59 Albuterol/ Ipratropium (Albuterol/ Ipratropium) 3 ml Q4H PRN HHN Shortness of Breath 05/25/19 22:00 05/30/19 21:59 Allopurinol (Allopurinol) 300 mg DAILY GT 05/26/19 09:00 06/25/19 08:59 05/29/19 09:10 Amiodarone HCl (Cordarone) 100 mg DAILY GT 05/28/19 09:00 06/25/19 08:59 05/29/19 09:10 Cefepime HCl 1 gm/ Sodium Chloride 55 ml @ 110 mls/hr EVERY 12 HOURS IVPB 05/26/19 15:00 06/02/19 14:59 05/29/19 09:09 Dextrose (Dextrose 50%) 25 ml Q30M PRN IV Hypoglycemia 05/25/19 22:15 06/24/19 22:03 Dextrose (Dextrose 50%) 50 ml Q30M PRN IV hypoglycemia 05/25/19 22:15 06/24/19 22:14 Heparin Sodium (Porcine) (Heparin 5000 units/ml) 5,000 units EVERY 12 HOURS SUBQ 05/26/19 09:00 06/25/19 08:59 05/29/19 09:14 Insulin Aspart (NovoLOG) BEFORE MEALS AND HS SUBQ 05/27/19 11:30 06/26/19 11:29 05/29/19 05:31 Lansoprazole (Prevacid) 30 mg DAILY GT 05/29/19 09:00 06/28/19 08:59 05/29/19 09:09 Levetiracetam (Keppra) 1,000 mg DAILY GT 05/26/19 09:00 06/25/19 08:59 05/29/19 09:09 Sodium Chloride 1,000 ml @ 50 mls/hr Q20H IV 05/28/19 20:00 06/27/19 19:59 05/28/19 20:12 Flavia Houston M.D. May 29, 2019 11:10
[2019-05-29 12:00] VITALS: BP 131/98
--- NOTE | 2019-05-29 14:22 | Surgery Progress Note ---
Surgery Progress Note Subjective Additional Comments g tube changed site with mild oozing after but stable Objective Last 24 Hour Vital Signs Date Time Temp Pulse Resp B/P (MAP) Pulse Ox O2 Delivery O2 Flow Rate FiO2 05/29/19 12:53 79 16 35 05/29/19 12:21 81 17 35 05/29/19 09:16 70 16 35 05/29/19 08:00 35 05/29/19 08:00 98.4 85 19 114/72 (86) 100 05/29/19 08:00 Mechanical Ventilator 05/29/19 08:00 Mechanical Ventilator 05/29/19 07:36 73 05/29/19 07:07 50 19 35 05/29/19 05:12 83 17 35 05/29/19 04:06 88 05/29/19 04:00 35 05/29/19 04:00 99.2 84 19 114/66 (82) 99 05/29/19 04:00 Mechanical Ventilator 05/29/19 03:15 85 16 35 05/29/19 01:28 79 18 35 05/29/19 00:00 Mechanical Ventilator 05/29/19 00:00 98.2 83 17 110/70 (83) 96 05/28/19 23:32 85 05/28/19 22:56 80 17 35 05/28/19 21:30 75 18 35 05/28/19 20:00 35 05/28/19 20:00 98.4 74 18 96/59 (71) 100 05/28/19 20:00 Mechanical Ventilator 05/28/19 19:30 78 19 35 05/28/19 19:23 79 05/28/19 17:11 72 16 35 05/28/19 16:00 97.9 79 18 129/79 (96) 100 05/28/19 16:00 84 05/28/19 16:00 35 05/28/19 16:00 Mechanical Ventilator 05/28/19 15:12 70 16 35 I&O Intake and Output 05/28/19 05/29/19 19:00 07:00 Intake Total 390 ml 1024.84 ml Output Total 750 ml 450 ml Balance -360 ml 574.84 ml Intake Free Water 250 ml 100 ml IV Total 55 ml 594.84 ml Tube Feeding 85 ml 330 ml Output Urine Total 750 ml 450 ml # Bowel Movements 5 Dressing: saturated Wound: clean Cardiovascular: RSR Respiratory: clear Abdomen: soft, distended, non-tender, present bowel sounds Extremities: no cyanosis Laboratory Tests Test 05/29/19 03:50 White Blood Count 20.8 K/UL (4.8-10.8) #H Red Blood Count 3.05 M/UL (4.70-6.10) L Hemoglobin 9.9 G/DL (14.2-18.0) L Hematocrit 31.2 % (42.0-52.0) L Mean Corpuscular Volume 102 FL (80-99) H Mean Corpuscular Hemoglobin 32.4 PG (27.0-31.0) H Mean Corpuscular Hemoglobin Concent 31.7 G/DL (32.0-36.0) L Red Cell Distribution Width 16.8 % (11.6-14.8) H Platelet Count 242 K/UL (150-450) Mean Platelet Volume 6.3 FL (6.5-10.1) L Neutrophils (%) (Auto) % (45.0-75.0) Lymphocytes (%) (Auto) % (20.0-45.0) Monocytes (%) (Auto) % (1.0-10.0) Eosinophils (%) (Auto) % (0.0-3.0) Basophils (%) (Auto) % (0.0-2.0) Differential Total Cells Counted 100 Neutrophils % (Manual) 76 % (45-75) H Lymphocytes % (Manual) 6 % (20-45) L Monocytes % (Manual) 2 % (1-10) Eosinophils % (Manual) 16 % (0-3) H Basophils % (Manual) 0 % (0-2) Band Neutrophils 0 % (0-8) Platelet Estimate Adequate Platelet Morphology Normal Hypochromasia 2+ Anisocytosis 1+ Macrocytosis 1+ Prothrombin Time 11.5 SEC (9.30-11.50) Prothromb Time International Ratio 1.1 (0.9-1.1) Activated Partial Thromboplast Time 29 SEC (23-33) Sodium Level 146 MMOL/L (136-145) H Potassium Level 3.6 MMOL/L (3.5-5.1) Chloride Level 114 MMOL/L (98-107) H Carbon Dioxide Level 24 MMOL/L (21-32) Anion Gap 8 mmol/L (5-15) Blood Urea Nitrogen 32 mg/dL (7-18) H Creatinine 0.9 MG/DL (0.55-1.30) Estimat Glomerular Filtration Rate > 60 mL/min (>60) Glucose Level 147 MG/DL (74-106) H Calcium Level 9.2 MG/DL (8.5-10.1) Phosphorus Level 2.9 MG/DL (2.5-4.9) Magnesium Level 2.1 MG/DL (1.8-2.4) Total Bilirubin 0.3 MG/DL (0.2-1.0) Aspartate Amino Transf (AST/SGOT) 20 U/L (15-37) Alanine Aminotransferase (ALT/SGPT) 21 U/L (12-78) Alkaline Phosphatase 144 U/L (46-116) H Total Protein 7.2 G/DL (6.4-8.2) Albumin 2.8 G/DL (3.4-5.0) L Globulin 4.4 g/dL Albumin/Globulin Ratio 0.6 (1.0-2.7) L Plan Problems: (1) G-tube site cellulitis Assessment & Plan: 58-year-old male presented with G-tube malfunction and clogged who is been in the hospital for a few days now identified to have cellulitis and wound around patient's G-tube site. And evaluate patient the bedside patient has a very old concerning G-tube. I will discuss with GI in regards to changing his G-tube out with a fresh tube. The tube is malodorous has remnants of prior tape and looks like it is about to fall apart and/or break. Not sure about tubes positioning at this time either. As for the cellulitis around the G-tube site there is some chronic scarring from G-tube site manipulation and surgeons. There is no abscess or significant infection just mild erythema and cellulitis. No surgical intervention currently recommended. Will monitor site for potential development of abscess. If leaking will need to refashion G-tube but will wait for GI input on changing to. Furthermore okay for zinc oxide around tube and if necessary may place silver nitrate on exposed areas of mucosa. Thank you for allowing me to participate in patient's care g tube changed site okay will monitor thank you Tae Allen May 29, 2019 14:22
--- NOTE | 2019-05-29 15:05 | Internal Med Progress Note ---
Subjective Physician Name Jian Martinez Attending Physician Jian Martinez MD Current Medications Medications (Trade) Dose Ordered Sig/Sophie Route PRN Reason Start Time Stop Time Status Last Admin Dose Admin Acetaminophen (Tylenol) 650 mg Q4H PRN ORAL FEVER (temp>100.5F) 05/25/19 22:00 06/24/19 21:59 Albuterol/ Ipratropium (Albuterol/ Ipratropium) 3 ml Q4H PRN HHN Shortness of Breath 05/25/19 22:00 05/30/19 21:59 Allopurinol (Allopurinol) 300 mg DAILY GT 05/26/19 09:00 06/25/19 08:59 05/29/19 09:10 Amiodarone HCl (Cordarone) 100 mg DAILY GT 05/28/19 09:00 06/25/19 08:59 05/29/19 09:10 Cefepime HCl 1 gm/ Sodium Chloride 55 ml @ 110 mls/hr EVERY 12 HOURS IVPB 05/26/19 15:00 06/02/19 14:59 05/29/19 09:09 Dextrose (Dextrose 50%) 25 ml Q30M PRN IV Hypoglycemia 05/25/19 22:15 06/24/19 22:03 Dextrose (Dextrose 50%) 50 ml Q30M PRN IV hypoglycemia 05/25/19 22:15 06/24/19 22:14 Heparin Sodium (Porcine) (Heparin 5000 units/ml) 5,000 units EVERY 12 HOURS SUBQ 05/26/19 09:00 06/25/19 08:59 05/29/19 09:14 Insulin Aspart (NovoLOG) BEFORE MEALS AND HS SUBQ 05/27/19 11:30 06/26/19 11:29 05/29/19 11:52 Lansoprazole (Prevacid) 30 mg DAILY GT 05/29/19 09:00 06/28/19 08:59 05/29/19 09:09 Levetiracetam (Keppra) 1,000 mg DAILY GT 05/26/19 09:00 06/25/19 08:59 05/29/19 09:09 Sodium Chloride 1,000 ml @ 50 mls/hr Q20H IV 05/28/19 20:00 06/27/19 19:59 05/28/19 20:12 Allergies: Coded Allergies: No Known Allergies (Unverified , 12/06/18) Subjective awake, open eyes, on vent , NAD. Objective Last Vital Signs Date Time Temp Pulse Resp B/P (MAP) Pulse Ox O2 Delivery O2 Flow Rate FiO2 05/29/19 12:53 79 16 35 05/29/19 12:00 Mechanical Ventilator 05/29/19 12:00 98.9 131/98 (109) 96 05/25/19 22:20 4.0 Laboratory Tests Test 05/29/19 03:50 White Blood Count 20.8 K/UL (4.8-10.8) #H Red Blood Count 3.05 M/UL (4.70-6.10) L Hemoglobin 9.9 G/DL (14.2-18.0) L Hematocrit 31.2 % (42.0-52.0) L Mean Corpuscular Volume 102 FL (80-99) H Mean Corpuscular Hemoglobin 32.4 PG (27.0-31.0) H Mean Corpuscular Hemoglobin Concent 31.7 G/DL (32.0-36.0) L Red Cell Distribution Width 16.8 % (11.6-14.8) H Platelet Count 242 K/UL (150-450) Mean Platelet Volume 6.3 FL (6.5-10.1) L Neutrophils (%) (Auto) % (45.0-75.0) Lymphocytes (%) (Auto) % (20.0-45.0) Monocytes (%) (Auto) % (1.0-10.0) Eosinophils (%) (Auto) % (0.0-3.0) Basophils (%) (Auto) % (0.0-2.0) Differential Total Cells Counted 100 Neutrophils % (Manual) 76 % (45-75) H Lymphocytes % (Manual) 6 % (20-45) L Monocytes % (Manual) 2 % (1-10) Eosinophils % (Manual) 16 % (0-3) H Basophils % (Manual) 0 % (0-2) Band Neutrophils 0 % (0-8) Platelet Estimate Adequate Platelet Morphology Normal Hypochromasia 2+ Anisocytosis 1+ Macrocytosis 1+ Prothrombin Time 11.5 SEC (9.30-11.50) Prothromb Time International Ratio 1.1 (0.9-1.1) Activated Partial Thromboplast Time 29 SEC (23-33) Sodium Level 146 MMOL/L (136-145) H Potassium Level 3.6 MMOL/L (3.5-5.1) Chloride Level 114 MMOL/L (98-107) H Carbon Dioxide Level 24 MMOL/L (21-32) Anion Gap 8 mmol/L (5-15) Blood Urea Nitrogen 32 mg/dL (7-18) H Creatinine 0.9 MG/DL (0.55-1.30) Estimat Glomerular Filtration Rate > 60 mL/min (>60) Glucose Level 147 MG/DL (74-106) H Calcium Level 9.2 MG/DL (8.5-10.1) Phosphorus Level 2.9 MG/DL (2.5-4.9) Magnesium Level 2.1 MG/DL (1.8-2.4) Total Bilirubin 0.3 MG/DL (0.2-1.0) Aspartate Amino Transf (AST/SGOT) 20 U/L (15-37) Alanine Aminotransferase (ALT/SGPT) 21 U/L (12-78) Alkaline Phosphatase 144 U/L (46-116) H Total Protein 7.2 G/DL (6.4-8.2) Albumin 2.8 G/DL (3.4-5.0) L Globulin 4.4 g/dL Albumin/Globulin Ratio 0.6 (1.0-2.7) L Microbiology Date/Time Source Procedure Growth Status 05/26/19 15:35 Blood Blood Culture - Preliminary NO GROWTH AFTER 24 HOURS Resulted 05/26/19 15:30 Blood Blood Culture - Preliminary NO GROWTH AFTER 24 HOURS Resulted Intake and Output 05/28/19 05/29/19 19:00 07:00 Intake Total 390 ml 1024.84 ml Output Total 750 ml 450 ml Balance -360 ml 574.84 ml Intake Free Water 250 ml 100 ml IV Total 55 ml 594.84 ml Tube Feeding 85 ml 330 ml Output Urine Total 750 ml 450 ml # Bowel Movements 5 Objective General: No acute distress, awake, open eyes. HEENT: NCAT, sclera anicteric, PERRL, EOMI. Neck: Supple, Trach site intact. Lungs: Bilateral air entry, no Wheeze or Rales. Heart: Regular rate and rhythm, normal S1/S2, no murmurs, ICD @ LCW. Abdomen: soft, nontender, nondistended. Normoactive bowel sounds, Obesity, PEG site intact. / Rectal: Gale cath. Extremities: No Cyanosis , clubbing or edema. Neuro: able to move left side but right side weakener. Skin: warm, no rash, Assessment/Plan Assessment/Plan 1. Gastrostomy tube malfunction s/p replacement. 2. Vent Dependent respiratory failure 3. Diabetes type 2. 4. History of cardiac arrhythmia. 5. Status post biventricular AICD. 6. Dysphagia, status post PEG. 7. Morbid obesity. 8. Peripheral vascular disease. 9. Acute on chronic renal insufficiency. 10. History of seizure disorder. 11. Chronic atrial fibrillation. 12. Fatty liver. 13. Hypertension. 14. Nontraumatic intracerebral hemorrhage. 15. Anemia of chronic disease. 16. Hypotensive improving Plan: monitor labs and cultures Abx: Cefepime IV. tolerated Tube feeding @ 45 cc/hr DC Planning to SNF soon. Full code Jian Martinez MD May 29, 2019 15:05
[2019-05-29 16:00] VITALS: BP 126/76
--- NOTE | 2019-05-29 19:26 | Cardiology Progress Note ---
Assessment/Plan Assessment/Plan hypotesnion resolved post fluid resusitation hs of icd implatation (indication n to yet apparent) paf chronic respiratory failure dm aspiration hs uo improved bp improved echo showed normal lv fucntion no further afib noted on tele keep on amiod will resume eliquis 5 mg bid tele reviewed d/w rn dc ivf agree iwth dc planning Subjective ROS Limited/Unobtainable: Yes Cardiovascular: Reports: chest pain Objective Last 24 Hour Vital Signs Date Time Temp Pulse Resp B/P (MAP) Pulse Ox O2 Delivery O2 Flow Rate FiO2 05/29/19 17:09 65 16 35 05/29/19 16:00 Mechanical Ventilator 05/29/19 16:00 98.2 73 18 126/76 (93) 100 05/29/19 16:00 74 05/29/19 16:00 35 05/29/19 15:22 64 17 35 05/29/19 12:53 79 16 35 05/29/19 12:21 81 17 35 05/29/19 12:00 Mechanical Ventilator 05/29/19 12:00 98.9 80 18 131/98 (109) 96 05/29/19 12:00 77 05/29/19 12:00 35 05/29/19 09:16 70 16 35 05/29/19 08:00 35 05/29/19 08:00 98.4 85 19 114/72 (86) 100 05/29/19 08:00 Mechanical Ventilator 05/29/19 08:00 Mechanical Ventilator 05/29/19 07:36 73 05/29/19 07:07 50 19 35 05/29/19 05:12 83 17 35 05/29/19 04:06 88 05/29/19 04:00 35 05/29/19 04:00 99.2 84 19 114/66 (82) 99 05/29/19 04:00 Mechanical Ventilator 05/29/19 03:15 85 16 35 05/29/19 01:28 79 18 35 05/29/19 00:00 Mechanical Ventilator 05/29/19 00:00 98.2 83 17 110/70 (83) 96 05/28/19 23:32 85 05/28/19 22:56 80 17 35 05/28/19 21:30 75 18 35 05/28/19 20:00 35 05/28/19 20:00 98.4 74 18 96/59 (71) 100 05/28/19 20:00 Mechanical Ventilator 05/28/19 19:30 78 19 35 General Appearance: no apparent distress, on vent, patient on isolation Neck: supple Cardiovascular: normal rate Respiratory/Chest: lungs clear - ant Abdomen: normal bowel sounds, non tender, soft Extremities: no swelling Intake and Output 05/28/19 05/29/19 19:00 07:00 Intake Total 390 ml 1054.84 ml Output Total 750 ml 450 ml Balance -360 ml 604.84 ml Intake Free Water 250 ml 100 ml IV Total 55 ml 594.84 ml Tube Feeding 85 ml 360 ml Output Urine Total 750 ml 450 ml # Bowel Movements 5 Laboratory Tests Test 05/29/19 03:50 White Blood Count 20.8 K/UL (4.8-10.8) #H Red Blood Count 3.05 M/UL (4.70-6.10) L Hemoglobin 9.9 G/DL (14.2-18.0) L Hematocrit 31.2 % (42.0-52.0) L Mean Corpuscular Volume 102 FL (80-99) H Mean Corpuscular Hemoglobin 32.4 PG (27.0-31.0) H Mean Corpuscular Hemoglobin Concent 31.7 G/DL (32.0-36.0) L Red Cell Distribution Width 16.8 % (11.6-14.8) H Platelet Count 242 K/UL (150-450) Mean Platelet Volume 6.3 FL (6.5-10.1) L Neutrophils (%) (Auto) % (45.0-75.0) Lymphocytes (%) (Auto) % (20.0-45.0) Monocytes (%) (Auto) % (1.0-10.0) Eosinophils (%) (Auto) % (0.0-3.0) Basophils (%) (Auto) % (0.0-2.0) Differential Total Cells Counted 100 Neutrophils % (Manual) 76 % (45-75) H Lymphocytes % (Manual) 6 % (20-45) L Monocytes % (Manual) 2 % (1-10) Eosinophils % (Manual) 16 % (0-3) H Basophils % (Manual) 0 % (0-2) Band Neutrophils 0 % (0-8) Platelet Estimate Adequate Platelet Morphology Normal Hypochromasia 2+ Anisocytosis 1+ Macrocytosis 1+ Prothrombin Time 11.5 SEC (9.30-11.50) Prothromb Time International Ratio 1.1 (0.9-1.1) Activated Partial Thromboplast Time 29 SEC (23-33) Sodium Level 146 MMOL/L (136-145) H Potassium Level 3.6 MMOL/L (3.5-5.1) Chloride Level 114 MMOL/L (98-107) H Carbon Dioxide Level 24 MMOL/L (21-32) Anion Gap 8 mmol/L (5-15) Blood Urea Nitrogen 32 mg/dL (7-18) H Creatinine 0.9 MG/DL (0.55-1.30) Estimat Glomerular Filtration Rate > 60 mL/min (>60) Glucose Level 147 MG/DL (74-106) H Calcium Level 9.2 MG/DL (8.5-10.1) Phosphorus Level 2.9 MG/DL (2.5-4.9) Magnesium Level 2.1 MG/DL (1.8-2.4) Total Bilirubin 0.3 MG/DL (0.2-1.0) Aspartate Amino Transf (AST/SGOT) 20 U/L (15-37) Alanine Aminotransferase (ALT/SGPT) 21 U/L (12-78) Alkaline Phosphatase 144 U/L (46-116) H Total Protein 7.2 G/DL (6.4-8.2) Albumin 2.8 G/DL (3.4-5.0) L Globulin 4.4 g/dL Albumin/Globulin Ratio 0.6 (1.0-2.7) L Benito Desai MD May 29, 2019 19:26
[2019-05-29 20:00] VITALS: BP 109/71
[2019-05-30] VITALS: BP 106/66
[2019-05-30 04:00] VITALS: BP 102/66
[2019-05-30 04:36] LABS: HEMATOCRIT 28.8 % (42.0-52.0); HEMOGLOBIN 9.2 G/DL (14.2-18.0); MEAN CORPUSCULAR VOLUME 102 FL (80-99); PLATELET COUNT 234 K/UL (150-450); RED BLOOD COUNT 2.84 M/UL (4.70-6.10)
[2019-05-30 04:57] LABS: ANION GAP 8 mmol/L (5-15); BLOOD UREA NITROGEN 28 mg/dL (7-18); CALCIUM 9.2 MG/DL (8.5-10.1); CARBON DIOXIDE 21 MMOL/L (21-32); CHLORIDE 118 MMOL/L (98-107); CREATININE 0.9 MG/DL (0.55-1.30); POTASSIUM 3.9 MMOL/L (3.5-5.1); SODIUM 147 MMOL/L (136-145)
[2019-05-30] MEDS: NovoLOG Insulin Flexpen SUBQ SCH ×4 (05:33→20:40)
[2019-05-30 07:57] VITALS: BP 98/57
--- NOTE | 2019-05-30 07:59 | Pulmonology Progress Note ---
Assessment/Plan Assessment/Plan ASSESSMENT Probable sepsis Probable PNA G tube malfunctioning, status post replacement Ventilator dependent respiratory failure tracheostomy status Dysphagia, feeding by G-tube Hypotension Paroxysmal atrial fibrillation History of CVA/intracerebral hemorrhages with hemiplegia Seizure disorder Diabetes mellitus AICD Anemia of chronic disease Fatty liver Scabies, s/p Rx PLAN OF CARE SHELLI status vent support, pulmonary toilet trach care titrate settings prn fup with CXR abx as per ID recs DVT prophylaxis strict aspiration precaution G-tube feeding wound care around G-tube site as per surgeon recs monitor hemodynamic status ; BP currently better continue amiodarone Echo with EF 50- 55% e resume anticoagulation with Eliquis as pr cardio BS management with SSI GI prophylaxis antiemetic as needed bowel regimen seizure precautions, continue Keppra monitor HH with goal to keep Hgb above 7 supportive care case discussed and evaluated by supervising physician Subjective Allergies: Coded Allergies: No Known Allergies (Unverified , 12/06/18) Subjective leukocytosis trended down, afebrile Objective Last 24 Hour Vital Signs Date Time Temp Pulse Resp B/P (MAP) Pulse Ox O2 Delivery O2 Flow Rate FiO2 05/30/19 07:53 35 05/30/19 07:01 73 16 35 05/30/19 04:45 85 17 35 05/30/19 04:00 98.3 74 16 102/66 (78) 100 05/30/19 04:00 35 05/30/19 04:00 Mechanical Ventilator 05/30/19 03:35 78 05/30/19 02:55 79 16 35 05/30/19 01:11 68 16 35 05/30/19 00:00 98.5 76 16 106/66 (79) 100 05/30/19 00:00 Mechanical Ventilator 05/29/19 23:52 72 05/29/19 23:05 78 16 35 05/29/19 21:25 80 17 35 05/29/19 20:00 35 05/29/19 20:00 81 05/29/19 20:00 Mechanical Ventilator 05/29/19 20:00 98.9 77 16 109/71 (84) 99 05/29/19 19:47 65 16 35 05/29/19 17:09 65 16 35 05/29/19 16:00 Mechanical Ventilator 05/29/19 16:00 98.2 73 18 126/76 (93) 100 05/29/19 16:00 74 05/29/19 16:00 35 05/29/19 15:22 64 17 35 05/29/19 12:53 79 16 35 05/29/19 12:21 81 17 35 05/29/19 12:00 Mechanical Ventilator 05/29/19 12:00 98.9 80 18 131/98 (109) 96 05/29/19 12:00 77 05/29/19 12:00 35 05/29/19 09:16 70 16 35 05/29/19 08:00 35 05/29/19 08:00 98.4 85 19 114/72 (86) 100 05/29/19 08:00 Mechanical Ventilator 05/29/19 08:00 Mechanical Ventilator Intake and Output 05/29/19 05/30/19 18:59 06:59 Intake Total 1335.0 ml 930 ml Output Total 400 ml 400 ml Balance 935.0 ml 530 ml Intake Free Water 100 ml 100 ml IV Total 655.0 ml 105 ml Tube Feeding 580 ml 725 ml Output Urine Total 400 ml 400 ml # Bowel Movements 2 2 General Appearance: no acute distress, other - bedridden, chronically ill looking, vent dependent male on Vent AC 600-35% -16 HEENT: normocephalic, atraumatic, status post trach - Portex#8, secretions small, yellow, thick Respiratory/Chest: no respiratory distress, rhonchi Cardiovascular: normal peripheral pulses, normal rate - pacing Abdomen: normal bowel sounds, soft, non tender, other - G tube Extremities: other - Gale Neurologic/Psychiatric: abnormal gait Musculoskeletal: atrophy - BLE Laboratory Tests 05/30/19 04:10: White Blood Count 12.0H, Red Blood Count 2.84L, Hemoglobin 9.2L, Hematocrit 28.8L, Mean Corpuscular Volume 102H, Mean Corpuscular Hemoglobin 32.6H, Mean Corpuscular Hemoglobin Concent 32.1, Red Cell Distribution Width 17.0H, Platelet Count 234, Mean Platelet Volume 6.4L, Neutrophils (%) (Auto) , Lymphocytes (%) (Auto) , Monocytes (%) (Auto) , Eosinophils (%) (Auto) , Basophils (%) (Auto) , Sodium Level 147H, Potassium Level 3.9, Chloride Level 118H, Carbon Dioxide Level 21, Anion Gap 8, Blood Urea Nitrogen 28H, Creatinine 0.9, Estimat Glomerular Filtration Rate > 60, Glucose Level 141H, Calcium Level 9.2 Current Medications Medications (Trade) Dose Ordered Sig/Sophie Route PRN Reason Start Time Stop Time Status Last Admin Dose Admin Acetaminophen (Tylenol) 650 mg Q4H PRN ORAL FEVER (temp>100.5F) 05/25/19 22:00 06/24/19 21:59 Albuterol/ Ipratropium (Albuterol/ Ipratropium) 3 ml Q4H PRN HHN Shortness of Breath 05/25/19 22:00 05/30/19 21:59 Allopurinol (Allopurinol) 300 mg DAILY GT 05/26/19 09:00 06/25/19 08:59 05/29/19 09:10 Amiodarone HCl (Cordarone) 100 mg DAILY GT 05/28/19 09:00 06/25/19 08:59 05/29/19 09:10 Apixaban (Eliquis) 5 mg BID GT 05/30/19 09:00 06/29/19 08:59 Cefepime HCl 1 gm/ Sodium Chloride 55 ml @ 110 mls/hr EVERY 12 HOURS IVPB 05/26/19 15:00 06/02/19 14:59 05/29/19 20:16 Dextrose (Dextrose 50%) 25 ml Q30M PRN IV Hypoglycemia 05/25/19 22:15 06/24/19 22:03 Dextrose (Dextrose 50%) 50 ml Q30M PRN IV hypoglycemia 05/25/19 22:15 06/24/19 22:14 Insulin Aspart (NovoLOG) BEFORE MEALS AND HS SUBQ 05/27/19 11:30 06/26/19 11:29 05/30/19 05:33 Lansoprazole (Prevacid) 30 mg DAILY GT 05/29/19 09:00 06/28/19 08:59 05/29/19 09:09 Levetiracetam (Keppra) 1,000 mg DAILY GT 05/26/19 09:00 06/25/19 08:59 05/29/19 09:09 Coco Morrison NP May 30, 2019 07:59
[2019-05-30] MEDS: Eliquis 5mg tablet GT SCH ×2 (09:05→18:20)
[2019-05-30] MEDS: levETIRAcetam 500mg/5ml Liquid GT SCH (09:05)
[2019-05-30] MEDS: Amiodarone 200mg tab GT SCH (09:06)
[2019-05-30] MEDS ORDERED: NS 275ml ONE (09:15)
[2019-05-30] MEDS ORDERED: Tubing IV Secondary IV ONE (09:15)
[2019-05-30] MEDS ORDERED: D5 1/2NS 1000ml IV ONE (09:15)
[2019-05-30] MEDS ORDERED: NS 500ML ONE (09:15)
[2019-05-30] MEDS: Cefepime HCl 1 GM in NS 55 ML IVPB SCH (09:21)
--- NOTE | 2019-05-30 10:56 | GI Progress Note ---
Assessment/Plan Problems: (1) Ventilator dependence ICD Codes: Z99.11 - Dependence on respirator [ventilator] status SNOMED: 480607199 (2) G-tube site cellulitis ICD Codes: 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; L03.319 - Cellulitis of trunk, unspecified SNOMED: 330376522, 948217107 (3) Malfunction of gastrostomy tube ICD Codes: K94.23 - Gastrostomy malfunction SNOMED: 759325450 (4) History of CVA (cerebrovascular accident) ICD Codes: Z86.73 - Personal history of transient ischemic attack (TIA), and cerebral infarction without residual deficits SNOMED: 991738778 (5) Feeding by G-tube ICD Codes: Z93.1 - Gastrostomy status SNOMED: 210820462, 209269057, 303703637 (6) Diabetes mellitus ICD Codes: E11.9 - Type 2 diabetes mellitus without complications SNOMED: 08095569 Status: unchanged Status Narrative Discussed with Dr. Rdz. Assessment/Plan 24 [place] G-tube readjusted and balloon inflated KUB placement confirmed, GTFs to goal follow wound care recs for GT site G-tube feedings per registered dietitian Antibiotics Reglan as needed for GI motility Follow-up H&H PPI The patient was seen and examined at bedside and all new and available data was reviewed in the patients chart. I agree with the above findings, impression and plan. (Patient seen earlier today. Signature stamp does not reflect patient encounter time.). - Jakob Rdz MD Subjective Subjective limited Objective Last 24 Hour Vital Signs Date Time Temp Pulse Resp B/P (MAP) Pulse Ox O2 Delivery O2 Flow Rate FiO2 05/30/19 09:17 75 17 35 05/30/19 07:57 98.7 73 16 98/57 (71) 100 05/30/19 07:53 35 05/30/19 07:43 74 05/30/19 07:01 73 16 35 05/30/19 04:45 85 17 35 05/30/19 04:00 98.3 74 16 102/66 (78) 100 05/30/19 04:00 35 05/30/19 04:00 Mechanical Ventilator 05/30/19 03:35 78 05/30/19 02:55 79 16 35 05/30/19 01:11 68 16 35 05/30/19 00:00 98.5 76 16 106/66 (79) 100 05/30/19 00:00 Mechanical Ventilator 05/29/19 23:52 72 05/29/19 23:05 78 16 35 05/29/19 21:25 80 17 35 05/29/19 20:00 35 05/29/19 20:00 81 05/29/19 20:00 Mechanical Ventilator 05/29/19 20:00 98.9 77 16 109/71 (84) 99 05/29/19 19:47 65 16 35 05/29/19 17:09 65 16 35 05/29/19 16:00 Mechanical Ventilator 05/29/19 16:00 98.2 73 18 126/76 (93) 100 05/29/19 16:00 74 05/29/19 16:00 35 05/29/19 15:22 64 17 35 05/29/19 12:53 79 16 35 05/29/19 12:21 81 17 35 05/29/19 12:00 Mechanical Ventilator 05/29/19 12:00 98.9 80 18 131/98 (109) 96 05/29/19 12:00 77 05/29/19 12:00 35 Intake and Output 05/29/19 05/30/19 18:59 06:59 Intake Total 1335.0 ml 930 ml Output Total 400 ml 400 ml Balance 935.0 ml 530 ml Intake Free Water 100 ml 100 ml IV Total 655.0 ml 105 ml Tube Feeding 580 ml 725 ml Output Urine Total 400 ml 400 ml # Bowel Movements 2 2 Laboratory Tests Test 05/30/19 04:10 White Blood Count 12.0 K/UL (4.8-10.8) H Red Blood Count 2.84 M/UL (4.70-6.10) L Hemoglobin 9.2 G/DL (14.2-18.0) L Hematocrit 28.8 % (42.0-52.0) L Mean Corpuscular Volume 102 FL (80-99) H Mean Corpuscular Hemoglobin 32.6 PG (27.0-31.0) H Mean Corpuscular Hemoglobin Concent 32.1 G/DL (32.0-36.0) Red Cell Distribution Width 17.0 % (11.6-14.8) H Platelet Count 234 K/UL (150-450) Mean Platelet Volume 6.4 FL (6.5-10.1) L Neutrophils (%) (Auto) % (45.0-75.0) Lymphocytes (%) (Auto) % (20.0-45.0) Monocytes (%) (Auto) % (1.0-10.0) Eosinophils (%) (Auto) % (0.0-3.0) Basophils (%) (Auto) % (0.0-2.0) Sodium Level 147 MMOL/L (136-145) H Potassium Level 3.9 MMOL/L (3.5-5.1) Chloride Level 118 MMOL/L (98-107) H Carbon Dioxide Level 21 MMOL/L (21-32) Anion Gap 8 mmol/L (5-15) Blood Urea Nitrogen 28 mg/dL (7-18) H Creatinine 0.9 MG/DL (0.55-1.30) Estimat Glomerular Filtration Rate > 60 mL/min (>60) Glucose Level 141 MG/DL (74-106) H Calcium Level 9.2 MG/DL (8.5-10.1) Height (Feet): 5 Height (Inches): 8.00 Weight (Pounds): 193 General Appearance: WD/WN, no apparent distress, alert Cardiovascular: normal rate Respiratory/Chest: normal breath sounds, no respiratory distress Abdominal Exam: normal bowel sounds, non tender, soft Extremities: non-tender Amarilys Gardiner NP May 30, 2019 10:56
[2019-05-30 12:00] VITALS: BP 101/57
[2019-05-30] MEDS ORDERED: Albuterol/Ipratropium 3ml neb HHN PRN (12:00)
--- NOTE | 2019-05-30 13:49 | Surgery Progress Note ---
Surgery Progress Note Subjective Additional Comments leukocytosis improved tolerating diet tube okay had diarrhea. pending C diff Objective Last 24 Hour Vital Signs Date Time Temp Pulse Resp B/P (MAP) Pulse Ox O2 Delivery O2 Flow Rate FiO2 05/30/19 13:19 79 16 35 05/30/19 12:00 35 05/30/19 12:00 78 05/30/19 12:00 Mechanical Ventilator 05/30/19 12:00 99.2 85 14 101/57 (72) 100 05/30/19 10:57 80 17 35 05/30/19 09:17 75 17 35 05/30/19 08:00 Mechanical Ventilator 05/30/19 07:57 98.7 73 16 98/57 (71) 100 05/30/19 07:53 35 05/30/19 07:43 74 05/30/19 07:01 73 16 35 05/30/19 04:45 85 17 35 05/30/19 04:00 98.3 74 16 102/66 (78) 100 05/30/19 04:00 35 05/30/19 04:00 Mechanical Ventilator 05/30/19 03:35 78 05/30/19 02:55 79 16 35 05/30/19 01:11 68 16 35 05/30/19 00:00 98.5 76 16 106/66 (79) 100 05/30/19 00:00 Mechanical Ventilator 05/29/19 23:52 72 05/29/19 23:05 78 16 35 05/29/19 21:25 80 17 35 05/29/19 20:00 35 05/29/19 20:00 81 05/29/19 20:00 Mechanical Ventilator 05/29/19 20:00 98.9 77 16 109/71 (84) 99 05/29/19 19:47 65 16 35 05/29/19 17:09 65 16 35 05/29/19 16:00 Mechanical Ventilator 05/29/19 16:00 98.2 73 18 126/76 (93) 100 05/29/19 16:00 74 05/29/19 16:00 35 05/29/19 15:22 64 17 35 I&O Intake and Output 05/29/19 05/30/19 19:00 07:00 Intake Total 1370.0 ml 875 ml Output Total 400 ml 400 ml Balance 970.0 ml 475 ml Intake Free Water 100 ml 100 ml IV Total 655.0 ml 55 ml Tube Feeding 615 ml 720 ml Output Urine Total 400 ml 400 ml # Bowel Movements 2 2 Dressing: other Wound: other Drains: other Cardiovascular: RSR Respiratory: decreased breath sounds Abdomen: soft, present bowel sounds, other, non-distended Extremities: other Laboratory Tests Test 05/30/19 04:10 White Blood Count 12.0 K/UL (4.8-10.8) H Red Blood Count 2.84 M/UL (4.70-6.10) L Hemoglobin 9.2 G/DL (14.2-18.0) L Hematocrit 28.8 % (42.0-52.0) L Mean Corpuscular Volume 102 FL (80-99) H Mean Corpuscular Hemoglobin 32.6 PG (27.0-31.0) H Mean Corpuscular Hemoglobin Concent 32.1 G/DL (32.0-36.0) Red Cell Distribution Width 17.0 % (11.6-14.8) H Platelet Count 234 K/UL (150-450) Mean Platelet Volume 6.4 FL (6.5-10.1) L Neutrophils (%) (Auto) % (45.0-75.0) Lymphocytes (%) (Auto) % (20.0-45.0) Monocytes (%) (Auto) % (1.0-10.0) Eosinophils (%) (Auto) % (0.0-3.0) Basophils (%) (Auto) % (0.0-2.0) Sodium Level 147 MMOL/L (136-145) H Potassium Level 3.9 MMOL/L (3.5-5.1) Chloride Level 118 MMOL/L (98-107) H Carbon Dioxide Level 21 MMOL/L (21-32) Anion Gap 8 mmol/L (5-15) Blood Urea Nitrogen 28 mg/dL (7-18) H Creatinine 0.9 MG/DL (0.55-1.30) Estimat Glomerular Filtration Rate > 60 mL/min (>60) Glucose Level 141 MG/DL (74-106) H Calcium Level 9.2 MG/DL (8.5-10.1) Plan Problems: (1) G-tube site cellulitis Assessment & Plan: 58-year-old male presented with G-tube malfunction and clogged who is been in the hospital for a few days now identified to have cellulitis and wound around patient's G-tube site. And evaluate patient the bedside patient has a very old concerning G-tube. I will discuss with GI in regards to changing his G-tube out with a fresh tube. The tube is malodorous has remnants of prior tape and looks like it is about to fall apart and/or break. Not sure about tubes positioning at this time either. As for the cellulitis around the G-tube site there is some chronic scarring from G-tube site manipulation and surgeons. There is no abscess or significant infection just mild erythema and cellulitis. No surgical intervention currently recommended. Will monitor site for potential development of abscess. If leaking will need to refashion G-tube but will wait for GI input on changing to. Furthermore okay for zinc oxide around tube and if necessary may place silver nitrate on exposed areas of mucosa. Thank you for allowing me to participate in patient's care g tube changed site okay will monitor thank you Tae Allen May 30, 2019 13:49
--- NOTE | 2019-05-30 14:58 | Infectious Diseases Prog Note ---
Assessment/Plan Assessment/Plan Assessment: Probable sepsis- Probable PNA, r/o bacteremia -05/28 CXR: Increasing density at the left lung base may be atelectasis or pneumonia. -u/a neg -CXR Suspected mild pulmonary vascular congestion -sp cx NDR PsA (S Gentamicin, Amikcin), PsA (clarke S), Group G strep -Bcx NTD Afebrile Leukocytosis, recurrent, improving- r/o cdiff GT malfunction- no signs of cellulitis -wound cx CONS, MRSA; colonziers Scabies, sp rx chronic respiratory failure on Tach/vent/Peg s/p ICD CVA bed bound SNF resident Plan: -Switch empiric Cefepime #5 to Amikacin for probable MDR PsA PNA -05/27 SP IV Vancomycin #3 -05/26 SP Ivermectin, permethrin x1 -05/25 SP Ancef x1 -f/u cx -Monitor CBC/CMP, temperatures -f/u Bcx x2, Cdiff -PEG/Trach care -aspiration precautions Thank you for this consultation. Will continue to follow along with you. Discussed with RN Subjective Allergies: Coded Allergies: No Known Allergies (Unverified , 12/06/18) Subjective afebrile leukocytosis improving Bcx NTD Objective Vital Signs Last 24 Hour Vital Signs Date Time Temp Pulse Resp B/P (MAP) Pulse Ox O2 Delivery O2 Flow Rate FiO2 05/30/19 13:19 79 16 35 05/30/19 12:00 35 05/30/19 12:00 78 05/30/19 12:00 Mechanical Ventilator 05/30/19 12:00 99.2 85 14 101/57 (72) 100 05/30/19 10:57 80 17 35 05/30/19 09:17 75 17 35 05/30/19 08:00 Mechanical Ventilator 05/30/19 07:57 98.7 73 16 98/57 (71) 100 05/30/19 07:53 35 05/30/19 07:43 74 05/30/19 07:01 73 16 35 05/30/19 04:45 85 17 35 05/30/19 04:00 98.3 74 16 102/66 (78) 100 05/30/19 04:00 35 05/30/19 04:00 Mechanical Ventilator 05/30/19 03:35 78 05/30/19 02:55 79 16 35 05/30/19 01:11 68 16 35 05/30/19 00:00 98.5 76 16 106/66 (79) 100 05/30/19 00:00 Mechanical Ventilator 05/29/19 23:52 72 05/29/19 23:05 78 16 35 05/29/19 21:25 80 17 35 05/29/19 20:00 35 05/29/19 20:00 81 05/29/19 20:00 Mechanical Ventilator 05/29/19 20:00 98.9 77 16 109/71 (84) 99 05/29/19 19:47 65 16 35 05/29/19 17:09 65 16 35 05/29/19 16:00 Mechanical Ventilator 05/29/19 16:00 98.2 73 18 126/76 (93) 100 05/29/19 16:00 74 05/29/19 16:00 35 05/29/19 15:22 64 17 35 Height (Feet): 5 Height (Inches): 8.00 Weight (Pounds): 193 Objective Lines, tubes and drains: peripheral, central line HEENT: normocephalic, mucous membranes moist Neck: non-tender, normal alignment Respiratory/Chest: chest wall non-tender, lungs clear Cardiovascular/Chest: normal peripheral pulses, normal rate Abdomen: normal bowel sounds, non tender Extremities: normal range of motion, non-tender Skin Exam: normal pigmentation 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 Laboratory Tests Test 05/30/19 04:10 White Blood Count 12.0 K/UL (4.8-10.8) H Red Blood Count 2.84 M/UL (4.70-6.10) L Hemoglobin 9.2 G/DL (14.2-18.0) L Hematocrit 28.8 % (42.0-52.0) L Mean Corpuscular Volume 102 FL (80-99) H Mean Corpuscular Hemoglobin 32.6 PG (27.0-31.0) H Mean Corpuscular Hemoglobin Concent 32.1 G/DL (32.0-36.0) Red Cell Distribution Width 17.0 % (11.6-14.8) H Platelet Count 234 K/UL (150-450) Mean Platelet Volume 6.4 FL (6.5-10.1) L Neutrophils (%) (Auto) % (45.0-75.0) Lymphocytes (%) (Auto) % (20.0-45.0) Monocytes (%) (Auto) % (1.0-10.0) Eosinophils (%) (Auto) % (0.0-3.0) Basophils (%) (Auto) % (0.0-2.0) Sodium Level 147 MMOL/L (136-145) H Potassium Level 3.9 MMOL/L (3.5-5.1) Chloride Level 118 MMOL/L (98-107) H Carbon Dioxide Level 21 MMOL/L (21-32) Anion Gap 8 mmol/L (5-15) Blood Urea Nitrogen 28 mg/dL (7-18) H Creatinine 0.9 MG/DL (0.55-1.30) Estimat Glomerular Filtration Rate > 60 mL/min (>60) Glucose Level 141 MG/DL (74-106) H Calcium Level 9.2 MG/DL (8.5-10.1) Current Medications Medications (Trade) Dose Ordered Sig/Sophie Route PRN Reason Start Time Stop Time Status Last Admin Dose Admin Acetaminophen (Tylenol) 650 mg Q4H PRN ORAL FEVER (temp>100.5F) 05/25/19 22:00 06/24/19 21:59 Albuterol/ Ipratropium (Albuterol/ Ipratropium) 3 ml Q4H PRN HHN Shortness of Breath 05/30/19 12:00 06/04/19 11:59 Allopurinol (Allopurinol) 300 mg DAILY GT 05/26/19 09:00 06/25/19 08:59 05/30/19 09:05 Amiodarone HCl (Cordarone) 100 mg DAILY GT 05/28/19 09:00 06/25/19 08:59 05/30/19 09:06 Apixaban (Eliquis) 5 mg BID GT 05/30/19 09:00 06/29/19 08:59 05/30/19 09:05 Cefepime HCl 1 gm/ Sodium Chloride 55 ml @ 110 mls/hr EVERY 12 HOURS IVPB 05/26/19 15:00 06/02/19 14:59 05/30/19 09:21 Dextrose (Dextrose 50%) 25 ml Q30M PRN IV Hypoglycemia 05/25/19 22:15 06/24/19 22:03 Dextrose (Dextrose 50%) 50 ml Q30M PRN IV hypoglycemia 05/25/19 22:15 06/24/19 22:14 Insulin Aspart (NovoLOG) BEFORE MEALS AND HS SUBQ 05/27/19 11:30 06/26/19 11:29 05/30/19 11:52 Lansoprazole (Prevacid) 30 mg DAILY GT 05/29/19 09:00 06/28/19 08:59 05/30/19 09:05 Levetiracetam (Keppra) 1,000 mg DAILY GT 05/26/19 09:00 06/25/19 08:59 05/30/19 09:05 Flavia Houston M.D. May 30, 2019 14:58
[2019-05-30] MEDS ORDERED: Amikacin Rx to dose MISC PRN (15:00)
[2019-05-30 16:00] VITALS: BP 103/58
[2019-05-30] MEDS ORDERED: NS IV SCH (18:00)
[2019-05-30] MEDS ORDERED: AMIKACIN IV SCH (18:00)
--- NOTE | 2019-05-30 18:55 | Cardiology Progress Note ---
Assessment/Plan Assessment/Plan hypotesnion resolved post fluid resusitation hs of icd implatation (indication n to yet apparent) paf chronic respiratory failure dm aspiration hs uo improved bp improved echo showed normal lv fucntion no further afib noted on tele keep on amiod will resume eliquis 5 mg bid tele reviewed d/w rn off ivf agree iwth dc planning Subjective ROS Limited/Unobtainable: Yes Objective Last 24 Hour Vital Signs Date Time Temp Pulse Resp B/P (MAP) Pulse Ox O2 Delivery O2 Flow Rate FiO2 05/30/19 17:23 71 16 35 05/30/19 16:00 99.5 75 16 103/58 (73) 100 05/30/19 16:00 35 05/30/19 16:00 Mechanical Ventilator 05/30/19 15:59 56 05/30/19 15:11 50 16 35 05/30/19 13:19 79 16 35 05/30/19 12:00 35 05/30/19 12:00 78 05/30/19 12:00 Mechanical Ventilator 05/30/19 12:00 99.2 85 14 101/57 (72) 100 05/30/19 10:57 80 17 35 05/30/19 09:17 75 17 35 05/30/19 08:00 Mechanical Ventilator 05/30/19 07:57 98.7 73 16 98/57 (71) 100 05/30/19 07:53 35 05/30/19 07:43 74 05/30/19 07:01 73 16 35 05/30/19 04:45 85 17 35 05/30/19 04:00 98.3 74 16 102/66 (78) 100 05/30/19 04:00 35 05/30/19 04:00 Mechanical Ventilator 05/30/19 03:35 78 05/30/19 02:55 79 16 35 05/30/19 01:11 68 16 35 05/30/19 00:00 98.5 76 16 106/66 (79) 100 05/30/19 00:00 Mechanical Ventilator 05/29/19 23:52 72 05/29/19 23:05 78 16 35 05/29/19 21:25 80 17 35 05/29/19 20:00 35 05/29/19 20:00 81 05/29/19 20:00 Mechanical Ventilator 05/29/19 20:00 98.9 77 16 109/71 (84) 99 05/29/19 19:47 65 16 35 General Appearance: no apparent distress, on vent, patient on isolation Neck: supple Cardiovascular: normal rate Respiratory/Chest: chest wall non-tender, lungs clear, normal breath sounds Abdomen: non tender Extremities: no swelling Intake and Output 05/29/19 05/30/19 19:00 07:00 Intake Total 1370.0 ml 875 ml Output Total 400 ml 400 ml Balance 970.0 ml 475 ml Intake Free Water 100 ml 100 ml IV Total 655.0 ml 55 ml Tube Feeding 615 ml 720 ml Output Urine Total 400 ml 400 ml # Bowel Movements 2 2 Laboratory Tests Test 05/30/19 04:10 White Blood Count 12.0 K/UL (4.8-10.8) H Red Blood Count 2.84 M/UL (4.70-6.10) L Hemoglobin 9.2 G/DL (14.2-18.0) L Hematocrit 28.8 % (42.0-52.0) L Mean Corpuscular Volume 102 FL (80-99) H Mean Corpuscular Hemoglobin 32.6 PG (27.0-31.0) H Mean Corpuscular Hemoglobin Concent 32.1 G/DL (32.0-36.0) Red Cell Distribution Width 17.0 % (11.6-14.8) H Platelet Count 234 K/UL (150-450) Mean Platelet Volume 6.4 FL (6.5-10.1) L Neutrophils (%) (Auto) % (45.0-75.0) Lymphocytes (%) (Auto) % (20.0-45.0) Monocytes (%) (Auto) % (1.0-10.0) Eosinophils (%) (Auto) % (0.0-3.0) Basophils (%) (Auto) % (0.0-2.0) Sodium Level 147 MMOL/L (136-145) H Potassium Level 3.9 MMOL/L (3.5-5.1) Chloride Level 118 MMOL/L (98-107) H Carbon Dioxide Level 21 MMOL/L (21-32) Anion Gap 8 mmol/L (5-15) Blood Urea Nitrogen 28 mg/dL (7-18) H Creatinine 0.9 MG/DL (0.55-1.30) Estimat Glomerular Filtration Rate > 60 mL/min (>60) Glucose Level 141 MG/DL (74-106) H Calcium Level 9.2 MG/DL (8.5-10.1) Benito Desai MD May 30, 2019 18:55
[2019-05-30 20:00] VITALS: BP 94/46
--- NOTE | 2019-05-30 23:03 | Diagnostic Imaging Report ---
APPROVED REPORT CPT Code: 58296 Present Symptoms Comments: AMS BILATERAL: Imaging reveals a patent deep venous system bilaterally. There is no evidence of thrombus within the common femoral, superficial femoral, popliteal or tibial segments. The greater saphenous veins are within normal limits. Doppler indicates normal spontaneous flow within these segments.
--- NOTE | 2019-05-30 23:30 | Internal Med Progress Note ---
Subjective Physician Name Jian Martinez Attending Physician Jian Martinez MD Current Medications Medications (Trade) Dose Ordered Sig/Sophie Route PRN Reason Start Time Stop Time Status Last Admin Dose Admin Acetaminophen (Tylenol) 650 mg Q4H PRN ORAL FEVER (temp>100.5F) 05/25/19 22:00 06/24/19 21:59 Albuterol/ Ipratropium (Albuterol/ Ipratropium) 3 ml Q4H PRN HHN Shortness of Breath 05/30/19 12:00 06/04/19 11:59 Allopurinol (Allopurinol) 300 mg DAILY GT 05/26/19 09:00 06/25/19 08:59 05/30/19 09:05 Amikacin Protocol (Amikacin pharmacy to dose) 1 ea DAILY PRN MISC Per rx protocol 05/30/19 15:00 06/29/19 14:59 Amikacin Sulfate 1100 mg/Sodium Chloride 114.4 ml @ 114.4 mls/ hr Q24H IV 05/30/19 18:00 06/06/19 17:59 05/30/19 18:19 Amiodarone HCl (Cordarone) 100 mg DAILY GT 05/31/19 09:00 06/25/19 08:59 Apixaban (Eliquis) 5 mg BID GT 05/30/19 09:00 06/29/19 08:59 05/30/19 18:20 Dextrose (Dextrose 50%) 25 ml Q30M PRN IV Hypoglycemia 05/25/19 22:15 06/24/19 22:03 Dextrose (Dextrose 50%) 50 ml Q30M PRN IV hypoglycemia 05/25/19 22:15 06/24/19 22:14 Insulin Aspart (NovoLOG) BEFORE MEALS AND HS SUBQ 05/27/19 11:30 06/26/19 11:29 05/30/19 20:40 Lansoprazole (Prevacid) 30 mg DAILY GT 05/29/19 09:00 06/28/19 08:59 05/30/19 09:05 Levetiracetam (Keppra) 1,000 mg DAILY GT 05/26/19 09:00 06/25/19 08:59 05/30/19 09:05 Allergies: Coded Allergies: No Known Allergies (Unverified , 12/06/18) Subjective awake, open eyes, on vent , NAD. Objective Last Vital Signs Date Time Temp Pulse Resp B/P (MAP) Pulse Ox O2 Delivery O2 Flow Rate FiO2 05/30/19 22:57 71 16 35 05/30/19 20:00 99.5 94/46 (62) 100 05/30/19 20:00 Mechanical Ventilator 05/25/19 22:20 4.0 Laboratory Tests Test 05/30/19 04:10 White Blood Count 12.0 K/UL (4.8-10.8) H Red Blood Count 2.84 M/UL (4.70-6.10) L Hemoglobin 9.2 G/DL (14.2-18.0) L Hematocrit 28.8 % (42.0-52.0) L Mean Corpuscular Volume 102 FL (80-99) H Mean Corpuscular Hemoglobin 32.6 PG (27.0-31.0) H Mean Corpuscular Hemoglobin Concent 32.1 G/DL (32.0-36.0) Red Cell Distribution Width 17.0 % (11.6-14.8) H Platelet Count 234 K/UL (150-450) Mean Platelet Volume 6.4 FL (6.5-10.1) L Neutrophils (%) (Auto) % (45.0-75.0) Lymphocytes (%) (Auto) % (20.0-45.0) Monocytes (%) (Auto) % (1.0-10.0) Eosinophils (%) (Auto) % (0.0-3.0) Basophils (%) (Auto) % (0.0-2.0) Sodium Level 147 MMOL/L (136-145) H Potassium Level 3.9 MMOL/L (3.5-5.1) Chloride Level 118 MMOL/L (98-107) H Carbon Dioxide Level 21 MMOL/L (21-32) Anion Gap 8 mmol/L (5-15) Blood Urea Nitrogen 28 mg/dL (7-18) H Creatinine 0.9 MG/DL (0.55-1.30) Estimat Glomerular Filtration Rate > 60 mL/min (>60) Glucose Level 141 MG/DL (74-106) H Calcium Level 9.2 MG/DL (8.5-10.1) Intake and Output 05/29/19 05/30/19 19:00 07:00 Intake Total 1370.0 ml 875 ml Output Total 400 ml 400 ml Balance 970.0 ml 475 ml Intake Free Water 100 ml 100 ml IV Total 655.0 ml 55 ml Tube Feeding 615 ml 720 ml Output Urine Total 400 ml 400 ml # Bowel Movements 2 2 Objective General: No acute distress, awake, open eyes. HEENT: NCAT, sclera anicteric, PERRL, EOMI. Neck: Supple, Trach site intact. Lungs: Bilateral air entry, no Wheeze or Rales. Heart: Regular rate and rhythm, normal S1/S2, no murmurs, ICD @ LCW. Abdomen: soft, nontender, nondistended. Normoactive bowel sounds, Obesity, PEG site intact. / Rectal: Gale cath. Extremities: No Cyanosis , clubbing or edema. Neuro: able to move left side but right side weakener. Skin: warm, no rash, Assessment/Plan Assessment/Plan 1. Gastrostomy tube malfunction s/p replacement. 2. Vent Dependent respiratory failure 3. Diabetes type 2. 4. History of cardiac arrhythmia. 5. Status post biventricular AICD. 6. Dysphagia, status post PEG. 7. Morbid obesity. 8. Peripheral vascular disease. 9. Acute on chronic renal insufficiency. 10. History of seizure disorder. 11. Chronic atrial fibrillation. 12. Fatty liver. 13. Hypertension. 14. Nontraumatic intracerebral hemorrhage. 15. Anemia of chronic disease. 16. Hypotensive improving Plan: monitor labs and cultures Abx: Cefepime IV. tolerated Tube feeding @ 45 cc/hr DC Planning to SNF soon. Full code Jian Martinez MD May 30, 2019 23:30
--- NOTE | 2019-05-30 23:49 | Internal Med Progress Note ---
Subjective Physician Name Jian Martinez Attending Physician Jian Martinez MD Current Medications Medications (Trade) Dose Ordered Sig/Sophie Route PRN Reason Start Time Stop Time Status Last Admin Dose Admin Acetaminophen (Tylenol) 650 mg Q4H PRN ORAL FEVER (temp>100.5F) 05/25/19 22:00 06/24/19 21:59 Albuterol/ Ipratropium (Albuterol/ Ipratropium) 3 ml Q4H PRN HHN Shortness of Breath 05/30/19 12:00 06/04/19 11:59 Allopurinol (Allopurinol) 300 mg DAILY GT 05/26/19 09:00 06/25/19 08:59 05/30/19 09:05 Amikacin Protocol (Amikacin pharmacy to dose) 1 ea DAILY PRN MISC Per rx protocol 05/30/19 15:00 06/29/19 14:59 Amikacin Sulfate 1100 mg/Sodium Chloride 114.4 ml @ 114.4 mls/ hr Q24H IV 05/30/19 18:00 06/06/19 17:59 05/30/19 18:19 Amiodarone HCl (Cordarone) 100 mg DAILY GT 05/31/19 09:00 06/25/19 08:59 Apixaban (Eliquis) 5 mg BID GT 05/30/19 09:00 06/29/19 08:59 05/30/19 18:20 Dextrose (Dextrose 50%) 25 ml Q30M PRN IV Hypoglycemia 05/25/19 22:15 06/24/19 22:03 Dextrose (Dextrose 50%) 50 ml Q30M PRN IV hypoglycemia 05/25/19 22:15 06/24/19 22:14 Insulin Aspart (NovoLOG) BEFORE MEALS AND HS SUBQ 05/27/19 11:30 06/26/19 11:29 05/30/19 20:40 Lansoprazole (Prevacid) 30 mg DAILY GT 05/29/19 09:00 06/28/19 08:59 05/30/19 09:05 Levetiracetam (Keppra) 1,000 mg DAILY GT 05/26/19 09:00 06/25/19 08:59 05/30/19 09:05 Allergies: Coded Allergies: No Known Allergies (Unverified , 12/06/18) Subjective awake, open eyes, on vent , NAD, WBC: 12.0. Objective Last Vital Signs Date Time Temp Pulse Resp B/P (MAP) Pulse Ox O2 Delivery O2 Flow Rate FiO2 05/30/19 22:57 71 16 35 05/30/19 20:00 99.5 94/46 (62) 100 05/30/19 20:00 Mechanical Ventilator 05/25/19 22:20 4.0 Laboratory Tests Test 05/30/19 04:10 White Blood Count 12.0 K/UL (4.8-10.8) H Red Blood Count 2.84 M/UL (4.70-6.10) L Hemoglobin 9.2 G/DL (14.2-18.0) L Hematocrit 28.8 % (42.0-52.0) L Mean Corpuscular Volume 102 FL (80-99) H Mean Corpuscular Hemoglobin 32.6 PG (27.0-31.0) H Mean Corpuscular Hemoglobin Concent 32.1 G/DL (32.0-36.0) Red Cell Distribution Width 17.0 % (11.6-14.8) H Platelet Count 234 K/UL (150-450) Mean Platelet Volume 6.4 FL (6.5-10.1) L Neutrophils (%) (Auto) % (45.0-75.0) Lymphocytes (%) (Auto) % (20.0-45.0) Monocytes (%) (Auto) % (1.0-10.0) Eosinophils (%) (Auto) % (0.0-3.0) Basophils (%) (Auto) % (0.0-2.0) Sodium Level 147 MMOL/L (136-145) H Potassium Level 3.9 MMOL/L (3.5-5.1) Chloride Level 118 MMOL/L (98-107) H Carbon Dioxide Level 21 MMOL/L (21-32) Anion Gap 8 mmol/L (5-15) Blood Urea Nitrogen 28 mg/dL (7-18) H Creatinine 0.9 MG/DL (0.55-1.30) Estimat Glomerular Filtration Rate > 60 mL/min (>60) Glucose Level 141 MG/DL (74-106) H Calcium Level 9.2 MG/DL (8.5-10.1) Intake and Output 05/29/19 05/30/19 19:00 07:00 Intake Total 1370.0 ml 875 ml Output Total 400 ml 400 ml Balance 970.0 ml 475 ml Intake Free Water 100 ml 100 ml IV Total 655.0 ml 55 ml Tube Feeding 615 ml 720 ml Output Urine Total 400 ml 400 ml # Bowel Movements 2 2 Objective General: No acute distress, awake, open eyes. HEENT: NCAT, sclera anicteric, PERRL, EOMI, poor dentition.. Neck: Supple, Trach site intact. Lungs: Bilateral air entry, no Wheeze or Rales. Heart: Regular rate and rhythm, normal S1/S2, no murmurs, ICD @ LCW. Abdomen: soft, nontender, nondistended. Normoactive bowel sounds, Obesity, PEG site intact. / Rectal: Gale cath. Extremities: No Cyanosis , clubbing or edema. Neuro: able to move left side but right side weakener. Skin: warm, no rash, Assessment/Plan Assessment/Plan 1. Gastrostomy tube malfunction s/p replacement. 2. Vent Dependent respiratory failure 3. Diabetes type 2. 4. History of cardiac arrhythmia. 5. Status post biventricular AICD. 6. Dysphagia, status post PEG. 7. Morbid obesity. 8. Peripheral vascular disease. 9. Acute on chronic renal insufficiency. 10. History of seizure disorder. 11. Chronic atrial fibrillation. 12. Fatty liver. 13. Hypertension. 14. Nontraumatic intracerebral hemorrhage. 15. Anemia of chronic disease. 16. Hypotensive improving Plan: monitor labs and cultures Abx: Amikacin tolerated Tube feeding @ 45 cc/hr DC Planning to SNF soon. Full code DVT Prophylaxis: Jian Fajardo MD May 30, 2019 23:49
[2019-05-31] VITALS: BP 125/62
[2019-05-31 04:00] VITALS: BP 119/64
[2019-05-31] MEDS: NovoLOG Insulin Flexpen SUBQ SCH ×4 (06:12→20:52)
[2019-05-31 06:24] LABS: HEMATOCRIT 30.6 % (42.0-52.0); HEMOGLOBIN 9.6 G/DL (14.2-18.0); MEAN CORPUSCULAR VOLUME 102 FL (80-99); PLATELET COUNT 246 K/UL (150-450); RED CELL DISTRIBUTION WIDTH 17.2 % (11.6-14.8); WHITE BLOOD COUNT 14.1 K/UL (4.8-10.8)
[2019-05-31 06:37] LABS: ANION GAP 6 mmol/L (5-15); BLOOD UREA NITROGEN 35 mg/dL (7-18); CALCIUM 9.6 MG/DL (8.5-10.1); CARBON DIOXIDE 25 MMOL/L (21-32); CHLORIDE 119 MMOL/L (98-107); CREATININE 0.9 MG/DL (0.55-1.30); POTASSIUM 3.9 MMOL/L (3.5-5.1); SODIUM 150 MMOL/L (136-145)
[2019-05-31 07:04] LABS: PHOSPHORUS 2.9 MG/DL (2.5-4.9)
[2019-05-31 08:00] VITALS: BP 111/58
--- NOTE | 2019-05-31 08:06 | Diagnostic Imaging Report ---
EXAM: XR Chest, 1 View CLINICAL HISTORY: SORE TECHNIQUE: Frontal view of the chest. COMPARISON: 05/28/2019 FINDINGS: Lungs: The study is slightly limited by low lung volumes. There is a persistent left hazy opacity which likely represents effusion and/or consolidation. The right lung is clear. Pleural space: Unremarkable. No pneumothorax. Heart: Unremarkable. No cardiomegaly. Mediastinum: Unremarkable. Bones/joints: Unremarkable. Tubes, lines and devices: Tracheostomy tube is stable in position. An AICD is stable in position. IMPRESSION: Persistent left base opacity representing effusion and/or consolidation. This could represent atelectasis and/or pneumonia.
[2019-05-31] MEDS: levETIRAcetam 500mg/5ml Liquid GT SCH (08:29)
[2019-05-31] MEDS: Eliquis 5mg tablet GT SCH ×2 (08:30→17:21)
[2019-05-31] MEDS: Amiodarone 200mg tab GT SCH (08:30)
--- NOTE | 2019-05-31 08:58 | General Progress Note ---
Assessment/Plan Status: unchanged Assessment/Plan: (1) Ventilator dependence ICD Codes: Z99.11 - Dependence on respirator [ventilator] status SNOMED: 366087963 (2) G-tube site cellulitis ICD Codes: 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; L03.319 - Cellulitis of trunk, unspecified SNOMED: 987449542, 935992904 (3) Malfunction of gastrostomy tube ICD Codes: K94.23 - Gastrostomy malfunction SNOMED: 814483223 (4) History of CVA (cerebrovascular accident) ICD Codes: Z86.73 - Personal history of transient ischemic attack (TIA), and cerebral infarction without residual deficits SNOMED: 398420652 (5) Feeding by G-tube ICD Codes: Z93.1 - Gastrostomy status SNOMED: 841285164, 724403576, 922957371 (6) Diabetes mellitus ICD Codes: E11.9 - Type 2 diabetes mellitus without complications SNOMED: 39857198 Status: unchanged Status Narrative Discussed with Dr. Rdz. Assessment/Plan 24 [place] G-tube readjusted and balloon inflated KUB placement confirmed, GTFs to goal follow wound care recs for GT site G-tube feedings per registered dietitian Antibiotics Reglan as needed for GI motility Follow-up H&H ppi Subjective ROS Limited/Unobtainable: No Allergies: Coded Allergies: No Known Allergies (Unverified , 12/06/18) Objective Last 24 Hour Vital Signs Date Time Temp Pulse Resp B/P (MAP) Pulse Ox O2 Delivery O2 Flow Rate FiO2 05/31/19 08:00 99.2 72 17 111/58 (75) 100 05/31/19 08:00 35 05/31/19 08:00 Mechanical Ventilator 05/31/19 07:01 70 16 35 05/31/19 05:04 70 17 35 05/31/19 04:00 98.9 64 16 119/64 (82) 100 05/31/19 04:00 Mechanical Ventilator 05/31/19 04:00 35 05/31/19 04:00 70 05/31/19 03:26 60 16 35 05/31/19 01:07 74 16 35 05/31/19 00:00 Mechanical Ventilator 05/31/19 00:00 35 05/31/19 00:00 70 05/31/19 00:00 99.0 77 12 125/62 (83) 100 05/30/19 22:57 71 16 35 05/30/19 20:00 99.5 53 16 94/46 (62) 100 05/30/19 20:00 59 05/30/19 20:00 Mechanical Ventilator 05/30/19 20:00 35 05/30/19 19:00 68 17 35 05/30/19 17:23 71 16 35 05/30/19 16:00 99.5 75 16 103/58 (73) 100 05/30/19 16:00 35 05/30/19 16:00 Mechanical Ventilator 05/30/19 15:59 56 05/30/19 15:11 50 16 35 05/30/19 13:19 79 16 35 05/30/19 12:00 35 05/30/19 12:00 78 05/30/19 12:00 Mechanical Ventilator 05/30/19 12:00 99.2 85 14 101/57 (72) 100 05/30/19 10:57 80 17 35 05/30/19 09:17 75 17 35 Intake and Output 05/30/19 05/31/19 19:00 07:00 Intake Total 1244.4 ml 715 ml Output Total 550 ml 600 ml Balance 694.4 ml 115 ml Intake Free Water 275 ml IV Total 169.4 ml Tube Feeding 780 ml 715 ml Other 20 ml Output Urine Total 550 ml 600 ml # Bowel Movements 1 Laboratory Tests 05/31/19 05:53: White Blood Count 14.1H, Red Blood Count 3.00L, Hemoglobin 9.6L, Hematocrit 30.6L, Mean Corpuscular Volume 102H, Mean Corpuscular Hemoglobin 32.0H, Mean Corpuscular Hemoglobin Concent 31.4L, Red Cell Distribution Width 17.2H, Platelet Count 246, Mean Platelet Volume 6.4L, Neutrophils (%) (Auto) , Lymphocytes (%) (Auto) , Monocytes (%) (Auto) , Eosinophils (%) (Auto) , Basophils (%) (Auto) , Neutrophils % (Manual) [Pending], Lymphocytes % (Manual) [Pending], Platelet Estimate [Pending], Platelet Morphology [Pending], Sodium Level 150H, Potassium Level 3.9, Chloride Level 119H, Carbon Dioxide Level 25, Anion Gap 6, Blood Urea Nitrogen 35H, Creatinine 0.9, Estimat Glomerular Filtration Rate > 60, Glucose Level 130H, Calcium Level 9.6, Phosphorus Level 2.9, Magnesium Level 2.1, Random Amikacin Level 13.0 Height (Feet): 5 Height (Inches): 8.00 Weight (Pounds): 193 General Appearance: no apparent distress EENT: normal ENT inspection Neck: supple Cardiovascular: normal rate Respiratory/Chest: decreased breath sounds Abdomen: normal bowel sounds, non tender, soft Extremities: non-tender Jakob Rdz MD May 31, 2019 08:58
--- NOTE | 2019-05-31 09:06 | Pulmonology Progress Note ---
Assessment/Plan Assessment/Plan ASSESSMENT Probable sepsis Probable PNA G tube malfunctioning, status post replacement Ventilator dependent respiratory failure with tracheostomy status Dysphagia, feeding by G-tube Hypotension Paroxysmal atrial fibrillation History of CVA/intracerebral hemorrhages with hemiplegia Seizure disorder Diabetes mellitus AICD Anemia of chronic disease Fatty liver Scabies, s/p Rx Hypernatremia PLAN OF CARE SHELLI status vent support, pulmonary toilet trach care titrate settings prn fup with CXR on Sunday abx as per ID recs ,-->changed to Amikacin, DVT prophylaxis strict aspiration precaution G-tube feeding wound care around G-tube site as per surgeon recs free water 150 cc q 4 via G tube for hyper Na monitor hemodynamic status ; BP currently better continue amiodarone Echo with EF 50- 55% resume anticoagulation with Eliquis as per cardio BS management with SSI GI prophylaxis antiemetic as needed bowel regimen seizure precautions, continue Keppra monitor HH with goal to keep Hgb above 7 give free water supportive care case discussed and evaluated by supervising physician Subjective Allergies: Coded Allergies: No Known Allergies (Unverified , 12/06/18) Subjective leukocytosis trended down, afebrile Objective Last 24 Hour Vital Signs Date Time Temp Pulse Resp B/P (MAP) Pulse Ox O2 Delivery O2 Flow Rate FiO2 05/31/19 08:00 99.2 72 17 111/58 (75) 100 05/31/19 08:00 35 05/31/19 08:00 Mechanical Ventilator 05/31/19 07:01 70 16 35 05/31/19 05:04 70 17 35 05/31/19 04:00 98.9 64 16 119/64 (82) 100 05/31/19 04:00 Mechanical Ventilator 05/31/19 04:00 35 05/31/19 04:00 70 05/31/19 03:26 60 16 35 05/31/19 01:07 74 16 35 05/31/19 00:00 Mechanical Ventilator 05/31/19 00:00 35 05/31/19 00:00 70 05/31/19 00:00 99.0 77 12 125/62 (83) 100 05/30/19 22:57 71 16 35 05/30/19 20:00 99.5 53 16 94/46 (62) 100 05/30/19 20:00 59 05/30/19 20:00 Mechanical Ventilator 05/30/19 20:00 35 05/30/19 19:00 68 17 35 05/30/19 17:23 71 16 35 05/30/19 16:00 99.5 75 16 103/58 (73) 100 05/30/19 16:00 35 05/30/19 16:00 Mechanical Ventilator 05/30/19 15:59 56 05/30/19 15:11 50 16 35 05/30/19 13:19 79 16 35 05/30/19 12:00 35 05/30/19 12:00 78 05/30/19 12:00 Mechanical Ventilator 05/30/19 12:00 99.2 85 14 101/57 (72) 100 05/30/19 10:57 80 17 35 05/30/19 09:17 75 17 35 Intake and Output 05/30/19 05/31/19 19:00 07:00 Intake Total 1244.4 ml 715 ml Output Total 550 ml 600 ml Balance 694.4 ml 115 ml Intake Free Water 275 ml IV Total 169.4 ml Tube Feeding 780 ml 715 ml Other 20 ml Output Urine Total 550 ml 600 ml # Bowel Movements 1 Objective General Appearance: no acute distress, bedridden, chronically ill looking, vent dependent male on Vent AC 600-35% -16 HEENT: normocephalic, atraumatic, status post trach - Portex#8, secretions small, yellow, thick Respiratory/Chest: no respiratory distress, scattered rhonchi Cardiovascular: normal peripheral pulses, normal rate ; pacing Abdomen: normal bowel sounds, soft, non tender, G tube with TF Extremities: Gale Neurologic/Psychiatric: bedridden, obtunded Musculoskeletal: atrophy BLE Microbiology Date/Time Source Procedure Growth Status 05/30/19 05:00 Stool Clostridium difficile Toxin Assay - Final Complete Laboratory Tests 05/31/19 05:53: White Blood Count 14.1H, Red Blood Count 3.00L, Hemoglobin 9.6L, Hematocrit 30.6L, Mean Corpuscular Volume 102H, Mean Corpuscular Hemoglobin 32.0H, Mean Corpuscular Hemoglobin Concent 31.4L, Red Cell Distribution Width 17.2H, Platelet Count 246, Mean Platelet Volume 6.4L, Neutrophils (%) (Auto) , Lymphocytes (%) (Auto) , Monocytes (%) (Auto) , Eosinophils (%) (Auto) , Basophils (%) (Auto) , Neutrophils % (Manual) [Pending], Lymphocytes % (Manual) [Pending], Platelet Estimate [Pending], Platelet Morphology [Pending], Sodium Level 150H, Potassium Level 3.9, Chloride Level 119H, Carbon Dioxide Level 25, Anion Gap 6, Blood Urea Nitrogen 35H, Creatinine 0.9, Estimat Glomerular Filtration Rate > 60, Glucose Level 130H, Calcium Level 9.6, Phosphorus Level 2.9, Magnesium Level 2.1, Random Amikacin Level 13.0 Current Medications Medications (Trade) Dose Ordered Sig/Sophie Route PRN Reason Start Time Stop Time Status Last Admin Dose Admin Acetaminophen (Tylenol) 650 mg Q4H PRN ORAL FEVER (temp>100.5F) 05/25/19 22:00 06/24/19 21:59 Albuterol/ Ipratropium (Albuterol/ Ipratropium) 3 ml Q4H PRN HHN Shortness of Breath 05/30/19 12:00 06/04/19 11:59 Allopurinol (Allopurinol) 300 mg DAILY GT 05/26/19 09:00 06/25/19 08:59 05/31/19 08:30 Amikacin Protocol (Amikacin pharmacy to dose) 1 ea DAILY PRN MISC Per rx protocol 05/30/19 15:00 06/29/19 14:59 Amikacin Sulfate 1100 mg/Sodium Chloride 114.4 ml @ 114.4 mls/ hr Q36H IV 06/01/19 06:00 06/08/19 05:59 Amiodarone HCl (Cordarone) 100 mg DAILY GT 05/31/19 09:00 06/25/19 08:59 05/31/19 08:30 Apixaban (Eliquis) 5 mg BID GT 05/30/19 09:00 06/29/19 08:59 05/31/19 08:30 Dextrose (Dextrose 50%) 25 ml Q30M PRN IV Hypoglycemia 05/25/19 22:15 06/24/19 22:03 Dextrose (Dextrose 50%) 50 ml Q30M PRN IV hypoglycemia 05/25/19 22:15 06/24/19 22:14 Insulin Aspart (NovoLOG) BEFORE MEALS AND HS SUBQ 05/27/19 11:30 06/26/19 11:29 05/31/19 06:12 Lansoprazole (Prevacid) 30 mg DAILY GT 05/29/19 09:00 06/28/19 08:59 05/31/19 08:29 Levetiracetam (Keppra) 1,000 mg DAILY GT 05/26/19 09:00 06/25/19 08:59 05/31/19 08:29 Coco Morrison NP May 31, 2019 09:06
--- NOTE | 2019-05-31 11:33 | Infectious Diseases Prog Note ---
Assessment/Plan Assessment/Plan Assessment: Probable sepsis- Probable PNA, r/o bacteremia -05/28 CXR: Increasing density at the left lung base may be atelectasis or pneumonia. -u/a neg -CXR Suspected mild pulmonary vascular congestion -sp cx NDR PsA (S Gentamicin, Amikcin), PsA (clarke S), Group G strep -Bcx NTD Afebrile Leukocytosis, recurrent, improving- r/o cdiff GT malfunction- no signs of cellulitis -wound cx CONS, MRSA; colonziers Scabies, sp rx chronic respiratory failure on Tach/vent/Peg s/p ICD CVA bed bound SNF resident Plan: - Continue Amikacin #2 - MDR PsA PNA -05/30/19 SP Cefepime #5 -05/27 SP IV Vancomycin #3 -05/26 SP Ivermectin, permethrin x1 -05/25 SP Ancef x1 -f/u cx -Monitor CBC/CMP, temperatures -f/u Bcx x2, Cdiff -PEG/Trach care -aspiration precautions Thank you for this consultation. Will continue to follow along with you. Subjective Allergies: Coded Allergies: No Known Allergies (Unverified , 12/06/18) Subjective Afebrile WBCs 14 SHARON Objective Vital Signs Last 24 Hour Vital Signs Date Time Temp Pulse Resp B/P (MAP) Pulse Ox O2 Delivery O2 Flow Rate FiO2 05/31/19 10:44 71 20 35 05/31/19 08:58 74 16 35 05/31/19 08:00 99.2 72 17 111/58 (75) 100 05/31/19 08:00 79 05/31/19 08:00 35 05/31/19 08:00 Mechanical Ventilator 05/31/19 07:01 70 16 35 05/31/19 05:04 70 17 35 05/31/19 04:00 98.9 64 16 119/64 (82) 100 05/31/19 04:00 Mechanical Ventilator 05/31/19 04:00 35 05/31/19 04:00 70 05/31/19 03:26 60 16 35 05/31/19 01:07 74 16 35 05/31/19 00:00 Mechanical Ventilator 05/31/19 00:00 35 05/31/19 00:00 70 05/31/19 00:00 99.0 77 12 125/62 (83) 100 05/30/19 22:57 71 16 35 05/30/19 20:00 99.5 53 16 94/46 (62) 100 05/30/19 20:00 59 05/30/19 20:00 Mechanical Ventilator 05/30/19 20:00 35 05/30/19 19:00 68 17 35 05/30/19 17:23 71 16 35 05/30/19 16:00 99.5 75 16 103/58 (73) 100 05/30/19 16:00 35 05/30/19 16:00 Mechanical Ventilator 05/30/19 15:59 56 05/30/19 15:11 50 16 35 05/30/19 13:19 79 16 35 05/30/19 12:00 35 05/30/19 12:00 78 05/30/19 12:00 Mechanical Ventilator 05/30/19 12:00 99.2 85 14 101/57 (72) 100 Height (Feet): 5 Height (Inches): 8.00 Weight (Pounds): 193 Objective GEN: NAD HEENT: normocephalic, mucous membranes moist Respiratory/Chest: chest wall non-tender, lungs clear Cardiovascular/Chest: normal peripheral pulses, normal rate Abdomen: normal bowel sounds, non tender Microbiology Date/Time Source Procedure Growth Status 05/30/19 05:00 Stool Clostridium difficile Toxin Assay - Final Complete Laboratory Tests Test 05/31/19 05:53 White Blood Count 14.1 K/UL (4.8-10.8) H Red Blood Count 3.00 M/UL (4.70-6.10) L Hemoglobin 9.6 G/DL (14.2-18.0) L Hematocrit 30.6 % (42.0-52.0) L Mean Corpuscular Volume 102 FL (80-99) H Mean Corpuscular Hemoglobin 32.0 PG (27.0-31.0) H Mean Corpuscular Hemoglobin Concent 31.4 G/DL (32.0-36.0) L Red Cell Distribution Width 17.2 % (11.6-14.8) H Platelet Count 246 K/UL (150-450) Mean Platelet Volume 6.4 FL (6.5-10.1) L Neutrophils (%) (Auto) % (45.0-75.0) Lymphocytes (%) (Auto) % (20.0-45.0) Monocytes (%) (Auto) % (1.0-10.0) Eosinophils (%) (Auto) % (0.0-3.0) Basophils (%) (Auto) % (0.0-2.0) Differential Total Cells Counted 100 Neutrophils % (Manual) 62 % (45-75) Lymphocytes % (Manual) 13 % (20-45) L Monocytes % (Manual) 6 % (1-10) Eosinophils % (Manual) 19 % (0-3) H Basophils % (Manual) 0 % (0-2) Band Neutrophils 0 % (0-8) Platelet Estimate Adequate Platelet Morphology Normal Hypochromasia 1+ Anisocytosis 1+ Macrocytosis 1+ Sodium Level 150 MMOL/L (136-145) H Potassium Level 3.9 MMOL/L (3.5-5.1) Chloride Level 119 MMOL/L (98-107) H Carbon Dioxide Level 25 MMOL/L (21-32) Anion Gap 6 mmol/L (5-15) Blood Urea Nitrogen 35 mg/dL (7-18) H Creatinine 0.9 MG/DL (0.55-1.30) Estimat Glomerular Filtration Rate > 60 mL/min (>60) Glucose Level 130 MG/DL (74-106) H Calcium Level 9.6 MG/DL (8.5-10.1) Phosphorus Level 2.9 MG/DL (2.5-4.9) Magnesium Level 2.1 MG/DL (1.8-2.4) Random Amikacin Level 13.0 ug/mL Current Medications Medications (Trade) Dose Ordered Sig/Sophie Route PRN Reason Start Time Stop Time Status Last Admin Dose Admin Acetaminophen (Tylenol) 650 mg Q4H PRN ORAL FEVER (temp>100.5F) 05/25/19 22:00 06/24/19 21:59 Albuterol/ Ipratropium (Albuterol/ Ipratropium) 3 ml Q4H PRN HHN Shortness of Breath 05/30/19 12:00 06/04/19 11:59 Allopurinol (Allopurinol) 300 mg DAILY GT 05/26/19 09:00 06/25/19 08:59 05/31/19 08:30 Amikacin Protocol (Amikacin pharmacy to dose) 1 ea DAILY PRN MISC Per rx protocol 05/30/19 15:00 06/29/19 14:59 Amikacin Sulfate 1100 mg/Sodium Chloride 114.4 ml @ 114.4 mls/ hr Q36H IV 06/01/19 06:00 06/08/19 05:59 Amiodarone HCl (Cordarone) 100 mg DAILY GT 05/31/19 09:00 06/25/19 08:59 05/31/19 08:30 Apixaban (Eliquis) 5 mg BID GT 05/30/19 09:00 06/29/19 08:59 05/31/19 08:30 Dextrose (Dextrose 50%) 25 ml Q30M PRN IV Hypoglycemia 05/25/19 22:15 06/24/19 22:03 Dextrose (Dextrose 50%) 50 ml Q30M PRN IV hypoglycemia 05/25/19 22:15 06/24/19 22:14 Insulin Aspart (NovoLOG) BEFORE MEALS AND HS SUBQ 05/27/19 11:30 06/26/19 11:29 05/31/19 11:16 Lansoprazole (Prevacid) 30 mg DAILY GT 05/29/19 09:00 06/28/19 08:59 05/31/19 08:29 Levetiracetam (Keppra) 1,000 mg DAILY GT 05/26/19 09:00 06/25/19 08:59 05/31/19 08:29 Edgardo Manzano MD May 31, 2019 11:33
[2019-05-31 12:00] VITALS: BP 102/53
--- NOTE | 2019-05-31 14:12 | Cardiology Progress Note ---
Assessment/Plan Problem List: (1) Chronic respiratory failure (2) ICD (implantable cardioverter-defibrillator) in place (3) History of CVA (cerebrovascular accident) (4) Ventilator dependence (5) G-tube site cellulitis (6) Malfunction of gastrostomy tube Status: stable, unchanged Status Narrative Pt w/ chronic respiratory failure, on chronic vent. He has a dual chamber ICD, but current LV function normal by echo - unclear indication for device. He has hx of PAF, but currently in SR on telemetry Assessment/Plan continue supportive care. ICD interrogation. Continue low dose amiodarone and Eliquis for PAF Management of g tube cellulitis per ID DC plan per primary team. Subjective ROS Limited/Unobtainable: Yes Subjective Cardiology for Dr. Desai Pt intubated, on trach/vent. Alert, but does not respond to voice, simple commands Objective Last 24 Hour Vital Signs Date Time Temp Pulse Resp B/P (MAP) Pulse Ox O2 Delivery O2 Flow Rate FiO2 05/31/19 12:57 57 16 35 05/31/19 12:00 35 05/31/19 12:00 97.0 57 17 102/53 (69) 100 05/31/19 12:00 Mechanical Ventilator 05/31/19 12:00 69 05/31/19 10:44 71 20 35 05/31/19 08:58 74 16 35 05/31/19 08:00 99.2 72 17 111/58 (75) 100 05/31/19 08:00 79 05/31/19 08:00 35 05/31/19 08:00 Mechanical Ventilator 05/31/19 07:01 70 16 35 05/31/19 05:04 70 17 35 05/31/19 04:00 98.9 64 16 119/64 (82) 100 05/31/19 04:00 Mechanical Ventilator 05/31/19 04:00 35 05/31/19 04:00 70 05/31/19 03:26 60 16 35 05/31/19 01:07 74 16 35 05/31/19 00:00 Mechanical Ventilator 05/31/19 00:00 35 05/31/19 00:00 70 05/31/19 00:00 99.0 77 12 125/62 (83) 100 05/30/19 22:57 71 16 35 05/30/19 20:00 99.5 53 16 94/46 (62) 100 05/30/19 20:00 59 05/30/19 20:00 Mechanical Ventilator 05/30/19 20:00 35 05/30/19 19:00 68 17 35 05/30/19 17:23 71 16 35 05/30/19 16:00 99.5 75 16 103/58 (73) 100 05/30/19 16:00 35 05/30/19 16:00 Mechanical Ventilator 05/30/19 15:59 56 05/30/19 15:11 50 16 35 General Appearance: WD/WN, obese, on vent EENT: PERRL/EOMI Neck: supple, no JVD Rhythm: NSR Cardiovascular: regular rhythm, no gallop/murmur Respiratory/Chest: lungs clear - clear anteriorly Abdomen: normal bowel sounds, non tender, soft Extremities: no swelling Intake and Output 05/30/19 05/31/19 19:00 07:00 Intake Total 1244.4 ml 715 ml Output Total 550 ml 600 ml Balance 694.4 ml 115 ml Intake Free Water 275 ml IV Total 169.4 ml Tube Feeding 780 ml 715 ml Other 20 ml Output Urine Total 550 ml 600 ml # Bowel Movements 1 Laboratory Tests Test 05/31/19 05:53 White Blood Count 14.1 K/UL (4.8-10.8) H Red Blood Count 3.00 M/UL (4.70-6.10) L Hemoglobin 9.6 G/DL (14.2-18.0) L Hematocrit 30.6 % (42.0-52.0) L Mean Corpuscular Volume 102 FL (80-99) H Mean Corpuscular Hemoglobin 32.0 PG (27.0-31.0) H Mean Corpuscular Hemoglobin Concent 31.4 G/DL (32.0-36.0) L Red Cell Distribution Width 17.2 % (11.6-14.8) H Platelet Count 246 K/UL (150-450) Mean Platelet Volume 6.4 FL (6.5-10.1) L Neutrophils (%) (Auto) % (45.0-75.0) Lymphocytes (%) (Auto) % (20.0-45.0) Monocytes (%) (Auto) % (1.0-10.0) Eosinophils (%) (Auto) % (0.0-3.0) Basophils (%) (Auto) % (0.0-2.0) Differential Total Cells Counted 100 Neutrophils % (Manual) 62 % (45-75) Lymphocytes % (Manual) 13 % (20-45) L Monocytes % (Manual) 6 % (1-10) Eosinophils % (Manual) 19 % (0-3) H Basophils % (Manual) 0 % (0-2) Band Neutrophils 0 % (0-8) Platelet Estimate Adequate Platelet Morphology Normal Hypochromasia 1+ Anisocytosis 1+ Macrocytosis 1+ Sodium Level 150 MMOL/L (136-145) H Potassium Level 3.9 MMOL/L (3.5-5.1) Chloride Level 119 MMOL/L (98-107) H Carbon Dioxide Level 25 MMOL/L (21-32) Anion Gap 6 mmol/L (5-15) Blood Urea Nitrogen 35 mg/dL (7-18) H Creatinine 0.9 MG/DL (0.55-1.30) Estimat Glomerular Filtration Rate > 60 mL/min (>60) Glucose Level 130 MG/DL (74-106) H Calcium Level 9.6 MG/DL (8.5-10.1) Phosphorus Level 2.9 MG/DL (2.5-4.9) Magnesium Level 2.1 MG/DL (1.8-2.4) Random Amikacin Level 13.0 ug/mL Microbiology Date/Time Source Procedure Growth Status 05/30/19 05:00 Stool Clostridium difficile Toxin Assay - Final Complete Abida Call MD May 31, 2019 14:12
--- NOTE | 2019-05-31 15:16 | Cardiology Report ---
APPROVED REPORT EKG Measurement Heart [id number] Abnormal ECG Dual-Chamber Pacemaker
[2019-05-31 16:00] VITALS: BP 98/49
[2019-05-31] MEDS ORDERED: NS 275ml ONE (17:22)
[2019-05-31] MEDS ORDERED: Sterile Water Irrig 1000ml IRRIG ONE (17:22)
[2019-05-31] MEDS ORDERED: NS Irrig 1000ml ONE (17:22)
[2019-05-31 20:00] VITALS: BP_SYST 109; BP_SYST 92; BP_DIAS 56
--- NOTE | 2019-05-31 21:26 | Internal Med Progress Note ---
Subjective Physician Name Jian Martinez Attending Physician Jian Martinez MD Current Medications Medications (Trade) Dose Ordered Sig/Sophie Route PRN Reason Start Time Stop Time Status Last Admin Dose Admin Acetaminophen (Tylenol) 650 mg Q4H PRN ORAL FEVER (temp>100.5F) 05/25/19 22:00 06/24/19 21:59 Albuterol/ Ipratropium (Albuterol/ Ipratropium) 3 ml Q4H PRN HHN Shortness of Breath 05/30/19 12:00 06/04/19 11:59 Allopurinol (Allopurinol) 300 mg DAILY GT 05/26/19 09:00 06/25/19 08:59 05/31/19 08:30 Amikacin Protocol (Amikacin pharmacy to dose) 1 ea DAILY PRN MISC Per rx protocol 05/30/19 15:00 06/29/19 14:59 Amikacin Sulfate 1100 mg/Sodium Chloride 114.4 ml @ 114.4 mls/ hr Q36H IV 06/01/19 06:00 06/08/19 05:59 Amiodarone HCl (Cordarone) 100 mg DAILY GT 05/31/19 09:00 06/25/19 08:59 05/31/19 08:30 Apixaban (Eliquis) 5 mg BID GT 05/30/19 09:00 06/29/19 08:59 05/31/19 17:21 Dextrose (Dextrose 50%) 25 ml Q30M PRN IV Hypoglycemia 05/25/19 22:15 06/24/19 22:03 Dextrose (Dextrose 50%) 50 ml Q30M PRN IV hypoglycemia 05/25/19 22:15 06/24/19 22:14 Insulin Aspart (NovoLOG) BEFORE MEALS AND HS SUBQ 05/27/19 11:30 06/26/19 11:29 05/31/19 20:52 Lansoprazole (Prevacid) 30 mg DAILY GT 05/29/19 09:00 06/28/19 08:59 05/31/19 08:29 Levetiracetam (Keppra) 1,000 mg DAILY GT 05/26/19 09:00 06/25/19 08:59 05/31/19 08:29 Allergies: Coded Allergies: No Known Allergies (Unverified , 12/06/18) Subjective awake, open eyes, not verbal , unable to F/U with commands on vent , NAD, WBC: 14.1. Objective Last Vital Signs Date Time Temp Pulse Resp B/P (MAP) Pulse Ox O2 Delivery O2 Flow Rate FiO2 05/31/19 21:08 72 18 35 05/31/19 20:00 Mechanical Ventilator 05/31/19 20:00 98.3 109/56 (73) 100 05/25/19 22:20 4.0 Laboratory Tests Test 05/31/19 05:53 White Blood Count 14.1 K/UL (4.8-10.8) H Red Blood Count 3.00 M/UL (4.70-6.10) L Hemoglobin 9.6 G/DL (14.2-18.0) L Hematocrit 30.6 % (42.0-52.0) L Mean Corpuscular Volume 102 FL (80-99) H Mean Corpuscular Hemoglobin 32.0 PG (27.0-31.0) H Mean Corpuscular Hemoglobin Concent 31.4 G/DL (32.0-36.0) L Red Cell Distribution Width 17.2 % (11.6-14.8) H Platelet Count 246 K/UL (150-450) Mean Platelet Volume 6.4 FL (6.5-10.1) L Neutrophils (%) (Auto) % (45.0-75.0) Lymphocytes (%) (Auto) % (20.0-45.0) Monocytes (%) (Auto) % (1.0-10.0) Eosinophils (%) (Auto) % (0.0-3.0) Basophils (%) (Auto) % (0.0-2.0) Differential Total Cells Counted 100 Neutrophils % (Manual) 62 % (45-75) Lymphocytes % (Manual) 13 % (20-45) L Monocytes % (Manual) 6 % (1-10) Eosinophils % (Manual) 19 % (0-3) H Basophils % (Manual) 0 % (0-2) Band Neutrophils 0 % (0-8) Platelet Estimate Adequate Platelet Morphology Normal Hypochromasia 1+ Anisocytosis 1+ Macrocytosis 1+ Sodium Level 150 MMOL/L (136-145) H Potassium Level 3.9 MMOL/L (3.5-5.1) Chloride Level 119 MMOL/L (98-107) H Carbon Dioxide Level 25 MMOL/L (21-32) Anion Gap 6 mmol/L (5-15) Blood Urea Nitrogen 35 mg/dL (7-18) H Creatinine 0.9 MG/DL (0.55-1.30) Estimat Glomerular Filtration Rate > 60 mL/min (>60) Glucose Level 130 MG/DL (74-106) H Calcium Level 9.6 MG/DL (8.5-10.1) Phosphorus Level 2.9 MG/DL (2.5-4.9) Magnesium Level 2.1 MG/DL (1.8-2.4) Random Amikacin Level 13.0 ug/mL Microbiology Date/Time Source Procedure Growth Status 05/30/19 05:00 Stool Clostridium difficile Toxin Assay - Final Complete Intake and Output 05/30/19 05/31/19 18:59 06:59 Intake Total 1239.4 ml 780 ml Output Total 550 ml 600 ml Balance 689.4 ml 180 ml Intake Free Water 275 ml IV Total 169.4 ml Tube Feeding 775 ml 780 ml Other 20 ml Output Urine Total 550 ml 600 ml # Bowel Movements 1 Objective General: No acute distress, awake, open eyes. HEENT: NCAT, sclera anicteric, PERRL, EOMI, poor dentition.. Neck: Supple, Trach site intact. Lungs: Bilateral air entry, no Wheeze or Rales. Heart: Regular rate and rhythm, normal S1/S2, no murmurs, ICD @ LCW. Abdomen: soft, nontender, nondistended. Normoactive bowel sounds, Obesity, PEG site intact. / Rectal: Gale cath. Extremities: No Cyanosis , clubbing or edema. Neuro: able to move left side but right side weakener. Skin: warm, no rash, Assessment/Plan Assessment/Plan 1. Gastrostomy tube malfunction s/p replacement. 2. Vent Dependent respiratory failure 3. Diabetes type 2. 4. History of cardiac arrhythmia. 5. Status post biventricular AICD. 6. Dysphagia, status post PEG. 7. Morbid obesity. 8. Peripheral vascular disease. 9. Acute on chronic renal insufficiency. 10. History of seizure disorder. 11. Chronic atrial fibrillation. 12. Fatty liver. 13. Hypertension. 14. Nontraumatic intracerebral hemorrhage. 15. Anemia of chronic disease. 16. Hypotensive improving 17. Hypernatremia. Plan: monitor labs and cultures Abx: Amikacin Tolerated Tube feeding @ 65 cc/hr DC Planning to SNF soon. Full code DVT Prophylaxis: Eliquis Free water Via G Tube. CXR: (05/31/2019) IMPRESSION: Persistent left base opacity representing effusion and/or consolidation. This could represent atelectasis and/or pneumonia. Jian Martinez MD May 31, 2019 21:26
[2019-06-01] VITALS: BP 109/56
[2019-06-01 04:00] VITALS: BP 127/72
[2019-06-01] MEDS: NovoLOG Insulin Flexpen SUBQ SCH (05:41)
[2019-06-01 05:48] LABS: HEMATOCRIT 35.6 % (42.0-52.0); HEMOGLOBIN 11.3 G/DL (14.2-18.0); MEAN CORPUSCULAR VOLUME 103 FL (80-99); PLATELET COUNT 274 K/UL (150-450); RED BLOOD COUNT 3.47 M/UL (4.70-6.10); RED CELL DISTRIBUTION WIDTH 17.5 % (11.6-14.8); WHITE BLOOD COUNT 13.3 K/UL (4.8-10.8)
[2019-06-01 05:56] LABS: ANION GAP 5 mmol/L (5-15); BLOOD UREA NITROGEN 32 mg/dL (7-18); CALCIUM 9.9 MG/DL (8.5-10.1); CARBON DIOXIDE 27 MMOL/L (21-32); CHLORIDE 115 MMOL/L (98-107); POTASSIUM 4.1 MMOL/L (3.5-5.1); SODIUM 147 MMOL/L (136-145)
[2019-06-01] MEDS ORDERED: NS IV SCH (06:00)
[2019-06-01] MEDS ORDERED: AMIKACIN IV SCH (06:00)
--- NOTE | 2019-06-01 06:14 | General Progress Note ---
Assessment/Plan Status: stable, unchanged Assessment/Plan: (1) Ventilator dependence ICD Codes: Z99.11 - Dependence on respirator [ventilator] status SNOMED: 309045265 (2) G-tube site cellulitis ICD Codes: 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; L03.319 - Cellulitis of trunk, unspecified SNOMED: 546013050, 820051764 (3) Malfunction of gastrostomy tube ICD Codes: K94.23 - Gastrostomy malfunction SNOMED: 749187066 (4) History of CVA (cerebrovascular accident) ICD Codes: Z86.73 - Personal history of transient ischemic attack (TIA), and cerebral infarction without residual deficits SNOMED: 463820262 (5) Feeding by G-tube ICD Codes: Z93.1 - Gastrostomy status SNOMED: 643421797, 460723239, 178136023 (6) Diabetes mellitus ICD Codes: E11.9 - Type 2 diabetes mellitus without complications SNOMED: 34916718 Status: unchanged Status Narrative Discussed with Dr. Rdz. Assessment/Plan [address] [place] G-tube readjusted and balloon inflated KUB placement confirmed, GTFs to goal follow wound care recs for GT site G-tube feedings per registered dietitian Antibiotics Reglan as needed for GI motility Follow-up H&H ppi Subjective ROS Limited/Unobtainable: No Allergies: Coded Allergies: No Known Allergies (Unverified , 12/06/18) Objective Last 24 Hour Vital Signs Date Time Temp Pulse Resp B/P (MAP) Pulse Ox O2 Delivery O2 Flow Rate FiO2 06/01/19 04:56 82 17 35 06/01/19 04:00 98.2 71 20 127/72 (90) 100 06/01/19 04:00 Mechanical Ventilator 06/01/19 04:00 35 06/01/19 03:33 81 06/01/19 03:02 77 17 35 06/01/19 00:36 69 17 35 06/01/19 00:00 Mechanical Ventilator 06/01/19 00:00 35 06/01/19 00:00 98.5 66 18 109/56 (73) 100 05/31/19 23:43 68 05/31/19 23:02 63 16 35 05/31/19 21:08 72 18 35 05/31/19 20:00 67 05/31/19 20:00 35 05/31/19 20:00 Mechanical Ventilator 05/31/19 20:00 98.3 70 18 92/56 (68) 100 05/31/19 18:46 69 16 35 05/31/19 16:43 58 17 35 05/31/19 16:00 Mechanical Ventilator 05/31/19 16:00 35 05/31/19 16:00 98.0 67 18 98/49 (65) 100 05/31/19 15:46 84 05/31/19 15:22 80 17 35 05/31/19 12:57 57 16 35 05/31/19 12:00 35 05/31/19 12:00 97.0 57 17 102/53 (69) 100 05/31/19 12:00 Mechanical Ventilator 05/31/19 12:00 69 05/31/19 10:44 71 20 35 05/31/19 08:58 74 16 35 05/31/19 08:00 99.2 72 17 111/58 (75) 100 05/31/19 08:00 79 05/31/19 08:00 35 05/31/19 08:00 Mechanical Ventilator 05/31/19 07:01 70 16 35 Intake and Output 05/31/19 06/01/19 19:00 07:00 Intake Total 845 ml 1230 ml Output Total 700 ml 500 ml Balance 145 ml 730 ml Intake Free Water 450 ml Tube Feeding 845 ml 780 ml Output Urine Total 700 ml 500 ml # Bowel Movements 2 Laboratory Tests 06/01/19 03:41: White Blood Count 13.3H, Red Blood Count 3.47L, Hemoglobin 11.3L, Hematocrit 35.6L, Mean Corpuscular Volume 103H, Mean Corpuscular Hemoglobin 32.6H, Mean Corpuscular Hemoglobin Concent 31.7L, Red Cell Distribution Width 17.5H, Platelet Count 274, Mean Platelet Volume 6.2L, Neutrophils (%) (Auto) , Lymphocytes (%) (Auto) , Monocytes (%) (Auto) , Eosinophils (%) (Auto) , Basophils (%) (Auto) , Neutrophils % (Manual) [Pending], Lymphocytes % (Manual) [Pending], Platelet Estimate [Pending], Platelet Morphology [Pending], Sodium Level 147H, Potassium Level 4.1, Chloride Level 115H, Carbon Dioxide Level 27, Anion Gap 5, Blood Urea Nitrogen 32H, Creatinine 1.0, Estimat Glomerular Filtration Rate > 60, Glucose Level 107H, Calcium Level 9.9 Height (Feet): 5 Height (Inches): 8.00 Weight (Pounds): 193 General Appearance: no apparent distress EENT: PERRL/EOMI Neck: supple Cardiovascular: normal rate Respiratory/Chest: decreased breath sounds Abdomen: normal bowel sounds, non tender, soft Extremities: non-tender Jakob Rdz MD Jun 01, 2019 06:14
[2019-06-01 08:00] VITALS: BP 118/71
[2019-06-01] MEDS: levETIRAcetam 500mg/5ml Liquid GT SCH (08:43)
[2019-06-01] MEDS: Eliquis 5mg tablet GT SCH (08:44)
[2019-06-01] MEDS: Amiodarone 200mg tab GT SCH (08:44)
--- NOTE | 2019-06-01 11:02 | Pulmonology Progress Note ---
Assessment/Plan Assessment/Plan ASSESSMENT Probable sepsis Probable PNA G tube malfunctioning, status post replacement Ventilator dependent respiratory failure tracheostomy status Dysphagia, feeding by G-tube Hypotension Paroxysmal atrial fibrillation History of CVA/intracerebral hemorrhages with hemiplegia Seizure disorder Diabetes mellitus AICD Anemia of chronic disease Fatty liver Scabies, s/p Rx PLAN OF CARE SHELLI status vent support, pulmonary toilet trach care titrate settings prn fup with CXR abx as per ID recs DVT prophylaxis strict aspiration precaution G-tube feeding wound care around G-tube site as per surgeon recs monitor hemodynamic status ; BP currently better continue amiodarone Echo with EF 50- 55% e resume anticoagulation with Eliquis as pr cardio BS management with SSI GI prophylaxis antiemetic as needed bowel regimen seizure precautions, continue Keppra monitor HH with goal to keep Hgb above 7 supportive care dc plan to SNF, abx as epr IF recs case discussed and evaluated by supervising physician Subjective Allergies: Coded Allergies: No Known Allergies (Unverified , 12/06/18) Subjective leukocytosis trending down, afebrile Objective Last 24 Hour Vital Signs Date Time Temp Pulse Resp B/P (MAP) Pulse Ox O2 Delivery O2 Flow Rate FiO2 06/01/19 08:50 78 17 35 06/01/19 08:00 98.9 77 18 118/71 (87) 100 06/01/19 08:00 Mechanical Ventilator 06/01/19 08:00 35 06/01/19 07:43 81 06/01/19 06:59 77 16 35 06/01/19 04:56 82 17 35 06/01/19 04:00 98.2 71 20 127/72 (90) 100 06/01/19 04:00 Mechanical Ventilator 06/01/19 04:00 35 06/01/19 03:33 81 06/01/19 03:02 77 17 35 06/01/19 00:36 69 17 35 06/01/19 00:00 Mechanical Ventilator 06/01/19 00:00 35 06/01/19 00:00 98.5 66 18 109/56 (73) 100 05/31/19 23:43 68 05/31/19 23:02 63 16 35 05/31/19 21:08 72 18 35 05/31/19 20:00 67 05/31/19 20:00 35 05/31/19 20:00 Mechanical Ventilator 05/31/19 20:00 98.3 70 18 92/56 (68) 100 05/31/19 18:46 69 16 35 05/31/19 16:43 58 17 35 05/31/19 16:00 Mechanical Ventilator 05/31/19 16:00 35 05/31/19 16:00 98.0 67 18 98/49 (65) 100 05/31/19 15:46 84 05/31/19 15:22 80 17 35 05/31/19 12:57 57 16 35 05/31/19 12:00 35 05/31/19 12:00 97.0 57 17 102/53 (69) 100 05/31/19 12:00 Mechanical Ventilator 05/31/19 12:00 69 Intake and Output 05/31/19 06/01/19 19:00 07:00 Intake Total 845 ml 1230 ml Output Total 700 ml 500 ml Balance 145 ml 730 ml Intake Free Water 450 ml Tube Feeding 845 ml 780 ml Output Urine Total 700 ml 500 ml # Bowel Movements 2 Objective General Appearance: no acute distress, bedridden, chronically ill looking, vent dependent male on Vent AC 600-35% -16 HEENT: normocephalic, atraumatic, status post trach - Portex#8, secretions small, yellow, thick Respiratory/Chest: no respiratory distress, scattered rhonchi Cardiovascular: normal peripheral pulses, normal rate ; pacing Abdomen: normal bowel sounds, soft, non tender, G tube with TF Extremities: Fole Neurologic/Psychiatric: bedridden, awake, not responsive to verbal stimuli, only to tactile stimuli Musculoskeletal: atrophy BLE Microbiology Date/Time Source Procedure Growth Status 05/30/19 05:00 Stool Clostridium difficile Toxin Assay - Final Complete Laboratory Tests 06/01/19 03:41: White Blood Count 13.3H, Red Blood Count 3.47L, Hemoglobin 11.3L, Hematocrit 35.6L, Mean Corpuscular Volume 103H, Mean Corpuscular Hemoglobin 32.6H, Mean Corpuscular Hemoglobin Concent 31.7L, Red Cell Distribution Width 17.5H, Platelet Count 274, Mean Platelet Volume 6.2L, Neutrophils (%) (Auto) , Lymphocytes (%) (Auto) , Monocytes (%) (Auto) , Eosinophils (%) (Auto) , Basophils (%) (Auto) , Differential Total Cells Counted 100, Neutrophils % ( Manual) 63, Lymphocytes % (Manual) 18L, Monocytes % (Manual) 3, Eosinophils % ( Manual) 16H, Basophils % (Manual) 0, Band Neutrophils 0, Platelet Estimate Adequate, Platelet Morphology Normal, Hypochromasia 1+, Anisocytosis 1+, Macrocytosis 1+, Sodium Level 147H, Potassium Level 4.1, Chloride Level 115H, Carbon Dioxide Level 27, Anion Gap 5, Blood Urea Nitrogen 32H, Creatinine 1.0, Estimat Glomerular Filtration Rate > 60, Glucose Level 107H, Calcium Level 9.9 Current Medications Medications (Trade) Dose Ordered Sig/Sophie Route PRN Reason Start Time Stop Time Status Last Admin Dose Admin Acetaminophen (Tylenol) 650 mg Q4H PRN ORAL FEVER (temp>100.5F) 05/25/19 22:00 06/24/19 21:59 Albuterol/ Ipratropium (Albuterol/ Ipratropium) 3 ml Q4H PRN HHN Shortness of Breath 05/30/19 12:00 06/04/19 11:59 Allopurinol (Allopurinol) 300 mg DAILY GT 05/26/19 09:00 06/25/19 08:59 06/01/19 08:44 Amikacin Protocol (Amikacin pharmacy to dose) 1 ea DAILY PRN MISC Per rx protocol 05/30/19 15:00 06/29/19 14:59 Amikacin Sulfate 1100 mg/Sodium Chloride 114.4 ml @ 114.4 mls/ hr Q36H IV 06/01/19 06:00 06/08/19 05:59 06/01/19 05:40 Amiodarone HCl (Cordarone) 100 mg DAILY GT 05/31/19 09:00 06/25/19 08:59 06/01/19 08:44 Apixaban (Eliquis) 5 mg BID GT 05/30/19 09:00 06/29/19 08:59 06/01/19 08:44 Dextrose (Dextrose 50%) 25 ml Q30M PRN IV Hypoglycemia 05/25/19 22:15 06/24/19 22:03 Dextrose (Dextrose 50%) 50 ml Q30M PRN IV hypoglycemia 05/25/19 22:15 06/24/19 22:14 Insulin Aspart (NovoLOG) EVERY 6 HOURS SUBQ 06/01/19 12:00 06/26/19 11:29 Lansoprazole (Prevacid) 30 mg DAILY GT 05/29/19 09:00 06/28/19 08:59 06/01/19 08:44 Levetiracetam (Keppra) 1,000 mg DAILY GT 05/26/19 09:00 06/25/19 08:59 06/01/19 08:43 Coco Morrison NP Jun 01, 2019 11:02
[2019-06-01 12:00] VITALS: BP 103/50
[2019-06-01] MEDS ORDERED: NovoLOG Insulin Flexpen SUBQ SCH (12:00)
--- NOTE | 2019-06-01 14:29 | Cardiology Progress Note ---
Assessment/Plan Problem List: (1) Chronic respiratory failure (2) ICD (implantable cardioverter-defibrillator) in place (3) History of CVA (cerebrovascular accident) (4) Ventilator dependence (5) G-tube site cellulitis (6) Malfunction of gastrostomy tube Status: stable, unchanged Status Narrative Pt w/ chronic respiratory failure, on chronic vent and with g tube, adm w/ g tube malfunction. He has a biventricular chamber ICD, but current LV function normal by echo - unclear indication for device. Has had previous intracranial hemorrhage and appears w/ anoxic encephalopathy. He has hx of PAF, but currently in SR on telemetry Assessment/Plan continue supportive care. ICD interrogation . Continue low dose amiodarone and Eliquis for PAF Management of g tube cellulitis per ID DC plan to SNF per primary team. Subjective ROS Limited/Unobtainable: Yes Subjective Cardiology for Dr. Desai Pt intubated, on trach/vent. Not responsive Objective Last 24 Hour Vital Signs Date Time Temp Pulse Resp B/P (MAP) Pulse Ox O2 Delivery O2 Flow Rate FiO2 06/01/19 12:40 70 16 35 06/01/19 12:00 98.8 72 17 103/50 (67) 100 06/01/19 12:00 35 06/01/19 12:00 Mechanical Ventilator 06/01/19 11:46 75 06/01/19 10:50 72 16 35 06/01/19 08:50 78 17 35 06/01/19 08:00 98.9 77 18 118/71 (87) 100 06/01/19 08:00 Mechanical Ventilator 06/01/19 08:00 35 06/01/19 07:43 81 06/01/19 06:59 77 16 35 06/01/19 04:56 82 17 35 06/01/19 04:00 98.2 71 20 127/72 (90) 100 06/01/19 04:00 Mechanical Ventilator 06/01/19 04:00 35 06/01/19 03:33 81 06/01/19 03:02 77 17 35 06/01/19 00:36 69 17 35 06/01/19 00:00 Mechanical Ventilator 06/01/19 00:00 35 06/01/19 00:00 98.5 66 18 109/56 (73) 100 05/31/19 23:43 68 05/31/19 23:02 63 16 35 05/31/19 21:08 72 18 35 05/31/19 20:00 67 05/31/19 20:00 35 05/31/19 20:00 Mechanical Ventilator 05/31/19 20:00 98.3 70 18 92/56 (68) 100 05/31/19 18:46 69 16 35 05/31/19 16:43 58 17 35 05/31/19 16:00 Mechanical Ventilator 05/31/19 16:00 35 05/31/19 16:00 98.0 67 18 98/49 (65) 100 05/31/19 15:46 84 05/31/19 15:22 80 17 35 General Appearance: on vent EENT: PERRL/EOMI Neck: other - trach Rhythm: NSR Cardiovascular: normal rate, regular rhythm, no gallop/murmur Respiratory/Chest: other - bilat scattered rhonchi Abdomen: normal bowel sounds, non tender, soft, other - g tube Extremities: no swelling Neurologic: other - not responsive. Eyes open - R gaze preference. bilat contractures of hands. 0/5 motor UE, L LE Intake and Output 05/31/19 06/01/19 19:00 07:00 Intake Total 845 ml 1230 ml Output Total 700 ml 500 ml Balance 145 ml 730 ml Intake Free Water 450 ml Tube Feeding 845 ml 780 ml Output Urine Total 700 ml 500 ml # Bowel Movements 2 Laboratory Tests Test 06/01/19 03:41 White Blood Count 13.3 K/UL (4.8-10.8) H Red Blood Count 3.47 M/UL (4.70-6.10) L Hemoglobin 11.3 G/DL (14.2-18.0) L Hematocrit 35.6 % (42.0-52.0) L Mean Corpuscular Volume 103 FL (80-99) H Mean Corpuscular Hemoglobin 32.6 PG (27.0-31.0) H Mean Corpuscular Hemoglobin Concent 31.7 G/DL (32.0-36.0) L Red Cell Distribution Width 17.5 % (11.6-14.8) H Platelet Count 274 K/UL (150-450) Mean Platelet Volume 6.2 FL (6.5-10.1) L Neutrophils (%) (Auto) % (45.0-75.0) Lymphocytes (%) (Auto) % (20.0-45.0) Monocytes (%) (Auto) % (1.0-10.0) Eosinophils (%) (Auto) % (0.0-3.0) Basophils (%) (Auto) % (0.0-2.0) Differential Total Cells Counted 100 Neutrophils % (Manual) 63 % (45-75) Lymphocytes % (Manual) 18 % (20-45) L Monocytes % (Manual) 3 % (1-10) Eosinophils % (Manual) 16 % (0-3) H Basophils % (Manual) 0 % (0-2) Band Neutrophils 0 % (0-8) Platelet Estimate Adequate Platelet Morphology Normal Hypochromasia 1+ Anisocytosis 1+ Macrocytosis 1+ Sodium Level 147 MMOL/L (136-145) H Potassium Level 4.1 MMOL/L (3.5-5.1) Chloride Level 115 MMOL/L (98-107) H Carbon Dioxide Level 27 MMOL/L (21-32) Anion Gap 5 mmol/L (5-15) Blood Urea Nitrogen 32 mg/dL (7-18) H Creatinine 1.0 MG/DL (0.55-1.30) Estimat Glomerular Filtration Rate > 60 mL/min (>60) Glucose Level 107 MG/DL (74-106) H Calcium Level 9.9 MG/DL (8.5-10.1) Microbiology Date/Time Source Procedure Growth Status 05/30/19 05:00 Stool Clostridium difficile Toxin Assay - Final Complete Abida Call MD Jun 01, 2019 14:29
--- NOTE | 2019-06-01 14:56 | Internal Med Progress Note ---
Subjective Physician Name Jian Martinez Attending Physician Jian Martinez MD Current Medications Medications (Trade) Dose Ordered Sig/Sophie Route PRN Reason Start Time Stop Time Status Last Admin Dose Admin Acetaminophen (Tylenol) 650 mg Q4H PRN ORAL FEVER (temp>100.5F) 05/25/19 22:00 06/24/19 21:59 Albuterol/ Ipratropium (Albuterol/ Ipratropium) 3 ml Q4H PRN HHN Shortness of Breath 05/30/19 12:00 06/04/19 11:59 Allopurinol (Allopurinol) 300 mg DAILY GT 05/26/19 09:00 06/25/19 08:59 06/01/19 08:44 Amikacin Protocol (Amikacin pharmacy to dose) 1 ea DAILY PRN MISC Per rx protocol 05/30/19 15:00 06/29/19 14:59 Amikacin Sulfate 1100 mg/Sodium Chloride 114.4 ml @ 114.4 mls/ hr Q36H IV 06/01/19 06:00 06/08/19 05:59 06/01/19 05:40 Amiodarone HCl (Cordarone) 100 mg DAILY GT 05/31/19 09:00 06/25/19 08:59 06/01/19 08:44 Apixaban (Eliquis) 5 mg BID GT 05/30/19 09:00 06/29/19 08:59 06/01/19 08:44 Dextrose (Dextrose 50%) 25 ml Q30M PRN IV Hypoglycemia 05/25/19 22:15 06/24/19 22:03 Dextrose (Dextrose 50%) 50 ml Q30M PRN IV hypoglycemia 05/25/19 22:15 06/24/19 22:14 Insulin Aspart (NovoLOG) EVERY 6 HOURS SUBQ 06/01/19 12:00 06/26/19 11:29 Lansoprazole (Prevacid) 30 mg DAILY GT 05/29/19 09:00 06/28/19 08:59 06/01/19 08:44 Levetiracetam (Keppra) 1,000 mg DAILY GT 05/26/19 09:00 06/25/19 08:59 06/01/19 08:43 Allergies: Coded Allergies: No Known Allergies (Unverified , 12/06/18) Subjective awake, open eyes, not verbal , unable to F/U with commands on vent , NAD, WBC: 13.3. Objective Last Vital Signs Date Time Temp Pulse Resp B/P (MAP) Pulse Ox O2 Delivery O2 Flow Rate FiO2 06/01/19 12:40 70 16 35 06/01/19 12:00 98.8 103/50 (67) 100 06/01/19 12:00 Mechanical Ventilator 05/25/19 22:20 4.0 Laboratory Tests Test 06/01/19 03:41 White Blood Count 13.3 K/UL (4.8-10.8) H Red Blood Count 3.47 M/UL (4.70-6.10) L Hemoglobin 11.3 G/DL (14.2-18.0) L Hematocrit 35.6 % (42.0-52.0) L Mean Corpuscular Volume 103 FL (80-99) H Mean Corpuscular Hemoglobin 32.6 PG (27.0-31.0) H Mean Corpuscular Hemoglobin Concent 31.7 G/DL (32.0-36.0) L Red Cell Distribution Width 17.5 % (11.6-14.8) H Platelet Count 274 K/UL (150-450) Mean Platelet Volume 6.2 FL (6.5-10.1) L Neutrophils (%) (Auto) % (45.0-75.0) Lymphocytes (%) (Auto) % (20.0-45.0) Monocytes (%) (Auto) % (1.0-10.0) Eosinophils (%) (Auto) % (0.0-3.0) Basophils (%) (Auto) % (0.0-2.0) Differential Total Cells Counted 100 Neutrophils % (Manual) 63 % (45-75) Lymphocytes % (Manual) 18 % (20-45) L Monocytes % (Manual) 3 % (1-10) Eosinophils % (Manual) 16 % (0-3) H Basophils % (Manual) 0 % (0-2) Band Neutrophils 0 % (0-8) Platelet Estimate Adequate Platelet Morphology Normal Hypochromasia 1+ Anisocytosis 1+ Macrocytosis 1+ Sodium Level 147 MMOL/L (136-145) H Potassium Level 4.1 MMOL/L (3.5-5.1) Chloride Level 115 MMOL/L (98-107) H Carbon Dioxide Level 27 MMOL/L (21-32) Anion Gap 5 mmol/L (5-15) Blood Urea Nitrogen 32 mg/dL (7-18) H Creatinine 1.0 MG/DL (0.55-1.30) Estimat Glomerular Filtration Rate > 60 mL/min (>60) Glucose Level 107 MG/DL (74-106) H Calcium Level 9.9 MG/DL (8.5-10.1) Microbiology Date/Time Source Procedure Growth Status 05/30/19 05:00 Stool Clostridium difficile Toxin Assay - Final Complete Intake and Output 05/31/19 06/01/19 19:00 07:00 Intake Total 845 ml 1295 ml Output Total 700 ml 500 ml Balance 145 ml 795 ml Intake Free Water 450 ml Tube Feeding 845 ml 845 ml Output Urine Total 700 ml 500 ml # Bowel Movements 2 Objective General: No acute distress, awake, open eyes. HEENT: NCAT, sclera anicteric, PERRL, EOMI, poor dentition.. Neck: Supple, Trach site intact. Lungs: Bilateral air entry, no Wheeze or Rales. Heart: Regular rate and rhythm, normal S1/S2, no murmurs, ICD @ [facility]W. Abdomen: soft, nontender, nondistended. Normoactive bowel sounds, Obesity, PEG site intact. / Rectal: Gale cath. Extremities: No Cyanosis , clubbing or edema. Neuro: able to move left side but right side weakener. Skin: warm, no rash, Assessment/Plan Assessment/Plan 1. Gastrostomy tube malfunction s/p replacement. 2. Vent Dependent respiratory failure 3. Diabetes type 2. 4. History of cardiac arrhythmia. 5. Status post biventricular AICD. 6. Dysphagia, status post PEG. 7. Morbid obesity. 8. Peripheral vascular disease. 9. Acute on chronic renal insufficiency. 10. History of seizure disorder. 11. Chronic atrial fibrillation. 12. Fatty liver. 13. Hypertension. 14. Nontraumatic intracerebral hemorrhage. 15. Anemia of chronic disease. 16. Hypotensive improving 17. Hypernatremia. Plan: monitor labs and cultures Abx: Amikacin IV X 8 more days. Tolerated Tube feeding @ 65 cc/hr DC Planning to SNF soon. Full code DVT Prophylaxis: Eliquis Free water Via G Tube DC to SNF Via ambulance. CXR: (05/31/2019) IMPRESSION: Persistent left base opacity representing effusion and/or consolidation. This could represent atelectasis and/or pneumonia. Jian Martinez MD Jun 01, 2019 14:56
[2019-06-01] MEDS ORDERED: NS 275ml ONE (15:22)
--- NOTE | 2019-06-02 13:34 | Discharge Summary ---
Discharge Summary Discharge Summary _ DATE OF ADMISSION: 05/25/2019 DATE OF DISCHARGE: 06/01/2019 DISCHARGED BY: Dr Martinez REASON FOR ADMISSION: 58 years old male with past medical history of ventilator dependent respiratory failure, tracheostomy, dysphagia, G-tube, COPD, pacemaker, diabetes mellitus, paraplegia, presented from the [facility] facility due to G-tube malfunction. Attempts to change G tube at the facility were unsuccessful. Patient subsequently was referred to emergency department for further management. Patient had partially inserted G-tube in the stoma at the time of arrival to ED. Noted some bleeding from the G-tube stoma. Patient on anticoagulation with Eliquis. Vital signs were stable. Laboratory work-up revealed leukocytosis WBC 16.5, hemoglobin 12.2 , hematocrit 36.2. Platelets 285. Stable electrolytes. BUN 61, creatinine 1.3. Glucose 109. Stable LFT. Albumin 3.1. 24 [place] G-tube was readjusted and balloon was inflated by GI specialist in ED with subsequent KUB confirmation. Patient admitted for evaluation of G-tube bleeding. CONSULTANTS: road equipment operator Dr. Desai pulmonary Dr. Garner ID specialist Dr. [place] GI specialist Dr. Rdz [facility] COURSE: Patient admitted to direct observational unit. Ventilator support , pulmonary toilet , tracheostomy care provided. Settings were titrated as needed. Chest x-ray initially showed mild pulmonary vascular congestion. Patient with leukocytosis, trending up. Repeated chest x-ray demonstrated increasing density of the left lung base : atelectasis versus pneumonia. Venous duplex bilateral lower extremity revealed no evidence of acute DVT. DVT prophylaxis provided. Patient started on empiric antibiotics for probable pneumonia. Sputum culture revealed Pseudomonas MDR and Streptococci group G. Blood cultures were negative. Stool for C. difficile was negative. Wound culture from G-tube site revealed MRSA and Staph coagulase negative, colonizers as per ID specialist. No evidence of cellulitis at the G-tube site. Patient initially was on vancomycin and cefepime and then switched to Amikacin due to multidrug-resistant Pseudomonas pneumonia. Leukocytosis was trending down, patient remained afebrile. Patient also undergone treatment for scabies with ivermectin and permethrin. Aspiration precautions were maintained. G-tube feeding continued. Wound care around G-tube site provided as per surgeon recommendation. Continue wound care at the facility. G-tube feeding formula provided as per travel registered nurse icu recommendation. Reglan started for GI motility. Hemoglobin and hematocrit were closely monitored with goal to keep hemoglobin above 7. Hemoglobin and hematocrit remained at the baseline ; prior to discharge hemoglobin 11.3, hematocrit 25.6. Spring Coverer followed. Echocardiogram revealed ejection fraction of 50 to 55%. Patient with history of paroxysmal atrial fibrillation. Eliquis was resumed. Amiodarone was continued. Initial IV fluids started for fluid resuscitation due to hypotension , discontinued, after hypotension resolved. Blood sugar was managed with sliding scale of insulin. Seizure precaution maintained. Keppra continued. No evidence of seizure activity while in the hospital. Bowel regimen instituted. Supportive care provided. Patient clinically stabilized and was ready for transfer back to subacute [facility] facility for continuation of care. FINAL DIAGNOSES: Probably sepsis Pneumonia with MDR Pseudomonas aeruginosa G-tube malfunction, status post replacement Ventilator dependent respiratory failure with tracheostomy status Dysphagia, feeding by G-tube Hypotension Paroxysmal atrial fibrillation Nontraumatic intracerebral hemorrhage Quadriplegia Seizure disorder Diabetes mellitus Status post biventricular AICD Anemia of chronic disease Fatty liver Scabies , status post treatment DISCHARGE MEDICATIONS: See Medication Reconciliation list. DISCHARGE INSTRUCTIONS: Patient was discharged to the [facility] facility. Follow up with medical doctor at the facility. Coco Morrison NP Jun 02, 2019 13:34
--- NOTE | 2019-06-05 12:04 | Cardiology Report ---
APPROVED REPORT EKG Measurement Heart [id number] Atrial fibrillation Demand ventricular pacing Abnormal ECG
== END 2019-06-01 15:23 | DRG 870 ==
LOC: EDBD 19:03 → EDBEDREQ 19:30 → EMR 19:52 → 2W 19:55 → EDBEDREQ 20:15 → 2W 20:44
PROC: 5A1955Z Respiratory Ventilation, Greater than 96 Consecutive Hours (ICD-10-PCS; principal; 2019-05-25)
PROC: 0D20XUZ Change Feeding Device in Upper Intestinal Tract, External Approach (ICD-10-PCS; principal; 2019-05-25)
DX: A41.9 Sepsis, unspecified organism (principal); G82.50 Quadriplegia, unspecified; J15.1 Pneumonia due to Pseudomonas; K94.23 Gastrostomy malfunction; J96.10 Chronic respiratory failure, unspecified whether with hypoxia or hypercapnia; N17.9 Acute kidney failure, unspecified; Z99.11 Dependence on respirator [ventilator] status; E87.0 Hyperosmolality and hypernatremia; I11.0 Hypertensive heart disease with heart failure; I50.9 Heart failure, unspecified; I69.16 Other paralytic syndrome following nontraumatic intracerebral hemorrhage; R13.10 Dysphagia, unspecified; I95.9 Hypotension, unspecified; G40.909 Epilepsy, unspecified, not intractable, without status epilepticus; E11.9 Type 2 diabetes mellitus without complications; Z95.810 Presence of automatic (implantable) cardiac defibrillator; D64.9 Anemia, unspecified; K76.0 Fatty (change of) liver, not elsewhere classified; B86 Scabies; Z93.0 Tracheostomy status; R19.7 Diarrhea, unspecified; I48.2 Chronic atrial fibrillation; Z74.01 Bed confinement status
CPT/HCPCS: 36415; 71045; 74018; 80048; 80053; 80069; 80150; 81003; 82607; 82728; 82746; 82962; 83540; 83550; 83735; 83880; 84100; 84439; 84443; 84484; 85007; 85025; 85044; 85610; 85730; 86850; 86900; 86901; 87040; 87070; 87081; 87181; 87205; 87324; 93005; 93306; 93970; 94002; 94003; 96365; 99285; J1815